=== PATIENT | male | born 1940 | race African-American/Black ===

== ENCOUNTER 2019-11-15 19:52 | Inpatient (IN) | payer OTHER ==
[2019-11-15] MEDS ORDERED: Ondansetron PF 4 MG/2 ML Vial ONE (20:22)
[2019-11-15 21:06] LABS: ALT (SGPT) Less than 7 U/L (8-55); AST (SGOT) 17 U/L (5-34); Albumin 4.4 g/dL (3.4-4.8); Alkaline Phosphatase 73 U/L (40-110); Anion Gap 20 mmol/L (10-20); BUN (Urea Nitrogen) 27 mg/dL (8.4-25.7); Bilirubin, Total 0.3 mg/dL (0.2-1.2); Calc. Creatinine Clearance 0 mL/min (70-130); Calcium 8.9 mg/dL (7.8-10.44); Carbon Dioxide 20 mmol/L (23-31); Chloride 108 mmol/L (98-107); Estimated GFR-MDRD 29; Globulin 4.3 g/dL (2.4-3.5); Glucose 100 mg/dL (83-110); Potassium 4.6 mmol/L (3.5-5.1); Protein, Total 8.7 g/dL (5.8-8.1); Sodium 143 mmol/L (136-145)
--- NOTE | 2019-11-15 21:40 | PDOC.HHP ---
Hospitalist HPI - History of Present Illness Nausea and vomiting History of Present Illness: PCP: [place] clinic The patient is a 79-year-old male with past medical history significant for myelofibrosis and BPH. He presented to the ER [facility] and [place] with progressive weakness over the last few days and vomiting since 4:00 this morning. The patient tried to eat several things different times over the course the day but has had vomiting secondary to this. The patient went to the [facility] this morning and had a low blood pressure, and because this was sent to the emergency department for evaluation. He does state he has a history of chronic UTIs and has been seen at [facility] for complicated UTIs in the past. Patient states he has been taking Pepto-Bismol for the nausea. He also reports constipation. The pain he states is in the suprapubic region. Patient also states that he has had an increase in the frequency of urinating. He denies any pain with urination and also denies any fevers, chest pain, upper abdominal pain, sick contacts. ED Course: In the [place] ER they completed blood work and a urinalysis. They also completed a chest x-ray and an EKG. They administered IV Zofran and IV Rocephin 1 g. In the [place] ER they completed additional lab work. They also administered 1 L of normal saline and another dose of IV Zofran. Hospitalist ROS - Review of Systems Constitutional: denies: fever, chills, sweats, weakness, malaise, other Eyes: denies: pain, vision change, conjunctivae inflammation, eyelid inflammation, redness, other ENT: denies: ear pain, ear discharge, nose pain, nose discharge, nose congestion , mouth pain, mouth swelling, throat pain, throat swelling, other Respiratory: denies: cough, dry, shortness of breath, hemoptysis, SOB with excertion, pleuritic pain, sputum, wheezing, other Cardiovascular: denies: chest pain, palpitations, orthopnea, paroxysmal noc. dyspnea, edema, light headedness, other Gastrointestinal: reports: nausea, vomiting, abdominal pain Genitourinary: reports: frequency Musculoskeletal: denies: neck pain, shoulder pain, arm pain, back pain, hand pain, leg pain, foot pain, other Skin: denies: rash, lesions, caroline, bruising, other Neurological: denies: weakness, numbness, incoordination, change in speech, confusion, seizures, other All other systems reviewed; all pertinent +/- noted in HPI/Subj - Medication Medications: No known drug allergies Current medications: Amlodipine 10 mg Atorvastatin 10 mg Camphor Carvedilol 12.5 mg twice a day Vitamin D3 2000 units Clopidogrel 75 mg Ferrous gluconate 324 mg Finasteride 5 mg Gabapentin 100 mg Lidocaine patch Melatonin 3 mg Myrbetriq 25 mg Tamsulosin 0.4 mg Hospitalist History - Past Medical History Source: patient Cardiac: reports: HTN, Hyperlipidemia Renal/: reports: Benign prostatic enlarg. Other Medical History: Myelofibrosis - Past Surgical History Other Surgical History: Bone marrow biopsy, surgeries to fix circulation and right leg - Family History Family History: reports: no pertinent history - Social History Smoking Status: Never smoker Alcohol: reports: None Drugs: reports: none - Exam General Appearance: NAD, awake alert General - other findings: VS: BP 115/88, P 85, respiratory 24, T 99.5, 98% room air Eye: PERRL, anicteric sclera ENT: normocephalic atraumatic, dry oral mucosa Neck: supple, no lymphadenopathy Heart: RRR, no murmur, no gallops, no rubs Respiratory: CTAB, no wheezes, no rales, no ronchi Gastrointestinal: normal bowel sounds, distended Extremities: 2+ LE edema Musculoskeletal: generalized weakness Psychiatric: oriented to person, oriented to place Hospitalist Results - Labs Result Diagrams: 11/15/19 20:43 Lab results: Sodium 143 mmol/L (136-145) 11/15/19 20:43 Potassium 4.6 mmol/L (3.5-5.1) 11/15/19 20:43 Chloride 108 mmol/L (98-107) H 11/15/19 20:43 Carbon Dioxide 20 mmol/L (23-31) L 11/15/19 20:43 BUN 27 mg/dL (8.4-25.7) H 11/15/19 20:43 Creatinine 2.57 mg/dL (0.7-1.3) H 11/15/19 20:43 Glucose 100 mg/dL (83-110) 11/15/19 20:43 Lactic Acid 1.6 mmol/L (0.5-2.2) 11/15/19 20:43 Calcium 8.9 mg/dL (7.8-10.44) 11/15/19 20:43 Total Bilirubin 0.3 mg/dL (0.2-1.2) 11/15/19 20:43 AST 17 U/L (5-34) 11/15/19 20:43 ALT Less than 7 U/L (8-55) L 11/15/19 20:43 Alkaline Phosphatase 73 U/L (40-110) 11/15/19 20:43 Troponin I 0.026 ng/mL (< 0.028) 11/15/19 20:43 Serum Total Protein 8.7 g/dL (5.8-8.1) H 11/15/19 20:43 Albumin 4.4 g/dL (3.4-4.8) 11/15/19 20:43 Laboratory Tests 11/15/19 11/15/19 16:30 16:40 WBC 11.7 H Hgb 8.8 L Hct 29.3 L Plt Count 148 Neutrophils % (Manual) 40 L Band Neuts % (Manual) 15 H Urine Color Yellow Urine Protein > or equal to 300 A Urine Ketones Trace A Urine Blood Trace A Ur Leukocyte Esterase Moderate H Urine RBC 11-20 A Urine WBC 21-50 A Ur Squamous Epith Cells 0-3 Urine Bacteria 4+ A - EKG Interpretation EKG: Sinus rhythm left ventricular hypertrophy - Radiology Interpretation Chest x-ray Status: report reviewed by me Additional Comment: Impression: No acute cardiopulmonary process Hospitalist H&P A/P - Problem (1) UTI (urinary tract infection) Status: Acute (2) Nausea & vomiting Code(s): R11.2 - NAUSEA WITH VOMITING, UNSPECIFIED Status: Acute (3) Uboyg-eh-atpvtea kidney injury Code(s): N17.9 - ACUTE KIDNEY FAILURE, UNSPECIFIED; N18.9 - CHRONIC KIDNEY DISEASE, UNSPECIFIED Status: Acute (4) HTN (hypertension) Code(s): I10 - ESSENTIAL (PRIMARY) HYPERTENSION Status: Chronic (5) Hyperlipidemia Code(s): E78.5 - HYPERLIPIDEMIA, UNSPECIFIED Status: Chronic (6) BPH (benign prostatic hyperplasia) Code(s): N40.0 - BENIGN PROSTATIC HYPERPLASIA WITHOUT LOWER URINRY TRACT SYMP Status: Chronic - Plan Plan: Urinary tract infection Continue IV antibiotics Urine sent for culture Continue to monitor lab levels in a.m. Nausea and vomiting Treat with as needed antiemetics Monitor lab levels in the morning for electrolyte disturbance Acute on chronic kidney injury Dehydrated secondary to vomiting Continue to control nausea and vomiting Monitor lab levels in a.m. Received fluids in the ER, will reassess in a.m. to see if patient needs more fluids after lab work Hypertension Restart home medications Hyperlipidemia Restart home medications Patient surrogate decision-maker is his nephew Bart Rubin Patient wishes to be a DNR Patient was discussed with Dr. Queen
[2019-11-15] MEDS ORDERED: Acetaminophen 500 MG TAB ONE (22:13)
[2019-11-16] MEDS ORDERED: Acetaminophen 325 MG TAB PO PRN (00:17)
[2019-11-16] MEDS ORDERED: cefTRIAXone\\ROCEPHIN 1 GM in Sodium Chloride 0.9% 100 ML IVPB SCH ×3 (00:30→17:00)
[2019-11-16 08:13] LABS: Band 29 % (5-11); Hemoglobin 8.6 g/dL (14.0-18.0); Lymphocytes 17 % (21-51); MDiff Complete? YES; Mean Corpuscular HGB CONC 31.4 g/dL (32.0-36.0); Mean Corpuscular Hemoglobin 28.4 pg (27.0-31.0); Mean Corpuscular Volume 90.4 fL (78.0-98.0); Mean Platelet Volume 10.3 fL (7.4-10.4); Metamyelocyte 3 % (0-0); Monocytes 2 % (0-10); Myelocyte 3 % (0-0); Neutrophil 45 % (42-75); Nucleated RBC 1 % (0); Platelet Count 135 thou/uL (130-400); Promyelocytes 1 % (0-0); RBC Distribution Width 20.1 % (11.5-14.5); Red Blood Cell (RBC) Count 3.04 mill/uL (4.70-6.10); White Blood Cell (WBC) Count 16.7 thou/uL (4.8-10.8)
[2019-11-16] MEDS: Ondansetron PF 4 MG/2 ML Vial IVP PRN ×2 (09:16→16:08)
[2019-11-16 14:20] LABS: SARS-CoV-2 MS2 Positive; SARS-CoV-2 N Gene Negative; SARS-CoV-2 S Gene Negative; SARS-CoV-2 by NAA Not Detected (NotDetected); SARS-CoV-2 orf1ab Negative
[2019-11-16 15:51] LABS: Anion Gap 17 mmol/L (10-20); BUN (Urea Nitrogen) 27 mg/dL (8.4-25.7); Calc. Creatinine Clearance 21 mL/min (70-130); Calcium 8.2 mg/dL (7.8-10.44); Carbon Dioxide 19 mmol/L (23-31); Chloride 112 mmol/L (98-107); Estimated GFR-MDRD 34; Glucose 111 mg/dL (83-110); Potassium 4.1 mmol/L (3.5-5.1); Sodium 144 mmol/L (136-145)
--- NOTE | 2019-11-16 20:10 | PDOC.HOSPP ---
- Subjective Encounter Date: 11/16/19 Encounter Time: 14:00 Subjective: The patient reports that he has been having recurrent nausea and vomiting. He vomits up clear liquid and doesn't understand why it doesn't stay down. Denies sensation of anything getting stuck in his throat. He denies abdominal pain or diarrhea He does not recall his last BM, states he is passing gas He has no history of diabetes - Objective Vital Signs & Weight: Vital Signs (12 hours) Temp Pulse Resp BP Pulse Ox 11/16/19 16:06 97.9 F 78 16 140/71 96 11/16/19 11:30 98.7 F 70 16 145/69 H 98 Weight Admit Weight 126 lb Weight 126 lb Result Diagrams: 11/16/19 06:14 11/16/19 15:27 Hospitalist ROS - Review of Systems Constitutional: denies: fever, chills - Medication Medications: Active Medications Generic Name Dose Route Start Last Admin Trade Name Freq PRN Reason Stop Dose Admin Ceftriaxone Sodium 1 gm/ 100 mls @ 200 mls/hr 11/16/19 17:00 11/16/19 16:08 Sodium Chloride IVPB 100 mls 1700 NADIRA Administration Ondansetron HCl 4 mg 11/16/19 00:17 11/16/19 16:08 Zofran IVP 4 mg Q6H PRN Administration Nausea/Vomiting - Exam General Appearance: NAD, awake alert Eye: PERRL, anicteric sclera ENT: normocephalic atraumatic, no oropharyngeal lesions Neck: no JVD Heart: RRR, no murmur, no gallops, no rubs Respiratory: CTAB, no wheezes, no rales, no ronchi Gastrointestinal: soft, normal bowel sounds Gastrointestinal - other findings: RLQ tenderness > LLQ tenderness. Extremities: no cyanosis, no clubbing, no edema Skin: normal turgor, no lesions, no rashes Neurological: cranial nerve grossly intact, normal sensation to touch, no focal deficits, no new deficit Hosp A/P - Plan This is an 79 year old male who presents with recurrent nausea and vomiting Nausea/vomiting - possibly from dehydration vs kidney failure vs GERD - start IV fluids for REGINA - check UA - trial of protonix to rule out GERD - continue zofran. Trial phenergan standing at low dose 12.5 and if no improvement try 25 mg dose - abdominal X ray has been ordered Regina - creatine has improved from 2.5 to 2.2 - will start IV fluids - check UA Leukocytosis - WBC increasing from 11 to 16. Blood cultures negative. Check UA - obtain chest X ray - abd X ray pending - no fevers, COVID swab negative
[2019-11-16] MEDS ORDERED: Promethazine HCl 25 MG/ML VIAL IM/IV PRN (20:11)
--- NOTE | 2019-11-16 20:23 | RAD ---
KUB: DATE: 11-16-2019 History: Recurrent vomiting FINDINGS: Supine imaging is provided, limiting assessment for free intraperitoneal air and small bowel obstruct ion. There is marked gaseous distention of the stomach and there are numerous gas filled dilated loop s of small bowel. Findings are suspicious for small bowel obstruction. IMPRESSION: Gaseous distention of the stomach and multiple loops of small bowel suspicious for small bowel obstru ction. POS: OFF
[2019-11-16] MEDS: Sodium Chloride 0.9% 1,000 ML IV SCH (20:51)
[2019-11-16] MEDS: Pantoprazole 40 MG VIAL IVP SCH (20:53)
[2019-11-16] MEDS: Promethazine HCl 12.5 MG in Sodium Chloride 0.9% 50 ML IVPB PRN (21:10)
--- NOTE | 2019-11-16 21:20 | RAD ---
FRONTAL RADIOGRAPH CHEST PORTABLE SEMI UPRIGHT: Date: 11-16-2019 Comparison: 11-15-2019 History: Leukocytosis FINDINGS: There is mild increased linear density in the left lung base along the course of the left hemidiaphra gm, new when compared to prior imaging. No pneumothorax. No lobar consolidation or alveolar edema. Th ere I elevation of bilateral humeral heads suggesting rotator cuff pathology. IMPRESSION: New mild increased linear density in the left base. This may signify infectious pneumonitis, aspirati on or volume loss. Follow up imaging advised. POS: OFF
[2019-11-16 21:37] LABS: Bacteria/HPF 4+ HPF (None Seen); Bilirubin Negative (Negative); Blood, Urine 1+ (Negative); Clarity Turbid (Clear); Glucose, Urine (Dipstick) Normal (Negative); Ketone, Urine Negative (Negative); Leukocyte 250 Leu/uL (Negative); Nitrite Negative (Negative); Protein, Urine (Dipstick) 300 mg/dL (Neg-Trace); Specific Gravity, Urine 1.019 (1.002-1.036); Squamous Epithelial 0-3 HPF (0-3); Urobilinogen Normal mg/dL (Less than 2); WBC/HPF Greater than 50 HPF (0-3); pH, Urine 5.5 (5.0-9.0)
[2019-11-16 21:46] LABS: Renal Epithelial None Seen HPF (None Seen); Transitional Epithelial 0-3 HPF (None Seen)
[2019-11-16 21:47] LABS: Urine Culture Reflex Yes Yes
[2019-11-17] MEDS: Sodium Chloride 0.9% 1,000 ML IV SCH ×4 (05:59→21:13)
[2019-11-17] MEDS: Promethazine HCl 12.5 MG in Sodium Chloride 0.9% 50 ML IVPB PRN ×2 (05:59→21:13)
[2019-11-17] MEDS: Pantoprazole 40 MG VIAL IVP SCH ×2 (09:17→21:13)
[2019-11-17 11:07] LABS: Anion Gap 16 mmol/L (10-20); BUN (Urea Nitrogen) 31 mg/dL (8.4-25.7); Calc. Creatinine Clearance 23 mL/min (70-130); Calcium 8.3 mg/dL (7.8-10.44); Carbon Dioxide 20 mmol/L (23-31); Chloride 110 mmol/L (98-107); Estimated GFR-MDRD 38; Glucose 103 mg/dL (83-110); Potassium 3.7 mmol/L (3.5-5.1); Sodium 142 mmol/L (136-145)
[2019-11-17 11:13] LABS: Anisocytosis SLIGHT = 6-15 cells (100X) (0-5/hpf); Band 22 % (5-11); Hemoglobin 8.8 g/dL (14.0-18.0); Lymphocytes 8 % (21-51); MDiff Complete? YES; Mean Corpuscular HGB CONC 32.1 g/dL (32.0-36.0); Mean Corpuscular Hemoglobin 28.7 pg (27.0-31.0); Mean Corpuscular Volume 89.6 fL (78.0-98.0); Mean Platelet Volume 10.1 fL (7.4-10.4); Metamyelocyte 5 % (0-0); Monocytes 9 % (0-10); Myelocyte 4 % (0-0); Neutrophil 52 % (42-75); Nucleated RBC 1 % (0); Platelet Count 136 thou/uL (130-400); Poikilocytosis SLIGHT = 6-15 cells (100X) (0-5/hpf); Polychromasia SLIGHT = 2-3 cells (100X) (0-2/hpf); RBC Distribution Width 19.6 % (11.5-14.5); Red Blood Cell (RBC) Count 3.05 mill/uL (4.70-6.10); Tear Drops SLIGHT = 2-5 cells (100X) (0-1/hpf); White Blood Cell (WBC) Count 17.5 thou/uL (4.8-10.8)
[2019-11-17] MEDS ORDERED: Bisacodyl 5 MG TAB PO PRN (11:34)
--- NOTE | 2019-11-17 11:37 | PDOC.HOSPP ---
- Subjective Encounter Date: 11/17/19 Encounter Time: 10:45 Subjective: Patient states that he still feels extremely nauseous. He did have some oatmeal this morning and ever since then he has felt like vomiting, but has not vomited. His last bowel movement was on . He has not passed any gas. He states his abdomen has been swollen since and feels like a "drum". He states he is urinating adequately and has only mild pain when he urinates Patient does have a reported history of myelofibrosis. Patient states that he had a bone marrow biopsy done in June with oncologist in [place] and was told that his iron levels were low and he needs to take iron supplements. He states he has been taking 500 mg of iron daily since then. He was not told that he had any precancerous pathology. - Objective Vital Signs & Weight: Vital Signs (12 hours) Temp Pulse Resp BP BP Pulse Ox 11/17/19 11:19 98.9 F 89 16 135/85 96 11/17/19 07:20 99.7 F H 89 16 132/74 97 11/17/19 04:00 98.2 F 93 18 127/70 98 Weight Admit Weight 126 lb Weight 126 lb I&O: 11/16/19 11/17/19 11/18/19 06:59 06:59 06:59 Intake Total 1580 Output Total 450 Balance 1130 Result Diagrams: 11/17/19 10:33 11/17/19 10:32 Hospitalist ROS - Review of Systems Constitutional: denies: fever, chills - Medication Medications: Active Medications Generic Name Dose Route Start Last Admin Trade Name Freq PRN Reason Stop Dose Admin Ceftriaxone Sodium 1 gm/ 100 mls @ 200 mls/hr 11/16/19 17:00 11/16/19 16:08 Sodium Chloride IVPB 100 mls 1700 NADIRA Administration Sodium Chloride 1,000 mls @ 100 mls/hr 11/16/19 20:15 11/17/19 05:59 Normal Saline 0.9% IV 1,000 mls .Q10H NADIRA Administration Promethazine HCl 12.5 mg/ 50.5 mls @ 202 mls/hr 11/16/19 20:11 11/17/19 05:59 Sodium Chloride IVPB 50.5 mls Q6H PRN Administration Nausea/Vomiting Ondansetron HCl 4 mg 11/16/19 00:17 11/16/19 16:08 Zofran IVP 4 mg Q6H PRN Administration Nausea/Vomiting Pantoprazole Sodium 40 mg 11/16/19 21:00 11/17/19 09:17 Protonix IVP 40 mg Q12HR NADIRA Administration - Exam General Appearance: NAD, awake alert Eye: PERRL, anicteric sclera ENT: normocephalic atraumatic, no oropharyngeal lesions Neck: no JVD Heart: RRR, no murmur, no gallops, no rubs Respiratory: CTAB, no wheezes, no rales, no ronchi Gastrointestinal - other findings: RUQ tenderness most pronounced. Abd mildly firm, distended, dec BS Extremities: no cyanosis, no clubbing, no edema Skin: normal turgor, no lesions, no rashes Hosp A/P - Plan This is an 79 year old male who presents with recurrent nausea and vomiting Small bowel obstruction - abdominal X ray yesterday shows small bowel obstruction. Repeat today - will consult general surgery - keep NPO for now - suppository prn UTI - started on IV ceftriaxone on admission. UA is positive, urine culture is pending - given increase in WBC, will switch to zosyn Regina - creatine has improved from 2.5 to 2.2 - continue IV fluids Leukocytosis - WBC increasing to 17. Chest Xray shows possible new infiltrate - switch IV ceftriaxone to zosyn. COVID negative
[2019-11-17] MEDS: Piperacillin/Tazobactam 3.375 GM in Sodium Chloride 0.9% 100 ML IVPB SCH ×2 (12:07→18:02)
--- NOTE | 2019-11-17 12:57 | CON ---
DATE OF CONSULTATION: 11/17/2019 CHIEF COMPLAINT: Abdominal distention, nausea and vomiting. HISTORY OF PRESENT ILLNESS: This is an 79-year-old male with a history of myelodysplastic syndrome who presents with a history of abdominal distention. He was admitted with not feeling well and UTI. Abdominal distention has worsened over the last few days. He has nausea today. He has vomited. He states that his abdomen feels full and this is associated with pain. Of note, the patient had previous laparotomy, multiple abdominal procedures for vascular disease, which all started with an iatrogenic injury during a cardiac cath. He denies known history of small bowel resection, small bowel obstruction requiring operation. PAST MEDICAL HISTORY: Includes BPH, myelofibrosis, hypertension, hyperlipidemia. SURGICAL HISTORY: Multiple vascular surgeries, a bone marrow biopsy. MEDICINES AT HOME: 1. Amlodipine. 2. Statin. 3. . 4. Carvedilol. 5. Vitamin. 6. Plavix. 7. Finasteride. 8. Gabapentin. 9. Lidocaine patch. 10. Melatonin. 11. Myrbetriq. 12. Flomax. ALLERGIES: NO KNOWN DRUG ALLERGIES. SOCIAL HISTORY: No smoking. No alcohol. No other drugs. REVIEW OF SYSTEMS: Ten-system review of systems is otherwise negative unless described above. PHYSICAL EXAMINATION: VITAL SIGNS: Blood pressure 135/85, pulse 89, respirations 12. He is afebrile. HEENT: Sclerae anicteric. Oropharynx clear. NECK: Without adenopathy. CHEST: Clear. HEART: Regular rate. ABDOMEN: Soft, very distended, diffuse mildly tender without guarding or rebound. There is no bowel sounds. Midline incision well healed without evidence of hernia. LABORATORY DATA: White blood cell count is 17, hemoglobin is 8.8. He has 22 bands. Sodium 142, potassium 3.7, creatinine 2.06. COVID negative. Urine, greater than 50 WBCs, leukocyte positive, 4+ bacteria. Plain film yesterday was read as small bowel obstruction, although there is air in the colon which makes that unlikely. ASSESSMENT: Urinary tract infection, admitted with abdominal distention. This likely represents ileus. It could also represent small bowel obstruction. Place NG tube to low intermittent wall suction. If not improved tomorrow, I will get CT scan of the abdomen. Job ID: [id number]
--- NOTE | 2019-11-17 15:36 | RAD ---
ABDOMEN ONE VIEW: History: Small bowel obstruction follow up. Comparison: 11-16-2019 FINDINGS: NG tube has been placed. There are persistently abnormally dilated loops of small bowel in the abdome n showing very little change from prior study. IMPRESSION: Persistent abnormally dilated small bowel loops that certainly could represent a significant grade sm all bowel obstruction. POS: OFF
[2019-11-18] MEDS: Piperacillin/Tazobactam 3.375 GM in Sodium Chloride 0.9% 100 ML IVPB SCH ×4 (00:51→18:42)
[2019-11-18 06:18] LABS: Anion Gap 19 mmol/L (10-20); BUN (Urea Nitrogen) 36 mg/dL (8.4-25.7); Calc. Creatinine Clearance 24 mL/min (70-130); Calcium 8.3 mg/dL (7.8-10.44); Carbon Dioxide 18 mmol/L (23-31); Chloride 113 mmol/L (98-107); Estimated GFR-MDRD 40; Glucose 96 mg/dL (83-110); Potassium 3.7 mmol/L (3.5-5.1); Sodium 146 mmol/L (136-145)
[2019-11-18 06:31] LABS: Hemoglobin 8.5 g/dL (14.0-18.0); Mean Corpuscular Hemoglobin 27.6 pg (27.0-31.0); Mean Corpuscular Volume 89.1 fL (78.0-98.0); Mean Platelet Volume 10.6 fL (7.4-10.4); Platelet Count 136 thou/uL (130-400); RBC Distribution Width 19.5 % (11.5-14.5); White Blood Cell (WBC) Count 17.7 thou/uL (4.8-10.8)
[2019-11-18 06:53] LABS: Band 13 % (5-11); Eosinophils 1 % (0-10); Lymphocytes 11 % (21-51); MDiff Complete? YES; Monocytes 18 % (0-10); Neutrophil 57 % (42-75); Nucleated RBC 2 % (0)
[2019-11-18] MEDS: Pantoprazole 40 MG VIAL IVP SCH ×2 (08:21→20:21)
[2019-11-18] MEDS: Ondansetron ODT 4 MG TAB PO PRN (08:56)
--- NOTE | 2019-11-18 09:57 | CT ---
CT Abdomen Pelvis WO Con History: Small bowel obstruction versus ileus Comparison: None. Findings: Patchy opacities both lung bases. No basilar pneumothorax. No pericardial effusion. Enteric tube tip within the gastric body. Incomplete evaluation of avascular catheter along the right hemithorax and hemiabdomen with a gap jus t above the right iliac wing approximately 5 cm suggesting fracture vascular catheter. Biiliac graft is incompletely evaluated without intravenous contrast. Market small bowel dilatation to the level of the right upper quadrant of the abdomen. In the left lo wer quadrant small bowel loops are as high density layering material suggesting hemorrhage. Small volume free fluid in the pelvis. Mild free fluid within the mesenteric leaves. Markedly dilatat ion of the second third portion duodenum. Mildly prominent retroperitoneal periaortic lymph nodes. Degenerative sclerosis and bridging anterior osteophytes of the lumbar spine. Bone island of the righ t ilium. Impression: 1. High-grade small bowel obstruction to the distal ileum with transition point within the right uppe r quadrant of the abdomen. 2. Right renal atrophy with compensatory enlargement of the left kidney. No evidence for obstruction. 3. Hemorrhage within the left lower quadrant dilated small bowel as well as mesenteric fluid and smal l bore. Fluid in the pelvis. Surgical consultation advised. 4. Moderate bilateral retroperitoneal periaortic adenopathy as well as mild splenomegaly. Nonemergent workup for lymphoproliferative disorder recommended. 5. Bibasilar pneumonia.
--- NOTE | 2019-11-18 11:43 | PRG ---
DATE OF SERVICE: 11/18/2019 SUBJECTIVE: Mr. Schmitt feels better with the NG tube placement. CT scan this morning reveals likely small bowel obstruction. OBJECTIVE: VITAL SIGNS: His pulse is 101, respirations 18, blood pressure 146/72, and he is afebrile. NG tube output is 1030 so far. ABDOMEN: Softer, mildly diffusely tender without guarding or rebound. No obvious hernias. LABORATORY DATA: White blood cell count is 17, hemoglobin 8.5. Sodium 146, potassium 3.7, creatinine is 1.98. DIAGNOSTIC DATA: CT scan shows high-grade small bowel obstruction. ASSESSMENT: 1. Small bowel obstruction. 2. Urinary tract infection. PLAN: Continue NG to low intermittent wall suction for now. If not improved tomorrow, Gastrografin small bowel follow-through. We will continue to follow with you. Job ID: [id number]
[2019-11-18] MEDS: Sodium Chloride 0.9% 1,000 ML IV SCH (11:53)
--- NOTE | 2019-11-18 16:50 | PDOC.HOSPP ---
- Subjective Encounter Date: 11/18/19 Encounter Time: 08:00 Subjective: The patient is doing a little better. Significant output was noted from his NG tube. THe patient states his stomach is not as distended, and is more like a biscuit today rather than a drum. He is passing a lot of gas. He is requesting otf-elodia and states that it helped his bowels move a lot - Objective Vital Signs & Weight: Vital Signs (12 hours) Temp Pulse Resp BP BP Pulse Ox 11/18/19 16:05 97.8 F 101 H 16 159/75 H 96 11/18/19 11:37 99.5 F 97 16 160/73 H 96 11/18/19 07:32 98.1 F 101 H 18 146/72 H 95 Weight Admit Weight 126 lb Weight 126 lb I&O: 11/17/19 11/18/19 11/19/19 06:59 06:59 06:59 Intake Total 1580 2587 Output Total 450 1955 Balance 1130 632 Result Diagrams: 11/18/19 05:34 11/18/19 05:34 Hospitalist ROS - Review of Systems Constitutional: denies: fever, chills - Medication Medications: Active Medications Generic Name Dose Route Start Last Admin Trade Name Freq PRN Reason Stop Dose Admin Bisacodyl 5 mg 11/17/19 11:34 11/17/19 12:09 Dulcolax PO 5 mg DAILYPRN PRN Administration Constipation Sodium Chloride 1,000 mls @ 100 mls/hr 11/16/19 20:15 11/18/19 11:53 Normal Saline 0.9% IV 1,000 mls .Q10H NADIRA Administration Promethazine HCl 12.5 mg/ 50.5 mls @ 202 mls/hr 11/16/19 20:11 11/17/19 21:13 Sodium Chloride IVPB 50.5 mls Q6H PRN Administration Nausea/Vomiting Piperacillin Sod/Tazobactam 100 mls @ 200 mls/hr 11/17/19 12:00 11/18/19 11: 52 Sod 3.375 gm/ Sodium Chloride IVPB 100 mls Q6HR NADIRA Administration Ondansetron HCl 4 mg 11/16/19 00:17 11/18/19 08:56 Zofran Odt PO 4 mg Q6H PRN Administration Nausea/Vomiting Ondansetron HCl 4 mg 11/16/19 00:17 11/16/19 16:08 Zofran IVP 4 mg Q6H PRN Administration Nausea/Vomiting Pantoprazole Sodium 40 mg 11/16/19 21:00 11/18/19 08:21 Protonix IVP 40 mg Q12HR NADIRA Administration - Exam General Appearance: NAD, awake alert Eye: PERRL, anicteric sclera ENT: normocephalic atraumatic, no oropharyngeal lesions ENT - other findings: NG tube with significant bilious output Neck: no JVD Heart: RRR, no murmur, no gallops, no rubs Respiratory: CTAB, no wheezes, no rales, no ronchi Gastrointestinal: soft Gastrointestinal - other findings: improvement in distension, softer, mild tenderness. Dec bowel sounds Extremities: no edema Hosp A/P - Plan CT abdomen: high grade SBO to distal ileum This is an 79 year old male who presents with recurrent nausea and vomiting Small bowel obstruction - CT abdomen showed high grade SBO to distal ileum. NG tube in place, continue suction. Will advance to clears for now - if no improvement, consider SBFT for tomorrow per surgery UTI - started on IV ceftriaxone on admission. UA is positive, urine culture showing alpha hemolytic strep, sensitivities pending - continue IV zosyn Regina - creatine has improved to 1.98 - continue IV fluids Leukocytosis - WBC increasing to 17.7, likely reactive. Continue IV zosyn pending sensitivities. Chest Xray shows possible new infiltrate - . COVID negative - continue to monitor
[2019-11-19] MEDS: Piperacillin/Tazobactam 3.375 GM in Sodium Chloride 0.9% 100 ML IVPB SCH ×4 (00:16→17:35)
[2019-11-19] MEDS: Sodium Chloride 0.9% 1,000 ML IV SCH ×2 (00:18→02:11)
[2019-11-19 05:41] LABS: Hemoglobin 8.4 g/dL (14.0-18.0); Mean Corpuscular HGB CONC 30.4 g/dL (32.0-36.0); Mean Corpuscular Hemoglobin 28.1 pg (27.0-31.0); Mean Corpuscular Volume 92.4 fL (78.0-98.0); Mean Platelet Volume 10.8 fL (7.4-10.4); Platelet Count 128 thou/uL (130-400); RBC Distribution Width 19.7 % (11.5-14.5); Red Blood Cell (RBC) Count 2.98 mill/uL (4.70-6.10); White Blood Cell (WBC) Count 16.1 thou/uL (4.8-10.8)
[2019-11-19] MEDS: Ondansetron ODT 4 MG TAB PO PRN (06:48)
[2019-11-19 06:49] LABS: Anion Gap 18 mmol/L (10-20); BUN (Urea Nitrogen) 35 mg/dL (8.4-25.7); Calc. Creatinine Clearance 23 mL/min (70-130); Calcium 8.1 mg/dL (7.8-10.44); Carbon Dioxide 16 mmol/L (23-31); Chloride 116 mmol/L (98-107); Estimated GFR-MDRD 37; Glucose 86 mg/dL (83-110); Potassium 3.5 mmol/L (3.5-5.1); Sodium 146 mmol/L (136-145)
--- NOTE | 2019-11-19 07:14 | PDOC.GSPN ---
Surgery Progress Note: Subj - Subjective Patient reports: feels better, positive flatus, nausea, vomiting Narrative: Mr. Schmitt says he is feeling better today. However, he has still been vomiting frequently even after placement of the NG tube. He reports no abdominal pain, only a sensation of bloating on the R side of his abdomen. NG tube producing significant output. He is still passing gas but has not had a BM since . He states that his urine output is dark yellow. Surgery Progress Note: Obj - Vital signs Vital signs: Vital Signs - Most Recent Temp Pulse Resp BP Pulse Ox 98.0 F 108 H 18 153/76 H 93 L 11/18/19 19:55 11/18/19 19:55 11/18/19 19:55 11/18/19 19:55 11/18/19 19:55 - Physical Exam General: no distress Cardiovascular: regular rate and rhythm, no murmur Respiratory: clear to auscultation, normal expansion, normal respiratory effort Abdomen: decreased bowel sounds, distended, tender (tender to mild palpation in RLQ and deep palpation in LUQ/LLQ) Surgery Progress Note: Results - Labs Result Diagrams: 11/19/19 05:08 11/19/19 05:08 Lab results: Laboratory Results - last 24 hr 11/19/19 11/19/19 05:08 05:08 WBC 16.1 H RBC 2.98 L Hgb 8.4 L Hct 27.5 L MCV 92.4 MCH 28.1 MCHC 30.4 L RDW 19.7 H Plt Count 128 L MPV 10.8 H Sodium 146 H Potassium 3.5 Chloride 116 H Carbon Dioxide 16 L Anion Gap 18 BUN 35 H Creatinine 2.08 H Estimated GFR (MDRD) 37 Glucose 86 Calcium 8.1 Surgery Progress Note: A/P - Plan Plan: Stop clear liquid diet immediately. Small bowel follow-through with gastrograffin recommended. NG tube in place, continue to suction.
[2019-11-19] MEDS: Pantoprazole 40 MG VIAL IVP SCH ×2 (08:01→20:30)
--- NOTE | 2019-11-19 12:30 | PRG ---
DATE OF SERVICE: 11/19/2019 SUBJECTIVE: Mr. Schmitt is not complaining of any pain today. He did vomit around his NG tube earlier. Today, as I walked in the room, he had a clear liquid tray on the table in front of him. OBJECTIVE: VITAL SIGNS: He is afebrile and his vital signs are stable. NG output overnight was a 1000. Urine output is adequate. ABDOMEN: His abdomen is soft, but it is persistently distended. It is softer than it was yesterday. He has occasional bowel sounds. He has minimal right-sided abdominal pain without guarding or rebound. LABORATORY DATA: His white blood cell count is 16, hemoglobin 8.4. Sodium is 146. Creatinine is 2.08. ASSESSMENT: Likely partial high-grade small-bowel obstruction. He is drinking way too much. PLAN: Strict n.p.o. We will allow small-bowel follow-through tomorrow if not markedly improved; specifically if not to drink any more otf elodia apparently. Job ID: [id number]
--- NOTE | 2019-11-19 13:28 | RAD ---
XR Abdomen 1 View/KUB History: Small bowel obstruction follow-up Comparison: Radiograph 2 days prior Findings: Enteric tube tip at the gastric antrum. There continue to be dilated loops of bowel in the abdomen. Left basilar opacity. Impression: Continued bowel obstruction. No interval reduction in small bowel size.
--- NOTE | 2019-11-19 18:22 | PDOC.HOSPP ---
- Subjective Encounter Date: 11/19/19 Encounter Time: 16:00 Subjective: The patient was reported to have vomit around his NG tube this morning. His diet was switched back to NPO. Patient reported some nausea. He denies abdominal pain. He has not had a bowel movement yet. He denies passing gas - Objective Vital Signs & Weight: Vital Signs (12 hours) Temp Pulse Resp BP Pulse Ox 11/19/19 07:47 97.9 F 97 18 162/82 H 94 L Weight Admit Weight 126 lb Weight 126 lb I&O: 11/18/19 11/19/19 11/20/19 06:59 06:59 06:59 Intake Total 2587 2450 Output Total 1955 1950 Balance 632 500 Result Diagrams: 11/19/19 05:08 11/19/19 05:08 Hospitalist ROS - Review of Systems Constitutional: denies: fever, chills - Medication Medications: Active Medications Generic Name Dose Route Start Last Admin Trade Name Freq PRN Reason Stop Dose Admin Bisacodyl 5 mg 11/17/19 11:34 11/17/19 12:09 Dulcolax PO 5 mg DAILYPRN PRN Administration Constipation Promethazine HCl 12.5 mg/ 50.5 mls @ 202 mls/hr 11/16/19 20:11 11/17/19 21:13 Sodium Chloride IVPB 50.5 mls Q6H PRN Administration Nausea/Vomiting Piperacillin Sod/Tazobactam 100 mls @ 200 mls/hr 11/17/19 12:00 11/19/19 17: 35 Sod 3.375 gm/ Sodium Chloride IVPB 100 mls Q6HR NADIRA Administration Ondansetron HCl 4 mg 11/16/19 00:17 11/19/19 06:48 Zofran Odt PO 4 mg Q6H PRN Administration Nausea/Vomiting Ondansetron HCl 4 mg 11/16/19 00:17 11/16/19 16:08 Zofran IVP 4 mg Q6H PRN Administration Nausea/Vomiting Pantoprazole Sodium 40 mg 11/16/19 21:00 11/19/19 08:01 Protonix IVP 40 mg Q12HR NADIRA Administration - Exam General Appearance: NAD, awake alert Eye: PERRL, anicteric sclera ENT: normocephalic atraumatic, no oropharyngeal lesions ENT - other findings: NG tube with yellow output Neck: no JVD Heart: RRR, no murmur, no gallops, no rubs Respiratory: CTAB, no wheezes, no rales, no ronchi Gastrointestinal: soft Gastrointestinal - other findings: mildly distended and tender to palpation Extremities: no cyanosis, no clubbing, no edema Skin: normal turgor, no lesions, no rashes Neurological: cranial nerve grossly intact, normal sensation to touch, no weakness, no new deficit Musculoskeletal: normal tone, normal strength, no muscle wasting Psychiatric: normal affect, normal behavior, A&O x 3, oriented to person Hosp A/P - Plan CT abdomen: high grade SBO to distal ileum This is an 79 year old male who presents with recurrent nausea and vomiting #Small bowel obstruction #Leukocytosis - CT abdomen showed high grade SBO to distal ileum. NG tube in place, continue suction. Patient was placed back to NPO. Consideration of small bowel follow through if no significant improvement tomorrow - WBC is improving, likely was reactive from SBO UTI - started on IV ceftriaxone on admission. urine culture growing contaminant - will discontinue antibiotics Regina - creatine around 2.08. Will resume IV fluids with D5W Hypernatremia/Hyperchloremia - was on normal saline, will switch to D5W Hypertension - BP in the 160's, will continue to monitor for now
[2019-11-19] MEDS: Dextrose 5% in Water 1,000 ML IV SCH (19:05)
[2019-11-20 05:57] LABS: Hemoglobin 8.3 g/dL (14.0-18.0); Mean Corpuscular HGB CONC 29.7 g/dL (32.0-36.0); Mean Corpuscular Hemoglobin 28.6 pg (27.0-31.0); Mean Corpuscular Volume 96.2 fL (78.0-98.0); Mean Platelet Volume 10.6 fL (7.4-10.4); Platelet Count 124 thou/uL (130-400); RBC Distribution Width 19.6 % (11.5-14.5); White Blood Cell (WBC) Count 13.3 thou/uL (4.8-10.8)
[2019-11-20 06:10] LABS: ALT (SGPT) Less than 7 U/L (8-55); AST (SGOT) 12 U/L (5-34); Alkaline Phosphatase 48 U/L (40-110); Anion Gap 16 mmol/L (10-20); BUN (Urea Nitrogen) 34 mg/dL (8.4-25.7); Bilirubin, Total 0.4 mg/dL (0.2-1.2); Calc. Creatinine Clearance 24 mL/min (70-130); Calcium 7.8 mg/dL (7.8-10.44); Carbon Dioxide 15 mmol/L (23-31); Chloride 118 mmol/L (98-107); Estimated GFR-MDRD 41; Globulin 3.6 g/dL (2.4-3.5); Glucose 117 mg/dL (83-110); Protein, Total 6.6 g/dL (5.8-8.1); Sodium 146 mmol/L (136-145)
[2019-11-20] MEDS: Dextrose 5% in Water 1,000 ML IV SCH ×2 (07:56→20:40)
[2019-11-20] MEDS: Pantoprazole 40 MG VIAL IVP SCH ×2 (07:58→20:40)
[2019-11-20] MEDS ORDERED: Potassium Chloride 40 MEQ in Sodium Chloride 0.9% 250 ML 250 ML IVPB SCH (08:30)
[2019-11-20] MEDS: Ondansetron PF 4 MG/2 ML Vial IVP PRN (09:07)
--- NOTE | 2019-11-20 10:47 | PQF ---
CLINICAL DOCUMENTATION CLARIFICATION FORM: Dear Dr. MILAN BAUMANN Date: 11-20-19 Please exercise your independent, professional judgment in responding to the clarification form. Clinical indicators are provided on the bottom of this form for your review. Please check appropriate box(es): [ ] Protein Calorie Malnutrition: [ ] Mild [ ] Moderate [ X ] Severe [ ] Other Malnutrition (please specify) __ [ ] Other diagnosis [ ] Unable to determine In addition, please specify: Present on Admission (POA): [ X ] Yes [ ] No [ ] Unable to determine For continuity of documentation, please document condition throughout progress notes and discharge summary. Thank You. To be completed by CDI/Coding staff for physician review: CLINICAL INDICATORS - SIGNS / SYMPTOMS / LABS / RESULTS AND LOCATION IN MR: DIRECTOR PRODUCT SAFETY CONSULT 11-16-19: MST score: 2 (1 for 2-13# wt loss, 1 for eating poorly because of a decreased appetite); The patient reports food getting "caught" and "won't go down" as his primary complaint. He has some vomiting and reports constipation with last BM 2 days ago. States he was eating fairly well prior to this however does endorse 10-20# wt loss since June 18. He has multiple areas of severe fat and muscle wasting. DIRECTOR PRODUCT SAFETY CONSULT 11-16-19: severe fat wasting to triceps, orbital region and buccal fat pads and severe muscle wasting observed to temples and clavicles, suggestive of severe malnutrition in the context of acute on chronic illness RISK FACTORS / RESULTS AND LOCATION IN MR: DIRECTOR PRODUCT SAFETY CONSULT 11-16-19: MST score: 2 (1 for 2-13# wt loss, 1 for eating poorly because of a decreased appetite); The patient reports food getting "caught" and "won't go down" as his primary complaint. He has some vomiting and reports constipation with last BM 2 days ago. States he was eating fairly well prior to this however does endorse 10-20# wt loss since June 18. TREATMENT / RESULTS AND LOCATION IN MR: 1) Recommend MARINE PROPULSION TECHNICIAN eval due to patient report of dysphagia. 2) If MARINE PROPULSION TECHNICIAN determines patient is safe for PO intake, continue current Regular base diet. Monitor renal function. 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 3) If patient is safe for PO intake, provide Ensure Enlive TID. 4) Provide anti-emetic and bowel regimen PRN. Moderate Malnutrition (in acute illness) Energy Intake: <75% of estimated energy requirement for > 7 days Weight Loss: 1-2%/1 week; 5%/ 1 month; 7.5%/3 months Other: mild body fat loss; mild muscle mass loss; mild fluid accumulation; Severe Malnutrition (in acute illness) Energy Intake: = 50% of estimated energy requirement for = 5 days Weight Loss: >2%/1 week; >5%/1 month; >7.5%/3 months Other: moderate body fat loss; moderate muscle mass loss; moderate- severe fluid accumulation; measurably reduced process controller strength Moderate Malnutrition (in chronic illness) Energy Intake: <75% of estimated energy requirement for =1 month Weight Loss: 5%/1 month; 7.5%/3 months; 10%/6 months; 20%/1 year Other: mild body fat loss; mild muscle mass loss; mild fluid accumulation Severe Malnutrition (in chronic illness) Energy Intake: =75% of estimated energy requirement for =1 month Weight Loss: >5%/1 month; >7.5%/3 months; >10%/6 months; >20%/1 year Other: severe body fat loss; severe muscle mass loss; severe fluid accumulation; measurably reduced process controller strength CDS Signature: Mayela Alas Phone #: [phone] Date: This is a permanent part of the Medical Record [facility]
--- NOTE | 2019-11-20 11:14 | PQF ---
CLINICAL DOCUMENTATION CLARIFICATION FORM: Dear Dr. MILAN BAUMANN Date / Time: 11-20-19 Please exercise your independent, professional judgment in responding to the clarification form. Clinical indicators are provided on the bottom of this form for your review. Please check appropriate box(es): [ ] Sepsis [ ] Severe sepsis with associated acute organ dysfunction: [ ] Acute Kidney injury w/o ATN [ ] Additional/Other: please specify: [ ] Localized infection without sepsis [ X ] SIRS due to non-infectious process (please specify etiology) SBO_ [ ] with organ dysfunction [ ] without organ dysfunction [ ] Other diagnosis [ ] Unable to determine In addition, please specify: Present on Admission (POA): [ ] Yes [ ] No [ ] Unable to determine For continuity of documentation, please document condition throughout progress notes and discharge summary. Thank You. To be completed by CDI/Coding staff for physician review: CLINICAL INDICATORS - SIGNS / SYMPTOMS / LABS / RESULTS AND LOCATION IN MR: H&P 11-15-19: ACUTE UTI, NAUSEA, VOMITING, ACUTE ON CHRONIC KIDNEY INJURY, HTN ER T 103.1, RR 24 WBC 11-16-19: 16.7, 11-17-19: 17.5, 11-18-19: 17.7 BANDS 11-16-19: 29%, 11-17-19: 22%: RISK FACTORS / RESULTS AND LOCATION IN MR: H&P 11-15-19: ACUTE UTI, NAUSEA, VOMITING, ACUTE ON CHRONIC KIDNEY INJURY, HTN TREATMENTS / RESULTS AND LOCATION IN MR: ER NOTES: NS IVF MAR: 11-17-19: ZOSYN IV CDS Signature: Mayela Alas Phone #: [phone] Date: This is a permanent part of the Medical Record [facility]
--- NOTE | 2019-11-20 14:22 | PDOC.HOSPP ---
- Subjective Encounter Date: 11/20/19 Encounter Time: 12:00 Subjective: The patient had small bowel follow through today. He denies abdominal pain, nausea or vomiting He has passed gas. He has not had BM yet - Objective Vital Signs & Weight: Vital Signs (12 hours) Temp Pulse Resp BP BP Pulse Ox 11/20/19 08:00 97.9 F 71 16 147/76 H 98 11/20/19 07:23 97.9 F 71 16 147/76 H 98 11/20/19 04:35 97.9 F 88 17 156/67 H 98 Weight Admit Weight 126 lb Weight 126 lb I&O: 11/19/19 11/20/19 11/21/19 06:59 06:59 06:59 Intake Total 2450 900 Output Total 1950 1100 Balance 500 -200 Result Diagrams: 11/20/19 05:42 11/20/19 05:42 Hospitalist ROS - Review of Systems Constitutional: denies: fever, chills - Medication Medications: Active Medications Generic Name Dose Route Start Last Admin Trade Name Freq PRN Reason Stop Dose Admin Bisacodyl 5 mg 11/17/19 11:34 11/17/19 12:09 Dulcolax PO 5 mg DAILYPRN PRN Administration Constipation Promethazine HCl 12.5 mg/ 50.5 mls @ 202 mls/hr 11/16/19 20:11 11/17/19 21:13 Sodium Chloride IVPB 50.5 mls Q6H PRN Administration Nausea/Vomiting Dextrose/Water 1,000 mls @ 75 mls/hr 11/19/19 18:30 11/20/19 07:56 D5w IV 1,000 mls .[id number] NADIRA Administration Ondansetron HCl 4 mg 11/16/19 00:17 11/19/19 06:48 Zofran Odt PO 4 mg Q6H PRN Administration Nausea/Vomiting Ondansetron HCl 4 mg 11/16/19 00:17 11/20/19 09:07 Zofran IVP 4 mg Q6H PRN Administration Nausea/Vomiting Pantoprazole Sodium 40 mg 11/16/19 21:00 11/20/19 07:58 Protonix IVP 40 mg Q12HR NADIRA Administration - Exam General Appearance: NAD, awake alert Eye: PERRL, anicteric sclera ENT: normocephalic atraumatic, no oropharyngeal lesions ENT - other findings: NG tube in place with yellow output, not hooked up to suction Neck: no JVD Heart: RRR, no murmur, no gallops, no rubs Respiratory: CTAB, no wheezes, no rales, no ronchi Gastrointestinal: soft, diminished bowl sounds Gastrointestinal - other findings: not significantly distended Extremities: no cyanosis, no clubbing, no edema Skin: normal turgor, no lesions, no rashes Neurological: cranial nerve grossly intact, normal sensation to touch, no focal deficits, no new deficit Musculoskeletal: normal tone, normal strength, no muscle wasting Hosp A/P - Plan CT abdomen: high grade SBO to distal ileum This is an 79 year old male who presents with recurrent nausea and vomiting #Small bowel obstruction #Leukocytosis - CT abdomen showed high grade SBO to distal ileum. NG tube in place, continue suction. Patient was placed back to NPO. Small bowel follow through done today and is pending - WBC down to 13.1 Hypokalemia- likely poor po intake - potassium 3.0, will replace Hypernatremia - sodium still 146. On D5W, will increase to 100 ml/hour UTI - started on IV ceftriaxone on admission. urine culture growing contaminant -zosyn disocontinued Regina - creatine stable will increase rate of IV fluids Hypertension - controlled - BP in the 140s
--- NOTE | 2019-11-20 16:18 | RAD ---
General: Nuclear medicine Gastrografin small bowel HISTORY: Small bowel obstruction COMPARISON: Single view abdomen radiograph 2019 FINDINGS: Initial agricultural equipment mechanic radiograph demonstrates a markedly distended stomach and markedly central mul tiple loops of small bowel. Suture chain in the epigastric region noted. Nasogastric tube terminates in stomach. Scattered fecal material and air in a decompressed colon. Patient was administered Gastrografin. The. 2 and 4 hour images, there is Gastrografin in some dilate d loops of proximal and mid small bowel. There is persistent contrast in the stomach. On the 6 hour image, there is no significant passage of contrast. There are still residual contrast in multiple dis tended small bowel loops as well as contrast in the stomach. IMPRESSION: High-grade small bowel obstruction. Findings conveyed to Dr. Cabrera 11/20/2019 at 4:17 PM code CR Transcribed Date/Time: 11/20/2019 4:20 PM
--- NOTE | 2019-11-20 18:43 | PRG ---
DATE OF SERVICE: 11/20/2019 SUBJECTIVE: Mr. Schmitt had small-bowel follow-through today, which again shows likely high-grade small bowel obstruction. He denies pain. He states that his bloating is a little bit better. OBJECTIVE: VITAL SIGNS: His pulse is 71, his respirations are 16, and blood pressure is 147/76. ABDOMEN: Gastric drainage today has been significant, especially with a small bowel follow-through. No bowel movements. His abdomen is distended with no bowel sounds. LABORATORY DATA: White blood cell count today is 13, hemoglobin 8.3. Sodium 146, potassium 3.0, and creatinine 1.93. Small-bowel follow-through as above. ASSESSMENT: High-grade small-bowel obstruction. PLAN: Ex lap lysis of adhesions tomorrow. Risks, benefits, and alternatives discussed. He gives consent. We will do this tomorrow. Job ID: [id number]
[2019-11-21] MEDS: Dextrose 5% in Water 1,000 ML IV SCH ×4 (01:28→23:33)
--- NOTE | 2019-11-21 03:24 | PDOC.EVN ---
Event Note - Event Note Event Note: called by RN patient is tachycardic and at some point had a drop in his oxygen sat, on exam he does appear tachypneic although he denies sob. CXR might be showing increased vascular congestion. labs were drawn and still pending for ddimer, bnp, bmp, and cbc A/P: in view of the above he is not a ready for a procedure, will elay that to day team will stop fluids and give lasix for now awaiting lab results. addendum 6:50 am spoke with surgery and gave update will hold off on Heparin for now will start Zosyn for possible aspiration pneumonia and Urosepsis will start IVF code status to be full code as per patient's wishes
[2019-11-21] MEDS ORDERED: Furosemide 40 MG/4 ML VIAL SLOW IVP SCH (03:30)
[2019-11-21 03:47] LABS: Anion Gap 18 mmol/L (10-20); BUN (Urea Nitrogen) 40 mg/dL (8.4-25.7); Calc. Creatinine Clearance 17 mL/min (70-130); Calcium 8.6 mg/dL (7.8-10.44); Carbon Dioxide 17 mmol/L (23-31); Chloride 116 mmol/L (98-107); Estimated GFR-MDRD 27; Glucose 110 mg/dL (83-110); Potassium 3.1 mmol/L (3.5-5.1); Sodium 148 mmol/L (136-145)
[2019-11-21 04:31] LABS: Band 14 % (5-11); Hemoglobin 10.1 g/dL (14.0-18.0); Lymphocytes 10 % (21-51); MDiff Complete? YES; Mean Corpuscular HGB CONC 32.7 g/dL (32.0-36.0); Mean Corpuscular Hemoglobin 29.1 pg (27.0-31.0); Mean Corpuscular Volume 89.2 fL (78.0-98.0); Mean Platelet Volume 10.4 fL (7.4-10.4); Monocytes 19 % (0-10); Myelocyte 1 % (0-0); Neutrophil 56 % (42-75); Nucleated RBC 1 % (0); Platelet Count 183 thou/uL (130-400); RBC Distribution Width 19.3 % (11.5-14.5); Red Blood Cell (RBC) Count 3.46 mill/uL (4.70-6.10); Tear Drops SLIGHT = 2-5 cells (100X) (0-1/hpf)
[2019-11-21 05:28] LABS: Lactic Acid 1.1 mmol/L (0.5-2.2)
[2019-11-21 05:30] LABS: Actual Bicarbonate (HCO3a) 18.3 mEq/L (22-28); Base Excess (BEa) -5.6 mEq/L (-2.0 to +3.0); CO2 Tension 30.3 mmHg (35.0-45.0); Calcium, Ionized (arterial) 1.12 mmol/L (1.12-1.30); Carboxyhemoglobin (COHb) 0.2 gm% (0.0-3.0); Hemoglobin (Hb) 10.5 g/dL (14.0-18.0)
[2019-11-21 05:35] LABS: O2 Tension (PaO2), arterial 42.1 mmHg (> 60.0)
[2019-11-21 05:36] LABS: Puncture Site RBR
[2019-11-21 05:37] LABS: ALV-art Gradient 69.755 (0-20)
[2019-11-21] MEDS ORDERED: Sodium Chloride 0.9% 1,000 ML IV SCH (06:15)
[2019-11-21] MEDS ORDERED: Sodium Chloride 0.9% 500 ML IV SCH (06:30)
--- NOTE | 2019-11-21 07:16 | PDOC.GSPN ---
Surgery Progress Note: Subj - Subjective Patient reports: positive flatus, nausea, no bowel movement, vomiting Narrative: Mr. Schmitt was moved to CCU yesterday due to tachycardia and drop in O2 sat. Potential causes include PE and aspiration pneumonia. His small bowel follow yesterday showed likely high grade small bowel obstruction, so ex lap is planned for today. He has been passing gas. He reports nausea and says he last vomited at 4 am today. He states that he is not in any pain, only reporting mild bloating which is improved from yesterday. Denies chest pain, shortness of breath, abdominal pain, recent bowel movement. Surgery Progress Note: Obj - Vital signs Vital signs: Vital Signs - Most Recent Temp Pulse Resp BP Pulse Ox 97.9 F 127 H 18 119/75 100 11/21/19 05:10 11/21/19 05:10 11/21/19 05:10 11/21/19 05:10 11/21/19 05:15 - Physical Exam General: no distress Cardiovascular: regular rate and rhythm (tachycardic) Respiratory: clear to auscultation, normal expansion, normal respiratory effort Abdomen: soft, decreased bowel sounds (bowel sounds decreased from yesterday), tender Surgery Progress Note: Results - Labs Result Diagrams: 11/21/19 03:06 11/21/19 03:06 Lab results: Laboratory Results - last 24 hr 11/21/19 11/21/19 11/21/19 03:06 03:06 03:06 WBC 18.0 H RBC 3.46 L Hgb 10.1 L Hct 30.8 L MCV 89.2 MCH 29.1 MCHC 32.7 RDW 19.3 H Plt Count 183 MPV 10.4 Neutrophils % (Manual) 56 Band Neuts % (Manual) 14 H Lymphocytes % (Manual) 10 L Monocytes % (Manual) 19 H Myelocytes % 1 H Nucleated RBCs # (Man) 1 H Tear Drop Cells SLIGHT = 2-5 cells D-Dimer Greater than 20.00 H Specimen Type Puncture Site Bicarbonate Actual ABG pH ABG pCO2 ABG pO2 ABG O2 Sat (Measured) ABG O2 Content ABG Base Excess ABG Hematocrit ABG Hemoglobin ABG Oxyhemoglobin ABG Carboxyhemoglobin ABG Methemoglobin ABG Deoxyhemoglobin Ravi Test A-a O2 Gradient Ionized Calcium Inspired O2 Sodium 148 H Potassium 3.1 L Chloride 116 H Carbon Dioxide 17 L Anion Gap 18 BUN 40 H Creatinine 2.73 H Estimated GFR (MDRD) 27 Glucose 110 Lactic Acid Calcium 8.6 B-Natriuretic Peptide 11/21/19 11/21/19 11/21/19 03:06 04:58 05:15 WBC RBC Hgb Hct MCV MCH MCHC RDW Plt Count MPV Neutrophils % (Manual) Band Neuts % (Manual) Lymphocytes % (Manual) Monocytes % (Manual) Myelocytes % Nucleated RBCs # (Man) Tear Drop Cells D-Dimer Specimen Type art Puncture Site RBR Bicarbonate Actual 18.3 L ABG pH 7.40 ABG pCO2 30.3 L ABG pO2 42.1 L* ABG O2 Sat (Measured) 72.7 L* ABG O2 Content 10.7 L ABG Base Excess -5.6 L ABG Hematocrit 31.0 L ABG Hemoglobin 10.5 L ABG Oxyhemoglobin 72.3 L ABG Carboxyhemoglobin 0.2 ABG Methemoglobin 0.30 ABG Deoxyhemoglobin 27.2 H Ravi Test Not Reportable A-a O2 Gradient 69.755 H Ionized Calcium 1.12 Inspired O2 21 Sodium 147 Potassium 3.30 L Chloride 115 H Carbon Dioxide Anion Gap BUN Creatinine Estimated GFR (MDRD) Glucose Lactic Acid 1.1 Calcium B-Natriuretic Peptide 194.3 H Surgery Progress Note: A/P - Plan Plan: Plan to go ahead with today's ex lap surgery due to small bowel obstruction and possible bowel ischemia. Zosyn for possible aspiration pneumonia.
--- NOTE | 2019-11-21 07:57 | RAD ---
EXAM: Single view of the chest HISTORY: Tachycardia COMPARISON: 11/16/2019 FINDINGS: Single view of the chest shows a normal sized cardiomediastinal silhouette. Opacity in the left lung base may represent atelectasis or an infiltrate. An NG tube is seen with its tip in the distal esophagus. No acute osseous abnormality. IMPRESSION: 1. Left basilar atelectasis versus infiltrate 2. NG tube in the distal esophagus needs to be completely advanced into the stomach.
--- NOTE | 2019-11-21 09:19 | PRG ---
DATE OF SERVICE: 11/21/2019 SUBJECTIVE: Mr. Schmitt had likely aspiration yesterday. Repeat scan show bilobar pneumonia. He has been more tachycardic and his sats have been low, but he is really not tachypneic anymore. He is comfortable. He is in no respiratory distress. His abdomen is nontender, but still very distended. He still has high NG tube output. Repeat CAT scan showed again likely high-grade small bowel obstruction. ASSESSMENT: High-grade small bowel obstruction, not improved after several days of attempted nonoperative management. PLAN: Exploratory laparotomy later today. He understands he may need to be ventilated postop. Job ID: [id number]
--- NOTE | 2019-11-21 09:19 | CT ---
PRELIMINARY REPORT/[facility]/EMERGENCY AFTER HOURS PROCEDURE: Receipt of this report by the clinical staff was confirmed with Coy Silverio MD by João Rm on Nov 21, 2019 06:10:00 CDT. Addendum electronically signed by João Rm on November 21, 2019 6:10:10 AM CDT EXAM: CT Chest Without Intravenous Contrast. CT Abdomen and Pelvis Without Intravenous Contrast CLINICAL HISTORY: Pt c/o of shortness of breath, difusse abdominal pain, nausea/vomiting. Abdominal distention *No IV contrast due to low GFR TECHNIQUE: Axial computed tomography images of the chest, abdomen and pelvis without intravenous contrast. CONTRAST: Without COMPARISON: Abdominal/pelvic CT from November 18, 2019. FINDINGS: CHEST: LUNGS: Groundglass, reticulonodular opacities, and trace consolidation within the lower lobes bilaterally, w ith less prominent groundglass opacities within the right upper lobe and right middle lobe. PLEURAL SPACES: No pleural effusion. No pneumothorax. HEART AND MEDIASTINUM: No cardiomegaly. No significant pericardial effusion. LYMPH NODES: Scattered mediastinal adenopathy, with index lower paratracheal lymph node measuring approximately 8 mm in short axis diameter, seen on image 27 of series 2. Mediastinal ian calcifications. ABDOMEN AND PELVIS: LIVER: Unremarkable. No focal lesions. GALLBLADDER AND BILE DUCTS: The gallbladder is decompressed and not well evaluated. The common bile duct is not well visualized. PANCREAS: Unremarkable. SPLEEN: Unremarkable. ADRENAL GLANDS: Thickening of the bilateral adrenal glands. KIDNEYS, URETERS, AND BLADDER: Right renal atrophy.. No hydronephrosis or nephrolithiasis. No ureteral or bladder calculi. Wall thi ckening of the urinary bladder, nonspecific but may be related to slight underdistention or cystitis. STOMACH AND BOWEL: Enteric tube in place with tip just distal to the GE junction within the stomach. Significant dilata tion of multiple loops of small bowel throughout the abdomen, measuring up to 5.1 cm in diameter, wit h transition point within the right lower quadrant, seen on images 87-91 of series 2 and images 49-52 of series 601, in the region of proximal postsurgical change involving the right iliac vasculature. No CT evidence of colitis or acute diverticulitis. PERITONEUM: Small volume fluid, more prominent within the pelvis. No free air. Scattered inflammatory fat strand ing throughout the abdomen and pelvis. LYMPH NODES: Significant periaortic lymphadenopathy, with index node measuring a proximally 1.4 cm in short axis d iameter, seen on image 78 of series 2. REPRODUCTIVE: Unremarkable as visualized. VASCULATURE: No aortic aneurysm. Vascular graft traverses the superficial soft tissues of the lateral right thora x abdomen, and anterior right thigh, incompletely evaluated due to the lack of intravenous contrast m aterial. Right iliac vascular graft within the pelvis, incompletely evaluated due to the lack of int ravenous contrast material. BONES AND SOFT TISSUES: No acute osseous abnormality. Degenerative changes of the spine. Post surgical changes within the r ight inguinal region. IMPRESSION: 1. High-grade small bowel obstruction. Transition point within the right lower quadrant near the pro ximal aspect of vascular postsurgical changes. Small volume fluid within the abdomen and pelvis, more prominent within the pelvis. Recommend General Surgery consult. 2. Multilobar pneumonia. Intermediate for code pneumonia. 3. Mediastinal and abdominal retroperitoneal/ periaortic lymphadenopathy. Consider neoplastic proce ss. 4. Wall thickening of the urinary bladder, nonspecific but may be related to slight underdistention or cystitis. ELECTRONICALLY SIGNED BY: Aime Mariee MD Nov 21, 2019 6:06:23 AM CDT This report is intended for review by the ordering physician only, in accordance of law. If you recei ve this report in error, please call [facility] at [phone]. FINAL REPORT CHEST AND ABDOMEN AND PELVIS CT SCAN WITHOUT IV CONTRAST EMERGENCY AFTER HOURS EXAM [id number] HOURS 11/21/2019 FINDINGS/IMPRESSION: Again noted are changes of a high grade small bowel obstruction with minimal free fluid. Some scatter ed retroperitoneal and periaortic adenopathy, stable. Borderline thickened wall gallbladder. Possible small amount of pericardial fluid. Patchy ground-glass opacity changes throughout both lungs, a find ing that can be seen with associated COVID pneumonia. Small chronic kidney with dilated collecting sy stem and hydronephrosis with secondary compensatory hypertrophy of the left kidney. Somewhat disconti nuous appearing right lateral chest and abdominal wall vascular graft. This report is in agreement with preliminary report by [facility]. POS: OFF
[2019-11-21] MEDS: Pantoprazole 40 MG VIAL IVP SCH ×2 (09:41→21:04)
[2019-11-21] MEDS ORDERED: Rocuronium Bromide 10 MG/ML (10ML VIAL) ONE (10:11)
[2019-11-21] MEDS ORDERED: Calcium Chloride 1 GM/10 ML Abboject SYRINGE ONE (10:11)
[2019-11-21] MEDS ORDERED: PHENYLEPHRINE-NS 100 MCG/ML 10 ML SYRINGE ONE (10:11)
[2019-11-21] MEDS ORDERED: Fentanyl 250 MCG/5 ML VIAL ONE (12:39)
[2019-11-21] MEDS ORDERED: Phenylephrine 10 MG/ML VIAL ONE (12:48)
[2019-11-21] MEDS ORDERED: Sodium Chloride 0.9% 30 ML ONE (13:24)
[2019-11-21] MEDS ORDERED: Lidocaine 1% w/Epinephrine 1:100K 20 ML VIAL ONE (13:32)
[2019-11-21] MEDS ORDERED: Albumin 5% 500 ML ONE (13:38)
[2019-11-21] MEDS ORDERED: Nitroglycerin 2% Ointment 1 INCH/1 GM Packet ONE (14:24)
[2019-11-21] MEDS ORDERED: Sodium Bicarbonate 2.5 MEQ/5 ML VIAL ONE (14:43)
[2019-11-21] MEDS ORDERED: Sodium Bicarb 50 MEQ/50 ML VIAL ONE (14:44)
[2019-11-21] MEDS ORDERED: Propofol 1,000 MG/100 ML VIAL IV ONE (15:23)
--- NOTE | 2019-11-21 15:30 | RAD ---
Exam: Chest one view HISTORY:Tachycardia. Status post intubation and gastric catheter placement. Comparison: 11/21/2019, 11/16/2019 FINDINGS: Cardiac silhouette: Normal Aorta: Unremarkable Pulmonary vessels: Normal Costophrenic angles: Clear Lines and tubes: Endotracheal tube at the level of the clavicles. Nasogastric tube extends beyond the diaphragm. Distal tip is not seen. Left-sided subclavian vascular catheter terminates in the expected region of the superior vena cava. LUNGS: Bibasilar atelectasis or scar. Pneumothorax: None Osseous abnormalities: None IMPRESSION: 1. Lines and tubes as above.
[2019-11-21] MEDS ORDERED: Lorazepam 2 MG/ML VIAL SLOW IVP PRN (15:33)
[2019-11-21] MEDS ORDERED: Propofol BOLUS 1,000 MG/100 ML VIAL IV PRN (15:33)
[2019-11-21] MEDS ORDERED: Fentanyl BOLUS 250 ML IVPB PRN (15:33)
[2019-11-21] MEDS ORDERED: DISCONTINUE PREVIOUS NARCOTIC PAIN MEDICATIONS AND BENZODIAZEPINES FS SCH (15:33)
[2019-11-21] MEDS ORDERED: Propofol 1,000 MG/100 ML VIAL IV PRN (15:33)
[2019-11-21] MEDS ORDERED: Morphine 2 MG/ML VIAL SLOW IVP PRN (15:33)
[2019-11-21 15:49] LABS: CO2 Tension 34.1 mmHg (35.0-45.0); Calcium, Ionized (arterial) 1.17 mmol/L (1.12-1.30); Carboxyhemoglobin (COHb) 0.6 gm% (0.0-3.0); Hemoglobin (Hb) 7.4 g/dL (14.0-18.0); O2 Tension (PaO2), arterial 100.6 mmHg (> 60.0); Potassium - ABG Lab 3.01 mmol/L (3.70-5.30); pH, Arterial 7.34 (7.35-7.45)
[2019-11-21 15:50] LABS: Puncture Site ALINE
[2019-11-21 15:51] LABS: ALV-art Gradient 70.675 (0-20)
[2019-11-21] MEDS: fentaNYL Citrate/PF 2,000 MCG in Sodium Chloride 0.9% 60 ML IV SCH (15:57)
--- NOTE | 2019-11-21 16:02 | PDOC.HOSPP ---
- Subjective Encounter Date: 11/21/19 Encounter Time: 10:30 Subjective: Overnight, the patient desaturated on room air. He also appeared tachypneic. Given IV Lasix overnight for possible pulmonary edema however later it was thought that he might have aspirated and he was started on IV Zosyn when his white count went up. Patient was afebrile. Patient denies significant abdominal pain. Has not vomited. He states that he is ready to get this problem over with - Objective Vital Signs & Weight: Vital Signs (12 hours) Temp Pulse Resp BP BP Pulse Ox 11/21/19 15:30 98 104/60 11/21/19 08:00 100 11/21/19 07:14 97.8 F 11/21/19 05:15 100 11/21/19 05:10 97.9 F 127 H 18 119/75 93 L 11/21/19 04:00 96 Weight Admit Weight 126 lb Weight 126 lb Most Recent Monitor Data Heart Rate from ECG 120 NIBP 127/76 NIBP BP-Mean 93 Respiration from ECG 30 SpO2 99 I&O: 11/20/19 11/21/19 11/22/19 06:59 06:59 06:59 Intake Total 900 Output Total 1100 Balance -200 Result Diagrams: 11/21/19 03:06 11/21/19 03:06 Additional Labs: Accuchecks 11/21/19 14:33 POC Glucose 107 Hospitalist ROS - Review of Systems Constitutional: denies: fever, chills - Medication Medications: Active Medications Generic Name Dose Route Start Last Admin Trade Name Freq PRN Reason Stop Dose Admin Bisacodyl 5 mg 11/17/19 11:34 11/17/19 12:09 Dulcolax PO 5 mg DAILYPRN PRN Administration Constipation Promethazine HCl 12.5 mg/ 50.5 mls @ 202 mls/hr 11/16/19 20:11 11/17/19 21:13 Sodium Chloride IVPB 50.5 mls Q6H PRN Administration Nausea/Vomiting Dextrose/Water 1,000 mls @ 125 mls/hr 11/21/19 08:15 11/21/19 09:41 D5w IV 1,000 mls .Q8H NADIRA Administration Fentanyl Citrate 2,000 mcg/ 100 mls @ 0 mls/hr 11/21/19 15:33 11/21/19 15:57 Sodium Chloride IV 12/21/19 15:33 100 mls INF NADIRA Administration Protocol Per Protocol Ondansetron HCl 4 mg 11/16/19 00:17 11/19/19 06:48 Zofran Odt PO 4 mg Q6H PRN Administration Nausea/Vomiting Ondansetron HCl 4 mg 11/16/19 00:17 11/20/19 09:07 Zofran IVP 4 mg Q6H PRN Administration Nausea/Vomiting Pantoprazole Sodium 40 mg 11/16/19 21:00 11/21/19 09:41 Protonix IVP 40 mg Q12HR NADIRA Administration - Exam General Appearance: NAD, awake alert Eye: PERRL, anicteric sclera ENT - other findings: NG tube in place Neck: no JVD Heart: RRR, no murmur, no gallops, no rubs Respiratory: CTAB, no wheezes, no rales, no ronchi Gastrointestinal - other findings: soft, no significant tenderness Extremities: no edema Skin: normal turgor, no lesions, no rashes Hosp A/P - Plan CT abdomen: high grade SBO to distal ileum CT abdomen 11/20: High-grade small bowel obstruction. Small fluid within the abdomen and pelvis more prominent within the pelvis. Multilobar pneumonia. Mediastinal and abdominal retroperitoneal/periaortic lymphadenopathy. Wall thickening of the urinary bladder possibly related to underdistention or cystitis This is an 79 year old male who presents with recurrent nausea and vomiting #Small bowel obstruction - CT abdomen repeated today persistent high grade SBO to distal ileum. Small bowel follow through 11/19 showed the same. He has had the NG tube for a few days with no significant improvement. The patient will be taken to the OR today for exploratory laparotomy. I discussed this with his sister who is planning to come visit him after surgery Acute hypoxic respiratory failure secondary to possible aspiration pneumonia -Patient desaturated overnight. CT scan of the chest showed bilateral pneumonia. She has been restarted on IV Zosyn. Leukocytosis - secondary to pneumonia vs intra-abdominal infection - continue zosyn for aspiration pneumonia and empirically for possible intra- abd infection - Urine culture was negative for UTI but will repeat UA Hypokalemia- likely poor po intake - potassium 3.3, replaced, will recheck Hypernatremia - sodium increased to 148 after he was given lasix. Will switch back to D5W since he has hyperchloremia as well and NS will probably worsen this. Repeat BMP in the afternoon UTI - started on IV ceftriaxone on admission. urine culture growing contaminant, so zosyn was discontinued Regina - creatininine worsened to 2.73, likely from lasix. Check UA Hypertension - controlled - BP in the 140s
[2019-11-21] MEDS ORDERED: Dextrose 50% Abboject 50 ML SYRINGE SLOW IVP PRN (16:18)
[2019-11-21] MEDS ORDERED: Dextrose 5% in Water 1,000 ML IV PRN (16:18)
[2019-11-21] MEDS ORDERED: hydrALAZINE 20 MG/ML VIAL SLOW IVP PRN (16:18)
[2019-11-21] MEDS: Piperacillin/Tazobactam 2.25 GM in Sodium Chloride 0.9% 100 ML IVPB SCH ×3 (16:59→23:00)
--- NOTE | 2019-11-21 20:03 | OP ---
DATE OF PROCEDURE: 11/21/2019 PREOPERATIVE DIAGNOSIS: Small bowel obstruction, high-grade. POSTOPERATIVE DIAGNOSIS: Small bowel obstruction, high-grade. PROCEDURES PERFORMED: 1. Exploratory laparotomy and lysis of adhesion. 2. Central line placement, left subclavian. ANESTHESIA: General. ESTIMATED BLOOD LOSS: Minimal. COMPLICATIONS: None. SPECIMEN: None. FINDINGS: There was one adhesion causing complete twist of the small intestine in the mid jejunum. DESCRIPTION OF PROCEDURE: The patient was taken to the operating room and laid on the supine on the operating room table. He had no IV access. Multiple attempts at placement of peripheral IVs were unsuccessful. The right and then left IJ approaches were attempted with ultrasound guidance and were unsuccessful. The patient had no vein seen in the groins on ultrasound secondary to previous ax-bifem and fem-fem bypasses. Left subclavian triple-lumen catheter was placed in the usual fashion. Using Seldinger approach, the wire was passed without tension. A small ashley was made at the wire entrance site. The wire was used as a guide to dilate the subclavian vein. The triple-lumen catheter was threaded to 16 cm, sewn to the chest using close silk and connector. Sterile technique had been used. Next, the abdomen was prepped and draped in a sterile fashion. A midline incision was made, and the abdomen was entered. There were no significant adhesions in the abdomen. In the mid jejunum, there was a complete twist of the small intestine to a posterior interloop adhesion. This was cut and taken down. This allowed the small intestine to unravel and was not obstructed anymore. Small bowel contents were milked back proximally into the stomach. NG tube was placed into better position in the stomach. There was no other pathology in the entire examined abdomen. Midline fascia was closed using #1 PDS from the top and the bottom, and tied in the middle. Subcutaneous tissues were irrigated. The skin was closed using a running 4-0 Monocryl and Dermabond. The patient was sent to Recovery in stable condition. The patient was en route to the ICU. He will be left intubated in stable condition. All instrument counts, needle counts, and lap counts were correct. Job ID: [id number]
[2019-11-21] MEDS ORDERED: Enoxaparin Sodium 30 MG/0.3 ML SYRINGE SC SCH (21:00)
--- NOTE | 2019-11-21 22:54 | CON ---
DATE OF CONSULTATION: 11/21/2019 HISTORY OF PRESENT ILLNESS: Mr. Schmitt is an unfortunate gentleman who developed a bowel obstruction and went for laparotomy today. Apparently, he is extremely difficult to IV access. He has had multiple vascular procedures in the past as well as abdominal surgery in the past. I was consulted postoperatively to help with management with his mechanical ventilation. PAST MEDICAL HISTORY: Remarkable for: 1. Myelofibrosis. 2. BPH. 3. Hypertension. 4. Lipid disorder. 5. History of multiple abdominal procedures for vascular disease, apparently, which started with an iatrogenic injury during a heart catheterization I believe in [place]. 6. History of bone marrow biopsy. SOCIAL HISTORY: Nonsmoker and nondrinker. ALLERGIES: HE HAS NO DRUG ALLERGIES. MEDICATIONS: Reviewed. REVIEW OF SYSTEMS: Not obtainable. PHYSICAL EXAMINATION: GENERAL: He is mechanically ventilated. He has NG tube in place. He has no tracheal tube in place. VITAL SIGNS: Heart rate is in the 80s, blood pressure is 117/69, respiratory rate is in the teens. NECK: Remarkable for puncture wounds from attempts at central line placement. Apparently, multiple physicians had difficulty getting a line in him, but finally a left subclavian vein line was obtained. All this was done apparently, per my discussion with Dr. Cabrera, with ultrasound guidance with limited visibility of venous structures that could be accessed. LUNGS: Remarkable for coarse equal breath sounds. HEART: Regular rhythm. ABDOMEN: Soft and slightly distended without guarding, but he is still somnolent from surgery. EXTREMITIES: Without clubbing, cyanosis, or edema. NEUROLOGIC: Nonfocal grossly preop from what I can tell reviewing the notes. LABORATORY DATA: White count is 18.0, hemoglobin 10.1, platelets 183. Electrolytes: Sodium 140, potassium 3.1, chloride 116, bicarb 17, BUN 40, creatinine 2.73. Creatinine was 2.57 on admission. Microbiology: He has had no growth on blood cultures from the 14th and no growth on urine culture from the th. IMPRESSION: Bowel obstruction, now status post laparotomy. I would not recommend weaning tonight. I would recommend a chest x-ray in the morning. I will be happy to follow with the other physicians caring for him. CRITICAL CARE TIME: 30 minutes. Job ID: [id number] [facility]
[2019-11-22 03:39] LABS: Band 26 % (5-11); Hemoglobin 6.1 g/dL (14.0-18.0); Lymphocytes 5 % (21-51); MDiff Complete? YES; Mean Corpuscular HGB CONC 31.8 g/dL (32.0-36.0); Mean Corpuscular Hemoglobin 28.9 pg (27.0-31.0); Mean Corpuscular Volume 90.7 fL (78.0-98.0); Mean Platelet Volume 10.1 fL (7.4-10.4); Metamyelocyte 1 % (0-0); Monocytes 16 % (0-10); Neutrophil 52 % (42-75); Platelet Count 142 thou/uL (130-400); Platelet Morphology Comment Appears Adequate; RBC Distribution Width 19.4 % (11.5-14.5); Red Blood Cell (RBC) Count 2.12 mill/uL (4.70-6.10); White Blood Cell (WBC) Count 12.3 thou/uL (4.8-10.8)
[2019-11-22 03:48] LABS: ALT (SGPT) Less than 7 U/L (8-55); AST (SGOT) 10 U/L (5-34); Alkaline Phosphatase 43 U/L (40-110); Anion Gap 16 mmol/L (10-20); BUN (Urea Nitrogen) 49 mg/dL (8.4-25.7); Bilirubin, Total 1.4 mg/dL (0.2-1.2); Calc. Creatinine Clearance 11 mL/min (70-130); Calcium 7.8 mg/dL (7.8-10.44); Carbon Dioxide 19 mmol/L (23-31); Chloride 110 mmol/L (98-107); Estimated GFR-MDRD 17; Globulin 2.8 g/dL (2.4-3.5); Glucose 140 mg/dL (83-110); Potassium 3.4 mmol/L (3.5-5.1); Protein, Total 5.8 g/dL (5.8-8.1); Sodium 142 mmol/L (136-145)
[2019-11-22] MEDS: Piperacillin/Tazobactam 2.25 GM in Sodium Chloride 0.9% 100 ML IVPB SCH ×4 (05:17→23:20)
[2019-11-22] MEDS ORDERED: Norepinephrine 8 MG/0.9% NS 250 ML IVPB PRN (05:42)
[2019-11-22] MEDS ORDERED: Sodium Chloride 0.9% 1,000 ML IV SCH ×2 (05:45→06:45)
--- NOTE | 2019-11-22 07:10 | PDOC.GSPN ---
Surgery Progress Note: Subj - Subjective Narrative: Minimal urine overnight. Blood pressure low this am. Started levophed. Hgb down overnight Surgery Progress Note: Obj - Vital signs Vital signs: Vital Signs - Most Recent Temp Pulse Resp BP Pulse Ox 97.8 F 102 H 18 141/41 H 100 11/21/19 20:00 11/22/19 02:48 11/22/19 05:59 11/21/19 22:07 11/21/19 20:00 - Physical Exam General: no distress Respiratory: coarse breath sounds Abdomen: soft, distended Wound: healing well Surgery Progress Note: Results - Labs Result Diagrams: 11/22/19 03:00 11/22/19 03:00 Lab results: Laboratory Results - last 24 hr 11/22/19 11/22/19 11/22/19 03:00 03:00 06:05 WBC 12.3 H RBC 2.12 L Hgb 6.1 L Hct 19.2 L MCV 90.7 MCH 28.9 MCHC 31.8 L RDW 19.4 H Plt Count 142 MPV 10.1 Neutrophils % (Manual) 52 Band Neuts % (Manual) 26 H Lymphocytes % (Manual) 5 L Monocytes % (Manual) 16 H Metamyelocytes % (Man) 1 H Plt Morphology Comment Appears Adequate Sodium 142 Potassium 3.4 L Chloride 110 H Carbon Dioxide 19 L Anion Gap 16 BUN 49 H Creatinine 4.18 H Estimated GFR (MDRD) 17 Glucose 140 H Calcium 7.8 Total Bilirubin 1.4 H AST 10 ALT Less than 7 L Alkaline Phosphatase 43 Serum Total Protein 5.8 Albumin 3.0 L Globulin 2.8 Albumin/Globulin Ratio 1.1 L Blood Type Antibody Screen NEGATIVE Crossmatch See Detail 11/22/19 06:20 WBC RBC Hgb Hct MCV MCH MCHC RDW Plt Count MPV Neutrophils % (Manual) Band Neuts % (Manual) Lymphocytes % (Manual) Monocytes % (Manual) Metamyelocytes % (Man) Plt Morphology Comment Sodium Potassium Chloride Carbon Dioxide Anion Gap BUN Creatinine Estimated GFR (MDRD) Glucose Calcium Total Bilirubin AST ALT Alkaline Phosphatase Serum Total Protein Albumin Globulin Albumin/Globulin Ratio Blood Type B POSITIVE Antibody Screen Crossmatch Surgery Progress Note: A/P - Problem (1) Small bowel obstruction Current Visit: Yes Code(s): K56.609 - UNSP INTESTNL OBST, UNSP TO PARTIAL VERSUS COMPLETE OBST Status: Acute - Plan Plan: POD 1 ex lap, lysis of single adhesion -ATN- probably need to consult [place] -Hgb down overnight. Will trasfuse 2 units, I don't think he's bleeding -Hopefully wean levophed after blood
[2019-11-22 07:24] LABS: Actual Bicarbonate (HCO3a) 16.6 mEq/L (22-28); Base Excess (BEa) -9.5 mEq/L (-2.0 to +3.0); CO2 Tension 37.4 mmHg (35.0-45.0); Calcium, Ionized (arterial) 0.98 mmol/L (1.12-1.30); Carboxyhemoglobin (COHb) 0.1 gm% (0.0-3.0); Hemoglobin (Hb) 6.4 g/dL (14.0-18.0); O2 Tension (PaO2), arterial 87.1 mmHg (> 60.0); Potassium - ABG Lab 3.19 mmol/L (3.70-5.30); pH, Arterial 7.27 (7.35-7.45)
[2019-11-22 07:25] LABS: Puncture Site ALINE
--- NOTE | 2019-11-22 07:38 | PRG ---
DATE OF SERVICE: 11/22/2019 SUBJECTIVE: David Tavera's blood pressure has dropped into the high 80s, low 90s. He has had one fluid bolus tonight of a liter. I have ordered another one this morning. His hemoglobin also dropped to 6 g, so 2 units are being cross-matched. OBJECTIVE: VITAL SIGNS: Currently, his blood pressure is 100/49, heart rate is in the 90s, and respiratory rate is in the teens. LUNGS: Clear. HEART: Regular rhythm. ABDOMEN: Soft and slightly distended. EXTREMITIES: Without edema. LABORATORY DATA: Chest x-ray done this morning, reviewed by me, shows mild increase in interstitial markings. Compared to yesterday's film, there may be more interstitial markings. Sodium 142, potassium 3.4, chloride 110, bicarb 19, BUN 49, and creatinine 4.18. Creatinine was 2.73 yesterday. Intake and output, positive 2912. Urine output not recorded hourly. He has only 5 mL urine output overnight with 50 mL gastric drainage. IMPRESSION: 1. Status post laparotomy for a small-bowel obstruction with lysis of adhesions. 2. Acute renal failure. 3. Blood loss anemia to be transfused. 4. Mild pulmonary edema. I do not feel extubation is abernathy at this time. We will continue full supportive care. He will likely need Nephrology input and a dialysis catheter. I would not anticipate recovery of his renal function quickly given his history of vascular issues. Critical care time 30 min. Job ID: [id number] MTDD
--- NOTE | 2019-11-22 07:57 | RAD ---
XR Chest 1 View Portable History: Ventilated patient Comparison: Radiograph prior day Findings: Large left and small right layering pleural effusion. The left subclavian central venous ca theter tip projects over the mid SVC. The endotracheal tube tip sits at the level of clavicles. Enteric tube tip sits at the gastric body. Mild pulmonary venous congestion Impression: Mild pulmonary venous congestion otherwise similar examination of the chest.
[2019-11-22] MEDS: Dextrose 5% in Water 1,000 ML IV SCH (08:19)
[2019-11-22] MEDS ORDERED: Potassium Chloride 20 MEQ TAB PO SCH (08:45)
[2019-11-22] MEDS: Dextrose 5 %-0.45 % NaCl 1,000 ML IV SCH (09:32)
[2019-11-22] MEDS: Famotidine/PF 20 mg/2ml Vial SLOW IVP SCH (09:32)
[2019-11-22] MEDS ORDERED: Albumin 25% 25 GM/100 ML BOT IVPB ONE (10:00)
--- NOTE | 2019-11-22 10:31 | CON ---
DATE OF CONSULTATION: HISTORY OF PRESENT ILLNESS: Mr. Schmitt is an 79-year-old black male with known history of BPH and myelofibrosis and was initially admitted for an abdominal pain with nausea and vomiting. He was initially found to have a small-bowel obstruction, which was high-grade. Due to the unimproved abdominal intestinal obstruction, he underwent exploratory laparotomy with lysis of adhesions. On the CAT scan, it also showed as right atrophic kidney and the left kidney is enlarged as a compensatory response. No evidence of obstruction. We are now being consulted for his progressive azotemia. REVIEW OF SYSTEMS: Not obtainable since the patient is intubated on ventilator support. MEDICATIONS: The patient is on: 1. D5 half-normal saline at 50 mL/hour. 2. Hydralazine 10 mg IV q.4 p.r.n. 3. Ativan 2 mg IV q.1 p.r.n. 4. Currently on Levophed drip. 5. Zosyn 2.25 g IV q.6. 6. Status post K-Dur. 7. Propofol drip. 8. Status post albumin infusion. PAST MEDICAL HISTORY: 1. Chronic renal failure-finding of right renal atrophy. 2. History of myelofibrosis. 3. History of BPH, status post UTI. 4. History of peripheral vascular disease, hypertension, history of neuropathy, hyperlipidemia. PAST SURGICAL HISTORY: Recently status post exploratory laparotomy with lysis of adhesions, bone marrow biopsy, status post right leg bypass. FAMILY HISTORY: No family history of ESRD. ALLERGIES: NONE. TRAUMA: None. IMMUNIZATION: Unknown. HOSPITALIZATIONS: Please see past medical history. SOCIAL HISTORY: The patient is a , follows up with the [facility]. Currently, not a smoker. No alcohol. No IV drug abuse. PHYSICAL EXAMINATION: VITAL SIGNS: Blood pressure 116/55, heart rate 93, and respiratory rate is 12. GENERAL: The patient is arousable, intubated on ventilator support. SKIN: Decreased turgor. HEENT: The patient has pale conjunctivae. Anicteric sclerae. NECK: No neck mass. No carotid bruits. No JVD. CHEST: No deformities. LUNGS: Decreased breath sounds. HEART: Normal sinus rhythm. No murmur. No gallops. No rubs. ABDOMEN: Globular, soft, and nontender. No masses. Positive for midline surgical scar. EXTREMITIES: No edema. No deformities. NEUROLOGIC: The patient is sedated, but arousable. LABORATORY DATA: Laboratories of November 22, 2019; white count 12.3, hemoglobin 6.1. Sodium 142, potassium 3.4, chloride 110, carbon dioxide 19, BUN 49, creatinine 4.18, GFR of 17 mL/minute, glucose 140, calcium 7.8. AST 10, ALT less than 7, albumin is 3. Further review of his serum creatinine shows the following: November 21, 2019, creatinine 2.73; November 19 of 1.93; November 18 of 2.08; November 15, 2019, creatinine 2.66; June 26, 2019, creatinine 2.31. CT scan of the abdomen, right kidney atrophic, left kidney enlarged, but no obstruction or masses. Urinalysis of November 16, 2019; protein is 300, finding of granular casts-0 to 3. ASSESSMENT AND PLAN: 1. Acute kidney injury on top of his chronic renal failure-with the hemodynamic instability and recent surgery, still consider the possibility of a superimposed prerenal azotemia. Currently optimizing hemodynamics. We will start adding albumin 25 g IV q.6 for a total of 4 doses. Please note that chest x-ray done on November 22, 2019, showed mild pulmonary congestion. 2. The other possibility of the acute kidney injury is that he may have a superimposed acute tubular necrosis. For this reason, we will be reviewing a urine sediment with this patient. For the moment, agree with current management. There is no indication for any emergent hemodialysis with this patient. Thank you for the consult. We will continue to follow. Job ID: [id number]
[2019-11-22] MEDS: Albumin 25% 25 GM/100 ML BOT IVPB SCH ×3 (10:35→23:00)
[2019-11-22 12:20] VITALS: BMI 18.8
[2019-11-22 13:11] LABS: Bilirubin Small (Negative); Blood, Urine Small (Negative); Glucose, Urine (Dipstick) Negative (Negative); Ketone, Urine Negative (Negative); Leukocyte Small (Negative); Nitrite Negative (Negative); Protein, Urine (Dipstick) 100 mg/dL (Neg-Trace); Specific Gravity, Urine 1.025 (1.005-1.030); Urobilinogen 0.2 mg/dL (Less than 2)
[2019-11-22 13:14] LABS: Clarity Turbid (Clear)
[2019-11-22 13:18] LABS: Bacteria/HPF 1+ HPF (None Seen); Renal Epithelial 0-3 HPF (None Seen); Squamous Epithelial 0-3 HPF (0-3)
--- NOTE | 2019-11-22 13:54 | PDOC.HOSPP ---
- Subjective Encounter Date: 11/22/19 Encounter Time: 13:00 Subjective: The patient was intubated after surgery and is still intubated currently. Has a lot of abdominal pain from his surgery . His urine output has been low, only 25 over the past four hours. LEvofed has been weaned down to 5/hour per nursing staff Patient is awake and following commands - Objective Vital Signs & Weight: Vital Signs (12 hours) Temp Pulse Resp BP Pulse Ox 11/22/19 13:05 99.5 F 100 11/22/19 10:37 99.1 F 100 11/22/19 10:25 87 109/72 11/22/19 10:23 98.9 F 100 11/22/19 10:03 99.3 F 14 100 11/22/19 09:00 98.9 F 11/22/19 08:15 99.1 F 100 11/22/19 07:01 93 116/55 L 11/22/19 05:59 18 11/22/19 04:00 12 11/22/19 02:48 102 H 11/22/19 02:00 12 Weight Admit Weight 126 lb Weight 124 lb 1.924 oz Most Recent Monitor Data Heart Rate from ECG 90 NIBP 125/69 NIBP BP-Mean 87 Respiration from ECG 16 SpO2 100 I&O: 11/21/19 11/22/19 11/23/19 06:59 06:59 06:59 Intake Total 2912.3 2375 Output Total 55 63 Balance 2857.3 2312 Result Diagrams: 11/22/19 03:00 11/22/19 03:00 Additional Labs: Accuchecks 11/21/19 14:33 POC Glucose 107 Hospitalist ROS - Review of Systems Constitutional: denies: fever, chills - Medication Medications: Active Medications Generic Name Dose Route Start Last Admin Trade Name Freq PRN Reason Stop Dose Admin Albumin Human 25 gm 11/22/19 10:00 11/22/19 10:35 Albumin 25% IVPB 11/23/19 04:01 25 gm 0400,1000,1600,2200 NADIRA Administration Bisacodyl 5 mg 11/17/19 11:34 11/17/19 12:09 Dulcolax PO 5 mg DAILYPRN PRN Administration Constipation Famotidine 20 mg 11/22/19 09:00 11/22/19 09:32 Pepcid SLOW IVP 20 mg DAILY NADIRA Administration Promethazine HCl 12.5 mg/ 50.5 mls @ 202 mls/hr 11/16/19 20:11 11/17/19 21:13 Sodium Chloride IVPB 50.5 mls Q6H PRN Administration Nausea/Vomiting Piperacillin Sod/Tazobactam 100 mls @ 200 mls/hr 11/21/19 12:00 11/22/19 12: 24 Sod 2.25 gm/ Sodium Chloride IVPB 100 mls Q6HR NADIRA Administration Fentanyl Citrate 2,000 mcg/ 100 mls @ 0 mls/hr 11/21/19 15:33 11/21/19 15:57 Sodium Chloride IV 12/21/19 15:33 100 mls INF NADIRA Administration Protocol Per Protocol Dextrose/Sodium Chloride 1,000 mls @ 50 mls/hr 11/22/19 08:45 11/22/19 09:32 D5 1/2 Ns IV 1,000 mls .Q20H NADIRA Administration Morphine Sulfate 2 mg 11/21/19 15:33 11/21/19 22:59 Morphine SLOW IVP 12/21/19 15:33 2 mg Q1H PRN Administration Breakthrough Pain/Agitation Ondansetron HCl 4 mg 11/16/19 00:17 11/19/19 06:48 Zofran Odt PO 4 mg Q6H PRN Administration Nausea/Vomiting Ondansetron HCl 4 mg 11/16/19 00:17 11/20/19 09:07 Zofran IVP 4 mg Q6H PRN Administration Nausea/Vomiting - Exam General - other findings: intubated Eye: PERRL, anicteric sclera ENT: normocephalic atraumatic, no oropharyngeal lesions Neck: no JVD Heart: RRR, no murmur, no gallops, no rubs Respiratory: CTAB, no wheezes, no rales, no ronchi Gastrointestinal: soft Gastrointestinal - other findings: very tender to palpation. Palpable grafts in abdomen . Cifuentes in place Extremities: no cyanosis, no clubbing, no edema Skin: normal turgor, no lesions, no rashes Neurological: cranial nerve grossly intact, normal sensation to touch, no new deficit Musculoskeletal: normal tone, normal strength, no muscle wasting Psychiatric: normal affect, normal behavior, A&O x 3, oriented to person Hosp A/P - Plan CT abdomen: high grade SBO to distal ileum CT abdomen 11/20: High-grade small bowel obstruction. Small fluid within the abdomen and pelvis more prominent within the pelvis. Multilobar pneumonia. Mediastinal and abdominal retroperitoneal/periaortic lymphadenopathy. Wall thickening of the urinary bladder possibly related to underdistention or cystitis This is an 79 year old male who presents with recurrent nausea and vomiting #Small bowel obstruction s/p exploratory laparotomy and lysis of adhesion POD1 - patient is s/p exlap and lysis of adhesions POD 1. He is still intubated - he initially had NG tube but serial scans showed persistent SBO - management per surgery #DIEUDONNE possibly secondary to ATN - creatinine has worsened to 4.18. Nephrology has been consulted, patient has been started on albumin - fluids switched back to D5 1/2 NS to provide more volume Acute hypoxic respiratory failure secondary to possible aspiration pneumonia -Patient desaturated 11/20. CT scan of the chest showed bilateral pneumonia. Continue Iv zosyn . He is currently intubated, pending pulmonary recs regarding extubation Leukocytosis - secondary to pneumonia vs intra-abdominal infection -downtrending to 12. Continue zosyn for aspiration pneumonia and empirically for possible intra-abd infection - Urine culture was negative for UTI. Repeat UA shows turbid urine, urine culture is pending Hypokalemia- likely poor po intake - potassium 3.4, replaced Hypernatremia -resolved UTI - started on IV ceftriaxone on admission. urine culture growing contaminant, so zosyn was discontinued Hypertension - controlled - BP in the 140s
--- NOTE | 2019-11-22 16:39 | EKG ---
Test Reason : TACHY Blood Pressure : / mmHG Vent. Rate : 130 BPM Atrial Rate : 130 BPM P-R Int : 122 ms QRS Dur : 086 ms QT Int : 310 ms P-R-T Axes : 048 047 217 degrees QTc Int : 456 ms Sinus tachycardia Left ventricular hypertrophy with repolarization abnormality Abnormal ECG Confirmed by DR. Benjamin LEE ([id number]) on 11/22/2019 4:39:25 PM Referred By: RICHARD Confirmed By:DR. Benjamin LEE
--- NOTE | 2019-11-22 16:41 | EKG ---
Test Reason : Blood Pressure : / mmHG Vent. Rate : 114 BPM Atrial Rate : 114 BPM P-R Int : 114 ms QRS Dur : 090 ms QT Int : 338 ms P-R-T Axes : 058 063 234 degrees QTc Int : 465 ms Sinus tachycardia with Premature supraventricular complexes Left ventricular hypertrophy with repolarization abnormality Abnormal ECG When compared with ECG of 21-NOV-2019 00:49, (Unconfirmed) Premature supraventricular complexes are now Present Confirmed by DR. Benjamin LEE ([id number]) on 11/22/2019 4:41:01 PM Referred By: [facility] Confirmed By:DR. Benjamin LEE
[2019-11-22] MEDS ORDERED: Potassium Chloride 20 MEQ in Premix Bag 1 BAG IVPB SCH (18:30)
[2019-11-22 22:49] LABS: Hemoglobin 8.9 g/dL (14.0-18.0); Mean Corpuscular HGB CONC 33.1 g/dL (32.0-36.0); Mean Corpuscular Hemoglobin 30.2 pg (27.0-31.0); Mean Corpuscular Volume 91.4 fL (78.0-98.0); Mean Platelet Volume 9.9 fL (7.4-10.4); Platelet Count 114 thou/uL (130-400); Red Blood Cell (RBC) Count 2.94 mill/uL (4.70-6.10); White Blood Cell (WBC) Count 13.8 thou/uL (4.8-10.8)
[2019-11-23] MEDS: Albumin 25% 25 GM/100 ML BOT IVPB SCH (03:30)
[2019-11-23] MEDS: Dextrose 5 %-0.45 % NaCl 1,000 ML IV SCH (03:30)
[2019-11-23 04:18] LABS: Band 11 % (5-11); Hemoglobin 8.9 g/dL (14.0-18.0); Hypochromia SLIGHT = 6-15 cells (100X) (0-5/hpf); Lymphocytes 11 % (21-51); MDiff Complete? YES; Mean Corpuscular HGB CONC 32.5 g/dL (32.0-36.0); Mean Corpuscular Hemoglobin 29.7 pg (27.0-31.0); Mean Corpuscular Volume 91.4 fL (78.0-98.0); Mean Platelet Volume 10.3 fL (7.4-10.4); Metamyelocyte 2 % (0-0); Monocytes 21 % (0-10); Neutrophil 55 % (42-75); Nucleated RBC 2 % (0); Platelet Count 124 thou/uL (130-400); Platelet Morphology Comment Appears Adequate; RBC Distribution Width 17.4 % (11.5-14.5); Red Blood Cell (RBC) Count 2.98 mill/uL (4.70-6.10); White Blood Cell (WBC) Count 13.5 thou/uL (4.8-10.8)
[2019-11-23 04:27] LABS: Anion Gap 17 mmol/L (10-20); BUN (Urea Nitrogen) 50 mg/dL (8.4-25.7); Calc. Creatinine Clearance 10 mL/min (70-130); Calcium 7.2 mg/dL (7.8-10.44); Carbon Dioxide 16 mmol/L (23-31); Chloride 110 mmol/L (98-107); Estimated GFR-MDRD 15; Glucose 100 mg/dL (83-110); Potassium 3.7 mmol/L (3.5-5.1); Sodium 139 mmol/L (136-145)
[2019-11-23] MEDS: Piperacillin/Tazobactam 2.25 GM in Sodium Chloride 0.9% 100 ML IVPB SCH ×4 (05:01→23:09)
--- NOTE | 2019-11-23 07:44 | RAD ---
CHEST 1 VIEW: INDICATION: History of intubation. COMPARISON: Prior exam dated 11/22/2019. FINDINGS: ET tube and gastric catheter are unchanged. Left-sided central venous catheter is similar-appearing. Airspace opacity in the left perihilar region has increased in prominence. Right infrahilar opacit y persists. Pulmonary vascular congestion is slightly worse. There are enlarging small bilateral pl eural effusions. IMPRESSION: Worsening congestive heart failure. POS: BH
[2019-11-23 07:51] LABS: Base Excess (BEa) -15.1 mEq/L (-2.0 to +3.0); CO2 Tension 32.4 mmHg (35.0-45.0); Carboxyhemoglobin (COHb) 0.4 gm% (0.0-3.0); Hemoglobin (Hb) 9.3 g/dL (14.0-18.0); O2 Tension (PaO2), arterial 87.3 mmHg (> 60.0); Potassium - ABG Lab 3.97 mmol/L (3.70-5.30)
[2019-11-23 07:56] LABS: Puncture Site ALINE; pH, Arterial 7.19 (7.35-7.45)
--- NOTE | 2019-11-23 08:45 | PRG ---
DATE OF SERVICE: 11/23/2019 35 minutes critical care time. SUBJECTIVE: The patient remains intubated on mechanical ventilation, but no acute changes overnight. OBJECTIVE: VITAL SIGNS: His temperature is 99.8 with a T-max of 100.3, pulse 96, blood pressure 122/32, O2 saturations 100%. He is currently on a Levophed drip at 2 mcg/minute. His 24-hour intake has been 4364, output 407. He has had increasing urine output overnight. NEUROLOGICAL: He will wake up and follow commands. HEENT: Unremarkable. NECK: No adenopathy or JVD. LUNGS: Good air movement without wheezing. CARDIOVASCULAR: S1, S2. Slightly tachycardic. ABDOMEN: Midline surgical scar appears to be healing well. Abdomen is somewhat distended with hypoactive bowel sounds. EXTREMITIES: No clubbing, cyanosis, or edema. LABORATORY DATA: Sodium 139, potassium 3.7, chloride 110, CO2 of 16, BUN 50, creatinine 4.6, and glucose 100. White blood cell count 13.5, hematocrit 27.2, and platelet count 124. ABG; pH of 7.19, pCO2 of 32, pO2 of 87, and that is on SIMV rate of 8, tidal volume of 430, FiO2 30%, PEEP 5, pressure support 10. His chest x-ray shows fairly clear lung zimmerman except for maybe some slight blunting in the left costophrenic angle. ET tube is in good position. He has a central line from the left subclavian which terminates in the superior vena cava. ASSESSMENT: 1. Acute respiratory failure, requiring mechanical ventilation. 2. Status post laparotomy for small bowel obstruction with adhesiolysis. 3. Acute renal failure. 4. Severe metabolic acidosis with lack of respiratory compensation. PLAN: 1. Due to his pH issues, I would not push the issue of extubation this time. I have increased his minute volume on mechanical ventilation to help compensate for this. Additionally, I will change his IV fluids, adding some bicarbonate. 2. Continue antibiotics. Job ID: [id number]
[2019-11-23] MEDS: Sodium Bicarbonate 140 MEQ in Dextrose 5% in Water 1,000 ML IV SCH ×2 (08:55→22:40)
[2019-11-23] MEDS: Famotidine/PF 20 mg/2ml Vial SLOW IVP SCH (09:49)
--- NOTE | 2019-11-23 11:41 | PRG ---
DATE OF SERVICE: 11/23/2019 SUBJECTIVE: Mr. Schmitt is an 79-year-old black male seen by the Renal Service for his acute kidney injury on top of his chronic renal failure. He has a worsening renal dysfunction. He remains currently oliguric. Increased volume was given the last 24 hours with no improvement of the renal function. In addition, urine output has dropped. I got urine sediment. He has a specific gravity of 1.025, suggesting he might be having decreased renal perfusion. However, his clinical response is more suggestive of a possibility of an acute tubular necrosis. Due to the chest x-ray showing volume overload, we will start him on Lasix 40 mg IV q.12 h. Should the renal function further worsen, we may need to initiate dialysis with this patient. In addition, Pulmonology has started him on isotonic bicarbonate due to the worsening metabolic acidosis. OBJECTIVE: VITAL SIGNS: Blood pressure is 123/61, heart rate 87. GENERAL: The patient is arousable. He is intubated on ventilator support. SKIN: Adequate turgor. HEENT: He has pinkish conjunctivae. Anicteric sclerae. NECK: No neck mass. No carotid bruits. No JVD. CHEST: No deformities. LUNGS: Decreased breath sounds. HEART: Normal sinus rhythm. No murmurs, gallops, or rubs. ABDOMEN: Globular, soft, nontender. No masses. EXTREMITIES: Trace edema. No deformities. MEDICATIONS: Of November 23, 2019, were reviewed. LABORATORY DATA: November 23, 2019, white count 13.5, hemoglobin 8.9, sodium 139, potassium 3.7, chloride 110, carbon dioxide 16, BUN 50, creatinine 4.6, glucose 100, and calcium 7.2. Chest x-ray of November 23, 2019, showed CHF. Laboratories of November 23, 2019 - reviewed. ASSESSMENT AND PLAN: 1. Acute kidney injury - consider the possibility either of a superimposed acute tubular necrosis versus severe prerenal azotemia. He may have a decreased ejection fraction. We will review if a cardiac echo has been done with this patient. Due to the decreased urine output and pulmonary congestion, we will start Lasix 40 mg IV q.12 h. We will time dialysis with this patient. He still has an adequate GFR. Should the congestive heart failure further worsen and metabolic acidosis remain unimproved, consider initiating hemodialysis with this patient. 2. Anemia, much improved after blood transfusion. 3. Status post exploratory laparotomy. Continue supportive care. Surgery is following. 4. Recheck CBC and basic met in a.m. Job ID: [id number]
[2019-11-23] MEDS: fentaNYL Citrate/PF 2,000 MCG in Sodium Chloride 0.9% 60 ML IV SCH (11:54)
[2019-11-23] MEDS: Furosemide 40 MG/4 ML VIAL SLOW IVP SCH (14:53)
--- NOTE | 2019-11-23 15:49 | PDOC.HOSPP ---
- Subjective Encounter Date: 11/23/19 non-verbal (Intubated) - Objective Vital Signs & Weight: Vital Signs (12 hours) Temp Pulse Resp BP Pulse Ox 11/23/19 14:03 87 101/74 11/23/19 14:00 16 11/23/19 12:00 16 11/23/19 10:22 87 123/61 11/23/19 10:00 16 11/23/19 08:00 12 100 11/23/19 07:23 95 108/58 L 11/23/19 07:00 100.2 F H 11/23/19 06:00 13 11/23/19 04:00 12 Weight Admit Weight 126 lb Weight 123 lb 14.397 oz Most Recent Monitor Data Heart Rate from ECG 83 NIBP 123/60 NIBP BP-Mean 81 Respiration from ECG 16 SpO2 100 I&O: 11/22/19 11/23/19 11/24/19 06:59 06:59 06:59 Intake Total 2912.3 4364.3 297 Output Total 55 407 197 Balance 2857.3 3957.3 100 Result Diagrams: 11/23/19 03:05 11/23/19 03:05 Additional Labs: Accuchecks 11/21/19 16:34 POC Glucose 105 Hospitalist ROS - Medication Medications: Active Medications Generic Name Dose Route Start Last Admin Trade Name Freq PRN Reason Stop Dose Admin Bisacodyl 5 mg 11/17/19 11:34 11/17/19 12:09 Dulcolax PO 5 mg DAILYPRN PRN Administration Constipation Famotidine 20 mg 11/22/19 09:00 11/23/19 09:49 Pepcid SLOW IVP 20 mg DAILY NADIRA Administration Furosemide 40 mg 11/23/19 14:00 11/23/19 14:53 Lasix SLOW IVP 40 mg 0600,1400 NADIRA Administration Promethazine HCl 12.5 mg/ 50.5 mls @ 202 mls/hr 11/16/19 20:11 11/17/19 21:13 Sodium Chloride IVPB 50.5 mls Q6H PRN Administration Nausea/Vomiting Piperacillin Sod/Tazobactam 100 mls @ 200 mls/hr 11/21/19 12:00 11/23/19 11: 52 Sod 2.25 gm/ Sodium Chloride IVPB 100 mls Q6HR NADIRA Administration Fentanyl Citrate 2,000 mcg/ 100 mls @ 0 mls/hr 11/21/19 15:33 11/23/19 11:54 Sodium Chloride IV 12/21/19 15:33 100 mls INF NADIRA Administration Protocol Per Protocol Sodium Bicarbonate 140 meq/ 1,140 mls @ 75 mls/hr 11/23/19 08:15 11/23/19 08: 55 Dextrose/Water IV 1,140 mls .[id number] NADIRA Administration Morphine Sulfate 2 mg 11/21/19 15:33 11/21/19 22:59 Morphine SLOW IVP 12/21/19 15:33 2 mg Q1H PRN Administration Breakthrough Pain/Agitation Ondansetron HCl 4 mg 11/16/19 00:17 11/19/19 06:48 Zofran Odt PO 4 mg Q6H PRN Administration Nausea/Vomiting Ondansetron HCl 4 mg 11/16/19 00:17 11/20/19 09:07 Zofran IVP 4 mg Q6H PRN Administration Nausea/Vomiting - Exam ENT: normocephalic atraumatic Neck: supple, no JVD Heart: RRR Respiratory: normal chest expansion, no tachypnea Extremities: no cyanosis Hosp A/P - Plan This is an 79 year old male who presents with recurrent nausea and vomiting 11/21: #Small bowel obstruction s/p exploratory laparotomy and lysis of adhesion POD1 - patient is s/p exlap and lysis of adhesions POD 1. He is still intubated - he initially had NG tube but serial scans showed persistent SBO - management per surgery #DIEUDONNE possibly secondary to ATN - creatinine has worsened to 4.18. Nephrology has been consulted, patient has been started on albumin - fluids switched back to D5 1/2 NS to provide more volume Acute hypoxic respiratory failure secondary to possible aspiration pneumonia -Patient desaturated 11/20. CT scan of the chest showed bilateral pneumonia. Continue Iv zosyn . He is currently intubated, pending pulmonary recs regarding extubation Leukocytosis - secondary to pneumonia vs intra-abdominal infection -downtrending to 12. Continue zosyn for aspiration pneumonia and empirically for possible intra-abd infection - Urine culture was negative for UTI. Repeat UA shows turbid urine, urine culture is pending Hypokalemia- likely poor po intake - potassium 3.4, replaced Hypernatremia -resolved UTI - started on IV ceftriaxone on admission. urine culture growing contaminant, so zosyn was discontinued Hypertension - controlled - BP in the 140s 11/22: Patient remains intubated. Continue vent management per pulmonology. NG tube with dark greenish output. No bowel movements or passage of gas yet. Continue IV hydration. Levophed has been weaned off to 2 mcg/min. Diuretics per nephrology.
--- NOTE | 2019-11-23 20:26 | PRG ---
DATE OF SERVICE: 11/23/2019 SUBJECTIVE: David Schmitt is doing well today, still on the ventilator. He is in ICU. He is sedated. LABORATORY DATA: White count 13, hemoglobin 8.9. Basic metabolic profile; BUN 50, creatinine 4.6, and sodium 139. OBJECTIVE: LUNGS: Clear to auscultation. CARDIAC: Regular rate and rhythm. No murmur or gallop. ABDOMEN: Soft. He is followed by Dr. Mackay. ASSESSMENT AND PLAN: Status post laparotomy adhesiolysis. Continue respiratory failure. Await GI function. Acute renal failure per Dr. Mackay. Job ID: [id number]
[2019-11-24 05:16] LABS: Anion Gap 18 mmol/L (10-20); BUN (Urea Nitrogen) 53 mg/dL (8.4-25.7); Calc. Creatinine Clearance 9 mL/min (70-130); Calcium 6.8 mg/dL (7.8-10.44); Carbon Dioxide 16 mmol/L (23-31); Chloride 107 mmol/L (98-107); Estimated GFR-MDRD 13; Glucose 105 mg/dL (83-110); Potassium 3.4 mmol/L (3.5-5.1); Sodium 138 mmol/L (136-145)
[2019-11-24 05:17] LABS: Band 8 % (5-11); Lymphocytes 7 % (21-51); MDiff Complete? YES; Mean Corpuscular HGB CONC 32.9 g/dL (32.0-36.0); Mean Corpuscular Hemoglobin 29.3 pg (27.0-31.0); Mean Corpuscular Volume 89.1 fL (78.0-98.0); Mean Platelet Volume 10.3 fL (7.4-10.4); Monocytes 21 % (0-10); Myelocyte 1 % (0-0); Neutrophil 63 % (42-75); Platelet Count 123 thou/uL (130-400); RBC Distribution Width 17.1 % (11.5-14.5); Red Blood Cell (RBC) Count 2.71 mill/uL (4.70-6.10); Tear Drops SLIGHT = 2-5 cells (100X) (0-1/hpf); White Blood Cell (WBC) Count 12.8 thou/uL (4.8-10.8)
[2019-11-24] MEDS: Piperacillin/Tazobactam 2.25 GM in Sodium Chloride 0.9% 100 ML IVPB SCH ×3 (05:42→17:45)
[2019-11-24] MEDS: Furosemide 40 MG/4 ML VIAL SLOW IVP SCH ×2 (05:42→13:32)
--- NOTE | 2019-11-24 06:27 | RAD ---
CHEST ONE VIEW: INDICATIONS: Intubation. COMPARISON: Prior exam dated 11/23/2019. IMPRESSION: There is worsening air space disease involving both lung bases, some of which may be related to depth of inspiration and bibasilar atelectasis. Worsening pneumonia is not excluded. Cardiomegaly and pulm onary vascular congestion persist. Endotracheal tube, gastric catheter and left subclavian central ve nous catheter are unchanged. No pneumothorax is evident. POS: BH
[2019-11-24] MEDS: fentaNYL Citrate/PF 2,000 MCG in Sodium Chloride 0.9% 60 ML IV SCH ×2 (07:06→22:09)
[2019-11-24] MEDS: Famotidine/PF 20 mg/2ml Vial SLOW IVP SCH (08:24)
[2019-11-24 08:29] LABS: Base Excess (BEa) -7.5 mEq/L (-2.0 to +3.0); CO2 Tension 30.7 mmHg (35.0-45.0); Carboxyhemoglobin (COHb) 0.3 gm% (0.0-3.0); Hemoglobin (Hb) 9.1 g/dL (14.0-18.0); O2 Tension (PaO2), arterial 80.5 mmHg (> 60.0); Potassium - ABG Lab 3.32 mmol/L (3.70-5.30); pH, Arterial 7.36 (7.35-7.45)
[2019-11-24 08:38] LABS: Puncture Site RRA
[2019-11-24 08:39] LABS: ALV-art Gradient 95.025 (0-20)
--- NOTE | 2019-11-24 10:59 | PRG ---
DATE OF SERVICE: 11/24/2019 SUBJECTIVE: The patient is awake, alert, follows commands. PHYSICAL EXAMINATION: VITAL SIGNS: Temperature is 98.6, T-max 100.6, pulse 83, blood pressure 134/65, O2 saturation 100%. HEENT: Unremarkable. NECK: No JVD. CHEST: Clear. CARDIAC: S1 and S2, regular. ABDOMEN: Soft. Midline surgical scar is healing well. EXTREMITIES: No edema. LABORATORY DATA: PH 7.36, pCO2 of 30, PO2 of 80, on SIMV rate 16, tidal volume 430, PEEP 5, pressure support 10, and FiO2 of 30%. White blood cell count 12.8, hematocrit 24.2, and platelet count 123. BUN 53, creatinine 5.3, sodium 138, potassium 3.4, CO2 of 16. ASSESSMENT: 1. Acute respiratory failure, requiring mechanical ventilation. X-ray is still showing a significant amount of pulmonary edema, and he remains with a profound metabolic acidosis. 2. Acute renal failure. 3. Status post adhesiolysis. PLAN: We will turn down his respiratory rate, but I think he needs improvement in his acid-base status before proceeding with extubation. Continue antibiotics. Dialysis expected soon. Job ID: [id number]
--- NOTE | 2019-11-24 12:37 | PRG ---
DATE OF SERVICE: 11/24/2019 SUBJECTIVE: Mr. Schmitt is on the ventilator. OBJECTIVE: VITAL SIGNS: Blood pressure 132/60, respiratory rate 17. He opens eyes to voice and responds to stimulation. Urine output is poor, 177 mL over the past 24 hours. LUNGS: Clear to auscultation. CARDIAC: Regular rate and rhythm without murmur or gallop. ABDOMEN: Soft. Gastric drainage 300 mL over 24 hours. Surgical wound looks good. LABORATORY DATA: White count 12, hemoglobin 8. Sodium 138, potassium 3.4, BUN and creatinine are 53 and 5.29, GFR 13. ASSESSMENT AND PLAN: 1. Oliguric, acute renal failure. We will place hemodialysis catheter per Dr. Mackay's request today. 2. Ileus. Continue NG tube. Await GI function. 3. Respiratory failure. 4. Status post laparotomy, bowel obstruction. 5. Severe peripheral arterial disease with ax-fem and fem-fem bypass. Job ID: [id number]
--- NOTE | 2019-11-24 13:07 | PDOC.HOSPP ---
- Subjective Encounter Date: 11/24/19 non-verbal (On the vent) - Objective Vital Signs & Weight: Vital Signs (12 hours) Temp Pulse Resp BP Pulse Ox 11/24/19 12:00 98.9 F 11/24/19 11:13 17 11/24/19 10:45 82 125/65 11/24/19 10:00 98.6 F 16 11/24/19 08:00 100.0 F H 16 100 11/24/19 07:31 81 134/64 11/24/19 06:00 16 11/24/19 04:00 99.4 F 16 11/24/19 02:31 75 108/60 11/24/19 02:00 16 Weight Admit Weight 126 lb Weight 123 lb 14.397 oz Most Recent Monitor Data Heart Rate from ECG 83 NIBP 96/51 NIBP BP-Mean 66 Respiration from ECG 14 SpO2 100 I&O: 11/23/19 11/24/19 11/25/19 06:59 06:59 06:59 Intake Total 4364.3 2574.0 Output Total 407 477 140 Balance 3957.3 2097.0 -140 Result Diagrams: 11/24/19 04:31 11/24/19 04:31 Hospitalist ROS - Medication Medications: Active Medications Generic Name Dose Route Start Last Admin Trade Name Freq PRN Reason Stop Dose Admin Bisacodyl 5 mg 11/17/19 11:34 11/17/19 12:09 Dulcolax PO 5 mg DAILYPRN PRN Administration Constipation Famotidine 20 mg 11/22/19 09:00 11/24/19 08:24 Pepcid SLOW IVP 20 mg DAILY NADIRA Administration Furosemide 40 mg 11/23/19 14:00 11/24/19 05:42 Lasix SLOW IVP 40 mg 0600,1400 NADIRA Administration Promethazine HCl 12.5 mg/ 50.5 mls @ 202 mls/hr 11/16/19 20:11 11/17/19 21:13 Sodium Chloride IVPB 50.5 mls Q6H PRN Administration Nausea/Vomiting Piperacillin Sod/Tazobactam 100 mls @ 200 mls/hr 11/21/19 12:00 11/24/19 11: 33 Sod 2.25 gm/ Sodium Chloride IVPB 100 mls Q6HR NADIRA Administration Fentanyl Citrate 2,000 mcg/ 100 mls @ 0 mls/hr 11/21/19 15:33 11/24/19 07:06 Sodium Chloride IV 12/21/19 15:33 100 mls INF NADIRA Administration Protocol Per Protocol Sodium Bicarbonate 140 meq/ 1,140 mls @ 75 mls/hr 11/23/19 08:15 11/23/19 22: 40 Dextrose/Water IV 1,140 mls .[id number] NADIRA Administration Morphine Sulfate 2 mg 11/21/19 15:33 11/21/19 22:59 Morphine SLOW IVP 12/21/19 15:33 2 mg Q1H PRN Administration Breakthrough Pain/Agitation Ondansetron HCl 4 mg 11/16/19 00:17 11/19/19 06:48 Zofran Odt PO 4 mg Q6H PRN Administration Nausea/Vomiting Ondansetron HCl 4 mg 11/16/19 00:17 11/20/19 09:07 Zofran IVP 4 mg Q6H PRN Administration Nausea/Vomiting - Exam ENT: normocephalic atraumatic Neck: supple Heart: RRR Respiratory: normal chest expansion, no tachypnea, rhonchi Gastrointestinal: soft Extremities: no cyanosis, no clubbing Hosp A/P - Plan This is an 79 year old male who presents with recurrent nausea and vomiting 11/21: #Small bowel obstruction s/p exploratory laparotomy and lysis of adhesion POD1 - patient is s/p exlap and lysis of adhesions POD 1. He is still intubated - he initially had NG tube but serial scans showed persistent SBO - management per surgery #DIEUDONNE possibly secondary to ATN - creatinine has worsened to 4.18. Nephrology has been consulted, patient has been started on albumin - fluids switched back to D5 1/2 NS to provide more volume Acute hypoxic respiratory failure secondary to possible aspiration pneumonia -Patient desaturated 11/20. CT scan of the chest showed bilateral pneumonia. Continue Iv zosyn . He is currently intubated, pending pulmonary recs regarding extubation Leukocytosis - secondary to pneumonia vs intra-abdominal infection -downtrending to 12. Continue zosyn for aspiration pneumonia and empirically for possible intra-abd infection - Urine culture was negative for UTI. Repeat UA shows turbid urine, urine culture is pending Hypokalemia- likely poor po intake - potassium 3.4, replaced Hypernatremia -resolved UTI - started on IV ceftriaxone on admission. urine culture growing contaminant, so zosyn was discontinued Hypertension - controlled - BP in the 140s 11/22: Patient remains intubated. Continue vent management per pulmonology. NG tube with dark greenish output. No bowel movements or passage of gas yet. Continue IV hydration. Levophed has been weaned off to 2 mcg/min. Diuretics per nephrology. 11/23: Continue vent management per pulmonology. The patient was weaned off vasopressors. His urine output has been poor and chest x-ray showing persistent pulmonary edema. Volume removal via dialysis will likely be necessary. Surgery consulted for dialysis catheter placement.
--- NOTE | 2019-11-24 14:15 | PRG ---
DATE OF SERVICE: 11/24/2019 SUBJECTIVE: Mr. Schmitt is an 79-year-old black male seen by the Renal Service for his acute kidney injury. Initially he felt that he may simply have a hemodynamically-mediated renal dysfunction, but has remained unimproved in spite of hydration. The possibility of acute tubular necrosis remains with this patient. His renal function continues to worsen and he has a decreased urine output. For this reason, we will be initiating hemodialysis. We have consulted Dr. Ribeiro for placement of a dialysis catheter. The patient is also being treated for pneumonia and currently he is intubated on ventilator support. OBJECTIVE: VITAL SIGNS: Blood pressure is 96/51, ranging to as high as 118/70, heart rate 83, respiratory rate 14, and O2 saturation 100%. GENERAL: The patient is awake, intubated on ventilator support. SKIN: Adequate turgor. HEENT: He has slightly pale conjunctivae. Anicteric sclerae. NECK: No neck mass. No carotid bruits. No JVD. CHEST: No deformities. LUNGS: Decreased breath sounds. HEART: Normal sinus rhythm. No murmur. No gallops. No rubs. ABDOMEN: Globular, soft, nontender. No masses. EXTREMITIES: No edema. No deformities. MEDICATIONS: Medications of November 24, 2019 were reviewed. LABORATORY DATA: Laboratories of November 24, 2019; white count 12.8, hemoglobin 8. Sodium 138, potassium 3.4, chloride 107, carbon dioxide 16, BUN 53, creatinine 5.29, GFR 13 mL/minute, calcium 6.8. ASSESSMENT AND PLAN: Acute kidney injury, most likely now superimposed acute tubular necrosis. Unimproved in spite of volume repletion. He has received diuretics to increase urine output. In addition, he significantly is having metabolic acidosis. The plan is to initiate hemodialysis in a.m. once we have the dialysis catheter placed by Dr. Ribeiro. Overall, prognosis remains guarded. Job ID: [id number]
[2019-11-24] MEDS: Sodium Bicarbonate 140 MEQ in Dextrose 5% in Water 1,000 ML IV SCH (15:14)
--- NOTE | 2019-11-24 16:56 | ULT ---
VEIN MAPPING OF UPPER EXTREMITIES FOR DIALYSIS ACCESS: History: End-stage disease. RIGHT UPPER EXTREMITY: The cephalic vein in the proximal arm and distal forearm are not seen because of a very small size. T he right cephalic vein measures 0.7 mm in the mid-arm, 0.8 mm in the distal arm and 0.7 mm in antecub ital fossa and 0.8 mm in the proximal and mid forearm. The right basilar vein measures 1.5 mm in the proximal, mid, distal and antecubital fossa, 1 mm in th e proximal forearm and 0.8 mm in the midforearm. It is to small to be seen in the distal forearm. BRACHIAL ARTERY: 3.0 mm RADIAL ARTERY: 1.3 mm ULNAR ARTERY: 1.2 mm LEFT UPPER EXTREMITY: The left cephalic vein is too small to be visualized in the proximal and midarm, and distal forearm. It measures 0.7 mm in the distal arm, 1.1 mm in antecubital fossa, 1.8 mm in the proximal forearm, an d 0.6 mm in the mid forearm. The left basilar vein measures 1.7 mm in the proximal arm, 1.9 mm in the midarm, 1.6 mm in the distal arm, 1.4 mm in the antecubital fossa, 0.7 mm in the proximal forearm, 1 mm in the midforearm and 0.8 mm in the distal forearm. BRACHIAL ARTERY: 3.7 mm RADIAL ARTERY: 1.1 mm ULNAR ARTERY: 1.2 mm POS: OFF
--- NOTE | 2019-11-24 17:53 | OP ---
DATE OF PROCEDURE: 11/24/2019 PREOPERATIVE DIAGNOSES: Chronic kidney disease, acute renal failure after laparotomy for bowel obstruction, severe peripheral arterial disease with ax-fem and fem-fem bypass. PROCEDURE PERFORMED: Left femoral vein Trialysis catheter. ANESTHESIA: 1% Xylocaine. DESCRIPTION OF PROCEDURE: With the patient at bedside, left groin was clipped of hair, prepared with ChloraPrep and draped in routine fashion. Local anesthetic was infiltrated in the skin and subcutaneous tissue. Seldinger technique used to place a Trialysis catheter, securing it with 3-0 nylon, removing the J-wire, aspirating each port of blood and flushing each port with heparinized saline solution. The patient tolerated the procedure well. Job ID: [id number]
[2019-11-24 18:16] LABS: Hep B Surf Ag Non-Reactive S/CO (NonReactive)
[2019-11-24 19:55] LABS: HBSAg Index 0.12 S/CO (0-0.99)
[2019-11-25] MEDS: Piperacillin/Tazobactam 2.25 GM in Sodium Chloride 0.9% 100 ML IVPB SCH ×5 (00:12→21:54)
[2019-11-25 05:29] LABS: Band 6 % (5-11); Hemoglobin 7.9 g/dL (14.0-18.0); Hypochromia SLIGHT = 6-15 cells (100X) (0-5/hpf); Lymphocytes 7 % (21-51); MDiff Complete? YES; Mean Corpuscular HGB CONC 32.3 g/dL (32.0-36.0); Mean Corpuscular Hemoglobin 29.3 pg (27.0-31.0); Mean Corpuscular Volume 90.8 fL (78.0-98.0); Mean Platelet Volume 9.9 fL (7.4-10.4); Monocytes 28 % (0-10); Neutrophil 59 % (42-75); Platelet Count 103 thou/uL (130-400); Platelet Morphology Comment Appears Adequate; RBC Distribution Width 17.1 % (11.5-14.5); White Blood Cell (WBC) Count 12.1 thou/uL (4.8-10.8)
[2019-11-25] MEDS: Furosemide 40 MG/4 ML VIAL SLOW IVP SCH ×2 (05:29→15:19)
[2019-11-25 05:37] LABS: Anion Gap 18 mmol/L (10-20); BUN (Urea Nitrogen) 56 mg/dL (8.4-25.7); Calc. Creatinine Clearance 8 mL/min (70-130); Calcium 6.6 mg/dL (7.8-10.44); Carbon Dioxide 23 mmol/L (23-31); Chloride 103 mmol/L (98-107); Estimated GFR-MDRD 12; Glucose 107 mg/dL (83-110); Potassium 3.1 mmol/L (3.5-5.1); Sodium 141 mmol/L (136-145)
[2019-11-25] MEDS: Sodium Bicarbonate 140 MEQ in Dextrose 5% in Water 1,000 ML IV SCH ×2 (06:30→21:54)
[2019-11-25 07:38] LABS: CO2 Tension 43.4 mmHg (35.0-45.0); Carboxyhemoglobin (COHb) 0.3 gm% (0.0-3.0); Hemoglobin (Hb) 8.4 g/dL (14.0-18.0); O2 Tension (PaO2), arterial 82.2 mmHg (> 60.0); Potassium - ABG Lab 3.12 mmol/L (3.70-5.30)
[2019-11-25 07:42] LABS: Puncture Site RRA
--- NOTE | 2019-11-25 08:01 | RAD ---
Chest AP view INDICATION: Intubation COMPARISON: November 24, 2019 FINDINGS: Lungs: Bibasilar pleural-parenchymal opacities persist Cardiac silhouette: Cardiomegaly is stable. Left subclavian central venous catheter is stable. Pulmonary vasculature: Pulmonary vascular congestion persists Pleural spaces: Small layering pleural effusions bilaterally are stable. No pneumothorax is demonstr ated. Upper abdomen: Gastric catheter is unchanged. Osseous structures: No acute osseous abnormality. Additional findings: ET tube tip is unchanged. IMPRESSION: Stable findings of volume overload or CHF. Hazy bibasilar opacities related to either atelectasis or pneumonia are stable. No pneumothorax. Stable tubes and lines.
--- NOTE | 2019-11-25 08:49 | PDOC.GSPN ---
Surgery Progress Note: Subj - Subjective Narrative: Mr. Schmitt is an 79 year old man on post op day 4 from repair of small bowel obstruction. He is currently receiving dialysis for acute on chronic renal failure. The patient is intubated but is awake, alert and responds to commands. He denies any pain. Nurse reports no bowel movements and the patient states that he has not passed gas. His hemoglobin is down after receiving two transfusions three days ago. 625 ml of greenish-brown output from NG tube. 200 ml foamy, red fluid from ET tube suctioning. Nurse reports that pulmonology hopes to extubate later today following dialysis. Surgery Progress Note: Obj - Vital signs Vital signs: Vital Signs - Most Recent Temp Pulse Resp BP Pulse Ox 98.1 F 77 14 108/54 L 100 11/25/19 04:00 11/25/19 07:44 11/25/19 06:00 11/25/19 02:29 11/24/19 08:00 - Physical Exam General: no distress, no pain, chronically ill Cardiovascular: regular rate and rhythm, other (holosystolic murmur) Respiratory: coarse breath sounds (diffusely, worse in lower lung zimmerman) Abdomen: decreased bowel sounds, distended Hernia: none Genitourinary (Male): normal penis with no external lesions Wound: healing well (No drainage or erythema) Surgery Progress Note: Results - Labs Result Diagrams: 11/25/19 05:08 11/25/19 05:08 Lab results: Laboratory Results - last 24 hr 11/25/19 11/25/19 11/25/19 05:08 05:08 07:30 WBC 12.1 H RBC 2.70 L Hgb 7.9 L Hct 24.5 L MCV 90.8 MCH 29.3 MCHC 32.3 RDW 17.1 H Plt Count 103 L MPV 9.9 Neutrophils % (Manual) 59 Band Neuts % (Manual) 6 Lymphocytes % (Manual) 7 L Monocytes % (Manual) 28 H Hypochromia SLIGHT = 6-15 cells Plt Morphology Comment Appears Adequate Specimen Type ARTERIAL Puncture Site RRA Bicarbonate Actual 21.0 L ABG pH 7.30 L ABG pCO2 43.4 ABG pO2 82.2 H ABG O2 Sat (Measured) 94.2 ABG O2 Content 11.2 L ABG Base Excess -5.0 L ABG Hematocrit 25.0 L ABG Hemoglobin 8.4 L ABG Oxyhemoglobin 93.9 L ABG Carboxyhemoglobin 0.3 ABG Methemoglobin 0.00 L ABG Deoxyhemoglobin 5.8 H Ravi Test Not Reportable A-a O2 Gradient 77.450 H Ionized Calcium 0.90 L Mode of Support SIMV % Minute Volume 4.0 Mechanical Rate 10 Inspired O2 30 Tidal Volume 430 Peak Inspir Pressure 24 Pressure Support 10 PEEP or CPAP 5.0 Sodium 141 138 Potassium 3.1 L 3.12 L Chloride 103 103 Carbon Dioxide 23 Anion Gap 18 BUN 56 H Creatinine 5.57 H Estimated GFR (MDRD) 12 Glucose 107 Calcium 6.6 L Surgery Progress Note: A/P - Plan Plan: s/p SBO- Monitor for bowel movement to rule out continued small bowel obstruction. Recommend abdominal series Anemia- Hg down to 6.9. No active bleeding suspected at this time. Recommend transfusion 1-2 units at this time. Hypokalemia- Replace with IV KCl Metabolic acidosis- Continue Bicarb administration. Continue dialysis to resolve acid/base disturbance. Fluid overload- Continue dialysis. Respiratory failure- recommend extubation following dialysis Addendum - Physician - Physician Attestation Date/Time: 11/25/19 1021 I personally performed or re-performed the physical examination and medical decision making. I have verified all student documentation or findings, including history, physical exam and/or medical decision making. Still on vent although wakes up and nods to questions Dialysis starting Abd soft, decreased bowel sounds. After extubation may try clears tomorrow
--- NOTE | 2019-11-25 09:40 | PRG ---
DATE OF SERVICE: 11/25/2019 SUBJECTIVE: This morning, he is on 150 of fentanyl, intubated on the vent. He is responsive. OBJECTIVE: VITAL SIGNS: Pulse 77, saturations are 98%, blood pressure 107/53. CHEST: Decreased breath sounds. No wheezing. CARDIAC: Normal S1 and S2. No gallops. ABDOMEN: No masses. LABORATORY DATA: White count 12,000, hemoglobin and hematocrit are 7 and 24, and platelet count 103. PO2 is 82, pCO2 is 43, pH 7.70, rate of 8, 30%. BUN and creatinine are 56 and 5.5. ASSESSMENT AND PLAN: Respiratory failure, renal failure, status post exploratory laparotomy with lysis of adhesions. Continue PT, supportive care, nutrition. Decrease sedation. Consider weaning and extubation in the next 24 hours. All his cultures are negative. We will follow. One-half hour of critical care time. Job ID: [id number]
--- NOTE | 2019-11-25 09:42 | PRG ---
DATE OF SERVICE: 11/25/2019 SUBJECTIVE: Mr. Schmitt is an 79-year-old black male, followed up by the Renal Service for his acute kidney injury. Initially, we felt that this was a hemodynamically-mediated dysfunction. However, chest x-ray showed volume overload and he had a progressive azotemia. For that reason, we have initiated dialysis. He underwent a 1-hour dialysis today with 1 L fluid removal. He will continue to receive daily dialysis for fluid removal. No acute events noted. OBJECTIVE: VITAL SIGNS: Blood pressure 107/53, heart rate 81, respiratory rate 20, O2 saturation 100%. GENERAL: He is awake, intubated on ventilator support. SKIN: Adequate turgor. HEENT: He has a slightly pale conjunctivae. Anicteric sclerae. NECK: No neck mass. No carotid bruits. No JVD. CHEST: No deformities. LUNGS: Decreased breath sounds. HEART: Normal sinus rhythm. No murmurs, gallops, or rubs. ABDOMEN: Globular, soft, nontender. No masses. EXTREMITIES: No edema. No deformities. MEDICATIONS: Medications of November 25, 2019, was reviewed. LABORATORY DATA: Laboratories of November 25, 2019; white count 12.1, hemoglobin 7.9. Sodium 141, potassium 3.1, chloride 103, carbon dioxide 23, BUN 56, creatinine 5.57, glucose 107 and calcium 6.6. ASSESSMENT AND PLAN: Acute kidney injury/chronic renal failure, worsening renal dysfunction. Because of volume overload and progressive azotemia, we have initiated dialysis. We removed 1 L of fluid today. The plan is for him to undergo another dialysis session. We will attempt between 2 and 3 L fluid removal in tomorrow's dialysis session. Overall, prognosis remains guarded with this patient. Job ID: [id number]
[2019-11-25] MEDS: Famotidine/PF 20 mg/2ml Vial SLOW IVP SCH (09:59)
[2019-11-25] MEDS ORDERED: Heparin 10,000 UNITS/ 10 ML VIAL ONE (10:51)
[2019-11-25 11:08] LABS: HBSAB Concentration Less than 8.00 mIU/mL; Hep B Core Total Ab Non-Reactive (NonReactive); Hep B Core Total Index 0.06 S/CO (0-0.79); Hep B Surf AB Non-Reactive (NonReactive); Hep C IgG Ab Non-Reactive (NonReactive); Hep C Index 0.12 S/CO (0-0.79)
[2019-11-25] MEDS: fentaNYL Citrate/PF 2,000 MCG in Sodium Chloride 0.9% 60 ML IV SCH (11:21)
--- NOTE | 2019-11-25 13:34 | PDOC.HOSPP ---
- Subjective Encounter Date: 11/25/19 non-verbal (On the vent. Follows commands.) - Objective Vital Signs & Weight: Vital Signs (12 hours) Temp Pulse Resp BP 11/25/19 13:08 84 11/25/19 11:00 80 11/25/19 10:00 8 L 11/25/19 08:00 10 L 11/25/19 07:44 77 11/25/19 07:00 98.3 F 11/25/19 06:00 14 11/25/19 04:00 98.1 F 12 11/25/19 02:29 80 108/54 L 11/25/19 02:00 14 Weight Admit Weight 126 lb Weight 123 lb 14.397 oz Most Recent Monitor Data Heart Rate from ECG 80 NIBP 79/57 NIBP BP-Mean 64 Respiration from ECG 10 SpO2 99 I&O: 11/24/19 11/25/19 11/26/19 06:59 06:59 06:59 Intake Total 2574.0 2563 Output Total 477 1330 75 Balance 2097.0 1233 -75 Result Diagrams: 11/25/19 05:08 11/25/19 05:08 Hospitalist ROS - Medication Medications: Active Medications Generic Name Dose Route Start Last Admin Trade Name Freq PRN Reason Stop Dose Admin Bisacodyl 5 mg 11/17/19 11:34 11/17/19 12:09 Dulcolax PO 5 mg DAILYPRN PRN Administration Constipation Famotidine 20 mg 11/22/19 09:00 11/25/19 09:59 Pepcid SLOW IVP 20 mg DAILY NADIRA Administration Furosemide 40 mg 11/23/19 14:00 11/25/19 05:29 Lasix SLOW IVP Not Given 0600,1400 NADIRA Promethazine HCl 12.5 mg/ 50.5 mls @ 202 mls/hr 11/16/19 20:11 11/17/19 21:13 Sodium Chloride IVPB 50.5 mls Q6H PRN Administration Nausea/Vomiting Fentanyl Citrate 2,000 mcg/ 100 mls @ 0 mls/hr 11/21/19 15:33 11/25/19 11:21 Sodium Chloride IV 12/21/19 15:33 100 mls INF NADIRA Administration Protocol Per Protocol Sodium Bicarbonate 140 meq/ 1,140 mls @ 75 mls/hr 11/23/19 08:15 11/25/19 06: 30 Dextrose/Water IV 1,140 mls .[id number] NADIRA Administration Morphine Sulfate 2 mg 11/21/19 15:33 11/21/19 22:59 Morphine SLOW IVP 12/21/19 15:33 2 mg Q1H PRN Administration Breakthrough Pain/Agitation Ondansetron HCl 4 mg 11/16/19 00:17 11/19/19 06:48 Zofran Odt PO 4 mg Q6H PRN Administration Nausea/Vomiting Ondansetron HCl 4 mg 11/16/19 00:17 11/20/19 09:07 Zofran IVP 4 mg Q6H PRN Administration Nausea/Vomiting - Exam General Appearance: awake alert ENT: normocephalic atraumatic Neck: supple Respiratory: normal chest expansion, no tachypnea, rhonchi Extremities: no cyanosis, no clubbing Hosp A/P - Plan This is an 79 year old male who presents with recurrent nausea and vomiting 11/21: #Small bowel obstruction s/p exploratory laparotomy and lysis of adhesion POD1 - patient is s/p exlap and lysis of adhesions POD 1. He is still intubated - he initially had NG tube but serial scans showed persistent SBO - management per surgery #DIEUDONNE possibly secondary to ATN - creatinine has worsened to 4.18. Nephrology has been consulted, patient has been started on albumin - fluids switched back to D5 1/2 NS to provide more volume Acute hypoxic respiratory failure secondary to possible aspiration pneumonia -Patient desaturated 11/20. CT scan of the chest showed bilateral pneumonia. Continue Iv zosyn . He is currently intubated, pending pulmonary recs regarding extubation Leukocytosis - secondary to pneumonia vs intra-abdominal infection -downtrending to 12. Continue zosyn for aspiration pneumonia and empirically for possible intra-abd infection - Urine culture was negative for UTI. Repeat UA shows turbid urine, urine culture is pending Hypokalemia- likely poor po intake - potassium 3.4, replaced Hypernatremia -resolved UTI - started on IV ceftriaxone on admission. urine culture growing contaminant, so zosyn was discontinued Hypertension - controlled - BP in the 140s 11/22: Patient remains intubated. Continue vent management per pulmonology. NG tube with dark greenish output. No bowel movements or passage of gas yet. Continue IV hydration. Levophed has been weaned off to 2 mcg/min. Diuretics per nephrology. 11/23: Continue vent management per pulmonology. The patient was weaned off vasopressors. His urine output has been poor and chest x-ray showing persistent pulmonary edema. Volume removal via dialysis will likely be necessary. Surgery consulted for dialysis catheter placement. 11/24: Hemodialysis has been initiated today due to worsening volume overload. No bowel movements yet. Otherwise, vital signs are stable. Continue vent management per critical care. H&H stable.
[2019-11-26] MEDS: Furosemide 40 MG/4 ML VIAL SLOW IVP SCH (04:45)
[2019-11-26] MEDS: Piperacillin/Tazobactam 2.25 GM in Sodium Chloride 0.9% 100 ML IVPB SCH ×3 (04:46→21:11)
[2019-11-26 05:41] LABS: Band 17 % (5-11); Hemoglobin 7.6 g/dL (14.0-18.0); Lymphocytes 9 % (21-51); MDiff Complete? YES; Mean Corpuscular HGB CONC 31.4 g/dL (32.0-36.0); Mean Corpuscular Hemoglobin 28.4 pg (27.0-31.0); Mean Corpuscular Volume 90.5 fL (78.0-98.0); Mean Platelet Volume 10.6 fL (7.4-10.4); Metamyelocyte 2 % (0-0); Monocytes 31 % (0-10); Neutrophil 41 % (42-75); Platelet Count 118 thou/uL (130-400); Platelet Morphology Comment Appears Decreased; RBC Distribution Width 16.9 % (11.5-14.5); Red Blood Cell (RBC) Count 2.67 mill/uL (4.70-6.10); White Blood Cell (WBC) Count 12.2 thou/uL (4.8-10.8)
[2019-11-26 05:43] LABS: Anion Gap 18 mmol/L (10-20); BUN (Urea Nitrogen) 50 mg/dL (8.4-25.7); Calc. Creatinine Clearance 9 mL/min (70-130); Calcium 6.7 mg/dL (7.8-10.44); Carbon Dioxide 26 mmol/L (23-31); Chloride 99 mmol/L (98-107); Estimated GFR-MDRD 13; Glucose 106 mg/dL (83-110); Sodium 140 mmol/L (136-145)
--- NOTE | 2019-11-26 07:04 | RAD ---
CHEST 1 VIEW: Date: 11/26/2019 INDICATION: History of intubation. COMPARISON: Prior exam dated 11/25/2019. IMPRESSION: Bilateral air space disease, ET tube, gastric catheter, and left subclavian central venous catheter i s stable appearing. Mild cardiomegaly is similar appearing. Bilateral pleural effusions are unchanged . No pneumothorax is evident. POS: BH
[2019-11-26] MEDS: fentaNYL Citrate/PF 2,000 MCG in Sodium Chloride 0.9% 60 ML IV SCH (07:09)
[2019-11-26 07:43] LABS: Actual Bicarbonate (HCO3a) 25.8 mEq/L (22-28); Base Excess (BEa) 1.2 mEq/L (-2.0 to +3.0); CO2 Tension 41.1 mmHg (35.0-45.0); Calcium, Ionized (arterial) 0.85 mmol/L (1.12-1.30); Carboxyhemoglobin (COHb) 0.5 gm% (0.0-3.0); Hemoglobin (Hb) 7.9 g/dL (14.0-18.0); O2 Tension (PaO2), arterial 98.6 mmHg (> 60.0); Potassium - ABG Lab 2.89 mmol/L (3.70-5.30); pH, Arterial 7.42 (7.35-7.45)
[2019-11-26 07:46] LABS: Puncture Site RRA
[2019-11-26 07:47] LABS: ALV-art Gradient 63.925 (0-20)
--- NOTE | 2019-11-26 08:34 | PDOC.GSPN ---
Surgery Progress Note: Subj - Subjective Narrative: Patient s/p ex lap for lysis of adhesions leading to small bowel obstruction. History was hard to obtain due to patient being intubated. He was alert and would follow commands, but was unable to speak. Surgery Progress Note: Obj - Vital signs Vital signs: Vital Signs - Most Recent Temp Pulse Resp BP Pulse Ox 97.8 F 64 14 130/77 97 11/26/19 04:00 11/26/19 07:25 11/26/19 06:00 11/26/19 02:38 11/25/19 08:00 - Physical Exam General: moderate pain (on palpation of the abdomen) Cardiovascular: regular rate and rhythm Respiratory: clear to auscultation Abdomen: nondistended, positive bowel sounds, appropriately tender Additional exam: Patient's NG tube produced 650mL of fluid (nonbilious) Surgery Progress Note: Results - Labs Result Diagrams: 11/26/19 05:07 11/26/19 05:07 Lab results: Laboratory Results - last 24 hr 11/26/19 11/26/19 11/26/19 05:07 05:07 07:30 WBC 12.2 H RBC 2.67 L Hgb 7.6 L Hct 24.2 L MCV 90.5 MCH 28.4 MCHC 31.4 L RDW 16.9 H Plt Count 118 L MPV 10.6 H Neutrophils % (Manual) 41 L Band Neuts % (Manual) 17 H Lymphocytes % (Manual) 9 L Monocytes % (Manual) 31 H Metamyelocytes % (Man) 2 H Plt Morphology Comment Appears Decreased L Specimen Type ARTERIAL Puncture Site RRA Bicarbonate Actual 25.8 ABG pH 7.42 ABG pCO2 41.1 ABG pO2 98.6 H ABG O2 Sat (Measured) 97.6 ABG O2 Content 10.9 L ABG Base Excess 1.2 ABG Hematocrit 23.0 L ABG Hemoglobin 7.9 L ABG Oxyhemoglobin 96.8 ABG Carboxyhemoglobin 0.5 ABG Methemoglobin 0.30 ABG Deoxyhemoglobin 2.4 Ravi Test Not Reportable A-a O2 Gradient 63.925 H Ionized Calcium 0.85 L Mode of Support SIMV % Minute Volume 4.1 Mechanical Rate 8 Spontaneous Rate 5 Inspired O2 30 Tidal Volume 430 Spontaneous Tidal Vol 303 Peak Inspir Pressure 19 Pressure Support 10 PEEP or CPAP 5.0 Sodium 140 133 L Potassium 3.0 L 2.89 L Chloride 99 99 Carbon Dioxide 26 Anion Gap 18 BUN 50 H Creatinine 5.17 H Estimated GFR (MDRD) 13 Glucose 106 Calcium 6.7 L - EKG Data Rate: normal Surgery Progress Note: A/P - Problem (1) Small bowel obstruction Current Visit: Yes Code(s): K56.609 - UNSP INTESTNL OBST, UNSP TO PARTIAL VERSUS COMPLETE OBST Status: Resolved (2) Sufuc-il-udvvdkb kidney injury Current Visit: Yes Code(s): N17.9 - ACUTE KIDNEY FAILURE, UNSPECIFIED; N18.9 - CHRONIC KIDNEY DISEASE, UNSPECIFIED Status: Acute - Plan Plan: Small bowel obstruction -Patient is s/p from lysis of adhesions causing the small bowel obstruction. Pain appears to be well controlled, but is hard to be certain since he cannot respond verbally. Continue to monitor patient for normal bowel function including flatus and BM. Continue NPO status Acute on chronic kidney injury -Patient is scheduled for dialysis today. If he tolerates it well then Pulmonology said he can be extubated. His creatinine is better today (5.17) than yesterday (5.57). Addendum - Physician - Physician Attestation Date/Time: 11/26/19 1059 I personally performed or re-performed the physical examination and medical decision making. I have verified all student documentation or findings, including history, physical exam and/or medical decision making. Extubated, confused Hopefully awake enough to start liquid diet tomorrow. Otherwise TF
[2019-11-26] MEDS ORDERED: Epoetin (ESRD) 20,000 UNITS/ML SC SCH (08:45)
[2019-11-26] MEDS ORDERED: DC Sedation Protocol FS ONE (08:50)
[2019-11-26] MEDS ORDERED: EPOETIN ALFA-EPBX (ESRD) 4,000 UNIT/ML VIAL SC SCH (09:00)
[2019-11-26] MEDS ORDERED: Heparin 10,000 UNITS/ 10 ML VIAL ONE (09:00)
[2019-11-26] MEDS ORDERED: Sodium Bicarbonate 140 MEQ in Dextrose 5% in Water 1,000 ML IV SCH (09:00)
--- NOTE | 2019-11-26 09:13 | PRG ---
DATE OF SERVICE: 11/26/2019 SUBJECTIVE: Mr. Schmitt is an 79-year-old black male seen for his acute kidney injury on top of his chronic renal failure. He had a progressive azotemia as well as volume overload, hence the initiation of hemodialysis. He did undergo 1 hour dialysis yesterday with about a liter of fluid removed. Our plan is to do a 2-hour hemodialysis with attempt to remove between 2 and 3 L of fluid. We do anticipate eventual extubation with fluid removal. No acute events noted last night. OBJECTIVE: VITAL SIGNS: Blood pressure is 120/58, heart rate is 64, respiratory rate 18, O2 saturation 100%. GENERAL: He is awake and follow commands, intubated, on ventilator support. SKIN: Adequate turgor. HEENT: He has slightly pale conjunctivae. Anicteric sclerae. No neck mass. No carotid bruits. No JVD. CHEST: No deformities. LUNGS: Decreased breath sounds. HEART: Normal sinus rhythm. No murmur. No gallops. No rubs. ABDOMEN: Globular, soft, nontender. No masses. EXTREMITIES: No edema. No deformities. MEDICATIONS: Medications of November 26, 2019, were reviewed. LABORATORY DATA: Laboratories of November 26, 2019; white count 12.2, hemoglobin 7.6. Sodium 140, potassium 3, chloride 99, carbon dioxide 26, BUN 50, creatinine 5.17, glucose 106, calcium 6.7. ASSESSMENT AND PLAN: 1. Acute kidney injury on top of his chronic renal failure, superimposed ATN with this patient. Renal function has worsened and is in volume overload. We will continue daily dialysis with this patient. Attempt between 2 and 3 L of fluid removal as tolerated by the patient. 2. Anemia. P.r.n. blood transfusion - initiate Epogen if this has not been done yet. 3. Acute respiratory failure, currently intubated. We are maxing out fluid removal with this patient. In addition, we will discontinue IV Lasix with this patient. Recheck CBC, basic metabolic in a.m. Job ID: [id number]
--- NOTE | 2019-11-26 09:24 | PRG ---
DATE OF SERVICE: 11/26/2019 SUBJECTIVE: This morning, he still remains encephalopathic, but no distress. OBJECTIVE: VITAL SIGNS: His temperature is 97, pulse 64, respirations 30, blood pressure 120/58. CHEST: Decreased breath sounds. No wheezing. CARDIAC: Normal S1, S2. No masses. LABORATORY DATA: White count 12,000, H and H 7 and 24, platelet count 118. The pO2 of 98, pCO2 of , rate of 8, 30% and PEEP of 5. BUN and creatinine 50 and 5.7. ASSESSMENT: Acute on chronic respiratory failure, acute on chronic renal failure, status post lap adhesions. X-ray still shows a large amount of pleural effusion though we are going to extubate him today. We hopefully continue aggressive dialysis. Supportive care. Nutrition as per General Surgery. We will follow in the ICU. One-half hour of critical time. Job ID: [id number]
[2019-11-26] MEDS: Famotidine/PF 20 mg/2ml Vial SLOW IVP SCH (09:50)
[2019-11-26] MEDS ORDERED: Fentanyl 100 MCG/2 ML VIAL SLOW IVP PRN (10:56)
[2019-11-26] MEDS: Fentanyl 100 MCG/2 ML VIAL SLOW IVP PRN ×3 (14:31→23:00)
--- NOTE | 2019-11-26 21:32 | PDOC.HOSPP ---
- Subjective Encounter Date: 11/26/19 Subjective: Extubated successful - Objective Vital Signs & Weight: Vital Signs (12 hours) Temp Pulse Ox 11/26/19 20:00 99 11/26/19 19:00 97.7 F 11/26/19 16:00 98.9 F 11/26/19 12:00 98.6 F 100 Weight Admit Weight 126 lb Weight 123 lb 14.397 oz Most Recent Monitor Data Heart Rate from ECG 70 NIBP 102/84 NIBP BP-Mean 90 Respiration from ECG 21 SpO2 96 I&O: 11/25/19 11/26/19 11/27/19 06:59 06:59 06:59 Intake Total 2563 1280 311.8 Output Total 1330 432 115 Balance 1233 848 196.8 Result Diagrams: 11/26/19 05:07 11/26/19 05:07 Hospitalist ROS - Medication Medications: Active Medications Generic Name Dose Route Start Last Admin Trade Name Freq PRN Reason Stop Dose Admin Bisacodyl 5 mg 11/17/19 11:34 11/17/19 12:09 Dulcolax PO 5 mg DAILYPRN PRN Administration Constipation Epoetin Blaine-epbx 7,500 unit 11/26/19 09:00 11/26/19 12:44 Retacrit SC 7,500 unit WILLCALL NADIRA Administration Famotidine 20 mg 11/22/19 09:00 11/26/19 09:50 Pepcid SLOW IVP 20 mg DAILY NADIRA Administration Fentanyl 50 mcg 11/26/19 10:56 11/26/19 21:11 Sublimaze SLOW IVP 50 mcg Q2H PRN Administration Moderate to Severe Pain (6-10) Promethazine HCl 12.5 mg/ 50.5 mls @ 202 mls/hr 11/16/19 20:11 11/17/19 21:13 Sodium Chloride IVPB 50.5 mls Q6H PRN Administration Nausea/Vomiting Piperacillin Sod/Tazobactam 100 mls @ 200 mls/hr 11/25/19 14:00 11/26/19 21: 11 Sod 2.25 gm/ Sodium Chloride IVPB 100 mls Q8HR NADIRA Administration Ondansetron HCl 4 mg 11/16/19 00:17 11/19/19 06:48 Zofran Odt PO 4 mg Q6H PRN Administration Nausea/Vomiting Ondansetron HCl 4 mg 11/16/19 00:17 11/20/19 09:07 Zofran IVP 4 mg Q6H PRN Administration Nausea/Vomiting Promethazine HCl 25 mg 11/16/19 20:11 11/26/19 21:13 Phenergan IM/IV 25 mg Q6H PRN Administration Nausea/Vomiting Sodium Chloride 10 ml 11/16/19 00:02 11/25/19 22:38 Flush - Normal Saline IVF 10 ml PRN PRN Administration Saline Flush - Exam ENT: normocephalic atraumatic Neck: supple, no JVD Heart: RRR Respiratory: normal chest expansion, no tachypnea Gastrointestinal: soft Neurological: no focal deficits Hosp A/P - Plan This is an 79 year old male who presents with recurrent nausea and vomiting 11/21: #Small bowel obstruction s/p exploratory laparotomy and lysis of adhesion POD1 - patient is s/p exlap and lysis of adhesions POD 1. He is still intubated - he initially had NG tube but serial scans showed persistent SBO - management per surgery #DIEUDONNE possibly secondary to ATN - creatinine has worsened to 4.18. Nephrology has been consulted, patient has been started on albumin - fluids switched back to D5 1/2 NS to provide more volume Acute hypoxic respiratory failure secondary to possible aspiration pneumonia -Patient desaturated 11/20. CT scan of the chest showed bilateral pneumonia. Continue Iv zosyn . He is currently intubated, pending pulmonary recs regarding extubation Leukocytosis - secondary to pneumonia vs intra-abdominal infection -downtrending to 12. Continue zosyn for aspiration pneumonia and empirically for possible intra-abd infection - Urine culture was negative for UTI. Repeat UA shows turbid urine, urine culture is pending Hypokalemia- likely poor po intake - potassium 3.4, replaced Hypernatremia -resolved UTI - started on IV ceftriaxone on admission. urine culture growing contaminant, so zosyn was discontinued Hypertension - controlled - BP in the 140s 11/22: Patient remains intubated. Continue vent management per pulmonology. NG tube with dark greenish output. No bowel movements or passage of gas yet. Continue IV hydration. Levophed has been weaned off to 2 mcg/min. Diuretics per nephrology. 11/23: Continue vent management per pulmonology. The patient was weaned off vasopressors. His urine output has been poor and chest x-ray showing persistent pulmonary edema. Volume removal via dialysis will likely be necessary. Surgery consulted for dialysis catheter placement. 11/24: Hemodialysis has been initiated today due to worsening volume overload. No bowel movements yet. Otherwise, vital signs are stable. Continue vent management per critical care. H&H stable. 11/25: Extubated. Confused. No BMs. Ongoing HD per nephrology. Diet to be initiated tomorrow.
[2019-11-27 05:18] LABS: Anion Gap 22 mmol/L (10-20); BUN (Urea Nitrogen) 39 mg/dL (8.4-25.7); Calc. Creatinine Clearance 11 mL/min (70-130); Calcium 6.8 mg/dL (7.8-10.44); Carbon Dioxide 20 mmol/L (23-31); Chloride 103 mmol/L (98-107); Estimated GFR-MDRD 17; Glucose 66 mg/dL (83-110); Sodium 142 mmol/L (136-145)
[2019-11-27 05:19] LABS: Band 8 % (5-11); Eosinophils 1 % (0-10); Hemoglobin 8.3 g/dL (14.0-18.0); Hypochromia SLIGHT = 6-15 cells (100X) (0-5/hpf); Lymphocytes 7 % (21-51); MDiff Complete? YES; Mean Corpuscular HGB CONC 31.9 g/dL (32.0-36.0); Mean Corpuscular Volume 90.8 fL (78.0-98.0); Metamyelocyte 7 % (0-0); Monocytes 21 % (0-10); Neutrophil 56 % (42-75); Platelet Count 121 thou/uL (130-400); Platelet Morphology Comment Appears Decreased; Red Blood Cell (RBC) Count 2.86 mill/uL (4.70-6.10); White Blood Cell (WBC) Count 15.4 thou/uL (4.8-10.8)
[2019-11-27 05:28] LABS: Potassium 2.6 mmol/L (3.5-5.1)
[2019-11-27] MEDS: Piperacillin/Tazobactam 2.25 GM in Sodium Chloride 0.9% 100 ML IVPB SCH ×3 (06:24→21:33)
--- NOTE | 2019-11-27 07:20 | PDOC.GSPN ---
Surgery Progress Note: Subj - Subjective Patient reports: had a bowel movement Narrative: Patient is s/p ex lap for lysis of adhesions leading to a small bowel obstruction. He is extubated, but still confused. He says that he is still in pain over his entire abdomen. Surgery Progress Note: Obj - Vital signs Vital signs: Vital Signs - Most Recent Temp Pulse Resp BP Pulse Ox 99.2 F 73 22 H 130/77 99 11/27/19 04:00 11/26/19 08:55 11/26/19 08:55 11/26/19 02:38 11/26/19 20:00 - Physical Exam General: moderate pain Cardiovascular: regular rate and rhythm Respiratory: clear to auscultation, breath sounds present Abdomen: soft, nondistended, positive bowel sounds, appropriately tender Psychiatric: negative: oriented to time, oriented to place Wound: healing well Surgery Progress Note: Results - Labs Result Diagrams: 11/27/19 04:17 11/27/19 04:17 Lab results: Laboratory Results - last 24 hr 11/27/19 11/27/19 04:17 04:17 WBC 15.4 H RBC 2.86 L Hgb 8.3 L Hct 25.9 L MCV 90.8 MCH 29.0 MCHC 31.9 L RDW 17.0 H Plt Count 121 L MPV 10.0 Neutrophils % (Manual) 56 Band Neuts % (Manual) 8 Lymphocytes % (Manual) 7 L Monocytes % (Manual) 21 H Eosinophils % (Manual) 1 Metamyelocytes % (Man) 7 H Hypochromia SLIGHT = 6-15 cells Plt Morphology Comment Appears Decreased L Sodium 142 Potassium 2.6 L* Chloride 103 Carbon Dioxide 20 L Anion Gap 22 H BUN 39 H Creatinine 4.10 H Estimated GFR (MDRD) 17 Glucose 66 L Calcium 6.8 L Surgery Progress Note: A/P - Problem (1) Small bowel obstruction Current Visit: Yes Code(s): K56.609 - UNSP INTESTNL OBST, UNSP TO PARTIAL VERSUS COMPLETE OBST Status: Resolved (2) Nkaga-rp-fjzuvfx kidney injury Current Visit: Yes Code(s): N17.9 - ACUTE KIDNEY FAILURE, UNSPECIFIED; N18.9 - CHRONIC KIDNEY DISEASE, UNSPECIFIED Status: Acute - Plan Plan: Small bowel obstruction - patient is still in pain from his ex lap for lysis of adhesions. - He is disoriented and confused, so the history was hard to obtain - He can begin liquids today - Consider transferring from CCU to surgery or IMCU. Acute on chronic kidney injury - Creatinine has improved to 4.1 - Potassium this morning was 2.6 - administer K+ electrolyte replacement and hold loop diuretics - his is anemic and currently receiving EPO UTI - Collect urine for UA and culture - his WBC continue to trend up and are 15.4 this morning - he is currently on zosyn
--- NOTE | 2019-11-27 07:50 | RAD ---
Portable frontal chest radiograph: 11/27/2019 COMPARISON: 11/26/2019 HISTORY: Ventilated patient FINDINGS: The endotracheal tube and nasogastric tube have been removed since the prior exam. Stable l eft-sided vascular catheter noted. There is dense opacity in both lung bases suggesting a combination of nonspecific airspace disease/co nsolidation and bilateral pleural effusions. IMPRESSION: Bibasilar pleural-parenchymal opacity as above.
[2019-11-27] MEDS: Famotidine/PF 20 mg/2ml Vial SLOW IVP SCH (08:53)
--- NOTE | 2019-11-27 09:27 | PRG ---
DATE OF SERVICE: 11/27/2019 SUBJECTIVE: This morning, he is awake, alert, responsive, being dialyzed. X-ray looks much better, but bilateral pleural effusions improved. OBJECTIVE: VITAL SIGNS: Sats 100%, blood pressure 157/50, pulse , and respiratory rate 18. CHEST: No wheezing. No crackles. CARDIAC: Normal S1 and S2. No gallops. ABDOMEN: No masses. LABORATORY DATA: White count 74442, 25, platelet count is 121. Creatinine is 4, BUN 39, potassium 2.6. ASSESSMENT: Status post lap for adhesions; chronic renal failure, on dialysis; respiratory failure; electrolyte imbalance, much improved. PLAN: Continue aggressive PT. Supportive care. Nutrition as per Surgery. He can probably be transferred out of the ICU up to primary care team. Pulmonary will follow while in the ICU. Job ID: [id number]
--- NOTE | 2019-11-27 09:44 | PRG ---
DATE OF SERVICE: 11/27/2019 SUBJECTIVE: Mr. Schmitt is an 79-year-old black male, who was seen by Renal Service for his acute kidney injury on top of his chronic renal failure. He was in volume overload and progressive azotemia. For that reason, he was initiated on dialysis. He is undergoing a 3-hour hemodialysis today. We are again maxing out fluid removal as tolerated by the patient. He was extubated yesterday. He voices no new complaints today. OBJECTIVE: VITAL SIGNS: Blood pressure 157/70, heart rate 54, respiratory rate 26, and O2 sat 100%. GENERAL: Awake, alert, comfortable, not in distress. SKIN: Adequate turgor. HEENT: He has slightly pale conjunctivae. Anicteric sclerae. NECK: No neck mass. No carotid bruits. No JVD. CHEST: No deformities. LUNGS: Clear breath sounds. HEART: Normal sinus rhythm. No murmur. No gallops. No rubs. ABDOMEN: Globular, soft, and nontender. No masses. EXTREMITIES: No edema. No deformities. MEDICATIONS: Medications of November 27, 2019, were reviewed. LABORATORY DATA: November 27, 2019; white count 15.4, hemoglobin 8.3, sodium 142, potassium 2.6, chloride 103, carbon dioxide 20, BUN 39, creatinine 4.1, and calcium 6.8. ASSESSMENT AND PLAN: 1. Acute kidney injury/chronic renal failure - currently on hemodialysis due to volume overload and progressive azotemia. Attempting to remove 3 L of fluid as tolerated by the patient. 2. Anemia. Continuing weekly Epogen with this patient - p.r.n. blood transfusion for hemoglobin less than 7. 3. Hypokalemia. We will try to address it with dialysis. We will use 4.0 potassium bath with hemodialysis. 4. Status post acute respiratory failure, much improved. The patient is extubated. Job ID: [id number]
--- NOTE | 2019-11-27 14:36 | PDOC.HOSPP ---
- Subjective Encounter Date: 11/27/19 Subjective: The patient is less confused today. Stated that he has been passing gas. - Objective Vital Signs & Weight: Vital Signs (12 hours) Temp Pulse Ox 11/27/19 12:00 98.5 F 11/27/19 08:00 100 11/27/19 07:00 97.5 F L 11/27/19 04:00 99.2 F Weight Admit Weight 126 lb Weight 123 lb 14.397 oz Most Recent Monitor Data Heart Rate from ECG 60 NIBP 126/53 NIBP BP-Mean 77 Respiration from ECG 18 SpO2 96 I&O: 11/26/19 11/27/19 11/28/19 06:59 06:59 06:59 Intake Total 1280 532.8 76.3 Output Total 432 145 190 Balance 848 387.8 -113.7 Result Diagrams: 11/27/19 04:17 11/27/19 04:17 Hospitalist ROS - Medication Medications: Active Medications Generic Name Dose Route Start Last Admin Trade Name Freq PRN Reason Stop Dose Admin Bisacodyl 5 mg 11/17/19 11:34 11/17/19 12:09 Dulcolax PO 5 mg DAILYPRN PRN Administration Constipation Epoetin Blaine-epbx 7,500 unit 11/26/19 09:00 11/26/19 12:44 Retacrit SC 7,500 unit WILLCALL NADIRA Administration Famotidine 20 mg 11/22/19 09:00 11/27/19 08:53 Pepcid SLOW IVP 20 mg DAILY NADIRA Administration Fentanyl 50 mcg 11/26/19 10:56 11/26/19 23:00 Sublimaze SLOW IVP 50 mcg Q2H PRN Administration Moderate to Severe Pain (6-10) Promethazine HCl 12.5 mg/ 50.5 mls @ 202 mls/hr 11/16/19 20:11 11/17/19 21:13 Sodium Chloride IVPB 50.5 mls Q6H PRN Administration Nausea/Vomiting Piperacillin Sod/Tazobactam 100 mls @ 200 mls/hr 11/25/19 14:00 11/27/19 06: 24 Sod 2.25 gm/ Sodium Chloride IVPB 100 mls Q8HR NADIRA Administration Ondansetron HCl 4 mg 11/16/19 00:17 11/19/19 06:48 Zofran Odt PO 4 mg Q6H PRN Administration Nausea/Vomiting Ondansetron HCl 4 mg 11/16/19 00:17 11/20/19 09:07 Zofran IVP 4 mg Q6H PRN Administration Nausea/Vomiting Promethazine HCl 25 mg 11/16/19 20:11 11/26/19 21:13 Phenergan IM/IV 25 mg Q6H PRN Administration Nausea/Vomiting Sodium Chloride 10 ml 11/16/19 00:02 11/25/19 22:38 Flush - Normal Saline IVF 10 ml PRN PRN Administration Saline Flush - Exam General Appearance: awake alert ENT: normocephalic atraumatic Neck: supple, no JVD Heart: RRR Respiratory: normal chest expansion, no tachypnea Gastrointestinal: soft, non-tender, non-distended, normal bowel sounds Hosp A/P - Plan This is an 79 year old male who presents with recurrent nausea and vomiting 11/21: #Small bowel obstruction s/p exploratory laparotomy and lysis of adhesion POD1 - patient is s/p exlap and lysis of adhesions POD 1. He is still intubated - he initially had NG tube but serial scans showed persistent SBO - management per surgery #DIEUDONNE possibly secondary to ATN - creatinine has worsened to 4.18. Nephrology has been consulted, patient has been started on albumin - fluids switched back to D5 1/2 NS to provide more volume Acute hypoxic respiratory failure secondary to possible aspiration pneumonia -Patient desaturated 11/20. CT scan of the chest showed bilateral pneumonia. Continue Iv zosyn . He is currently intubated, pending pulmonary recs regarding extubation Leukocytosis - secondary to pneumonia vs intra-abdominal infection -downtrending to 12. Continue zosyn for aspiration pneumonia and empirically for possible intra-abd infection - Urine culture was negative for UTI. Repeat UA shows turbid urine, urine culture is pending Hypokalemia- likely poor po intake - potassium 3.4, replaced Hypernatremia -resolved UTI - started on IV ceftriaxone on admission. urine culture growing contaminant, so zosyn was discontinued Hypertension - controlled - BP in the 140s 11/22: Patient remains intubated. Continue vent management per pulmonology. NG tube with dark greenish output. No bowel movements or passage of gas yet. Continue IV hydration. Levophed has been weaned off to 2 mcg/min. Diuretics per nephrology. 11/23: Continue vent management per pulmonology. The patient was weaned off vasopressors. His urine output has been poor and chest x-ray showing persistent pulmonary edema. Volume removal via dialysis will likely be necessary. Surgery consulted for dialysis catheter placement. 11/24: Hemodialysis has been initiated today due to worsening volume overload. No bowel movements yet. Otherwise, vital signs are stable. Continue vent management per critical care. H&H stable. 11/25: Extubated. Confused. No BMs. Ongoing HD per nephrology. Diet to be initiated tomorrow. 11/26: Confusion is improving. No bowel movements yet, however, he is passing gas. Advanced diet as tolerated. Hypokalemia is present, potassium has been replaced. Check BMP in the morning. Continue with dialysis per nephrology. DC IV antibiotics in 2 days.
[2019-11-27] MEDS ORDERED: Potassium Chloride 20 MEQ TAB PO SCH (14:45)
--- NOTE | 2019-11-27 15:08 | PRG ---
DATE OF SERVICE: 11/27/2019 SUBJECTIVE: Mr. Schmitt is more awake today, had been hemodynamically stable, and stable respiratory abernathy overnight. Still undergoing dialysis. PHYSICAL EXAMINATION: His abdomen is softer. He does have active bowel sounds. His wounds are healing well. ASSESSMENT: Postoperative, exploratory laparotomy for small-bowel obstruction. PLAN: It appears that his expected postop ileus is resolving. We will let him try clear liquids today. Job ID: [id number]
[2019-11-27] MEDS: Fentanyl 100 MCG/2 ML VIAL SLOW IVP PRN (21:28)
[2019-11-28] MEDS: Fentanyl 100 MCG/2 ML VIAL SLOW IVP PRN ×4 (00:13→20:44)
[2019-11-28] MEDS: Piperacillin/Tazobactam 2.25 GM in Sodium Chloride 0.9% 100 ML IVPB SCH ×3 (05:04→22:10)
[2019-11-28 06:35] LABS: Band 11 % (5-11); Hemoglobin 8.8 g/dL (14.0-18.0); Lymphocytes 10 % (21-51); MDiff Complete? YES; Mean Corpuscular HGB CONC 32.9 g/dL (32.0-36.0); Mean Corpuscular Hemoglobin 29.8 pg (27.0-31.0); Mean Corpuscular Volume 90.6 fL (78.0-98.0); Mean Platelet Volume 10.1 fL (7.4-10.4); Monocytes 28 % (0-10); Neutrophil 51 % (42-75); Nucleated RBC 1 % (0); Platelet Count 118 thou/uL (130-400); Platelet Morphology Comment Appears Decreased; RBC Distribution Width 16.9 % (11.5-14.5); Red Blood Cell (RBC) Count 2.96 mill/uL (4.70-6.10); White Blood Cell (WBC) Count 14.6 thou/uL (4.8-10.8)
[2019-11-28 06:43] LABS: Anion Gap 20 mmol/L (10-20); BUN (Urea Nitrogen) 30 mg/dL (8.4-25.7); Calc. Creatinine Clearance 13 mL/min (70-130); Calcium 7.1 mg/dL (7.8-10.44); Carbon Dioxide 22 mmol/L (23-31); Chloride 102 mmol/L (98-107); Estimated GFR-MDRD 20; Glucose 84 mg/dL (83-110); Sodium 141 mmol/L (136-145)
[2019-11-28 06:50] LABS: Potassium 2.8 mmol/L (3.5-5.1)
[2019-11-28] MEDS ORDERED: Potassium Chloride 40 MEQ in Sodium Chloride 0.9% 250 ML 250 ML IVPB SCH (07:30)
[2019-11-28] MEDS: Famotidine/PF 20 mg/2ml Vial SLOW IVP SCH (08:15)
[2019-11-28] MEDS ORDERED: Tuberculin PPD 0.1 ML VIAL I-DERMAL SCH (09:30)
--- NOTE | 2019-11-28 09:55 | PRG ---
DATE OF SERVICE: 11/28/2019 SUBJECTIVE: Mr. Schmitt is an 79-year-old black male, followed up for his acute kidney injury on top of his chronic renal failure. He was initially on dialysis due to volume overload and progressive azotemia. He was also initially admitted for small-bowel obstruction and had undergone exploratory laparotomy, doing well. Surgery is following. He was started on clear liquids. No new complaints today. He is currently undergoing hemodialysis. OBJECTIVE: VITAL SIGNS: Blood pressure is 175/72, heart rate 55, respiratory rate 17, temperature 98.1, and O2 saturation 97%. GENERAL: The patient is awake, alert, and comfortable, not in distress. SKIN: Adequate turgor. HEENT: Slightly pale conjunctivae. Anicteric sclerae. No neck mass. No carotid bruits. No JVD. CHEST: No deformities. LUNGS: Clear breath sounds. No wheezing. No crackles. HEART: Normal sinus rhythm. No murmur. No gallops. No rubs. ABDOMEN: Globular, soft, and nontender. No masses. Positive for surgical wound. EXTREMITIES: No edema. No deformities. MEDICATIONS: November 28, 2019, was reviewed. LABORATORY DATA: November 28, 2019; white count 14.6, hemoglobin 8.8, sodium 141, potassium 2.8, chloride 102, carbon dioxide 22, BUN 30, creatinine 3.55, and calcium 7.1. ASSESSMENT AND PLAN: 1. Chronic renal failure/end-stage renal disease-tolerating hemodialysis. We will now change his dialysis days to Monday, , and Monday with fluid removal only as tolerated using minimal heparin. 2. Hypokalemia, p.r.n. IV potassium replacement. In addition, we will adjust dialysis bath. 3. Status post small bowel obstruction/exploratory laparotomy, doing well. He will be started on clear liquids by his surgeon. 4. Hypertension. Continue current BP medications. 5. Recheck CBC and basic metabolic profile in a.m. Job ID: [id number]
--- NOTE | 2019-11-28 10:01 | PRG ---
DATE OF SERVICE: 11/28/2019 SUBJECTIVE: He is extubated, in no distress. OBJECTIVE: VITAL SIGNS: Temperature 98, pulse 55, respiratory rate 17, saturations are 97%, blood pressure 175/72. CHEST: No wheezing. No crackles. CARDIAC: Normal S1 and S2. No gallop. ABDOMEN: No masses. ASSESSMENT: Chronic renal failure, bilateral pleural effusion, encephalopathy, severe deconditioning. PLAN: Pulmonary abernathy, he is stable. We will follow at a distance. Please call if needed. Job ID: [id number]
--- NOTE | 2019-11-28 10:23 | PDOC.GSPN ---
Surgery Progress Note: Subj - Subjective Patient reports: no new complaints, had a bowel movement (2x), tolerating liquids well, pain is less Narrative: Patient is s/p ex lap for small bowel obstruction. Patient was extubated two days ago and is awake and alert at bedside in dialysis. He denies any abdominal pain and has been tolerating clear liquids well with no nausea or vomiting. he reports two bowel movements yesterday and today. Patient is hemodynamically stable with stable respiratory condition. Surgery Progress Note: Obj - Vital signs Vital signs: Vital Signs - Most Recent Temp Pulse Resp BP Pulse Ox 98.1 F 55 L 17 175/72 H 97 11/28/19 07:21 11/28/19 07:21 11/28/19 07:21 11/28/19 07:21 11/28/19 07:21 - Physical Exam General: no distress, no pain Cardiovascular: regular rate and rhythm Abdomen: soft, non tender, nondistended, positive bowel sounds, other (surgical wound healing well) Wound: healing well Surgery Progress Note: Results - Labs Result Diagrams: 11/28/19 06:10 11/28/19 03:30 Lab results: Laboratory Results - last 24 hr 11/28/19 11/28/19 03:30 06:10 WBC 14.6 H RBC 2.96 L Hgb 8.8 L Hct 26.8 L MCV 90.6 MCH 29.8 MCHC 32.9 RDW 16.9 H Plt Count 118 L MPV 10.1 Neutrophils % (Manual) 51 Band Neuts % (Manual) 11 Lymphocytes % (Manual) 10 L Monocytes % (Manual) 28 H Nucleated RBCs # (Man) 1 H Plt Morphology Comment Appears Decreased L Sodium 141 Potassium 2.8 L* Chloride 102 Carbon Dioxide 22 L Anion Gap 20 BUN 30 H Creatinine 3.55 H Estimated GFR (MDRD) 20 Glucose 84 Calcium 7.1 L Surgery Progress Note: A/P - Plan Plan: Ileus- resolving. Continue to progress diet as tolerated and plan for discharge. DIEUDONNE on CKD- patient receiving dialysis. Monitor electrolytes and replace K+ as needed.
[2019-11-28 10:37] LABS: Potassium 3.2 mmol/L (3.5-5.1)
[2019-11-28] MEDS ORDERED: Heparin 10,000 UNITS/ 10 ML VIAL ONE (10:48)
[2019-11-28] MEDS: Tuberculin PPD 0.1 ML VIAL I-DERMAL SCH (15:01)
--- NOTE | 2019-11-28 15:06 | PRG ---
DATE OF SERVICE: 11/28/2019 SUBJECTIVE: Mr. Schmitt has no complaints. He tolerated the liquid diet. He is having multiple bowel movements. OBJECTIVE: VITAL SIGNS: He is afebrile. Vital signs are stable. ABDOMEN: Soft, nondistended. His wounds are healing well. ASSESSMENT: Resolving expected postoperative ileus. PLAN: Advance diet as tolerated. Job ID: [id number]
--- NOTE | 2019-11-28 15:27 | PDOC.HOSPP ---
- Subjective Encounter Date: 11/28/19 Subjective: No BMs reported today - Objective Vital Signs & Weight: Vital Signs (12 hours) Temp Pulse Resp BP Pulse Ox 11/28/19 14:54 157/77 H 11/28/19 08:00 97 11/28/19 07:21 98.1 F 55 L 17 175/72 H 97 11/28/19 05:00 97.7 F 56 L 17 151/69 H 100 Weight Admit Weight 126 lb Weight 123 lb 14.397 oz Most Recent Monitor Data Heart Rate from ECG 60 NIBP 126/53 NIBP BP-Mean 77 Respiration from ECG 18 SpO2 96 I&O: 11/27/19 11/28/19 11/29/19 06:59 06:59 06:59 Intake Total 532.8 976.3 Output Total 145 1040 Balance 387.8 -63.7 Result Diagrams: 11/28/19 06:10 11/28/19 09:45 Hospitalist ROS - Medication Medications: Active Medications Generic Name Dose Route Start Last Admin Trade Name Freq PRN Reason Stop Dose Admin Bisacodyl 5 mg 11/17/19 11:34 11/17/19 12:09 Dulcolax PO 5 mg DAILYPRN PRN Administration Constipation Epoetin Blaine-epbx 7,500 unit 11/26/19 09:00 11/26/19 12:44 Retacrit SC 7,500 unit WILLCALL NADIRA Administration Famotidine 20 mg 11/22/19 09:00 11/28/19 08:15 Pepcid SLOW IVP 20 mg DAILY NADIRA Administration Fentanyl 50 mcg 11/26/19 10:56 11/28/19 14:36 Sublimaze SLOW IVP 50 mcg Q2H PRN Administration Moderate to Severe Pain (6-10) Promethazine HCl 12.5 mg/ 50.5 mls @ 202 mls/hr 11/16/19 20:11 11/17/19 21:13 Sodium Chloride IVPB 50.5 mls Q6H PRN Administration Nausea/Vomiting Piperacillin Sod/Tazobactam 100 mls @ 200 mls/hr 11/25/19 14:00 11/28/19 14: 36 Sod 2.25 gm/ Sodium Chloride IVPB 100 mls Q8HR NADIRA Administration Ondansetron HCl 4 mg 11/16/19 00:17 11/19/19 06:48 Zofran Odt PO 4 mg Q6H PRN Administration Nausea/Vomiting Ondansetron HCl 4 mg 11/16/19 00:17 11/20/19 09:07 Zofran IVP 4 mg Q6H PRN Administration Nausea/Vomiting Promethazine HCl 25 mg 11/16/19 20:11 11/26/19 21:13 Phenergan IM/IV 25 mg Q6H PRN Administration Nausea/Vomiting Sodium Chloride 10 ml 11/16/19 00:02 11/25/19 22:38 Flush - Normal Saline IVF 10 ml PRN PRN Administration Saline Flush Tuberculin PPD 0.1 ml 11/28/19 09:30 11/28/19 15:01 Tuberculin Ppd I-DERMAL 12/01/19 11:00 0.1 ml 0930 NADIRA Administration - Exam ENT: normocephalic atraumatic Neck: supple, no JVD Respiratory: normal chest expansion, no tachypnea Gastrointestinal: soft Neurological: cranial nerve grossly intact, no focal deficits Hosp A/P - Plan This is an 79 year old male who presents with recurrent nausea and vomiting 11/21: #Small bowel obstruction s/p exploratory laparotomy and lysis of adhesion POD1 - patient is s/p exlap and lysis of adhesions POD 1. He is still intubated - he initially had NG tube but serial scans showed persistent SBO - management per surgery #DIEUDONNE possibly secondary to ATN - creatinine has worsened to 4.18. Nephrology has been consulted, patient has been started on albumin - fluids switched back to D5 1/2 NS to provide more volume Acute hypoxic respiratory failure secondary to possible aspiration pneumonia -Patient desaturated 11/20. CT scan of the chest showed bilateral pneumonia. Continue Iv zosyn . He is currently intubated, pending pulmonary recs regarding extubation Leukocytosis - secondary to pneumonia vs intra-abdominal infection -downtrending to 12. Continue zosyn for aspiration pneumonia and empirically for possible intra-abd infection - Urine culture was negative for UTI. Repeat UA shows turbid urine, urine culture is pending Hypokalemia- likely poor po intake - potassium 3.4, replaced Hypernatremia -resolved UTI - started on IV ceftriaxone on admission. urine culture growing contaminant, so zosyn was discontinued Hypertension - controlled - BP in the 140s 11/22: Patient remains intubated. Continue vent management per pulmonology. NG tube with dark greenish output. No bowel movements or passage of gas yet. Continue IV hydration. Levophed has been weaned off to 2 mcg/min. Diuretics per nephrology. 11/23: Continue vent management per pulmonology. The patient was weaned off vasopressors. His urine output has been poor and chest x-ray showing persistent pulmonary edema. Volume removal via dialysis will likely be necessary. Surgery consulted for dialysis catheter placement. 11/24: Hemodialysis has been initiated today due to worsening volume overload. No bowel movements yet. Otherwise, vital signs are stable. Continue vent management per critical care. H&H stable. 11/25: Extubated. Confused. No BMs. Ongoing HD per nephrology. Diet to be initiated tomorrow. 11/26: Confusion is improving. No bowel movements yet, however, he is passing gas. Advanced diet as tolerated. Hypokalemia is present, potassium has been replaced. Check BMP in the morning. Continue with dialysis per nephrology. DC IV antibiotics in 2 days. 11/27: The patient is tolerating hemodialysis. He is passing gas. Surgery plan to advance his diet to liquid today. Hypokalemia was corrected. Check BMP in the morning. Antibiotics will be discontinued tomorrow.
[2019-11-29] MEDS: Piperacillin/Tazobactam 2.25 GM in Sodium Chloride 0.9% 100 ML IVPB SCH (05:30)
[2019-11-29 06:14] LABS: Anion Gap 15 mmol/L (10-20); BUN (Urea Nitrogen) 18 mg/dL (8.4-25.7); Calc. Creatinine Clearance 18 mL/min (70-130); Calcium 7.3 mg/dL (7.8-10.44); Carbon Dioxide 27 mmol/L (23-31); Chloride 102 mmol/L (98-107); Estimated GFR-MDRD 29; Glucose 88 mg/dL (83-110); Potassium 3.2 mmol/L (3.5-5.1); Sodium 141 mmol/L (136-145)
[2019-11-29 06:38] LABS: Anisocytosis SLIGHT = 6-15 cells (100X) (0-5/hpf); Band 9 % (5-11); Hemoglobin 8.5 g/dL (14.0-18.0); Lymphocytes 11 % (21-51); MDiff Complete? YES; Mean Corpuscular HGB CONC 32.9 g/dL (32.0-36.0); Mean Corpuscular Hemoglobin 29.3 pg (27.0-31.0); Mean Corpuscular Volume 89.3 fL (78.0-98.0); Mean Platelet Volume 10.5 fL (7.4-10.4); Monocytes 27 % (0-10); Neutrophil 51 % (42-75); Platelet Count 115 thou/uL (130-400); RBC Distribution Width 16.8 % (11.5-14.5); Reactive Lymphocytes 2 % (0-10); White Blood Cell (WBC) Count 14.2 thou/uL (4.8-10.8)
[2019-11-29] MEDS: Famotidine/PF 20 mg/2ml Vial SLOW IVP SCH (08:08)
--- NOTE | 2019-11-29 08:49 | PRG ---
DATE OF SERVICE: 11/29/2019 SUBJECTIVE: Mr. Schmitt is doing better. He is tolerating more regular type foods. OBJECTIVE: VITAL SIGNS: He is afebrile. Vital signs are stable. ABDOMEN: Soft. His wounds are healing well. ASSESSMENT: Small bowel obstruction status post lysis of adhesion. PLAN: Advance diet as tolerated. Dr. Mckeon covering for me this weekend. Job ID: [id number]
[2019-11-29] MEDS: Tuberculin PPD 0.1 ML VIAL I-DERMAL SCH (09:13)
[2019-11-29] MEDS ORDERED: Potassium Chloride 20 MEQ TAB PO SCH (10:00)
--- NOTE | 2019-11-29 10:15 | PDOC.HOSPP ---
- Subjective Encounter Date: 11/29/19 Subjective: The patient is alert and oriented. He reported a bowel movement earlier today. - Objective Vital Signs & Weight: Vital Signs (12 hours) Temp Pulse Resp BP BP Pulse Ox 11/29/19 07:17 98.3 F 55 L 18 163/68 H 100 11/29/19 05:09 97.6 F 67 18 176/57 H 97 Weight Admit Weight 126 lb Weight 123 lb 14.397 oz Most Recent Monitor Data Heart Rate from ECG 60 NIBP 126/53 NIBP BP-Mean 77 Respiration from ECG 18 SpO2 96 I&O: 11/28/19 11/29/19 11/30/19 06:59 06:59 06:59 Intake Total 976.3 300 Output Total 1040 200 Balance -63.7 100 Result Diagrams: 11/29/19 05:22 11/29/19 05:22 Hospitalist ROS - Medication Medications: Active Medications Generic Name Dose Route Start Last Admin Trade Name Freq PRN Reason Stop Dose Admin Bisacodyl 5 mg 11/17/19 11:34 11/17/19 12:09 Dulcolax PO 5 mg DAILYPRN PRN Administration Constipation Epoetin Blaine-epbx 7,500 unit 11/26/19 09:00 11/26/19 12:44 Retacrit SC 7,500 unit WILLCALL NADIRA Administration Famotidine 20 mg 11/22/19 09:00 11/29/19 08:08 Pepcid SLOW IVP 20 mg DAILY NADIRA Administration Fentanyl 50 mcg 11/26/19 10:56 11/28/19 20:44 Sublimaze SLOW IVP 50 mcg Q2H PRN Administration Moderate to Severe Pain (6-10) Promethazine HCl 12.5 mg/ 50.5 mls @ 202 mls/hr 11/16/19 20:11 11/17/19 21:13 Sodium Chloride IVPB 50.5 mls Q6H PRN Administration Nausea/Vomiting Piperacillin Sod/Tazobactam 100 mls @ 200 mls/hr 11/25/19 14:00 11/29/19 05: 30 Sod 2.25 gm/ Sodium Chloride IVPB 100 mls Q8HR NADIRA Administration Ondansetron HCl 4 mg 11/16/19 00:17 11/19/19 06:48 Zofran Odt PO 4 mg Q6H PRN Administration Nausea/Vomiting Ondansetron HCl 4 mg 11/16/19 00:17 11/20/19 09:07 Zofran IVP 4 mg Q6H PRN Administration Nausea/Vomiting Promethazine HCl 25 mg 11/16/19 20:11 11/26/19 21:13 Phenergan IM/IV 25 mg Q6H PRN Administration Nausea/Vomiting Sodium Chloride 10 ml 11/16/19 00:02 11/25/19 22:38 Flush - Normal Saline IVF 10 ml PRN PRN Administration Saline Flush Tuberculin PPD 0.1 ml 11/28/19 09:30 11/29/19 09:13 Tuberculin Ppd I-DERMAL 12/01/19 11:00 Not Given 0930 NADIRA - Exam General Appearance: awake alert ENT: normocephalic atraumatic Neck: supple Respiratory: normal chest expansion, no tachypnea Gastrointestinal: soft Extremities: no cyanosis, no clubbing, no edema Neurological: cranial nerve grossly intact, no focal deficits Hosp A/P - Plan This is an 79 year old male who presents with recurrent nausea and vomiting 11/21: #Small bowel obstruction s/p exploratory laparotomy and lysis of adhesion POD1 - patient is s/p exlap and lysis of adhesions POD 1. He is still intubated - he initially had NG tube but serial scans showed persistent SBO - management per surgery #DIEUDONNE possibly secondary to ATN - creatinine has worsened to 4.18. Nephrology has been consulted, patient has been started on albumin - fluids switched back to D5 1/2 NS to provide more volume Acute hypoxic respiratory failure secondary to possible aspiration pneumonia -Patient desaturated 11/20. CT scan of the chest showed bilateral pneumonia. Continue Iv zosyn . He is currently intubated, pending pulmonary recs regarding extubation Leukocytosis - secondary to pneumonia vs intra-abdominal infection -downtrending to 12. Continue zosyn for aspiration pneumonia and empirically for possible intra-abd infection - Urine culture was negative for UTI. Repeat UA shows turbid urine, urine culture is pending Hypokalemia- likely poor po intake - potassium 3.4, replaced Hypernatremia -resolved UTI - started on IV ceftriaxone on admission. urine culture growing contaminant, so zosyn was discontinued Hypertension - controlled - BP in the 140s 11/22: Patient remains intubated. Continue vent management per pulmonology. NG tube with dark greenish output. No bowel movements or passage of gas yet. Continue IV hydration. Levophed has been weaned off to 2 mcg/min. Diuretics per nephrology. 11/23: Continue vent management per pulmonology. The patient was weaned off vasopressors. His urine output has been poor and chest x-ray showing persistent pulmonary edema. Volume removal via dialysis will likely be necessary. Surgery consulted for dialysis catheter placement. 11/24: Hemodialysis has been initiated today due to worsening volume overload. No bowel movements yet. Otherwise, vital signs are stable. Continue vent management per critical care. H&H stable. 11/25: Extubated. Confused. No BMs. Ongoing HD per nephrology. Diet to be initiated tomorrow. 11/26: Confusion is improving. No bowel movements yet, however, he is passing gas. Advanced diet as tolerated. Hypokalemia is present, potassium has been replaced. Check BMP in the morning. Continue with dialysis per nephrology. DC IV antibiotics in 2 days. 11/27: The patient is tolerating hemodialysis. He is passing gas. Surgery plan to advance his diet to liquid today. Hypokalemia was corrected. Check BMP in the morning. Antibiotics will be discontinued tomorrow. 11/28: The patient had a bowel movement today. His SBO has resolved. He is tolerating advancement of diet. Continue hemodialysis per nephrology. The patient will need a dialysis access prior to discharge. He still generally weak and malnourished. PT recommended rehab placement. However, the patient is not open to the idea at this time. Replace potassium. DC antibiotics.
--- NOTE | 2019-11-29 10:15 | PRG ---
DATE OF SERVICE: 11/29/2019 SERVICE: Renal Medicine. SUBJECTIVE: Mr. Schmitt is an 79-year-old black male with chronic renal failure/ESRD and has been initiated on dialysis due to his volume overload and progressive azotemia. He has been tolerating the dialysis. He has also undergone exploratory laparotomy for his small-bowel obstruction-procedure of lysis of adhesions. He is tolerating p.o. The patient voices no other complaints. OBJECTIVE: VITAL SIGNS: Blood pressure is 163/68, heart rate 55, respiratory rate 18, temperature 98.3, O2 saturation 100%. GENERAL: Awake, alert, comfortable, not in distress. SKIN: Adequate turgor. HEENT: Slightly pale conjunctivae. Anicteric sclerae. NECK: No neck mass. No carotid bruits. No JVD. CHEST: No deformities. LUNGS: Clear breath sounds. HEART: Normal sinus rhythm. No murmur. No gallops. No rubs. ABDOMEN: Globular, soft, nontender. No masses. EXTREMITIES: No edema. MEDICATIONS: On November 29, 2019, were reviewed. LABORATORY DATA: On November 29, 2019; white count 14.2, hemoglobin 8.5. Sodium 141, potassium 3.2, chloride 102, carbon dioxide 27, BUN 18, creatinine 2.59, calcium 7.3. ASSESSMENT AND PLAN: 1. Chronic renal failure/end-stage renal disease. Continue supportive dialysis. Continue 3 times a week hemodialysis. We will be arranging outpatient dialysis placement with this patient since I feel he has end-stage renal disease. 2. Status post bowel obstruction-status post exploratory laparotomy with lysis of lesions, doing well, tolerating current p.o. Surgery is following. 3. Anemia. Continuing weekly Epogen with this patient. We will be rechecking a basic metabolic profile and CBC in a.m. Job ID: [id number]
[2019-11-29] MEDS: Fentanyl 100 MCG/2 ML VIAL SLOW IVP PRN (22:47)
[2019-11-30 06:10] LABS: Anion Gap 16 mmol/L (10-20); BUN (Urea Nitrogen) 23 mg/dL (8.4-25.7); Calc. Creatinine Clearance 15 mL/min (70-130); Calcium 7.1 mg/dL (7.8-10.44); Carbon Dioxide 24 mmol/L (23-31); Chloride 105 mmol/L (98-107); Estimated GFR-MDRD 23; Glucose 104 mg/dL (83-110); Potassium 3.3 mmol/L (3.5-5.1); Sodium 142 mmol/L (136-145)
[2019-11-30 06:14] LABS: Band 8 % (5-11); Hemoglobin 8.7 g/dL (14.0-18.0); Lymphocytes 10 % (21-51); MDiff Complete? YES; Mean Corpuscular HGB CONC 32.7 g/dL (32.0-36.0); Mean Corpuscular Hemoglobin 29.5 pg (27.0-31.0); Mean Corpuscular Volume 90.3 fL (78.0-98.0); Mean Platelet Volume 10.2 fL (7.4-10.4); Metamyelocyte 3 % (0-0); Monocytes 22 % (0-10); Myelocyte 4 % (0-0); Neutrophil 52 % (42-75); Platelet Count 119 thou/uL (130-400); Platelet Morphology Comment Appears Decreased; RBC Distribution Width 16.9 % (11.5-14.5); Reactive Lymphocytes 1 % (0-10); Red Blood Cell (RBC) Count 2.95 mill/uL (4.70-6.10); Tear Drops SLIGHT = 2-5 cells (100X) (0-1/hpf); White Blood Cell (WBC) Count 15.6 thou/uL (4.8-10.8)
[2019-11-30 06:22] LABS: Phosphorus 2.1 mg/dL (2.3-4.7)
[2019-11-30] MEDS: Famotidine/PF 20 mg/2ml Vial SLOW IVP SCH (07:45)
[2019-11-30] MEDS: Tuberculin PPD 0.1 ML VIAL I-DERMAL SCH (07:46)
[2019-11-30] MEDS ORDERED: READ PPD TEST SITE PO SCH (09:00)
[2019-11-30] MEDS ORDERED: Heparin 10,000 UNITS/ 10 ML VIAL ONE (10:13)
--- NOTE | 2019-11-30 10:49 | PRG ---
DATE OF SERVICE: 11/30/2019 SUBJECTIVE: Mr. Schmitt is an 79-year-old black male with known history of chronic renal failure, who was initiated on dialysis due to progressive azotemia as well as volume overload. Please note, he also had a small bowel obstruction and underwent exploratory laparotomy with lysis of adhesions. He is currently undergoing hemodialysis. He is also tolerating said p.o. No complaints of chest pain or shortness of breath. OBJECTIVE: VITAL SIGNS: Blood pressure is 147/68, heart rate 67, respiratory rate 18, temperature 98.1, and O2 saturation 100%. GENERAL: Awake, alert, comfortable, not in distress. SKIN: Adequate turgor. HEENT: Pinkish conjunctivae. Anicteric sclerae. NECK: No neck mass. No carotid bruits. No JVD. CHEST: No deformities. LUNGS: Clear breath sounds. HEART: Normal sinus rhythm. No murmurs. No gallops. No rubs. ABDOMEN: Globular, soft, and nontender. No masses. EXTREMITIES: No edema. MEDICATIONS: Of November 30, 2019, reviewed. LABORATORY DATA: Laboratories of November 30, 2019; white count 15.6, hemoglobin 8.7. Sodium 142, potassium 3.3, chloride 105, carbon dioxide 24, BUN 23, creatinine 3.14, calcium 7.1, and phosphorus 2.1. PTH is 372. ASSESSMENT AND PLAN: 1. Elevated PTH - calcitriol 0.25 mcg tablet daily. 2. End-stage renal disease/chronic renal failure, continuing 3 times a week hemodialysis. Arrangements being made for outpatient hemodialysis with this patient. 3. Anemia, continuing weekly Epogen. Job ID: [id number] MTDD
[2019-11-30] MEDS: Fentanyl 100 MCG/2 ML VIAL SLOW IVP PRN ×2 (11:53→19:55)
[2019-11-30] MEDS ORDERED: Magnesium Oxide 400 MG TAB PO SCH (13:00)
[2019-11-30] MEDS ORDERED: Potassium Chloride 20 MEQ TAB PO SCH (13:00)
--- NOTE | 2019-11-30 13:22 | PDOC.GSPN ---
Surgery Progress Note: Subj - Subjective Narrative: Patient is feeling fine. He is undergoing dialysis using his femoral catheter and tolerating that well. He states that he has been eating normally and having normal bowel movements. He denies any abdominal pain or nausea. His incision is healing well and looks good. He is not having any shortness of breath. Assessment/plan: Small bowel obstruction doing well. No symptoms of obstruction following lysis of adhesions. He had aspiration pneumonia but has recovered from this and is breathing well off the ventilator. Dr. Mackay has requested placement of a permanent dialysis catheter and I have scheduled this for tomorrow. He has very limited, small veins in both arms and will eventually likely require placement of a graft for dialysis access, but I would prefer not to do this right now given his recent UTI and pneumonia. I have talked to the patient about placing a tunneled dialysis catheter and a central line tomorrow and he is wanting to proceed. I explained the risks which include but are not limited to bleeding, infection, risks of anesthesia, hemothorax, pneumothorax, and need for other procedures. He understands and accepts these risks and wishes to proceed. I will make him n.p.o. after midnight and order antibiotics on-call to the operating room. Surgery Progress Note: Obj - Vital signs Vital signs: Vital Signs - Most Recent Temp Pulse Resp BP Pulse Ox 98.1 F 67 18 147/68 H 100 11/29/19 20:00 11/29/19 20:00 11/29/19 20:00 11/29/19 20:00 11/29/19 20:00 Surgery Progress Note: Results - Labs Result Diagrams: 11/30/19 05:20 11/30/19 05:20 Lab results: Laboratory Results - last 24 hr 11/30/19 11/30/19 11/30/19 05:20 05:20 05:20 WBC 15.6 H RBC 2.95 L Hgb 8.7 L Hct 26.6 L MCV 90.3 MCH 29.5 MCHC 32.7 RDW 16.9 H Plt Count 119 L MPV 10.2 Neutrophils % (Manual) 52 Band Neuts % (Manual) 8 Lymphocytes % (Manual) 10 L Reactive Lymphs % 1 Monocytes % (Manual) 22 H Metamyelocytes % (Man) 3 H Myelocytes % 4 H Plt Morphology Comment Appears Decreased L Tear Drop Cells SLIGHT = 2-5 cells Sodium 142 Potassium 3.3 L Chloride 105 Carbon Dioxide 24 Anion Gap 16 BUN 23 Creatinine 3.14 H Estimated GFR (MDRD) 23 Glucose 104 Calcium 7.1 L Phosphorus 2.1 L PTH Intact 11/30/19 05:20 WBC RBC Hgb Hct MCV MCH MCHC RDW Plt Count MPV Neutrophils % (Manual) Band Neuts % (Manual) Lymphocytes % (Manual) Reactive Lymphs % Monocytes % (Manual) Metamyelocytes % (Man) Myelocytes % Plt Morphology Comment Tear Drop Cells Sodium Potassium Chloride Carbon Dioxide Anion Gap BUN Creatinine Estimated GFR (MDRD) Glucose Calcium Phosphorus PTH Intact 372.2 H
--- NOTE | 2019-11-30 17:21 | PDOC.HOSPP ---
- Subjective Subjective: s/p dialysis today, c/o muscle spasm. no acute event overnight. - Objective Vital Signs & Weight: Weight Admit Weight 126 lb Weight 123 lb 14.397 oz Most Recent Monitor Data Heart Rate from ECG 60 NIBP 126/53 NIBP BP-Mean 77 Respiration from ECG 18 SpO2 96 I&O: 11/29/19 11/30/19 12/01/19 06:59 06:59 06:59 Intake Total 300 480 Output Total 200 150 Balance 100 330 Result Diagrams: 11/30/19 05:20 11/30/19 05:20 Hospitalist ROS - Medication Medications: Active Medications Generic Name Dose Route Start Last Admin Trade Name Freq PRN Reason Stop Dose Admin Bisacodyl 5 mg 11/17/19 11:34 11/17/19 12:09 Dulcolax PO 5 mg DAILYPRN PRN Administration Constipation Epoetin Blaine-epbx 7,500 unit 11/26/19 09:00 11/26/19 12:44 Retacrit SC 7,500 unit WILLCALL NADIRA Administration Famotidine 20 mg 11/22/19 09:00 11/30/19 07:45 Pepcid SLOW IVP Not Given DAILY NADIRA Fentanyl 50 mcg 11/26/19 10:56 11/30/19 11:53 Sublimaze SLOW IVP 50 mcg Q2H PRN Administration Moderate to Severe Pain (6-10) Promethazine HCl 12.5 mg/ 50.5 mls @ 202 mls/hr 11/16/19 20:11 11/17/19 21:13 Sodium Chloride IVPB 50.5 mls Q6H PRN Administration Nausea/Vomiting Ondansetron HCl 4 mg 11/16/19 00:17 11/19/19 06:48 Zofran Odt PO 4 mg Q6H PRN Administration Nausea/Vomiting Ondansetron HCl 4 mg 11/16/19 00:17 11/20/19 09:07 Zofran IVP 4 mg Q6H PRN Administration Nausea/Vomiting Promethazine HCl 25 mg 11/16/19 20:11 11/26/19 21:13 Phenergan IM/IV 25 mg Q6H PRN Administration Nausea/Vomiting Sodium Chloride 10 ml 11/16/19 00:02 11/25/19 22:38 Flush - Normal Saline IVF 10 ml PRN PRN Administration Saline Flush Tuberculin PPD 0.1 ml 11/28/19 09:30 11/30/19 07:46 Tuberculin Ppd I-DERMAL 12/01/19 11:00 Not Given 929 [facility] Hosp A/P - Plan - Exam General Appearance: awake alert ENT: normocephalic atraumatic Neck: supple Respiratory: normal chest expansion, no tachypnea Cardiovascular: RRR, S1S2 noted Gastrointestinal: soft Extremities: no cyanosis, no clubbing, no edema Neurological: cranial nerve grossly intact, no focal deficits Hosp A/P This is an 79 year old male who presents with recurrent nausea and vomiting #DIEUDONNE possibly secondary to ATN with underlying CKD --No evidence of recovery, now required HD - T//Sat --Plan for permacath placement tomorrow. CM consult for outpatient HD --Further mgt as per Dr. Mackay #Small bowel obstruction s/p exploratory laparotomy and lysis of adhesion POD1 --patient is s/p exlap and lysis of adhesions, s/p extubation --Recovered well. now tolerating regular diet --cont routine post-op cares as per surgery #Acute hypoxic respiratory failure secondary to possible aspiration pneumonia --Patient desaturated 11/20. CT scan of the chest showed bilateral pneumonia. Pt completed the course of IV abx. Pt sat well on RA. --encourage incr activity, IS #Hypokalemia- likely poor po intake - potassium 3.4, replaced #Hypernatremia -resolved #UTI - resolved, completed course of IV abx #Hypertension - controlled --Cont current regimen #Leukocytosis - secondary to pneumonia vs intra-abdominal infection --downtrending to 12. Continue zosyn for aspiration pneumonia and empirically for possible intra-abd infection --Urine culture was negative for UTI. Repeat UA shows turbid urine, urine culture no growth --May be due reactive process. Afebrile. Monitor
[2019-12-01] MEDS: Fentanyl 100 MCG/2 ML VIAL SLOW IVP PRN ×2 (01:15→17:56)
[2019-12-01] MEDS ORDERED: CEFAZOLIN 2 GM in Premix Bag 1 BAG IVPB SCH (06:00)
[2019-12-01 06:29] LABS: Anion Gap 15 mmol/L (10-20); BUN (Urea Nitrogen) 16 mg/dL (8.4-25.7); Calc. Creatinine Clearance 19 mL/min (70-130); Calcium 6.9 mg/dL (7.8-10.44); Carbon Dioxide 23 mmol/L (23-31); Chloride 103 mmol/L (98-107); Estimated GFR-MDRD 32; Glucose 83 mg/dL (83-110); Potassium 3.4 mmol/L (3.5-5.1); Sodium 138 mmol/L (136-145)
[2019-12-01 07:22] LABS: Band 13 % (5-11); Hemoglobin 8.7 g/dL (14.0-18.0); Lymphocytes 15 % (21-51); MDiff Complete? YES; Mean Corpuscular Hemoglobin 30.4 pg (27.0-31.0); Mean Corpuscular Volume 89.2 fL (78.0-98.0); Mean Platelet Volume 11.6 fL (7.4-10.4); Monocytes 18 % (0-10); Neutrophil 54 % (42-75); Nucleated RBC 2 % (0); Platelet Count 92 thou/uL (130-400); Platelet Morphology Comment Appears Decreased; RBC Distribution Width 17.1 % (11.5-14.5); Red Blood Cell (RBC) Count 2.85 mill/uL (4.70-6.10); White Blood Cell (WBC) Count 16.6 thou/uL (4.8-10.8)
[2019-12-01] MEDS ORDERED: Propofol 500 MG/50 ML VIAL ONE (07:25)
[2019-12-01] MEDS ORDERED: Fentanyl 100 MCG/2 ML VIAL ONE (07:25)
[2019-12-01] MEDS ORDERED: Midazolam HCl 2 mg/2 ml Vial ONE (07:25)
[2019-12-01] MEDS ORDERED: Ketamine 50 MG/ML (10ML VIAL) ONE (07:25)
[2019-12-01] MEDS ORDERED: Heparin 10,000 UNITS/ 10 ML VIAL ONE (07:32)
[2019-12-01] MEDS ORDERED: Sodium Chloride 0.9% 30 ML ONE (07:32)
[2019-12-01] MEDS ORDERED: Lidocaine 1% w/Epinephrine 1:100K 20 ML VIAL ONE (07:32)
[2019-12-01] MEDS ORDERED: Bupivacaine 0.25% HCL 30 ML VIAL ONE (07:32)
[2019-12-01] MEDS: Tuberculin PPD 0.1 ML VIAL I-DERMAL SCH (08:06)
[2019-12-01] MEDS: Calcitriol 0.25 MCG CAP PO SCH (08:06)
[2019-12-01] MEDS: Famotidine/PF 20 mg/2ml Vial SLOW IVP SCH (08:06)
--- NOTE | 2019-12-01 12:13 | PRG ---
DATE OF SERVICE: 12/01/2019 SERVICE: Renal Medicine. SUBJECTIVE: Mr. Schmitt is an 79-year-old black male, followed up by the Renal Service for his chronic renal failure/ESRD. He was in volume overload and had progressive azotemia, and for that reason, he was initiated on dialysis. He has an atrophic kidney with other kidney being slightly nonfunctional. He also underwent an exploratory laparotomy for small bowel obstruction secondary to lysis. He is tolerating p.o. Early this morning, a cuffed dialysis catheter was placed by Dr. Mckeon. No complaints of chest pain or shortness of breath. OBJECTIVE: VITAL SIGNS: Blood pressure is 132/67, heart rate 77, respiratory rate 18, temperature 98.8, O2 saturation 97%. GENERAL: The patient is awake, alert, comfortable, not in distress. SKIN: Adequate turgor. HEENT: Slightly pale conjunctivae. Anicteric sclerae. NECK: No neck mass. No carotid bruits. No JVD. CHEST: No deformities. LUNGS: Clear breath sounds. HEART: Normal sinus rhythm. No murmur. No gallops. No rubs. ABDOMEN: Globular, soft, nontender. EXTREMITIES: No edema. MEDICATIONS: Medications of December 01, 2019, reviewed. LABORATORY DATA: Laboratories of December 01, 2019; white count 16.6, hemoglobin 8.7. Sodium 138, potassium 3.4, chloride 103, carbon dioxide 23, BUN 16, creatinine 2.38, calcium 6.9. PTH is 372. ASSESSMENT AND PLAN: 1. Hypocalcemia - the patient has been started on calcitriol. In addition, we could consider adding calcium carbonate with the patient. 2. Anemia, on weekly Epogen. 3. End-stage renal disease/chronic renal failure, continuing 3 times a week hemodialysis regimen - Monday, , and Monday. Doing well overall. A cuffed hemodialysis catheter has been placed. Job ID: [id number] MTDD
[2019-12-01] MEDS: Calcium Carbonate 500 MG ChewTAB PO SCH ×2 (12:40→17:55)
[2019-12-01] MEDS ORDERED: EPHEDRINE 25 MG/5 ML SYRINGE ONE (13:22)
--- NOTE | 2019-12-01 15:03 | PDOC.HOSPP ---
- Subjective Subjective: s/p permacath placement today. no acute event overnight. d/w nephrology. still complaint of nerve pain on LE - Objective Vital Signs & Weight: Vital Signs (12 hours) Pulse Ox 12/01/19 08:00 97 Weight Admit Weight 126 lb Weight 123 lb 14.397 oz Most Recent Monitor Data Heart Rate from ECG 60 NIBP 126/53 NIBP BP-Mean 77 Respiration from ECG 18 SpO2 96 I&O: 11/30/19 12/01/19 12/02/19 06:59 06:59 06:59 Intake Total 480 Output Total 150 Balance 330 Result Diagrams: 12/01/19 06:03 12/01/19 06:03 Hospitalist ROS - Medication Medications: Active Medications Generic Name Dose Route Start Last Admin Trade Name Freq PRN Reason Stop Dose Admin Bisacodyl 5 mg 11/17/19 11:34 11/17/19 12:09 Dulcolax PO 5 mg DAILYPRN PRN Administration Constipation Calcitriol 0.25 mcg 12/01/19 09:00 12/01/19 08:06 Rocaltrol PO Not Given DAILY [facility] Calcium Carbonate 500 mg 12/01/19 12:00 12/01/19 12:40 Tums PO 500 mg TID-WM NADIRA Administration Epoetin Blaine-epbx 7,500 unit 11/26/19 09:00 11/26/19 12:44 Retacrit SC 7,500 unit WILLCALL NADIRA Administration Famotidine 20 mg 11/22/19 09:00 12/01/19 08:06 Pepcid SLOW IVP Not Given DAILY [facility] Fentanyl 50 mcg 11/26/19 10:56 12/01/19 01:15 Sublimaze SLOW IVP 50 mcg Q2H PRN Administration Moderate to Severe Pain (6-10) Promethazine HCl 12.5 mg/ 50.5 mls @ 202 mls/hr 11/16/19 20:11 11/17/19 21:13 Sodium Chloride IVPB 50.5 mls Q6H PRN Administration Nausea/Vomiting Ondansetron HCl 4 mg 11/16/19 00:17 11/19/19 06:48 Zofran Odt PO 4 mg Q6H PRN Administration Nausea/Vomiting Ondansetron HCl 4 mg 11/16/19 00:17 11/20/19 09:07 Zofran IVP 4 mg Q6H PRN Administration Nausea/Vomiting Promethazine HCl 25 mg 11/16/19 20:11 11/26/19 21:13 Phenergan IM/IV 25 mg Q6H PRN Administration Nausea/Vomiting Sodium Chloride 10 ml 11/16/19 00:02 11/25/19 22:38 Flush - Normal Saline IVF 10 ml PRN PRN Administration Saline Flush Hosp A/P - Plan - Exam General Appearance: awake alert ENT: normocephalic atraumatic Neck: supple Respiratory: normal chest expansion, no tachypnea Cardiovascular: RRR, S1S2 noted Gastrointestinal: soft Extremities: no cyanosis, no clubbing, no edema Neurological: cranial nerve grossly intact, no focal deficits Hosp A/P This is an 79 year old male who presents with recurrent nausea and vomiting #DIEUDONNE possibly secondary to ATN with underlying CKD --No evidence of recovery, now required HD - T/Th/Sat --s/p Permacath placement on 11/30. CM consulted for outpatient HD --Further mgt as per Dr. Mackay #Small bowel obstruction s/p exploratory laparotomy and lysis of adhesion --patient s/p ex-lap with RANGEL, s/p extubation --Recovered well. now tolerating regular diet --cont routine post-op cares as per surgery #Acute hypoxic respiratory failure secondary to possible aspiration pneumonia --Patient desaturated 11/20. CT scan of the chest showed bilateral pneumonia. Pt completed the course of IV abx. Pt sat well on RA. --encourage incr activity, IS #Hypokalemia- likely poor po intake - potassium 3.4, replaced #Hypernatremia -resolved #UTI - resolved, completed course of IV abx #Hypertension - controlled --Cont current regimen #Leukocytosis - secondary to pneumonia vs intra-abdominal infection --downtrending to 12. Continue zosyn for aspiration pneumonia and empirically for possible intra-abd infection --Urine culture was negative for UTI. Repeat UA shows turbid urine, urine culture no growth --May be due reactive process. Afebrile. Monitor CBC #Peripheral Neuropathy --add Neurotin
--- NOTE | 2019-12-01 15:06 | RAD ---
Exam: Chest one view HISTORY:WESLEY catheter placement. Comparison: 11/27/2019 FINDINGS: Cardiac silhouette:Cardiomegaly. Aorta: Elongation. Pulmonary vessels: Normal Costophrenic angles: No significant pleural fluid Vascular catheter: Stable left-sided subclavian vascular catheter. Interval placement of a left-sided HemoSplit dialysis catheter. LUNGS: No masses or consolidation. Pneumothorax: None Osseous abnormalities: None IMPRESSION: 1. Stable left-sided subclavian vascular catheter. Interval placement of a left-sided HemoSplit dialy sis catheter. 2. No pneumothorax.
--- NOTE | 2019-12-01 21:01 | PDOC.OP ---
Operative Note - Operative Note Operative Note: DATE OF PROCEDURE: 12/01/2019 PROCEDURE: Placement of left internal jugular tunneled hemodialysis catheter with ultrasound and fluoroscopic guidance. SURGEON: Rivas Mckeon M.D. PREOPERATIVE DIAGNOSIS: Acute/Chronic renal failure. POSTOPERATIVE DIAGNOSIS: Acute/Chronic renal failure, sclerosis of right internal jugular vein. HISTORY: Patient with renal failure. A tunneled hemodialysis catheter for ongoing dialysis has been requested by the patients deicer finisher. PROCEDURE: After informed consent was obtained and appropriate preoperative antibiotics were administered, the patient was taken to the Operating Room, placed in the supine position and monitored anesthesia care was administered. The neck and chest were prepped and draped in a standard sterile fashion and the patient placed in Trendelenburg position. A sterile ultrasound probe was used to identify the patent compressible right IJ vein but as this was followed down toward the clavicle by ultrasound it became narrower and then appeared to be occluded at the level of the clavicle. Attention was turned to the left internal jugular vein which was patent down to the level of the clavicle. This was accessed under direct ultrasound guidance. A wire was threaded through the needle and confirmed by ultrasound to be within the patent compressible vessel with the tip in the vena cava by fluoroscopy. Local anesthesia was infused to the skin and subcutaneous tissues of the left neck and chest. An infraclavicular incision was made and a catheter tunneled from the infraclavicular to the left IJ access site. The left IJ was sequentially dilated over the wire following which a dilator and sheath were placed over the wire and the dilator and wire removed leaving the sheath in place. The catheter was tunneled through the sheath which was then split and removed leaving the catheter in place. This was confirmed by fluoroscopy to be in good position in the superior vena cava with no kinking of the course of the catheter. Both ports easily aspirated dark venous nonpulsatile blood and easily flushed without resistance. Heparin was instilled to the quantity specified on the hub , and the hub was secured to the skin with 3-0 nylon sutures. The skin incision at the neck was closed in two layers with 4-0 Monocryl suture and Dermabond dressings were placed. The skin at the exit site was snugged up around the catheter with 4-0 Monocryl suture and Dermabond was placed there as well. Once the Dermabond was dry, a Biopatch and Tegaderm dressing was placed at the exit site. Initially the plan was to remove the left subclavian central venous catheter in place in the internal jugular position but since the right internal jugular vein was sclerotic the decision was made to leave the subclavian catheter in place since the patient has extremely poor peripheral access. The patient was taken to Recovery in good condition. Estimated blood loss was minimal. There were no complications. There were no specimens.
[2019-12-01] MEDS: Zinc Oxide 20% Oint 30 GM TUBE TOP SCH (21:10)
[2019-12-02] MEDS: Fentanyl 100 MCG/2 ML VIAL SLOW IVP PRN (00:09)
[2019-12-02 06:09] LABS: Band 9 % (5-11); Differential Comment Plasma-cytoid Cells; Eosinophils 1 % (0-10); Hemoglobin 7.7 g/dL (14.0-18.0); Lymphocytes 8 % (21-51); MDiff Complete? YES; Mean Corpuscular HGB CONC 32.4 g/dL (32.0-36.0); Mean Corpuscular Hemoglobin 28.8 pg (27.0-31.0); Mean Corpuscular Volume 88.8 fL (78.0-98.0); Metamyelocyte 2 % (0-0); Monocytes 24 % (0-10); Myelocyte 2 % (0-0); Neutrophil 53 % (42-75); Platelet Count 86 thou/uL (130-400); Platelet Morphology Comment Appears Decreased; Red Blood Cell (RBC) Count 2.69 mill/uL (4.70-6.10); White Blood Cell (WBC) Count 15.9 thou/uL (4.8-10.8)
[2019-12-02 06:17] LABS: Anion Gap 16 mmol/L (10-20); BUN (Urea Nitrogen) 22 mg/dL (8.4-25.7); Calc. Creatinine Clearance 18 mL/min (70-130); Calcium 6.7 mg/dL (7.8-10.44); Carbon Dioxide 23 mmol/L (23-31); Chloride 101 mmol/L (98-107); Estimated GFR-MDRD 29; Glucose 92 mg/dL (83-110); Potassium 3.4 mmol/L (3.5-5.1); Sodium 137 mmol/L (136-145)
--- NOTE | 2019-12-02 08:30 | PDOC.GSPN ---
Surgery Progress Note: Subj - Subjective Patient reports: had a bowel movement, feels better, pain well controlled ( patient reports not abdominal pain due to his surgery but does report lower extremity nerve pain) Narrative: Pt. is s/p exploratory laparotomy with lysis of adhesions. He has renal failure for which he received a tunneled IJ catheter yesterday by Dr. Mckeon. He has had multiple bowel movements and tolerates a full diet. He reports that he is feeling better overall. Surgery Progress Note: Obj - Vital signs Vital signs: Vital Signs - Most Recent Temp Pulse Resp BP Pulse Ox 98.8 F 77 18 132/67 97 11/30/19 20:00 11/30/19 20:00 11/30/19 20:00 11/30/19 20:00 12/01/19 20:00 - Physical Exam General: no distress, well developed, well nourished Cardiovascular: regular rate and rhythm Respiratory: clear to auscultation, normal expansion, normal respiratory effort , breath sounds present Abdomen: soft, non tender, nondistended, positive bowel sounds Wound: dressing clean,dry,intact, healing well Surgery Progress Note: Results - Labs Result Diagrams: 12/02/19 05:30 12/02/19 05:30 Lab results: Laboratory Results - last 24 hr 12/02/19 12/02/19 05:30 05:30 WBC 15.9 H RBC 2.69 L Hgb 7.7 L Hct 23.8 L MCV 88.8 MCH 28.8 MCHC 32.4 RDW 17.0 H Plt Count 86 L MPV 11.0 H Neutrophils % (Manual) 53 Band Neuts % (Manual) 9 Lymphocytes % (Manual) 8 L Monocytes % (Manual) 24 H Eosinophils % (Manual) 1 Metamyelocytes % (Man) 2 H Myelocytes % 2 H Differential Comment Plasma-cytoid Cells Other Cell Type 1 Plt Morphology Comment Appears Decreased L Sodium 137 Potassium 3.4 L Chloride 101 Carbon Dioxide 23 Anion Gap 16 BUN 22 Creatinine 2.59 H Estimated GFR (MDRD) 29 Glucose 92 Calcium 6.7 L Hgb down from 8.7 yesterday Surgery Progress Note: A/P - Plan Plan: s/p lysis of adhesions - is recovering well. Continue full diet as tolerated. Wounds are healing well. s/p left IJ tunneled catheter - wounds are healing well. post-operative anemia - continue to trend Hgb. Addendum - Physician - Physician Attestation Date/Time: 12/02/19 [id number] I personally performed or re-performed the physical examination and medical decision making. I have verified all student documentation or findings, including history, physical exam and/or medical decision making. Doing well from a surgical standpoint. Would be ready for DC from surgical standpoint. He is hesitant to go to SNU but I'm unsure of how well he is doing with PT.
[2019-12-02] MEDS: Calcitriol 0.25 MCG CAP PO SCH (09:14)
[2019-12-02] MEDS: Calcium Carbonate 500 MG ChewTAB PO SCH ×3 (09:14→16:52)
[2019-12-02] MEDS: Gabapentin 300 MG CAP PO SCH (09:15)
[2019-12-02] MEDS: Famotidine/PF 20 mg/2ml Vial SLOW IVP SCH (09:15)
[2019-12-02] MEDS: Zinc Oxide 20% Oint 30 GM TUBE TOP SCH ×2 (09:20→21:13)
--- NOTE | 2019-12-02 09:51 | PRG ---
DATE OF SERVICE: 12/02/2019 SUBJECTIVE: Mr. Schmitt is an 79-year-old black male, followed up by the Renal Service for his chronic renal failure/ESRD. He has been initiated dialysis due to volume overload and progressive azotemia. He also was admitted for small bowel obstruction secondary to lysis. He underwent exploratory laparotomy. He is tolerating p.o. He voices no new complaints today. OBJECTIVE: VITAL SIGNS: Blood pressure is noted at 132/67, heart rate 77, respiratory rate 18, temperature 98.8, and O2 saturation 97%. GENERAL: Awake, alert, comfortable, not in distress. SKIN: Adequate turgor. HEENT: He has slightly pale conjunctivae. Anicteric sclerae. No neck mass. No carotid bruits. No JVD. CHEST: No deformities. LUNGS: Clear breath sounds. HEART: Normal sinus rhythm. No murmur. No gallops. No rubs. ABDOMEN: Globular, soft, and nontender. EXTREMITIES: No edema. MEDICATIONS: Medications of December 02, 2019, were reviewed. LABORATORY DATA: December 02, 2019; white count 15.9, hemoglobin 7.7, sodium 137, potassium 3.4, chloride 101, carbon dioxide 23, BUN 22, creatinine 2.59, glucose 92, calcium 6.7, and PTH is 372. ASSESSMENT AND PLAN: 1. Hypocalcemia, currently on calcium carbonate and calcitriol. 2. Secondary hyperparathyroidism - continue calcitriol dosing. 3. Chronic renal failure/end-stage renal disease, stable. We will continue 3 times a week hemodialysis regimen with this patient. Fluid removal as tolerated by the patient. 4. Anemia, continuing weekly Epogen. 5. Recheck CBC and base met in a.m. Job ID: [id number]
--- NOTE | 2019-12-02 17:26 | PDOC.HOSPP ---
- Subjective Subjective: no new event overnight. d/w CM with regarding dc planning. sign out d/w with Dr. Coats at [facility] - Objective Vital Signs & Weight: Vital Signs (12 hours) Pulse Ox 12/02/19 08:00 97 Weight Admit Weight 126 lb Weight 123 lb 14.397 oz Most Recent Monitor Data Heart Rate from ECG 60 NIBP 126/53 NIBP BP-Mean 77 Respiration from ECG 18 SpO2 96 I&O: 12/01/19 12/02/19 12/03/19 06:59 06:59 06:59 Intake Total 720 Output Total 300 Balance 420 Result Diagrams: 12/02/19 05:30 12/02/19 05:30 Hospitalist ROS - Medication Medications: Active Medications Generic Name Dose Route Start Last Admin Trade Name Freq PRN Reason Stop Dose Admin Bisacodyl 5 mg 11/17/19 11:34 11/17/19 12:09 Dulcolax PO 5 mg DAILYPRN PRN Administration Constipation Calcitriol 0.25 mcg 12/01/19 09:00 12/02/19 09:14 Rocaltrol PO 0.25 mcg DAILY NADIRA Administration Calcium Carbonate 500 mg 12/01/19 12:00 12/02/19 16:52 Tums PO 500 mg TID-WM NADIRA Administration Epoetin Blaine-epbx 7,500 unit 11/26/19 09:00 11/26/19 12:44 Retacrit SC 7,500 unit WILLCALL NADIRA Administration Famotidine 20 mg 11/22/19 09:00 12/02/19 09:15 Pepcid SLOW IVP 20 mg DAILY NADIRA Administration Fentanyl 50 mcg 11/26/19 10:56 12/02/19 00:09 Sublimaze SLOW IVP 50 mcg Q2H PRN Administration Moderate to Severe Pain (6-10) Gabapentin 300 mg 12/02/19 09:00 12/02/19 09:15 Neurontin PO 300 mg DAILY NADIRA Administration Promethazine HCl 12.5 mg/ 50.5 mls @ 202 mls/hr 11/16/19 20:11 11/17/19 21:13 Sodium Chloride IVPB 50.5 mls Q6H PRN Administration Nausea/Vomiting Ondansetron HCl 4 mg 11/16/19 00:17 11/19/19 06:48 Zofran Odt PO 4 mg Q6H PRN Administration Nausea/Vomiting Ondansetron HCl 4 mg 11/16/19 00:17 11/20/19 09:07 Zofran IVP 4 mg Q6H PRN Administration Nausea/Vomiting Promethazine HCl 25 mg 11/16/19 20:11 11/26/19 21:13 Phenergan IM/IV 25 mg Q6H PRN Administration Nausea/Vomiting Sodium Chloride 10 ml 11/16/19 00:02 11/25/19 22:38 Flush - Normal Saline IVF 10 ml PRN PRN Administration Saline Flush Zinc Oxide 0 gm 12/01/19 21:00 12/02/19 09:20 Zinc Oxide 20% Ointment TOP 2 applic BID NADIRA Administration Hosp A/P - Plan - Exam General Appearance: awake alert ENT: normocephalic atraumatic Neck: supple Respiratory: normal chest expansion, no tachypnea Cardiovascular: RRR, S1S2 noted Gastrointestinal: soft Extremities: no cyanosis, no clubbing, no edema Neurological: cranial nerve grossly intact, no focal deficits Hosp A/P This is an 79 year old male who presents with recurrent nausea and vomiting #DIEUDONNE possibly secondary to ATN with underlying CKD --No evidence of recovery, now required HD - T//Sat --s/p Permacath placement on 11/30. CM consulted for outpatient HD. Moises CM --Further mgt as per Dr. Mackay #Small bowel obstruction s/p exploratory laparotomy and lysis of adhesion --patient s/p ex-lap with RANGEL, s/p extubation --Recovered well. now tolerating regular diet --cont routine post-op cares as per surgery #Acute hypoxic respiratory failure secondary to possible aspiration pneumonia --Patient desaturated 11/20. CT scan of the chest showed bilateral pneumonia. Pt completed the course of IV abx. Pt sat well on RA. --encourage incr activity, IS #Hypokalemia- likely poor po intake - potassium 3.4, replaced #Hypernatremia -resolved #UTI - resolved, completed course of IV abx #Hypertension - controlled --Cont current regimen #Leukocytosis - secondary to pneumonia vs intra-abdominal infection --downtrending to 12. Continue zosyn for aspiration pneumonia and empirically for possible intra-abd infection --Urine culture was negative for UTI. Repeat UA shows turbid urine, urine culture no growth --May be due reactive process. Afebrile. Monitor CBC #Peripheral Neuropathy --add Neurotin, improved
[2019-12-03 06:25] LABS: Anion Gap 15 mmol/L (10-20); BUN (Urea Nitrogen) 25 mg/dL (8.4-25.7); Calc. Creatinine Clearance 18 mL/min (70-130); Carbon Dioxide 24 mmol/L (23-31); Chloride 104 mmol/L (98-107); Estimated GFR-MDRD 30; Glucose 96 mg/dL (83-110); Potassium 3.7 mmol/L (3.5-5.1); Sodium 139 mmol/L (136-145)
[2019-12-03 06:28] LABS: Hemoglobin 7.5 g/dL (14.0-18.0); Mean Corpuscular HGB CONC 32.4 g/dL (32.0-36.0); Mean Corpuscular Hemoglobin 28.6 pg (27.0-31.0); Mean Corpuscular Volume 88.3 fL (78.0-98.0); Mean Platelet Volume 11.4 fL (7.4-10.4); Platelet Count 87 thou/uL (130-400); RBC Distribution Width 17.1 % (11.5-14.5); White Blood Cell (WBC) Count 14.3 thou/uL (4.8-10.8)
[2019-12-03 06:37] LABS: Band 8 % (5-11); Basophilic Stippling SLIGHT = 1-2 cells (100X) (None Seen); Lymphocytes 17 % (21-51); MDiff Complete? YES; Monocytes 16 % (0-10); Neutrophil 59 % (42-75); Platelet Morphology Comment Appears Decreased; Polychromasia SLIGHT = 2-3 cells (100X) (0-2/hpf)
--- NOTE | 2019-12-03 09:16 | PRG ---
DATE OF SERVICE: SUBJECTIVE: Mr. Schmitt is an 79-year-old black male with chronic renal failure and has been initiated on hemodialysis due to progressive azotemia and volume overload. He has been doing well since he has been placed on dialysis. He was initially admitted for a bowel obstruction and has undergone exploratory laparotomy with lysis of adhesions. No other complaints today. He is tolerating p.o. No chest pain or shortness of breath. However, the patient feels tired due to the relatively low hemoglobin, we will transfuse 1 unit of packed RBC with dialysis. OBJECTIVE: VITAL SIGNS: Blood pressure 155/77, heart rate 97, respiratory rate 20, temperature 98.1, O2 saturation 98% on room air. GENERAL: The patient is awake, alert, comfortable, not in distress. SKIN: Adequate turgor. HEENT: Pale conjunctivae. Anicteric sclerae. NECK: No neck mass. No carotid bruits. No JVD. CHEST: No deformities. LUNGS: Clear breath sounds. HEART: Normal sinus rhythm. No murmur, no gallops, no rubs. ABDOMEN: Globular, soft, nontender. No masses. EXTREMITIES: No edema. No deformities. MEDICATIONS: Of December 03, 2019, was reviewed. LABORATORY DATA: On December 03, 2019, white count 14.3, hemoglobin 7.5. Sodium 139, potassium 3.7, chloride 104, carbon dioxide 24, BUN 25, creatinine 2.5, glucose 96, calcium 7. ASSESSMENT AND PLAN: 1. Chronic renal failure/end-stage renal disease, continuing 3 times a week hemodialysis regimen. Fluid removal only as tolerated. 2. Anemia, currently on weekly Epogen. We will be transfusing 1 unit of packed RBC since the patient has symptomatic anemia. 3. Mild hypocalcemia, currently on Tums and calcitriol. 4. Secondary hyperparathyroidism. The patient initiated on calcitriol. Job ID: [id number]
[2019-12-03] MEDS ORDERED: Sterile Water 10 ML VIAL IVP SCH (09:30)
[2019-12-03] MEDS ORDERED: Activase 2 MG VIAL CATH SCH (09:30)
[2019-12-03] MEDS: Calcium Carbonate 500 MG ChewTAB PO SCH ×3 (09:30→17:14)
[2019-12-03] MEDS: Calcitriol 0.25 MCG CAP PO SCH (09:30)
[2019-12-03] MEDS: Famotidine/PF 20 mg/2ml Vial SLOW IVP SCH (09:31)
[2019-12-03] MEDS: Gabapentin 300 MG CAP PO SCH (09:31)
[2019-12-03] MEDS ORDERED: traMADol HCl 50 MG TAB PO PRN (11:07)
[2019-12-03] MEDS ORDERED: traMADol HCl 50 MG TAB PO SCH (11:15)
[2019-12-03] MEDS ORDERED: Heparin 10,000 UNITS/ 10 ML VIAL ONE (11:29)
[2019-12-03] MEDS ORDERED: Gabapentin 300 MG CAP PO SCH (15:00)
[2019-12-03] MEDS: Zinc Oxide 20% Oint 30 GM TUBE TOP SCH (15:45)
--- NOTE | 2019-12-03 16:06 | PDOC.HOSPP ---
- Subjective Subjective: Pt was seen and examined. c/o LE spasm d/w CM. - Objective Vital Signs & Weight: Vital Signs (12 hours) Temp Pulse Resp BP Pulse Ox 12/03/19 12:02 98.0 F 98 20 145/50 H 99 12/03/19 09:00 98.4 F 95 18 141/66 H 98 Weight Admit Weight 126 lb Weight 123 lb 14.397 oz Most Recent Monitor Data Heart Rate from ECG 60 NIBP 126/53 NIBP BP-Mean 77 Respiration from ECG 18 SpO2 96 I&O: 12/02/19 12/03/19 12/04/19 06:59 06:59 06:59 Intake Total 720 720 Output Total 300 700 Balance 420 20 Result Diagrams: 12/03/19 05:30 12/03/19 05:30 Hospitalist ROS - Medication Medications: Active Medications Generic Name Dose Route Start Last Admin Trade Name Freq PRN Reason Stop Dose Admin Bisacodyl 5 mg 11/17/19 11:34 11/17/19 12:09 Dulcolax PO 5 mg DAILYPRN PRN Administration Constipation Calcitriol 0.25 mcg 12/01/19 09:00 12/03/19 09:30 Rocaltrol PO Not Given DAILY [facility] Calcium Carbonate 500 mg 12/01/19 12:00 12/03/19 12:01 Tums PO Not Given [facility] Epoetin Blaine-epbx 7,500 unit 11/26/19 09:00 11/26/19 12:44 Retacrit SC 7,500 unit WILLCALL NADIRA Administration Famotidine 20 mg 11/22/19 09:00 12/03/19 09:31 Pepcid SLOW IVP Not Given DAILY [facility] Fentanyl 50 mcg 11/26/19 10:56 12/02/19 00:09 Sublimaze SLOW IVP 50 mcg Q2H PRN Administration Moderate to Severe Pain (6-10) Gabapentin 300 mg 12/03/19 15:00 12/03/19 12:52 Neurontin PO Not Given TID [facility] Promethazine HCl 12.5 mg/ 50.5 mls @ 202 mls/hr 11/16/19 20:11 11/17/19 21:13 Sodium Chloride IVPB 50.5 mls Q6H PRN Administration Nausea/Vomiting Ondansetron HCl 4 mg 11/16/19 00:17 11/19/19 06:48 Zofran Odt PO 4 mg Q6H PRN Administration Nausea/Vomiting Ondansetron HCl 4 mg 11/16/19 00:17 11/20/19 09:07 Zofran IVP 4 mg Q6H PRN Administration Nausea/Vomiting Promethazine HCl 25 mg 11/16/19 20:11 11/26/19 21:13 Phenergan IM/IV 25 mg Q6H PRN Administration Nausea/Vomiting Zinc Oxide 0 gm 12/01/19 21:00 12/02/19 21:13 Zinc Oxide 20% Ointment TOP 1 applic BID NADIRA Administration Hosp A/P - Plan - Exam General Appearance: awake alert ENT: normocephalic atraumatic Neck: supple Respiratory: normal chest expansion, no tachypnea Cardiovascular: RRR, S1S2 noted Gastrointestinal: soft Extremities: no cyanosis, no clubbing, no edema Neurological: cranial nerve grossly intact, no focal deficits Hosp A/P This is an 79 year old male who presents with recurrent nausea and vomiting #DIEUDONNE possibly secondary to ATN with underlying CKD --No evidence of recovery, now required HD - T//Sat --s/p Permacath placement on 11/30. CM consulted for outpatient HD. Dw CM --Further mgt as per Dr. Mackay --D/w CM - pending authorization #Small bowel obstruction s/p exploratory laparotomy and lysis of adhesion --patient s/p ex-lap with RANGEL, s/p extubation --Recovered well. now tolerating regular diet --cont routine post-op cares as per surgery #Acute hypoxic respiratory failure secondary to possible aspiration pneumonia --Patient desaturated 11/20. CT scan of the chest showed bilateral pneumonia. Pt completed the course of IV abx. Pt sat well on RA. --encourage incr activity, IS #Hypokalemia- likely poor po intake - potassium 3.4, replaced #Hypernatremia -resolved #UTI - resolved, completed course of IV abx #Hypertension - controlled --Cont current regimen #Leukocytosis - secondary to pneumonia vs intra-abdominal infection --downtrending to 12. Continue zosyn for aspiration pneumonia and empirically for possible intra-abd infection --Urine culture was negative for UTI. Repeat UA shows turbid urine, urine culture no growth --May be due reactive process. Afebrile. Monitor CBC #Peripheral Neuropathy --Incr Neurontin and add Tramadol prn
[2019-12-03 17:24] VITALS: TEMP 98.1
[2019-12-03 20:20] VITALS: BP 109/59
--- NOTE | 2019-12-04 14:40 | DIS ---
DATE OF ADMISSION: 11/15/2019 DATE OF DISCHARGE: 12/03/2019 DISCHARGE DIAGNOSES: 1. Small bowel obstruction with status post exploratory laparotomy and lysis of adhesion. 2. Acute kidney injury secondary to ATN with underlying chronic kidney disease. No evidence of renal recovery. The patient requires hemodialysis. 3. Acute hypoxic respiratory failure secondary to possible aspiration pneumonia. 4. Hypokalemia, resolved. 5. Hypernatremia, resolved. 6. Urinary tract infection. The patient was treated, completed course of IV antibiotics. 7. Hypertension. Blood pressure is controlled. 8. Leukocytosis. CONSULTATIONS: 1. Nephrology, Dr. Calvin Irene. 2. Pulmonology, Dr. Scottie Garcia. 3. Surgery, Dr. Jose Cabrera. PROCEDURES: 1. Exploratory laparotomy performed by Dr. Cabrera on 11/21/2019 secondary to small-bowel obstruction, high grade. 2. Central line placement on 11/21/2019. 3. PermCath placement performed by Dr. Mckeon on 12/01/2019 for dialysis. HISTORY OF PRESENT ILLNESS AND BRIEF HOSPITAL COURSE: The patient is a pleasant 79-year-old gentleman, who has significant past medical history of BPH, myelofibrosis, hypertension, dyslipidemia, peripheral neuropathy, CKD, who presented to the ED from the outside facilities with complaint of progressive generalized weakness for the past few days and developing nausea and vomiting. The patient was found to have urinary tract infection. He was subsequently admitted for DIEUDONNE secondary to nausea, vomiting, and UTI. Further workup including CT abdomen and pelvic, which found to have a high-grade small bowel obstruction to the distal ileum with transition point within the right upper quadrant of the abdomen. For that reason, Surgery was consulted. The patient was seen by Dr. Cabrera, subsequently recommended exploratory laparotomy as the patient failed to improve with conservative management. The patient required to stay in the ICU for a few days , as he developed postop acute hypoxic respiratory failure, and possible aspiration pneumonia. He is on broad-spectrum IV antibiotics. Pulmonology was also consulted to assist with ventilator management. His renal function has worsened. Nephrology was consulted despite aggressive medical management. His renal function failed to recover. He was subsequently initiated on dialysis, he tolerated well. He has been followed by Dr. Mackay, and getting dialysis Monday, , and Monday. He was subsequently transferred out of ICU to medical floor. His diet was gradually advanced. He is tolerating regular diet and getting his dialysis as well as physical therapy. Surgery has signed off as patient recovered well. marketing effectiveness manager was consulted with regard to discharge planning. At this time, he has been accepted to [facility] for further physical therapy and rehab. I have discussed the hand off with Dr. Coats and accepted the patient for further rehab. At this time , the patient is cleared to discharge from specialists. DISPOSITION: The patient is stable to discharge to swing bed at [facility]. ACTIVITY: As tolerated. DIET: Renal diet. FOLLOWUP CARE: The patient to follow up with Surgery as outpatient for postop followup, and follow with Dr. Mackay for ongoing dialysis care. PHYSICAL EXAMINATION: VITAL SIGNS: Temperature is 98.1, pulse 99, respiratory rate 18, O2 saturation 98% on room air, blood pressure is 145/50. GENERAL APPEARANCE: The patient is frail. He is not in acute distress. He is alert and oriented x3. HEENT: Normocephalic and atraumatic. Mucous membranes moist. Poor dentition. NECK: Supple. No lymphadenopathy. No JVD. CARDIOVASCULAR: Regular rate and rhythm. S1 and S2 noted. No murmur. PULMONOLOGY: Clear to auscultation bilaterally. EXTREMITIES: No edema. NEUROLOGY: Cranial nerves 2 through 12 grossly intact. No focal weakness. PSYCHIATRIC: The patient is alert and oriented x3 with normal affect. DISCHARGE MEDICATIONS: 1. Tylenol 650 mg q.4 p.r.n. for pain. 2. Gabapentin 300 mg t.i.d. 3. Calcitriol 0.25 mcg p.o. daily. 4. Calcium carbonate 500 mg t.i.d. 5. Melatonin 3 mg at bedtime as needed for sleep. 6. Lidocaine patch one patch daily. 7. Dulcolax 10 mg suppository p.r.n. for constipation. 8. Tramadol 50 mg p.o. q.6 p.r.n. for pain. Thank you for allowing us to participate in this patient's care. Discharge time spent: 37 min Job ID: [id number] MTDD
== END 2019-12-03 20:38 | disposition swing bed (61) | DRG 335 ==
LOC: ERS 19:52 → T4-A 23:06 → OBSVTOIN 23:49 → INTOOBSV 23:49 → T4-A 23:49 → IMCU/EMU 11-21 05:20 → CCU 11-21 15:07 → T4-A 11-27 15:10
PROVIDERS: ADMIT Internal Medicine; ATTEND Internal Medicine
PROC: 0D9670Z Drainage of Stomach with Drainage Device, Via Natural or Artificial Opening (ICD-10-PCS; 2019-11-17)
PROC: 0DNU0ZZ Release Omentum, Open Approach (ICD-10-PCS; principal; 2019-11-21)
PROC: 02HV33Z Insertion of Infusion Device into Superior Vena Cava, Percutaneous Approach (ICD-10-PCS; 2019-11-21)
PROC: 0BH17EZ Insertion of Endotracheal Airway into Trachea, Via Natural or Artificial Opening (ICD-10-PCS; 2019-11-21)
PROC: 5A1955Z Respiratory Ventilation, Greater than 96 Consecutive Hours (ICD-10-PCS; 2019-11-21)
PROC: 30233N1 Transfusion of Nonautologous Red Blood Cells into Peripheral Vein, Percutaneous Approach (ICD-10-PCS; 2019-11-22)
PROC: 3E033XZ Introduction of Vasopressor into Peripheral Vein, Percutaneous Approach (ICD-10-PCS; 2019-11-24)
PROC: 5A1D70Z Performance of Urinary Filtration, Intermittent, Less than 6 Hours Per Day (ICD-10-PCS; 2019-11-27)
PROC: 5A1D70Z Performance of Urinary Filtration, Intermittent, Less than 6 Hours Per Day (ICD-10-PCS; 2019-11-28)
PROC: 5A1D70Z Performance of Urinary Filtration, Intermittent, Less than 6 Hours Per Day (ICD-10-PCS; 2019-11-30)
PROC: 0JH63XZ Insertion of Tunneled Vascular Access Device into Chest Subcutaneous Tissue and Fascia, Percutaneous Approach (ICD-10-PCS; 2019-12-01)
PROC: 02HV33Z Insertion of Infusion Device into Superior Vena Cava, Percutaneous Approach (ICD-10-PCS; 2019-12-01)
PROC: B548ZZA Ultrasonography of Superior Vena Cava, Guidance (ICD-10-PCS; 2019-12-01)
PROC: 5A1D70Z Performance of Urinary Filtration, Intermittent, Less than 6 Hours Per Day (ICD-10-PCS; 2019-12-03)
DX: K56.609 Unspecified intestinal obstruction, unspecified as to partial versus complete obstruction (principal); J69.0 Pneumonitis due to inhalation of food and vomit; N17.0 Acute kidney failure with tubular necrosis; E43 Unspecified severe protein-calorie malnutrition; J95.821 Acute postprocedural respiratory failure; E87.0 Hyperosmolality and hypernatremia; E87.2 Acidosis; G93.40 Encephalopathy, unspecified; J90 Pleural effusion, not elsewhere classified; D62 Acute posthemorrhagic anemia; Z68.1 Body mass index [BMI] 19.9 or less, adult; R65.10 Systemic inflammatory response syndrome (SIRS) of non-infectious origin without acute organ dysfunction; I13.0 Hypertensive heart and chronic kidney disease with heart failure and stage 1 through stage 4 chronic kidney disease, or unspecified chronic kidney disease; N39.0 Urinary tract infection, site not specified; D75.81 Myelofibrosis; N25.81 Secondary hyperparathyroidism of renal origin; E87.8 Other disorders of electrolyte and fluid balance, not elsewhere classified; K56.7 Ileus, unspecified; R53.81 Other malaise; E83.51 Hypocalcemia; E11.42 Type 2 diabetes mellitus with diabetic polyneuropathy; E87.6 Hypokalemia; Z20.828 Contact with and (suspected) exposure to other viral communicable diseases; N40.0 Benign prostatic hyperplasia without lower urinary tract symptoms; E86.0 Dehydration; N18.9 Chronic kidney disease, unspecified; I50.9 Heart failure, unspecified; I73.9 Peripheral vascular disease, unspecified; Z79.899 Other long term (current) drug therapy; Z79.01 Long term (current) use of anticoagulants
CPT/HCPCS: 36415; 36416; 36430; 71045; 71250; 74018; 74176; 74177; 74250; 80048; 80053; 81001; 82607; 82746; 82805; 83605; 83880; 83970; 84100; 85007; 85025; 85027; 85379; 86580; 86704; 86706; 86803; 86850; 86900; 86901; 87040; 87077; 87086; 87340; 87635; 90935; 93005; 93010; 93970; 94002; 94003; 96361; 96374; C1752; C9113; G0257; G0365; J0690; J0696; J1642; J1644; J1650; J1940; J2250; J2270; J2370; J2405; J2543; J2550; J2704; J3010; J3480; J3490; J7050; J7070; P9016; P9045; P9047; Q0162; Q5105; S0020; S0028; U0003

== ENCOUNTER 2019-12-13 17:20 | Inpatient (IN) | payer OTHER ==
[~2019-12-13 17:20] MED LIST: Iopamidol-370 76% 500 ML 1 ML ONE
[2019-12-13 18:15] LABS: Hemoglobin 8.6 g/dL (14.0-18.0); Mean Corpuscular HGB CONC 34.5 g/dL (32.0-36.0); Mean Corpuscular Hemoglobin 30.8 pg (27.0-31.0); Mean Corpuscular Volume 89.2 fL (78.0-98.0); Platelet Count 125 thou/uL (130-400); RBC Distribution Width 15.9 % (11.5-14.5)
[2019-12-13 18:19] LABS: INR-International Normal Ratio 1.1; Prothrombin Time 14.5 sec (12.0-14.7)
[2019-12-13 18:20] LABS: PTT 39.7 sec (22.9-36.1)
[2019-12-13 18:34] LABS: ALT (SGPT) 14 U/L (8-55); AST (SGOT) 26 U/L (5-34); Albumin 3.6 g/dL (3.4-4.8); Alkaline Phosphatase 87 U/L (40-110); Anion Gap 16 mmol/L (10-20); BUN (Urea Nitrogen) 44 mg/dL (8.4-25.7); Bilirubin, Total 0.5 mg/dL (0.2-1.2); Calc. Creatinine Clearance 0 mL/min (70-130); Calcium 8.8 mg/dL (7.8-10.44); Carbon Dioxide 21 mmol/L (23-31); Chloride 107 mmol/L (98-107); Estimated GFR-MDRD 47; Globulin 3.9 g/dL (2.4-3.5); Glucose 129 mg/dL (83-110); Potassium 4.3 mmol/L (3.5-5.1); Protein, Total 7.5 g/dL (5.8-8.1); Sodium 140 mmol/L (136-145)
[2019-12-13 18:41] LABS: Anisocytosis SLIGHT = 6-15 cells (100X) (0-5/hpf); Band 25 % (5-11); Eosinophils 1 % (0-10); Lymphocytes 5 % (21-51); MDiff Complete? YES; Metamyelocyte 1 % (0-0); Monocytes 18 % (0-10); Myelocyte 1 % (0-0); Nucleated RBC 2 % (0); Platelet Morphology Comment Appears Adequate; Polychromasia MODERATE = 3-4 cells (100X) (0-2/hpf); Reactive Lymphocytes 2 % (0-10); White Blood Cell (WBC) Count 10.7 thou/uL (4.8-10.8)
[2019-12-13] MEDS ORDERED: Morphine 2 MG/ML SYRINGE ONE (18:43)
[2019-12-13 18:54] LABS: CKMB 2.8 ng/mL (0-6.6)
--- NOTE | 2019-12-13 19:14 | CT ---
HISTORY: Peripheral vascular disease COMPARISON: Chest, abdomen and pelvic CT 11/21/2019 TECHNIQUE: Multiple contiguous axial images were obtained a CTA of the abdomen, pelvis, and bilateral lower extremities with contrast. Sagittal and coronal 3-D MIP reformats were performed. FINDINGS: LUNGS: There appears to be debris in the right lower lobe bronchus. There is postobstructive atelecta sis in the right lower lobe. Minimal scarring atelectasis in the left lower lobe. HEART: Enlarged heart. No significant pericardial fluid Liver: Unremarkable. Gallbladder: Unremarkable. Kidneys: Atrophic right kidney. Prominent right extrarenal pelvis. There is asymmetric prominence of the right intrarenal collecting and extrarenal collecting system, likely due to long-standing process given the overall atrophy of the right kidney. Findings are unchanged from previous CT. Adrenal glands: Unremarkable. Spleen: Unremarkable. Pancreas: Unremarkable. Bowel: Limited evaluation by the lack of oral contrast. Multiple slightly prominent small bowel loops are identified. An obstructive process cannot be entirely excluded. Limited evaluation of the ileocecal junction. Limited evaluation of the appendix. No obvious inflammation at the cecal apex. Th ere is scattered fecal material throughout the colon. Occasional diverticulum. No diverticulitis.. Reproductive organs :Unremarkable. Retroperitoneum: No lymphadenopathy Bones: Degenerative changes in the spine. Urinary bladder: Decompressed due to Cifuentes catheterization. There is circumferential bladder mucosal thickening.. Abdominal aorta. Normal caliber without evidence of dissection or aneurysmal dilatation. Celiac trunk: Patent SMA: Patent ZANDER: Patent Renal arteries: Bilateral single renal arteries without significant atherosclerotic disease Bilateral common iliac arteries: Patent left common iliac artery. Occluded right common iliac artery. Internal iliac arteries: Occluded right internal iliac artery. Patent left internal iliac artery.. External iliac arteries: Occluded right external iliac artery. Patent left external iliac artery.. Common femoral arteries: Occluded right. Patent left.. Profunda femoral arteries: Occluded right. Patent left.. Superficial femoral arteries: Occluded right. Patent left.. Popliteal arteries: Occluded right. Patent left.. Right lower extremity: There is recanalization of the proximal anterior tibial, posterior tibial and peroneal arteries likely due to collateral flow from smaller perforating arteries. There is solitary vessel flow posterior tibial artery down to level of the ankle. There is asymmetric edema in volving the right gastrocnemius and soleus muscles. No obvious intramuscular abscess. Left lower extremity: 3 vessel runoff without significant disease Bypass: There appears to be a bypass graft running along the right chest wall which appears to be com pletely occluded. The graft appears to been fragmented in the level of the right iliac crest. Graft continues down the right lower extremity and is entirely occluded.. There is a second bypass wh ich is a bifemoral bypass which also appears to be completely occluded.. IMPRESSION: 1. 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 Comp lete occlusion of the bifem bypass. 2. Reconstitution of the right lower extremity arterial system likely via arterial collaterals. Singl e vessel supply down to level of the right foot. 3. Edematous change involving the right gastrocnemius and soleus muscle which may represent muscular ischemia. Intramuscular abscess is not appreciated. Transcribed Date/Time: 12/13/2019 7:27 PM
[2019-12-13 19:34] LABS: Bacteria/HPF None Seen HPF (None Seen); Bilirubin Negative (Negative); Blood, Urine 1+ (Negative); Clarity Clear (Clear); Glucose, Urine (Dipstick) Normal (Negative); Ketone, Urine Negative (Negative); Leukocyte 250 Leu/uL (Negative); Nitrite Negative (Negative); Protein, Urine (Dipstick) 100 mg/dL (Neg-Trace); RBC/HPF 0-3 HPF (0-3); Specific Gravity, Urine 1.029 (1.002-1.036); Squamous Epithelial None Seen HPF (0-3); Urobilinogen Normal mg/dL (Less than 2); WBC/HPF 21-50 HPF (0-3)
[2019-12-13] MEDS ORDERED: Morphine 2 MG/ML VIAL SLOW IVP PRN (23:51)
[2019-12-13] MEDS ORDERED: HYDROcodone/Acetaminophen 5/325 mg Tablet PO PRN ×2 (23:52)
[2019-12-13] MEDS ORDERED: Acetaminophen 325 MG TAB PO PRN (23:52)
[2019-12-13] MEDS ORDERED: Ondansetron PF 4 MG/2 ML Vial IVP PRN (23:52)
[2019-12-13] MEDS ORDERED: Ondansetron ODT 4 MG TAB SL PRN (23:52)
[2019-12-14] MEDS: cefTRIAXone\\ROCEPHIN 1 GM in Sodium Chloride 0.9% 100 ML IVPB SCH (01:53)
[2019-12-14] MEDS: Sodium Chloride 0.9% 1,000 ML IV SCH ×2 (01:53→15:58)
--- NOTE | 2019-12-14 02:13 | HP ---
REASON FOR ADMISSION: Right leg pain. HISTORY OF PRESENT ILLNESS: This is an 79-year-old male patient, who was at [facility], receiving rehabilitation and he was noted to have right leg pain. There was a concern that he has arterial occlusion and for that reason, he was sent to us. The patient is a poor historian. He is not able to give me any details about his hospitalization, but I did review his records and it seems that the patient was in [facility] recently and was discharged on 12/03/2019 after approximately two weeks of hospitalization during which he was initially admitted with urinary tract infection and subsequent finding of high-grade small bowel obstruction requiring exploratory laparotomy and lysis of adhesion. Postoperatively, he developed hypoxic respiratory failure requiring extended ventilator management. Also developed acute kidney injury with progressive worsening of renal function with failure to recover, subsequently initiated on dialysis. He got stronger, but still required extensive physical therapy and for that reason, transferred to [place]. During his stay, he complained of right leg pain and it was suspected that he has worsening of his vascular disease. He was subsequently sent to us. In the emergency room, he did undergo a CTA with runoff that showed severe peripheral vascular disease and possible muscle ischemia. ER physician did confer with Vascular Surgery. They will see him in a.m. The patient is currently on Med Surg and appears to have no complaints. PAST MEDICAL HISTORY: 1. Chronic kidney disease stage 3, was receiving hemodialysis while he was in our hospital. 2. High cholesterol. 3. BPH. 4. Peripheral vascular disease. 5. Myelofibrosis. PAST SURGICAL HISTORY: Positive for right femoral arterial bypass. FAMILY HISTORY: Reviewed and found to be noncontributory. SOCIAL HISTORY: He does not smoke. Does not drink alcohol. REVIEW OF SYSTEMS: Unable to fully obtain. He is a very poor historian. PHYSICAL EXAMINATION: GENERAL: Awake, alert, oriented, does not appear in distress. VITAL SIGNS: His blood pressure is 140/73, temperature is 100.3 at [place], but last one here was 99.9. HEENT: Head is nontraumatic, normocephalic. Pupils equal, reactive. Extraocular movements are intact. Nonicteric sclerae. Well injected conjunctivae. Oral mucosa normal. Nasal mucosa normal. NECK: Supple. No adenopathy. No murmur. Thyroid is not palpable. Trachea is midline. No supraclavicular lymphadenopathy. HEART: S1 and S2. Regular. No murmur. No gallops. No friction rubs. No displacement of PMI. LUNGS: Clear to auscultation bilaterally. No wheezes, rhonchi, no crackles. Bowel sounds are positive. Nontender abdomen. No hepatosplenomegaly. EXTREMITIES: No lower extremity edema. He does have a superficial ulceration around the henderson area of the right lower extremity. Both extremities feels warm. As per nursing, pulse was detected in the right lower extremity. NEURO: He is moving all his upper extremities, but he is unable to lift his bilateral lower extremities. Only, he can lift his knees against resistance. He can wiggle his feet. This weakness is symmetrical. He does not have any sensory weakness. Cranial nerves appeared to be intact. LABORATORY DATA: Blood work shows WBC of 10.7, hemoglobin of 8.6, previous hemoglobin 7.5, platelets of 125, previous platelets 113. PTT 39.7, INR 1.1. Sodium 140, potassium 4.3, bicarb 21, BUN 44, creatinine 1.7. Troponin 0.029. BNP 385.9. Urinalysis shows leukocyte esterase and WBCs. runoff shows complete occlusion of the right chest wall bypass, likely originating from the brachial artery. Complete occlusion of the bifemoral bypass. Reconstitution of the right lower extremity arterial system likely via arterial collaterals. Single vessel supplied down to level to the right foot. Edematous change the gastrocnemius and these soleus muscle, which may represent muscular ischemia. Intramuscular abscess is not appreciated. ASSESSMENT AND PLAN: This is an 79-year-old male patient, who was recently here for bowel obstruction postoperatively, required ventilatory support. During his stay, developed worsening of his renal function, required hemodialysis and since he was so deconditioned, he was sent to [place] to come back with suspected severe peripheral vascular disease of his right lower extremity which is demonstrated by the CTA. Renal system, electrolytes: The patient did receive IV contrast in view of his chronic kidney disease. We will consult Nephrology. He might need to be dialyzed. He will until then be on gentle hydration and we will recheck his electrolytes in the morning. In regard of his arterial occlusion, vascular, we will see him in the morning. The ER physician did contact them and advised no anticoagulation for now. I will resume his Plavix. I am awaiting for his med rec to be done, so I could reconcile his medication. We will ask Physical Therapy to see him. For deep venous thrombosis prophylaxis, he will be on heparin subcutaneously. For his urinary tract infection, we will start him on IV antibiotics. For his high blood pressure, we will resume his antihypertensive agents. He will be full code. Job ID: [id number]
[2019-12-14 06:04] LABS: Anion Gap 16 mmol/L (10-20); BUN (Urea Nitrogen) 42 mg/dL (8.4-25.7); Calc. Creatinine Clearance 29 mL/min (70-130); Calcium 8.7 mg/dL (7.8-10.44); Carbon Dioxide 23 mmol/L (23-31); Chloride 106 mmol/L (98-107); Estimated GFR-MDRD 51; Glucose 84 mg/dL (83-110); Potassium 4.4 mmol/L (3.5-5.1); Sodium 141 mmol/L (136-145)
[2019-12-14 06:30] LABS: Anisocytosis SLIGHT = 6-15 cells (100X) (0-5/hpf); Band 18 % (5-11); Eosinophils 1 % (0-10); Lymphocytes 14 % (21-51); MDiff Complete? YES; Mean Corpuscular HGB CONC 32.5 g/dL (32.0-36.0); Mean Corpuscular Hemoglobin 29.4 pg (27.0-31.0); Mean Corpuscular Volume 90.5 fL (78.0-98.0); Mean Platelet Volume 9.8 fL (7.4-10.4); Metamyelocyte 1 % (0-0); Monocytes 11 % (0-10); Platelet Count 119 thou/uL (130-400); Platelet Morphology Comment Appears Adequate; Red Blood Cell (RBC) Count 2.73 mill/uL (4.70-6.10)
--- NOTE | 2019-12-14 07:30 | PRG ---
DATE OF SERVICE: 12/14/2019 SUBJECTIVE: Mr. Schmitt is an 79-year-old black male with known history of chronic renal failure. He was admitted for right leg pain. He underwent a CTA with runoff, showed severe peripheral vascular disease. The Vascular Surgery has been consulted. We are following up this patient for his chronic renal failure. Please note, he was initiated on hemodialysis with this last hospitalization. We did observe with a creatinine slightly improving. For that reason, we are placing the dialysis on hold for the moment. We are currently being consulted for further management of his chronic renal failure. REVIEW OF SYSTEMS: Positive for right leg pain. No nausea. No vomiting. No chest pain or shortness of breath. No fever or chills. No productive cough. PHYSICAL EXAMINATION: VITAL SIGNS: Blood pressure is 131/69, heart rate 96, respiratory rate 18, temperature 98.8, O2 saturation 96%. GENERAL: The patient is awake, alert, comfortable, not in distress. SKIN: Adequate turgor. HEENT: Pinkish conjunctivae. Anicteric sclerae. NECK: No neck mass. No carotid bruits. No JVD. CHEST: No deformities. LUNGS: Clear breath sounds. HEART: Normal sinus rhythm. No murmur. No gallops. No rubs. ABDOMEN: Globular. Soft. Nontender. No masses. EXTREMITIES: No edema. No deformities. MEDICATIONS: Medications of December 14, 2019, were reviewed. LABORATORY DATA: On December 14, 2019, white count 11, hemoglobin 8. Sodium 141, potassium 4.4, chloride 106, carbon dioxide 23, BUN 42, creatinine 1.58, calcium 8.7. On December 13, 2019, BNP 385.9. IMAGING DATA: On December 13, 2019, CT angio/aorta with bilateral runoff showed peripheral vascular disease and showed recurrence, is usually on the right lower extremity arterial system - finding also of a complete occlusion of the bifem bypass. ASSESSMENT AND PLAN: 1. Chronic renal failure - holding off hemodialysis. He may have some partial recovery with his renal function. I would continue current gentle maintenance IV hydration. Creatinine noted at 1.5. The patient is noted also to be diuresing. Potassium is within normal. We will recheck another basic metabolic. 2. Peripheral vascular disease. Vascular Surgery has been consulted. Job ID: [id number]
[2019-12-14] MEDS: Ferrous Sulfate 325 MG TAB PO SCH ×2 (08:22→17:10)
[2019-12-14] MEDS: Clopidogrel Bisulfate 75 MG TAB PO SCH (08:22)
[2019-12-14] MEDS: EPOETIN ALFA-EPBX (ESRD) 4,000 UNIT/ML VIAL SC SCH (09:05)
[2019-12-14] MEDS: Heparin 5,000 UNITS/ML VIAL SC SCH ×3 (09:09→21:31)
[2019-12-14] MEDS ORDERED: HYDROcodone/Acetaminophen 5/325 mg Tablet PO PRN ×2 (09:33→09:36)
[2019-12-14] MEDS: HYDROcodone/Acetaminophen 5/325 mg Tablet PO PRN ×4 (09:43→22:01)
--- NOTE | 2019-12-14 11:33 | PDOC.HOSPP ---
- Subjective Encounter Date: 12/14/19 Encounter Time: 11:31 Subjective: Mr. Schmitt was seen today in follow-up of severe peripheral vascular disease in the right lower extremity. He notes rest pain in that leg. He rates it about a 7/10. - Objective Vital Signs & Weight: Vital Signs (12 hours) Temp Pulse Resp BP Pulse Ox 12/14/19 07:22 98.5 F 99 18 137/69 97 12/14/19 06:16 98.8 F 96 18 131/69 96 Weight Weight 124 lb I&O: 12/13/19 12/14/19 12/15/19 06:59 06:59 06:59 Intake Total 375 Output Total 850 Balance -475 Result Diagrams: 12/14/19 05:19 12/14/19 05:19 Hospitalist ROS - Medication Medications: Active Medications Generic Name Dose Route Start Last Admin Trade Name Freq PRN Reason Stop Dose Admin Hydrocodone Bitart/Acetaminophen 2 tab 12/14/19 09:42 12/14/19 09:43 [place] 5/325 PO 2 tab Q4H PRN Administration Severe Pain (7-10) Clopidogrel Bisulfate 75 mg 12/14/19 09:00 12/14/19 08:22 Plavix PO 75 mg DAILY NADIRA Administration Epoetin Blaine-epbx 7,500 unit 12/14/19 09:00 12/14/19 09:05 Retacrit SC 7,500 unit Q7DAYS NADIRA Administration Ferrous Sulfate 325 mg 12/14/19 08:00 12/14/19 08:22 Feosol PO 325 mg BID-WM NADIRA Administration Heparin Sodium (Porcine) 5,000 units 12/14/19 09:00 12/14/19 09:09 Heparin SC Not Given TID NADIRA Ceftriaxone Sodium 1 gm/ 100 mls @ 200 mls/hr 12/14/19 02:00 12/14/19 01:53 Sodium Chloride IVPB 100 mls 0200 NADIRA Administration Sodium Chloride 1,000 mls @ 75 mls/hr 12/14/19 01:45 12/14/19 01:53 Normal Saline 0.9% IV 1,000 mls .[id number] NADIRA Administration - Exam Eye: PERRL, anicteric sclera Heart: RRR, no murmur, no gallops, no rubs, normal peripheral pulses Respiratory: CTAB, no wheezes, no rales, no ronchi, normal chest expansion Gastrointestinal: soft, non-tender, non-distended, normal bowel sounds, no palpable masses Extremities: no cyanosis, no clubbing, no edema (+ dark eschar on the medail aspect of the leg) Hosp A/P (1) Peripheral vascular disease Code(s): I73.9 - PERIPHERAL VASCULAR DISEASE, UNSPECIFIED Status: Acute (2) Nausea & vomiting Code(s): R11.2 - NAUSEA WITH VOMITING, UNSPECIFIED Status: Acute (3) UTI (urinary tract infection) Status: Acute (4) BPH (benign prostatic hyperplasia) Code(s): N40.0 - BENIGN PROSTATIC HYPERPLASIA WITHOUT LOWER URINRY TRACT SYMP Status: Chronic (5) HTN (hypertension) Code(s): I10 - ESSENTIAL (PRIMARY) HYPERTENSION Status: Chronic (6) CKD (chronic kidney disease) stage 3, GFR 30-59 ml/min Code(s): N18.3 - CHRONIC KIDNEY DISEASE, STAGE 3 (MODERATE) Status: Acute - Plan * Severe Peripheral Vascular disease with rest pain- CTA results noted. Await CV surgery evaluation * Symptom management * HTN- blood pressure is controlled * CKD-3- stable *
[2019-12-14 14:21] LABS: SARS-CoV-2 MS2 Positive; SARS-CoV-2 N Gene Negative; SARS-CoV-2 S Gene Negative; SARS-CoV-2 by NAA Not Detected (NotDetected); SARS-CoV-2 orf1ab Negative
--- NOTE | 2019-12-14 17:30 | CON ---
DATE OF CONSULTATION: 12/14/2019 REQUESTING PROVIDER: Karen Christianson, nurse practitioner. CHIEF COMPLAINT: Right leg pain. HISTORY OF PRESENT ILLNESS: The patient is an 79-year-old black man, who is quite debilitated. He was just discharged on the 2nd of this month after nearly 3-week long hospitalization for small-bowel obstruction with an initial presenting constellation of signs and symptoms suggestive of recurrence of a chronic problem with urinary tract infections, associated with an ileus, but ultimately requiring an abdominal exploration with lysis of adhesions. That hospitalization was complicated by deterioration of his renal function, requiring dialysis and placement of tunneled left internal jugular catheter for dialysis. He has a known extensive history of peripheral vascular disease, and in his words, he has had operation after operation after operation and what appears to represent fairly heroic attempts at salvage of his right lower extremity. These procedures have been done in the [place] [facility]. The records are currently unavailable to me and the patient is not able to provide very precise details. The patient had increasing pain over the last few days in his lower right leg and he was transferred from a rehab facility in [facility] back to [facility] in [place]. PAST MEDICAL HISTORY: Also significant for myelofibrosis and benign prostatic hypertrophy. MEDICATIONS: His most recent list of medicines includes Neurontin, Pepcid, erythropoietin, although it is [place] hospitalization. His home medications were listed as; 1. Norvasc 10 mg a day. 2. Lipitor 10 mg a day. 3. Coreg 12.5 mg twice a day. 4. Plavix 75 mg a day. 5. Finasteride 5 mg a day. 6. Flomax 1 a day. 7. Myrbetriq 25 mg a day. 8. Neurontin 100 mg a day. 9. Ferrous gluconate 324 mg a day. SOCIAL HISTORY: The patient denies a history of smoking. REVIEW OF SYSTEMS: The patient reports leg pain. He denies any shortness of breath or chest pain. PHYSICAL EXAMINATION: GENERAL: He is a chronically ill man, who has difficulty talking clearly, has a tunneled left IJ in place. He has fairly dramatic temporal wasting. VITAL SIGNS: Height is 5 feet and 8 inches, weighs 124 pounds, temperature 98.9, heart rate 97, blood pressure 127/76, and room air O2 saturations are 98%. LUNGS: He has clear breath sounds. HEART: Regular rate and rhythm. ABDOMEN: He has soft, scaphoid abdomen. MUSCULOSKELETAL: He has a palpable right axillofemoral graft, but I am not able to palpate it in continuity at about the level of the iliac crest, coincident with a relatively long transverse scar in the right lower quadrant. There is a segment that I am not able to palpate. There is a palpable graft going from one groin to the other, consistent with an axillobifemoral graft. There is not a pulse palpable in it. He has no palpable right femoral pulse. No palpable pulses in the right foot. He has extensive scarring on the right groin and medial aspect of the right leg. There is a continuous scar from groin to mid to distal calf. There are what appear to be skin harvest sites on the right thigh and a skin graft over an old wound medially. A little bit distal to that is a shallow ulcerated wound in the leg. He is missing his 5th toe on the right foot. His distal right to mid right calf is tender to palpation, although soft. LABORATORY DATA: His white count is 11.0, hemoglobin 8.0, hematocrit 24.7, platelet count 119,000, MCV is 90.5. His PTT was 39.7, INR 1.1. His electrolytes were normal. Glucose is 129, BUN 44, creatinine 1.71, and estimated GFR 47 yesterday evening. This morning, BUN is 42, creatinine 1.58, with an estimated GFR of 51. His albumin is 3.6. BNP was 385.9. He does not have a chest x-ray this admission, but after his IJ catheter placement, his lung zimmerman were fairly clear, his heart was somewhat enlarged, and his aorta appeared ectatic. His CTA shows what appears to actually represent a right axillo-superficial femoral or even popliteal graft, but I am not able to follow it in continuity, losing it at about the level of the iliac crest. He has a femoral-femoral graft that appears to be a separate graft and these grafts are thrombosed. He has gradual narrowing of his distal left SFA and popliteal with small but intact tibial vasculature. On the right side, I am not able to see common or superficial femoral arteries. His distal infrageniculate or perhaps even tibial, popliteal, or even tibioperoneal trunk reconstituted. They are rather small. He does appear to have intact tibial vasculature. His profunda appears to be small caliber. There are metallic densities in the groin, consistent with hemoclips, but there are also some metallic densities scattered medially and more superficially, suggestive of clips along the course of a vein harvest. IMPRESSION AND RECOMMENDATIONS: It would seem that this unfortunate gentleman with severe right-sided peripheral vascular disease that includes occlusion of his iliac system and extends throughout his right thigh. He has had multiple heroic efforts at limb salvage and is probably exhausted his revascularization options. He would need some sort of redo inflow procedure and then outflow would have to be down to the tibial vasculature in all likelihood and this would almost surely be futile. Additionally, it is apt to be a bloody morbid operation in a patient who is chronically ill and would tolerate such attempts poorly. I think that he would be better served with an amputation that I think is inevitable in anyway. Most likely, this is going to require [id number] amputation because of problematic vascularity of the posterior compartment musculature that would need to cover the tibial stump of the below-knee amputation. I will check on him again tomorrow after he has had a chance to contemplate his limited options. Job ID: [id number]
[2019-12-15] MEDS: cefTRIAXone\\ROCEPHIN 1 GM in Sodium Chloride 0.9% 100 ML IVPB SCH (01:59)
[2019-12-15] MEDS: HYDROcodone/Acetaminophen 5/325 mg Tablet PO PRN ×3 (02:02→20:30)
[2019-12-15 05:41] LABS: #Basophils 0.1 thou/uL (0.0-0.2); #Eosinphils 0.1 thou/uL (0.0-0.7); #Lymphocytes 1.6 thou/uL (1.20-3.40); #Monocytes 1.1 thou/uL (0.11-0.59); %Basophils 1.2 % (0.0-1.0); %Eosinophils 1.8 % (0.0-10.0); %Lymphocytes 20.1 % (21.0-51.0); %Monocytes 14.3 % (0.0-10.0); %Neutrophils 62.7 % (42.0-75.0); Hemoglobin 7.4 g/dL (14.0-18.0); Mean Corpuscular HGB CONC 32.5 g/dL (32.0-36.0); Mean Corpuscular Hemoglobin 29.3 pg (27.0-31.0); Mean Corpuscular Volume 90.2 fL (78.0-98.0); Mean Platelet Volume 9.9 fL (7.4-10.4); Platelet Count 117 thou/uL (130-400); Red Blood Cell (RBC) Count 2.52 mill/uL (4.70-6.10)
[2019-12-15] MEDS: Sodium Chloride 0.9% 1,000 ML IV SCH ×2 (05:45→20:33)
[2019-12-15 05:56] LABS: Anion Gap 13 mmol/L (10-20); BUN (Urea Nitrogen) 34 mg/dL (8.4-25.7); Calc. Creatinine Clearance 31 mL/min (70-130); Calcium 7.7 mg/dL (7.8-10.44); Carbon Dioxide 22 mmol/L (23-31); Chloride 107 mmol/L (98-107); Estimated GFR-MDRD 56; Glucose 77 mg/dL (83-110); Potassium 4.3 mmol/L (3.5-5.1); Sodium 138 mmol/L (136-145)
[2019-12-15] MEDS: Ferrous Sulfate 325 MG TAB PO SCH ×2 (08:35→17:25)
[2019-12-15] MEDS: Heparin 5,000 UNITS/ML VIAL SC SCH ×3 (09:59→20:30)
[2019-12-15] MEDS: Clopidogrel Bisulfate 75 MG TAB PO SCH (09:59)
--- NOTE | 2019-12-15 10:38 | PDOC.HOSPP ---
- Subjective Encounter Date: 12/15/19 Encounter Time: 10:37 Subjective: Mr. Schmitt was seen today in follow-up of ere PVD of the right lower extremity. He notes an irritation numbness in the right lower extremity. He says [place] seems to make it worse. - Objective Vital Signs & Weight: Vital Signs (12 hours) Temp Pulse Resp BP Pulse Ox 12/15/19 04:40 98.2 F 99 20 134/70 98 Weight Admit Weight 124 lb Weight 124 lb I&O: 12/14/19 12/15/19 12/16/19 06:59 06:59 06:59 Intake Total 375 3385 Output Total 850 1575 Balance -475 1810 Result Diagrams: 12/15/19 05:20 12/15/19 05:20 Hospitalist ROS - Medication Medications: Active Medications Generic Name Dose Route Start Last Admin Trade Name Freq PRN Reason Stop Dose Admin Hydrocodone Bitart/Acetaminophen 2 tab 12/14/19 09:42 12/15/19 02:02 [place] 5/325 PO 2 tab Q4H PRN Administration Severe Pain (7-10) Clopidogrel Bisulfate 75 mg 12/14/19 09:00 12/15/19 09:59 Plavix PO Not Given DAILY NADIRA Epoetin Blaine-epbx 7,500 unit 12/14/19 09:00 12/14/19 09:05 Retacrit SC 7,500 unit Q7DAYS NADIRA Administration Ferrous Sulfate 325 mg 12/14/19 08:00 12/15/19 08:35 Feosol PO 325 mg BID-WM NADIRA Administration Heparin Sodium (Porcine) 5,000 units 12/14/19 09:00 12/15/19 09:59 Heparin SC Not Given TID NADIRA Ceftriaxone Sodium 1 gm/ 100 mls @ 200 mls/hr 12/14/19 02:00 12/15/19 01:59 Sodium Chloride IVPB 100 mls 0200 NADIRA Administration Sodium Chloride 1,000 mls @ 75 mls/hr 12/14/19 01:45 12/15/19 05:45 Normal Saline 0.9% IV 1,000 mls .[id number] NADIRA Administration Sodium Chloride 10 ml 12/14/19 21:00 12/14/19 21:32 Flush - Normal Saline IVF 10 ml Q12HR NADIRA Administration - Exam Eye: PERRL, anicteric sclera Heart: RRR, no murmur, no gallops, no rubs, normal peripheral pulses Respiratory: CTAB, no wheezes, no rales, no ronchi, normal chest expansion, no tachypnea Gastrointestinal: soft, non-tender, non-distended, normal bowel sounds, no palpable masses Extremities: no cyanosis, no edema (+ dark discoloration of the right lower extremity) Hosp A/P (1) Peripheral vascular disease Code(s): I73.9 - PERIPHERAL VASCULAR DISEASE, UNSPECIFIED Status: Acute (2) Normochromic anemia Code(s): D64.9 - ANEMIA, UNSPECIFIED Status: Acute (3) Nausea & vomiting Code(s): R11.2 - NAUSEA WITH VOMITING, UNSPECIFIED Status: Acute (4) UTI (urinary tract infection) Status: Acute (5) BPH (benign prostatic hyperplasia) Code(s): N40.0 - BENIGN PROSTATIC HYPERPLASIA WITHOUT LOWER URINRY TRACT SYMP Status: Chronic (6) HTN (hypertension) Code(s): I10 - ESSENTIAL (PRIMARY) HYPERTENSION Status: Chronic (7) CKD (chronic kidney disease) stage 3, GFR 30-59 ml/min Code(s): N18.3 - CHRONIC KIDNEY DISEASE, STAGE 3 (MODERATE) Status: Acute - Plan * Severe Peripheral Vascular disease with rest pain- Discussed with Dr. Delgado. Plan is for amputation tomorrow * Severe Normochronic anemia- will transfuse a unit. he had iron studies in June of this year- consistent with anemia of chronic disease * Symptom management - will add Gabapentin to his regimen * HTN- blood pressure is controlled * CKD-3- stable
[2019-12-15] MEDS: Gabapentin 100 MG CAP PO SCH ×2 (10:50→20:30)
[2019-12-15] MEDS: Morphine 2 MG/ML VIAL SLOW IVP PRN (20:38)
--- NOTE | 2019-12-15 22:24 | RAD ---
Exam: Chest one view HISTORY:Shortness of breath Comparison: 12/01/2019 FINDINGS: Cardiac silhouette:Stable cardiac silhouette Lines and tubes: Stable left-sided central venous catheter and HemoSplit dialysis catheter Aorta: Unremarkable Pulmonary vessels: Normal Costophrenic angles: Minor fissure thickening due to fluid LUNGS: Patchy interstitial and alveolar opacities suggesting edema. Pneumothorax: None Osseous abnormalities: None IMPRESSION: Interstitial and alveolar edema.
[2019-12-15] MEDS ORDERED: Furosemide 40 MG/4 ML VIAL SLOW IVP SCH (23:30)
[2019-12-16] MEDS: HYDROcodone/Acetaminophen 5/325 mg Tablet PO PRN ×3 (00:23→20:06)
[2019-12-16] MEDS: Morphine 2 MG/ML VIAL SLOW IVP PRN ×3 (00:24→17:39)
--- NOTE | 2019-12-16 00:42 | PDOC.EVN ---
Event Note - Event Note Event Note: Was called by nursing that patient had elevated heart rate and stated he was having difficulty breathing. Chest x-ray and EKG ordered. One-time dose of Lasix ordered after chest x-ray resulted and order to stop IV fluids. Discussed patient with Dr. Silverio.
[2019-12-16] MEDS: cefTRIAXone\\ROCEPHIN 1 GM in Sodium Chloride 0.9% 100 ML IVPB SCH (02:43)
[2019-12-16 06:26] LABS: Hemoglobin 9.1 g/dL (14.0-18.0); Mean Corpuscular Hemoglobin 28.6 pg (27.0-31.0); Mean Corpuscular Volume 89.3 fL (78.0-98.0); Mean Platelet Volume 9.3 fL (7.4-10.4); Platelet Count 150 thou/uL (130-400); RBC Distribution Width 15.6 % (11.5-14.5); Red Blood Cell (RBC) Count 3.19 mill/uL (4.70-6.10); White Blood Cell (WBC) Count 14.9 thou/uL (4.8-10.8)
[2019-12-16 06:46] LABS: Anion Gap 16 mmol/L (10-20); BUN (Urea Nitrogen) 29 mg/dL (8.4-25.7); Calc. Creatinine Clearance 29 mL/min (70-130); Carbon Dioxide 20 mmol/L (23-31); Chloride 107 mmol/L (98-107); Estimated GFR-MDRD 51; Glucose 89 mg/dL (83-110); Potassium 4.2 mmol/L (3.5-5.1); Sodium 139 mmol/L (136-145)
[2019-12-16 06:56] LABS: Band 6 % (5-11); Eosinophils 1 % (0-10); Lymphocytes 12 % (21-51); MDiff Complete? YES; Monocytes 18 % (0-10); Nucleated RBC 1 % (0); Ovalocytes SLIGHT = 2-5 cells (100X) (0-1/hpf); Polychromasia SLIGHT = 2-3 cells (100X) (0-2/hpf); Reactive Lymphocytes 3 % (0-10)
[2019-12-16] MEDS ORDERED: Fentanyl 250 MCG/5 ML VIAL ONE (07:29)
[2019-12-16] MEDS: Ferrous Sulfate 325 MG TAB PO SCH ×2 (07:58→16:27)
[2019-12-16] MEDS: Heparin 5,000 UNITS/ML VIAL SC SCH ×3 (07:58→20:07)
[2019-12-16] MEDS: Clopidogrel Bisulfate 75 MG TAB PO SCH (07:58)
[2019-12-16] MEDS: Gabapentin 100 MG CAP PO SCH ×2 (07:58→20:06)
[2019-12-16] MEDS ORDERED: PHENYLEPHRINE-NS 100 MCG/ML 10 ML SYRINGE ONE ×3 (08:33→09:26)
[2019-12-16] MEDS ORDERED: EPHEDRINE 25 MG/5 ML SYRINGE ONE (09:26)
[2019-12-16] MEDS ORDERED: Rocuronium Bromide 10 MG/ML (10ML VIAL) ONE (09:26)
[2019-12-16] MEDS ORDERED: PROPOFOL 200 MG/20 ML VIAL ONE (09:26)
--- NOTE | 2019-12-16 11:31 | PDOC.HOSPP ---
- Subjective Encounter Date: 12/16/19 Encounter Time: 11:29 Subjective: Mr. Schmitt was seen today in follow-up of PVD of the right lower extremity. He is s/p amputation. He is a bit confused, and is saying he is in pain. - Objective Vital Signs & Weight: Vital Signs (12 hours) Temp Pulse Resp BP Pulse Ox 12/16/19 06:36 109 H 94 L 12/16/19 03:30 99.9 F H 119 H 20 135/76 97 Weight Admit Weight 124 lb Weight 124 lb I&O: 12/15/19 12/16/19 12/17/19 06:59 06:59 06:59 Intake Total 3385 2300 565 Output Total 1961 701 1302 Balance 1810 1400 -1285 Result Diagrams: 12/16/19 06:15 12/16/19 06:15 Hospitalist ROS - Medication Medications: Active Medications Generic Name Dose Route Start Last Admin Trade Name Freq PRN Reason Stop Dose Admin Hydrocodone Bitart/Acetaminophen 2 tab 12/14/19 09:42 12/16/19 00:23 [place] 5/325 PO 2 tab Q4H PRN Administration Severe Pain (7-10) Clopidogrel Bisulfate 75 mg 12/14/19 09:00 12/16/19 07:58 Plavix PO Not Given DAILY [facility] Epoetin Blaine-epbx 7,500 unit 12/14/19 09:00 12/14/19 09:05 Retacrit SC 7,500 unit Q7DAYS NADIRA Administration Ferrous Sulfate 325 mg 12/14/19 08:00 12/16/19 07:58 Feosol PO Not Given BID-[facility] Gabapentin 100 mg 12/15/19 09:00 12/16/19 07:58 Neurontin PO Not Given BID [facility] Heparin Sodium (Porcine) 5,000 units 12/14/19 09:00 12/16/19 07:58 Heparin SC Not Given TID [facility] Ceftriaxone Sodium 1 gm/ 100 mls @ 200 mls/hr 12/14/19 02:00 12/16/19 02:43 Sodium Chloride IVPB 100 mls 0200 NADIRA Administration Morphine Sulfate 2 mg 12/15/19 09:42 12/16/19 00:24 Morphine SLOW IVP 2 mg Q4H PRN Administration Moderate to Severe Pain (6-10) Sodium Chloride 10 ml 12/14/19 21:00 12/16/19 07:59 Flush - Normal Saline IVF Not Given Q12HR NADIRA Sodium Chloride 10 ml 12/14/19 09:42 12/15/19 10:50 Flush - Normal Saline IVF 10 ml PRN PRN Administration Saline Flush - Exam Eye: PERRL, anicteric sclera Heart: RRR, no murmur, no gallops, no rubs, normal peripheral pulses Respiratory: CTAB, no wheezes, no rales, no ronchi, normal chest expansion Gastrointestinal: soft, non-tender, non-distended, normal bowel sounds, no palpable masses Extremities: no cyanosis Hosp A/P (1) Peripheral vascular disease Code(s): I73.9 - PERIPHERAL VASCULAR DISEASE, UNSPECIFIED Status: Acute (2) Normochromic anemia Code(s): D64.9 - ANEMIA, UNSPECIFIED Status: Acute (3) Nausea & vomiting Code(s): R11.2 - NAUSEA WITH VOMITING, UNSPECIFIED Status: Acute (4) UTI (urinary tract infection) Status: Acute (5) BPH (benign prostatic hyperplasia) Code(s): N40.0 - BENIGN PROSTATIC HYPERPLASIA WITHOUT LOWER URINRY TRACT SYMP Status: Chronic (6) HTN (hypertension) Code(s): I10 - ESSENTIAL (PRIMARY) HYPERTENSION Status: Chronic (7) CKD (chronic kidney disease) stage 3, GFR 30-59 ml/min Code(s): N18.3 - CHRONIC KIDNEY DISEASE, STAGE 3 (MODERATE) Status: Acute (8) Dementia Code(s): F03.90 - UNSPECIFIED DEMENTIA WITHOUT BEHAVIORAL DISTURBANCE Status: Chronic - Plan * Severe Peripheral Vascular disease with rest pain- Patient is s/p amputation of the right lower extremity * Severe Normochronic anemia- anemia- improved * Symptom management -will defer to anesthesia and CV surgery at this point ( immediate post -op) * HTN- blood pressure is stable * CKD-3- stable * Due to underlying dementia, and advanced age he is at risk for delirium
--- NOTE | 2019-12-16 13:36 | EKG ---
Test Reason : STAT Blood Pressure : / mmHG Vent. Rate : 122 BPM Atrial Rate : 122 BPM P-R Int : 130 ms QRS Dur : 086 ms QT Int : 318 ms P-R-T Axes : 058 030 211 degrees QTc Int : 453 ms Sinus tachycardia Possible Left atrial enlargement Left ventricular hypertrophy with repolarization abnormality Abnormal ECG Confirmed by BOBBY NAGY M.D. ([id number]) on 12/16/2019 1:36:33 PM Referred By: HEATHER Confirmed By:BOBBY NAGY M.D.
--- NOTE | 2019-12-16 15:12 | PQF ---
CLINICAL DOCUMENTATION CLARIFICATION FORM: Dear DR. Boom SELLERS MD Date: 12/17/2019 3803 Please exercise your independent, professional judgment in responding to the clarification form. Clinical indicators are provided on the bottom of this form for your review. Please check appropriate box(es): [ ] Protein Calorie Malnutrition: [ ] Mild [ X ] Moderate [ ] Severe [ ] Other Malnutrition (please specify) [ ] Underweight without malnutrition [ ] Cachexia [ ] Other diagnosis [ ] Unable to determine In addition, please specify: Present on Admission (POA): [ X ] Yes [ ] No [ ] Unable to determine For continuity of documentation, please document condition throughout progress notes and discharge summary. Thank You. To be completed by CDI/Coding staff for physician review: CLINICAL INDICATORS - SIGNS / SYMPTOMS / LABS / RESULTS AND LOCATION IN 12/13 RD ASSESSMENT : -BMI 18.9; NUTRITION DIAGNOSIS MALNUTRITION RELATED TO CKD, ONCOLOGY EVIDENCED BY SEVERE TEMPORALIS MUSCLE AND SEVERE BUCCAL FAT PAD WASTING SUGGESTIVE OF SEVERE MALNUTRITION IN THE CONTEXT OF CHRONIC ILLNESS. 12/13, 12/15 PN (CHIKI) A/P: NAUSEA AND VOMITING RISK FACTORS / RESULTS AND LOCATION IN MR ADVANCED AGE (79), RECENT SURGERY OF AMPUTATION, DEMENTIA, HX OF CKD (PN / [place]) 12/15 TREATMENT / RESULTS AND LOCATION IN DIETARY CONSULT (12/13) RECOMMEND NEPRO BID Moderate Malnutrition (in acute illness) Energy Intake: <75% of estimated energy requirement for > 7 days Weight Loss: 1-2%/1 week; 5%/ 1 month; 7.5%/3 months Other: mild body fat loss; mild muscle mass loss; mild fluid accumulation; Severe Malnutrition (in acute illness) Energy Intake: = 50% of estimated energy requirement for = 5 days Weight Loss: >2%/1 week; >5%/1 month; >7.5%/3 months Other: moderate body fat loss; moderate muscle mass loss; moderate- severe fluid accumulation; measurably reduced neurology specialist strength Moderate Malnutrition (in chronic illness) Energy Intake: <75% of estimated energy requirement for =1 month Weight Loss: 5%/1 month; 7.5%/3 months; 10%/6 months; 20%/1 year Other: mild body fat loss; mild muscle mass loss; mild fluid accumulation Severe Malnutrition (in chronic illness) Energy Intake: =75% of estimated energy requirement for =1 month Weight Loss: >5%/1 month; >7.5%/3 months; >10%/6 months; >20%/1 year Other: severe body fat loss; severe muscle mass loss; severe fluid accumulation; measurably reduced neurology specialist strength Thank you! CDS Signature: Nora Wooten RN Phone #: [phone] Date: 12/17/2019 This is a permanent part of the Medical Record [facility]
[2019-12-17] MEDS: Morphine 2 MG/ML VIAL SLOW IVP PRN ×2 (00:15→20:56)
[2019-12-17] MEDS: HYDROcodone/Acetaminophen 5/325 mg Tablet PO PRN ×3 (00:15→20:52)
[2019-12-17] MEDS: cefTRIAXone\\ROCEPHIN 1 GM in Sodium Chloride 0.9% 100 ML IVPB SCH (01:13)
[2019-12-17] MEDS: Clopidogrel Bisulfate 75 MG TAB PO SCH (08:26)
[2019-12-17] MEDS: Ferrous Sulfate 325 MG TAB PO SCH ×2 (08:26→17:08)
[2019-12-17] MEDS: Gabapentin 100 MG CAP PO SCH ×2 (08:26→20:58)
[2019-12-17] MEDS: Heparin 5,000 UNITS/ML VIAL SC SCH ×3 (08:26→20:58)
[2019-12-17 08:57] LABS: Hemoglobin 7.3 g/dL (14.0-18.0); Mean Corpuscular HGB CONC 31.2 g/dL (32.0-36.0); Mean Corpuscular Hemoglobin 28.3 pg (27.0-31.0); Mean Corpuscular Volume 90.5 fL (78.0-98.0); Mean Platelet Volume 9.1 fL (7.4-10.4); Platelet Count 162 thou/uL (130-400); RBC Distribution Width 15.8 % (11.5-14.5); White Blood Cell (WBC) Count 14.1 thou/uL (4.8-10.8)
[2019-12-17 09:17] LABS: Anion Gap 16 mmol/L (10-20); BUN (Urea Nitrogen) 28 mg/dL (8.4-25.7); Calc. Creatinine Clearance 30 mL/min (70-130); Calcium 7.4 mg/dL (7.8-10.44); Carbon Dioxide 20 mmol/L (23-31); Chloride 106 mmol/L (98-107); Estimated GFR-MDRD 54; Glucose 118 mg/dL (83-110); Potassium 4.3 mmol/L (3.5-5.1); Sodium 138 mmol/L (136-145)
[2019-12-17 09:53] LABS: Band 12 % (5-11); Eosinophils 3 % (0-10); Hypochromia SLIGHT = 6-15 cells (100X) (0-5/hpf); Lymphocytes 13 % (21-51); MDiff Complete? YES; Monocytes 18 % (0-10); Neutrophil 53 % (42-75); Nucleated RBC 5 % (0); Platelet Morphology Comment Appears Adequate; Polychromasia SLIGHT = 2-3 cells (100X) (0-2/hpf)
--- NOTE | 2019-12-17 10:42 | OP ---
DATE OF PROCEDURE: 12/16/2019 PROCEDURE PERFORMED: Right above-knee amputation. PREOPERATIVE DIAGNOSIS: Peripheral vascular disease with ischemic rest pain, right lower extremity. POSTOPERATIVE DIAGNOSIS: Peripheral vascular disease with ischemic rest pain, right lower extremity. ANESTHESIA: General endotracheal anesthesia. INDICATIONS: The patient is an 79-year-old black man, who has undergone multiple attempts at right lower extremity revascularization for salvage at another institution. He presented from a fdc unit, where he was convalescing after a difficult hospitalization recently with 2 days of increasing pain in his right lower leg. He had no femoral pulse on that side. Tender musculature distally in the leg and on review of his history, physical exam, and CT angiogram appeared to have exhausted revascularization options. Above-knee amputation had been recommended. After extensive discussion, agreed to attempt below-knee amputation, although I anticipated that it would be quite problematic and even if ultimately successful would be fraught with local wound problems, but I counseled the patient that if it were clearly futile to attempt a below-knee amputation, I would proceed with above-knee amputation. FINDINGS: Much of the posterior compartment musculature was . The skin above the knee was rather thin and fragile, but otherwise the tissues were of good quality and bled and twitched well. DESCRIPTION OF PROCEDURE: After informed consent was obtained, the patient was taken to the operating room and placed in the supine position on the operating table. After the induction of general anesthesia, the patient's right lower extremity was prepped and draped in sterile fashion. After confirming that the right lower extremity was indeed the one to undergo amputation, a below-knee amputation incision set was marked out. A scalpel was used to sharply incise the skin transversely on the anterior aspect of the lower leg about a handbreadth below the knee and then medially and laterally that incision was extended along the long axis of the leg. The electrocautery was used to achieve hemostasis and to continue the incisions through the fascial level. Upon that initial exposure, the anterolateral musculature and the medial head of the gastrocnemius that could be visualized appeared to be reasonably healthy. They were pink, bled well and twitched appropriately when stimulated with the electrocautery. The electrocautery was used to carry the incision through the anterolateral musculature and tibial vasculature thus exposed was ligated and divided. The tibia was stripped with a periosteal elevator as was the fibula. Gigli saw was used to initiate the transection of the tibia, but as it was approaching the completion of the anterior angling of the tibial cut, the saw bound up in the incision and an oscillating saw was used to complete the transection. The fibula was divided with bone lauren and then an amputation knife was used to extend the incision creating a posterior flap. When that had been done, thus exposing the deep and superficial posterior compartments, all of the deep compartment and almost all of the lateral aspect of the gastrocnemius was grayish bernabe and noncontractile. There was very little posterior compartment musculature, primarily the medial head of the gastrocnemius that had been visualized upon an initial incision was viable. It was clear that attempting a below-knee amputation was futile. Hemostasis was achieved grossly and attention turned to the thigh. A fish[place] incision was mapped out with the anterior and posterior apices just above the knee in the medial and lateral apices about one handbreadth above that. The skin bled well when incised. The incision was carried through the subcutaneous tissue with electrocautery. Anteriorly, the quadriceps tendon was divided with the electrocautery and then the musculature medially was divided, exposing the femoral vasculature. The femoral vessels were isolated, ligated, and divided. The femur was stripped with periosteal elevator and then divided relatively high in the wound. The posterior flap was completed with the amputation knife. The sciatic nerve was stripped, ligated proximally, divided and allowed to retract into the posterior musculature. The wound was inspected for hemostasis and the posterior flap was tailored. The stump of the bone was smoothed with a bone rasp and the wound irrigated. Interrupted heavy Vicryl sutures were used to align the wound as the fascial layers were tacked together. Subcutaneous tissue was then closed from either apex with running Vicryl. The skin was closed with interrupted nylon skin sutures. The wound was dressed, and the patient was awakened and taken to the recovery area in stable condition. Estimated blood loss during the procedure was 100 mL. Instrument, needle, and sponge counts were correct. Job ID: [id number]
[2019-12-17 12:38] LABS: Neutrophil 53 % (42-75)
[2019-12-17 13:17] LABS: Neutrophil 47 % (42-75)
[2019-12-17 14:29] VITALS: BMI 17.4
--- NOTE | 2019-12-17 16:25 | PDOC.HOSPP ---
- Subjective Encounter Date: 12/17/19 Encounter Time: 16:11 Subjective: Mr. Schmitt was seen today in follow-up of severe PVD and post right AKA. He is closer to his baseline mental status. He denies any pain in his leg, but notes pain in his "prostate". - Objective Vital Signs & Weight: Vital Signs (12 hours) Temp Pulse Resp BP Pulse Ox 12/17/19 12:45 97.9 F 111 H 16 130/78 93 L 12/17/19 07:48 98.2 F 125 H 16 131/88 93 L Weight Admit Weight 124 lb Weight 114 lb 11.2 oz I&O: 12/16/19 12/17/19 12/18/19 06:59 06:59 06:59 Intake Total 2300 2275 Output Total 900 3050 Balance 1400 -775 Result Diagrams: 12/17/19 08:43 12/17/19 08:43 Hospitalist ROS - Medication Medications: Active Medications Generic Name Dose Route Start Last Admin Trade Name Freq PRN Reason Stop Dose Admin Hydrocodone Bitart/Acetaminophen 2 tab 12/14/19 09:42 12/17/19 08:26 [place] 5/325 PO 2 tab Q4H PRN Administration Severe Pain (7-10) Clopidogrel Bisulfate 75 mg 12/14/19 09:00 12/17/19 08:26 Plavix PO 75 mg DAILY NADIRA Administration Epoetin Blaine-epbx 7,500 unit 12/14/19 09:00 12/14/19 09:05 Retacrit SC 7,500 unit Q7DAYS NADIRA Administration Ferrous Sulfate 325 mg 12/14/19 08:00 12/17/19 08:26 Feosol PO 325 mg BID-WM NADIRA Administration Gabapentin 100 mg 12/15/19 09:00 12/17/19 08:26 Neurontin PO 100 mg BID NADIRA Administration Heparin Sodium (Porcine) 5,000 units 12/14/19 09:00 12/17/19 15:13 Heparin SC 5,000 units TID NADIRA Administration Ceftriaxone Sodium 1 gm/ 100 mls @ 200 mls/hr 12/14/19 02:00 12/17/19 01:13 Sodium Chloride IVPB 100 mls 0200 NADIRA Administration Morphine Sulfate 2 mg 12/15/19 09:42 12/17/19 00:15 Morphine SLOW IVP 2 mg Q4H PRN Administration Moderate to Severe Pain (6-10) Pantoprazole Sodium 40 mg 12/17/19 14:45 12/17/19 15:13 Protonix PO 12/17/19 16:45 40 mg NOW NADIRA Administration Sodium Chloride 10 ml 12/14/19 21:00 12/17/19 08:27 Flush - Normal Saline IVF 10 ml Q12HR NADIRA Administration Sodium Chloride 10 ml 12/14/19 09:42 12/15/19 10:50 Flush - Normal Saline IVF 10 ml PRN PRN Administration Saline Flush - Exam Eye: PERRL, anicteric sclera Heart: RRR, no murmur, no gallops, no rubs, normal peripheral pulses Respiratory: CTAB, no wheezes, no rales, no ronchi, normal chest expansion Gastrointestinal: soft, non-tender, non-distended, normal bowel sounds, no palpable masses Extremities: no cyanosis Hosp A/P (1) Peripheral vascular disease Code(s): I73.9 - PERIPHERAL VASCULAR DISEASE, UNSPECIFIED Status: Acute (2) Normochromic anemia Code(s): D64.9 - ANEMIA, UNSPECIFIED Status: Acute (3) Nausea & vomiting Code(s): R11.2 - NAUSEA WITH VOMITING, UNSPECIFIED Status: Acute (4) UTI (urinary tract infection) Status: Acute (5) BPH (benign prostatic hyperplasia) Code(s): N40.0 - BENIGN PROSTATIC HYPERPLASIA WITHOUT LOWER URINRY TRACT SYMP Status: Chronic (6) HTN (hypertension) Code(s): I10 - ESSENTIAL (PRIMARY) HYPERTENSION Status: Chronic (7) CKD (chronic kidney disease) stage 3, GFR 30-59 ml/min Code(s): N18.3 - CHRONIC KIDNEY DISEASE, STAGE 3 (MODERATE) Status: Acute (8) Dementia Code(s): F03.90 - UNSPECIFIED DEMENTIA WITHOUT BEHAVIORAL DISTURBANCE Status: Chronic - Plan * Severe Peripheral Vascular disease with rest pain- Patient is s/p amputation of the right lower extremity * Severe Normochronic anemia- his H&H is again around 7. WIll monitor the trend , and check stool for occult blood. Will start Protonix * Symptom management - Gabapentin was added to his regimen * "Prostate pain"- possibly rectal pain- will add Anusol * HTN- blood pressure is stable * CKD-3- stable * PT/OT
[2019-12-18] MEDS: Morphine 2 MG/ML VIAL SLOW IVP PRN (01:32)
[2019-12-18] MEDS: cefTRIAXone\\ROCEPHIN 1 GM in Sodium Chloride 0.9% 100 ML IVPB SCH (01:33)
[2019-12-18 09:01] LABS: Anion Gap 16 mmol/L (10-20); BUN (Urea Nitrogen) 29 mg/dL (8.4-25.7); Calc. Creatinine Clearance 31 mL/min (70-130); Calcium 7.6 mg/dL (7.8-10.44); Carbon Dioxide 20 mmol/L (23-31); Chloride 106 mmol/L (98-107); Estimated GFR-MDRD 60; Glucose 96 mg/dL (83-110); Potassium 4.2 mmol/L (3.5-5.1); Sodium 138 mmol/L (136-145)
--- NOTE | 2019-12-18 09:20 | PDOC.HOSPP ---
- Subjective Encounter Date: 12/18/19 Encounter Time: 09:18 Subjective: Mr. Schmitt was seen today in follow-up of peripheral vascular disease s/p right AKA. He is much clearer mentally this morning. He denies leg pain. His appetite has improved. - Objective Vital Signs & Weight: Vital Signs (12 hours) Temp Pulse Resp BP Pulse Ox 12/18/19 00:02 100.5 F H 107 H 16 130/79 98 Weight Admit Weight 124 lb Weight 114 lb 11.2 oz I&O: 12/17/19 12/18/19 12/19/19 06:59 06:59 06:59 Intake Total 2275 1040 Output Total 3050 450 Balance -775 590 Result Diagrams: 12/17/19 08:43 12/18/19 03:30 Hospitalist ROS - Medication Medications: Active Medications Generic Name Dose Route Start Last Admin Trade Name Freq PRN Reason Stop Dose Admin Hydrocodone Bitart/Acetaminophen 2 tab 12/14/19 09:42 12/17/19 20:52 [place] 5/325 PO 2 tab Q4H PRN Administration Severe Pain (7-10) Clopidogrel Bisulfate 75 mg 12/14/19 09:00 12/17/19 08:26 Plavix PO 75 mg DAILY NADIRA Administration Epoetin Blaine-epbx 7,500 unit 12/14/19 09:00 12/14/19 09:05 Retacrit SC 7,500 unit Q7DAYS NADIRA Administration Ferrous Sulfate 325 mg 12/14/19 08:00 12/17/19 17:08 Feosol PO 325 mg BID-WM NADIRA Administration Gabapentin 100 mg 12/15/19 09:00 12/17/19 20:58 Neurontin PO 100 mg BID NADIRA Administration Heparin Sodium (Porcine) 5,000 units 12/14/19 09:00 12/17/19 20:58 Heparin SC 5,000 units TID NADIRA Administration Ceftriaxone Sodium 1 gm/ 100 mls @ 200 mls/hr 12/14/19 02:00 12/18/19 01:33 Sodium Chloride IVPB 100 mls 0200 NADIRA Administration Morphine Sulfate 2 mg 12/15/19 09:42 12/18/19 01:32 Morphine SLOW IVP 2 mg Q4H PRN Administration Moderate to Severe Pain (6-10) Sodium Chloride 10 ml 12/14/19 21:00 12/17/19 20:59 Flush - Normal Saline IVF 10 ml Q12HR NADIRA Administration Sodium Chloride 10 ml 12/14/19 09:42 12/15/19 10:50 Flush - Normal Saline IVF 10 ml PRN PRN Administration Saline Flush - Exam Eye: PERRL, anicteric sclera Heart: RRR, no murmur, no gallops, no rubs, normal peripheral pulses Respiratory: CTAB, no wheezes, no rales, no ronchi, normal chest expansion Gastrointestinal: soft, non-tender, non-distended, normal bowel sounds, no palpable masses Extremities: no cyanosis, no edema Hosp A/P (1) Peripheral vascular disease Code(s): I73.9 - PERIPHERAL VASCULAR DISEASE, UNSPECIFIED Status: Acute (2) Normochromic anemia Code(s): D64.9 - ANEMIA, UNSPECIFIED Status: Acute (3) Nausea & vomiting Code(s): R11.2 - NAUSEA WITH VOMITING, UNSPECIFIED Status: Acute (4) UTI (urinary tract infection) Status: Acute (5) BPH (benign prostatic hyperplasia) Code(s): N40.0 - BENIGN PROSTATIC HYPERPLASIA WITHOUT LOWER URINRY TRACT SYMP Status: Chronic (6) HTN (hypertension) Code(s): I10 - ESSENTIAL (PRIMARY) HYPERTENSION Status: Chronic (7) CKD (chronic kidney disease) stage 3, GFR 30-59 ml/min Code(s): N18.3 - CHRONIC KIDNEY DISEASE, STAGE 3 (MODERATE) Status: Acute (8) Dementia Code(s): F03.90 - UNSPECIFIED DEMENTIA WITHOUT BEHAVIORAL DISTURBANCE Status: Chronic - Plan * Severe Peripheral Vascular disease with rest pain- Patient is s/p amputation of the right lower extremity * Severe Normochronic anemia- his H&H is pending this morning- he may need transfusion * Symptom management -pain is better controlled * HTN- blood pressure is stable * CKD-3- stable * Encephalopathy- improved * PT/OT
[2019-12-18] MEDS: Heparin 5,000 UNITS/ML VIAL SC SCH ×3 (09:37→20:39)
[2019-12-18] MEDS: Clopidogrel Bisulfate 75 MG TAB PO SCH (09:37)
[2019-12-18] MEDS: Gabapentin 100 MG CAP PO SCH ×2 (09:37→20:39)
[2019-12-18] MEDS: Ferrous Sulfate 325 MG TAB PO SCH ×2 (09:37→17:20)
[2019-12-18 09:49] LABS: #Basophils 0.1 thou/uL (0.0-0.2); #Eosinphils 0.2 thou/uL (0.0-0.7); #Lymphocytes 1.9 thou/uL (1.20-3.40); #Monocytes 1.7 thou/uL (0.11-0.59); #Neutrophils 7.5 thou/uL (1.40-6.50); %Basophils 0.7 % (0.0-1.0); %Lymphocytes 16.9 % (21.0-51.0); %Monocytes 14.7 % (0.0-10.0); %Neutrophils 65.7 % (42.0-75.0); Hemoglobin 6.8 g/dL (14.0-18.0); Mean Corpuscular HGB CONC 31.6 g/dL (32.0-36.0); Mean Corpuscular Volume 91.7 fL (78.0-98.0); Mean Platelet Volume 9.1 fL (7.4-10.4); Platelet Count 169 thou/uL (130-400); RBC Distribution Width 15.8 % (11.5-14.5); Red Blood Cell (RBC) Count 2.36 mill/uL (4.70-6.10); White Blood Cell (WBC) Count 11.4 thou/uL (4.8-10.8)
[2019-12-18 09:50] LABS: Polychromasia SLIGHT = 2-3 cells (100X) (0-2/hpf)
--- NOTE | 2019-12-18 18:05 | PRG ---
DATE OF SERVICE: 12/18/2019 SUBJECTIVE: Mr. Schmitt is an 79-year-old black male with known history of chronic renal failure, who was admitted for right leg ischemia. He has undergone a right BKA. He was previously on dialysis, but I placed it on hold and I feel that he may have some renal recovery where he can be off dialysis. This morning, he was noted to be anemic and for that reason, we will transfuse 1 unit of packed RBC. Please note, he is on maintenance Epogen. He voices no new complaints. He denies any chest pain or shortness of breath. OBJECTIVE: VITAL SIGNS: Blood pressure 149/79, heart rate 113, respiratory rate 18, temperature 98.1, and O2 saturation 99%. GENERAL: The patient is awake, alert, comfortable, not in distress. HEENT: Pale conjunctivae. Anicteric sclerae. NECK: No neck mass. No carotid bruits. No JVD. CHEST: No deformities. LUNGS: Clear breath sounds. HEART: Normal sinus rhythm. No murmur. No gallops. No rubs. ABDOMEN: Globular, soft, and nontender. No masses. EXTREMITIES: Left leg, no edema. Right leg shows right AKA amputation. MEDICATIONS: Of December 18, 2019, was reviewed. LABORATORY DATA: Laboratories of December 18, 2019; white count 11.4, hemoglobin 6.8. Sodium 138, potassium 4.2, chloride 106, carbon dioxide 20, BUN 29, creatinine 1.38, calcium 7.6, glucose 96, GFR 16 mL/minute, ASSESSMENT AND PLAN: 1. Chronic renal failure, much improved renal function. He has been off dialysis for the last several days. Continue current management. There is no indication for any emergent hemodialysis with this patient. Can continue supportive care. 2. Anemia. We will transfuse 1 unit of packed RBC. In addition, we will maintain him on his weekly Epogen regimen. 3. Right leg ischemia - the patient is status post right AKA. Doing well. Surgery is following. Job ID: [id number]
[2019-12-18] MEDS: HYDROcodone/Acetaminophen 5/325 mg Tablet PO PRN (21:32)
[2019-12-19] MEDS: cefTRIAXone\\ROCEPHIN 1 GM in Sodium Chloride 0.9% 100 ML IVPB SCH (01:33)
[2019-12-19 07:06] LABS: Bacteria/HPF 2+ HPF (None Seen); Bilirubin Negative (Negative); Blood, Urine Trace (Negative); Clarity Clear (Clear); Glucose, Urine (Dipstick) Normal (Negative); Ketone, Urine Negative (Negative); Leukocyte 75 Leu/uL (Negative); Nitrite Negative (Negative); Protein, Urine (Dipstick) 200 mg/dL (Neg-Trace); RBC/HPF 0-3 HPF (0-3); Specific Gravity, Urine 1.012 (1.002-1.036); Squamous Epithelial None Seen HPF (0-3); Urobilinogen Normal mg/dL (Less than 2)
[2019-12-19 07:08] LABS: Urine Culture Reflex Yes Yes
--- NOTE | 2019-12-19 08:35 | RAD ---
EXAM: CHEST ONE VIEW HISTORY: Fever COMPARISON: 12/15/2019 FINDINGS: Left-sided central venous catheter as well as left-sided tunneled hemodialysis catheter remain in [place] ce. Cardiac silhouette is magnified by projection. Pulmonary vasculature is within normal limits. There is been resolution of the linear parenchymal density right lung base likely related to resoluti on of subsegmental atelectasis. Interstitial densities left lung base are also mildly improved although linear densities do persist left lung base which may represent residual atelectasis. No cons olidation or pleural fluid is identified. No other interval change. IMPRESSION: Improvement in linear and interstitial densities at each lung base and perihilar regions which may be related to improvement in interstitial edema and areas of volume loss.
[2019-12-19] MEDS: Gabapentin 100 MG CAP PO SCH ×2 (09:26→20:01)
[2019-12-19] MEDS: Ferrous Sulfate 325 MG TAB PO SCH ×2 (09:26→17:26)
[2019-12-19 10:10] LABS: #Basophils 0.1 thou/uL (0.0-0.2); #Eosinphils 0.3 thou/uL (0.0-0.7); #Lymphocytes 1.8 thou/uL (1.20-3.40); #Monocytes 1.2 thou/uL (0.11-0.59); #Neutrophils 7.2 thou/uL (1.40-6.50); %Basophils 0.9 % (0.0-1.0); %Eosinophils 2.7 % (0.0-10.0); %Monocytes 11.1 % (0.0-10.0); %Neutrophils 68.3 % (42.0-75.0); Mean Corpuscular Hemoglobin 30.1 pg (27.0-31.0); Mean Platelet Volume 8.9 fL (7.4-10.4); Platelet Count 175 thou/uL (130-400); Red Blood Cell (RBC) Count 2.98 mill/uL (4.70-6.10); White Blood Cell (WBC) Count 10.5 thou/uL (4.8-10.8)
[2019-12-19 10:30] LABS: Anion Gap 15 mmol/L (10-20); BUN (Urea Nitrogen) 24 mg/dL (8.4-25.7); Calc. Creatinine Clearance 33 mL/min (70-130); Calcium 7.6 mg/dL (7.8-10.44); Carbon Dioxide 20 mmol/L (23-31); Chloride 106 mmol/L (98-107); Estimated GFR-MDRD 65; Glucose 110 mg/dL (83-110); Potassium 4.1 mmol/L (3.5-5.1); Sodium 137 mmol/L (136-145)
--- NOTE | 2019-12-19 14:10 | PDOC.HOSPP ---
- Subjective Encounter Date: 12/19/19 Encounter Time: 10:00 Subjective: Pt seen for followup re: PVD. c/o RLE pain. - Objective Vital Signs & Weight: Vital Signs (12 hours) Temp Pulse Resp BP Pulse Ox 12/19/19 12:00 98.3 F 111 H 16 149/83 H 99 12/19/19 07:38 98.8 F 110 H 18 139/80 99 12/19/19 03:11 98.1 F 104 H 16 138/78 100 Weight Admit Weight 124 lb Weight 114 lb 11.2 oz I&O: 12/18/19 12/19/19 12/20/19 06:59 06:59 06:59 Intake Total 1040 2035 Output Total 450 1775 Balance 590 260 Result Diagrams: 12/19/19 09:58 12/19/19 09:58 Additional Labs: Labs and MARs reviewed by nv Hospitalist ROS - Review of Systems Gastrointestinal: denies: nausea, vomiting, abdominal pain, diarrhea, constipation, melena, hematochezia Genitourinary: denies: dysuria, frequency, incontinence, hematuria, retention Musculoskeletal: reports: leg pain - Medication Medications: Active Medications Generic Name Dose Route Start Last Admin Trade Name Freq PRN Reason Stop Dose Admin Hydrocodone Bitart/Acetaminophen 2 tab 12/14/19 09:42 12/18/19 21:32 [place] 5/325 PO 2 tab Q4H PRN Administration Severe Pain (7-10) Epoetin Blaine-epbx 7,500 unit 12/14/19 09:00 12/14/19 09:05 Retacrit [place] 7,500 unit Q7DAYS NADIRA Administration Ferrous Sulfate 325 mg 12/14/19 08:00 12/19/19 09:26 Feosol PO 325 mg BID-WM NADIRA Administration Gabapentin 100 mg 12/15/19 09:00 12/19/19 09:26 Neurontin PO 100 mg BID NADIRA Administration Ceftriaxone Sodium 1 gm/ 100 mls @ 200 mls/hr 12/14/19 02:00 12/19/19 01:33 Sodium Chloride IVPB 100 mls 0200 NADIRA Administration Morphine Sulfate 2 mg 12/15/19 09:42 12/18/19 01:32 Morphine SLOW IVP 2 mg Q4H PRN Administration Moderate to Severe Pain (6-10) Pantoprazole Sodium 40 mg 12/18/19 09:00 12/19/19 09:26 Protonix PO 40 mg DAILY NADIRA Administration Sodium Chloride 10 ml 12/14/19 21:00 12/19/19 09:26 Flush - Normal Saline IVF 10 ml Q12HR NADIRA Administration Sodium Chloride 10 ml 12/14/19 09:42 12/15/19 10:50 Flush - Normal Saline IVF 10 ml PRN PRN Administration Saline Flush - Exam General Appearance: awake alert Eye: anicteric sclera ENT: moist mucosa Neck: supple Heart: RRR Respiratory: CTAB Gastrointestinal: soft Extremities - other findings: s/p R BKA Skin: normal turgor Psychiatric: normal affect, normal behavior Hosp A/P - Plan (1) Peripheral vascular disease Code(s): I73.9 - PERIPHERAL VASCULAR DISEASE, UNSPECIFIED Status: Acute (2) UTI (urinary tract infection) Status: Acute (3) Normochromic anemia Code(s): D64.9 - ANEMIA, UNSPECIFIED Status: Acute (4) BPH (benign prostatic hyperplasia) Code(s): N40.0 - BENIGN PROSTATIC HYPERPLASIA WITHOUT LOWER URINRY TRACT SYMP Status: Chronic (5) HTN (hypertension) Code(s): I10 - ESSENTIAL (PRIMARY) HYPERTENSION Status: Chronic (6) CKD (chronic kidney disease) stage 3, GFR 30-59 ml/min Code(s): N18.3 - CHRONIC KIDNEY DISEASE, STAGE 3 (MODERATE) Status: Chronic (7) Dementia Code(s): F03.90 - UNSPECIFIED DEMENTIA WITHOUT BEHAVIORAL DISTURBANCE Status: Chronic (8) Nausea & vomiting Code(s): R11.2 - NAUSEA WITH VOMITING, UNSPECIFIED Status: Resolved - Plan * Patient is s/p amputation of the right lower extremity during this hospitalization. * Severe Normochronic anemia-H&H improved after packed RBC transfusion. Fecal occult blood test is positive, consult gastroenterology. * Symptom management -pain is better controlled * HTN- blood pressure is stable * CKD-3- stable. Acute on chronic renal failure has resolved. * Encephalopathy- improved * PT/OT, will likely need jail.
[2019-12-19] MEDS: Heparin 5,000 UNITS/ML VIAL SC SCH (15:00)
--- NOTE | 2019-12-19 18:16 | CON ---
DATE OF CONSULTATION: 12/19/2019 CHIEF COMPLAINT: Anemia. HISTORY OF PRESENT ILLNESS: Mr. Schmitt is an 79-year-old man, who was admitted on 12/13/2019 with right leg pain. He ultimately underwent [id number] amputation on 12/16/2019. He was in the hospital back in November and underwent exploratory laparotomy for adhesions by Dr. Cabrera for small-bowel obstruction. Currently, he reports no abdominal pain or nausea or vomiting. He has past one brown formed bowel movement last night and one small formed stool this morning, which was brown and nonbloody. He has had no abdominal pain or diarrhea or constipation. No history of blood in the stool. No heartburn, reflux, or trouble swallowing. He has a history of anemia and has been on epoetin due to chronic kidney disease. He reports that he did have a history of anemia within the last year, for which he underwent a colonoscopy in [place], but he does not know the results of that exam, but believes that nothing significant was identified. GI was consulted due to a relative drop in his hemoglobin today. PAST MEDICAL HISTORY: Peripheral vascular disease, chronic kidney disease, chronic anemia, BPH, history of myelofibrosis, hyperlipidemia. PAST SURGICAL HISTORY: Right femoral arterial bypass, recent exploratory laparotomy and this hospitalization, he has had [id number] amputation on the right. He reports colonoscopy was done within the last year in [place]. FAMILY HISTORY: Negative for GI malignancy. SOCIAL HISTORY: No alcohol or tobacco or drugs. ALLERGIES: NO KNOWN DRUG ALLERGIES. CURRENT MEDICATIONS: 1. Ceftriaxone. 2. Plavix. 3. Epoetin. 4. Ferrous sulfate. 5. Heparin subcu. 6. Pantoprazole. REVIEW OF SYSTEMS: Negative x10 systems reviewed except as stated in the history of present illness. PHYSICAL EXAMINATION: VITAL SIGNS: Temperature 98.3, pulse 111, blood pressure 149/83. GENERAL: He is in no acute distress. Alert and oriented. HEENT: His eyes have no scleral icterus. Oropharynx is clear without lesions. No cervical or supraclavicular lymphadenopathy. LUNGS: Clear to auscultation bilaterally. HEART: Tachycardic. S1 and S2 without murmur. ABDOMEN: Soft, nontender, and nondistended. Bowel sounds are present. EXTREMITIES: Left lower extremity has no lower extremity edema. RECTAL: Stool is brown formed stool. LABORATORY DATA: His baseline hemoglobin runs around 8. This morning, his hemoglobin was 6.8 and he was given a unit of blood and then his hemoglobin improved to 9.0. Creatinine 1.29. IMPRESSION: Chronic anemia. He reports that he underwent a colonoscopy for evaluation of the anemia in [place] within the last year. He has had no overt GI bleeding. He has formed brown stools. His hemoglobin is stable and runs around a baseline of 8; however, it appears that he had a diluted specimen this morning and his hemoglobin improved more than would be expected with a single unit transfusion. He has been on a proton pump inhibitor and peptic ulcer is not likely currently. There is no overt bleeding with normal formed brown stool. There is no need for immediate endoscopy at this point. RECOMMENDATIONS: 1. Obtain colonoscopy reports from [place]. 2. Consider checking iron studies and B12 and folic acid. 3. Replace iron if he is confirmed to have iron deficiency. 4. He is on epoetin and is being covered with pantoprazole. 5. He has multiple reasons for anemia including chronic renal insufficiency and a history of myelofibrosis. He just underwent amputation. If he shows signs of overt bleeding, then endoscopy can be considered. For now, it will unlikely add significantly to his treatment course. I will sign off for now. Please call if GI can be of assistance. Job ID: [id number]
[2019-12-19] MEDS: HYDROcodone/Acetaminophen 5/325 mg Tablet PO PRN (19:57)
[2019-12-20] MEDS: cefTRIAXone\\ROCEPHIN 1 GM in Sodium Chloride 0.9% 100 ML IVPB SCH (01:12)
[2019-12-20] MEDS: HYDROcodone/Acetaminophen 5/325 mg Tablet PO PRN ×2 (03:11→08:27)
[2019-12-20 05:58] LABS: Anion Gap 16 mmol/L (10-20); BUN (Urea Nitrogen) 21 mg/dL (8.4-25.7); Calc. Creatinine Clearance 33 mL/min (70-130); Calcium 7.5 mg/dL (7.8-10.44); Carbon Dioxide 18 mmol/L (23-31); Chloride 106 mmol/L (98-107); Estimated GFR-MDRD 65; Glucose 112 mg/dL (83-110); Sodium 136 mmol/L (136-145)
[2019-12-20 06:07] LABS: Band 12 % (5-11); Eosinophils 2 % (0-10); Hemoglobin 8.7 g/dL (14.0-18.0); Lymphocytes 16 % (21-51); MDiff Complete? YES; Mean Corpuscular HGB CONC 31.7 g/dL (32.0-36.0); Mean Corpuscular Hemoglobin 28.8 pg (27.0-31.0); Mean Corpuscular Volume 90.9 fL (78.0-98.0); Mean Platelet Volume 9.6 fL (7.4-10.4); Metamyelocyte 6 % (0-0); Monocytes 8 % (0-10); Neutrophil 56 % (42-75); Nucleated RBC 1 % (0); Platelet Count 178 thou/uL (130-400); Platelet Morphology Comment Appears Adequate; RBC Distribution Width 15.2 % (11.5-14.5); Red Blood Cell (RBC) Count 3.01 mill/uL (4.70-6.10); White Blood Cell (WBC) Count 9.9 thou/uL (4.8-10.8)
[2019-12-20] MEDS: Ferrous Sulfate 325 MG TAB PO SCH ×2 (08:27→17:24)
[2019-12-20] MEDS: Gabapentin 100 MG CAP PO SCH ×2 (08:27→20:33)
[2019-12-20] MEDS: Clopidogrel Bisulfate 75 MG TAB PO SCH (08:28)
[2019-12-20] MEDS: Heparin 5,000 UNITS/ML VIAL SC SCH ×2 (08:28→22:19)
[2019-12-20 09:54] LABS: Iron 37 ug/dL (65-175); Iron Binding Capacity, Total 199 mcg/dL (261-462)
[2019-12-20 10:12] LABS: Ferritin 602.97 ng/mL (22-322)
--- NOTE | 2019-12-20 12:09 | PDOC.HOSPP ---
- Subjective Encounter Date: 12/20/19 Encounter Time: 07:20 Subjective: Patient seen for follow-up for peripheral vascular disease. Denies chest pain, shortness of breath, fevers or chills. Denies nausea or vomiting. - Objective Vital Signs & Weight: Vital Signs (12 hours) Temp Pulse Resp BP Pulse Ox 12/20/19 11:52 97.6 F 104 H 18 114/77 100 12/20/19 08:18 97.5 F L 104 H 18 113/67 100 12/20/19 04:08 97.0 F L 105 H 18 129/75 100 12/20/19 03:15 97.9 F 101 H 20 131/62 99 Weight Admit Weight 124 lb Weight 114 lb 11.2 oz I&O: 12/19/19 12/20/19 12/21/19 06:59 06:59 06:59 Intake Total 2035 2880 Output Total 1775 1625 Balance 260 1255 Result Diagrams: 12/20/19 05:23 12/20/19 05:23 Additional Labs: I reviewed patient's labs and MAR Hospitalist ROS - Review of Systems Gastrointestinal: denies: nausea, vomiting, abdominal pain, diarrhea, constipation, melena, hematochezia Genitourinary: denies: dysuria, frequency, incontinence, hematuria, retention - Medication Medications: Active Medications Generic Name Dose Route Start Last Admin Trade Name Freq PRN Reason Stop Dose Admin Hydrocodone Bitart/Acetaminophen 1 tab 12/14/19 09:33 12/20/19 08:27 [place] 5/325 PO 1 tab Q4H PRN Administration Moderate to Severe Pain (6-10) Hydrocodone Bitart/Acetaminophen 2 tab 12/14/19 09:42 12/20/19 03:11 [place] 5/325 PO 2 tab Q4H PRN Administration Severe Pain (7-10) Clopidogrel Bisulfate 75 mg 12/20/19 09:00 12/20/19 08:28 Clopidogrel Bisulfate 75 Mg Tab PO Not Given DAILY NADIRA Epoetin Blaine-epbx 7,500 unit 12/14/19 09:00 12/14/19 09:05 Retacrit [place] 7,500 unit Q7DAYS NADIRA Administration Ferrous Sulfate 325 mg 12/14/19 08:00 12/20/19 08:27 Feosol PO 325 mg BID-WM NADIRA Administration Gabapentin 100 mg 12/15/19 09:00 12/20/19 08:27 Neurontin PO 100 mg BID NADIRA Administration Heparin Sodium (Porcine) 5,000 units 12/20/19 09:00 12/20/19 08:28 Heparin 5,000 Units/Ml Vial SC Not Given TID NADIRA Ceftriaxone Sodium 1 gm/ 100 mls @ 200 mls/hr 12/14/19 02:00 12/20/19 01:12 Sodium Chloride IVPB 100 mls 0200 NADIRA Administration Morphine Sulfate 2 mg 12/15/19 09:42 12/18/19 01:32 Morphine SLOW IVP 2 mg Q4H PRN Administration Moderate to Severe Pain (6-10) Pantoprazole Sodium 40 mg 12/18/19 09:00 12/20/19 08:27 Protonix PO 40 mg DAILY NADIRA Administration Sodium Chloride 10 ml 12/14/19 21:00 12/20/19 08:28 Flush - Normal Saline IVF 10 ml Q12HR NADIRA Administration Sodium Chloride 10 ml 12/14/19 09:42 12/15/19 10:50 Flush - Normal Saline IVF 10 ml PRN PRN Administration Saline Flush - Exam General Appearance: awake alert Eye: PERRL ENT: normocephalic atraumatic Neck: supple Heart: RRR Respiratory: CTAB Gastrointestinal: soft, non-tender Extremities: no cyanosis Psychiatric: normal affect, normal behavior Hosp A/P - Plan (1) Peripheral vascular disease Code(s): I73.9 - PERIPHERAL VASCULAR DISEASE, UNSPECIFIED Status: Acute (2) UTI (urinary tract infection) Status: Acute (3) Normochromic anemia Code(s): D64.9 - ANEMIA, UNSPECIFIED Status: Acute (4) BPH (benign prostatic hyperplasia) Code(s): N40.0 - BENIGN PROSTATIC HYPERPLASIA WITHOUT LOWER URINRY TRACT SYMP Status: Chronic (5) HTN (hypertension) Code(s): I10 - ESSENTIAL (PRIMARY) HYPERTENSION Status: Chronic (6) CKD (chronic kidney disease) stage 3, GFR 30-59 ml/min Code(s): N18.3 - CHRONIC KIDNEY DISEASE, STAGE 3 (MODERATE) Status: Chronic (7) Dementia Code(s): F03.90 - UNSPECIFIED DEMENTIA WITHOUT BEHAVIORAL DISTURBANCE Status: Chronic (8) Nausea & vomiting Code(s): R11.2 - NAUSEA WITH VOMITING, UNSPECIFIED Status: Resolved - Plan * Patient is s/p amputation of the right lower extremity * H&H is stable. Appreciate gastroenterology input. Patient is iron deficient, administer one-time dose of intravenous iron, continue ferrous sulfate 325 mg 2 times a day. Folic acid levels are also low, start oral supplement. * HTN-controlled and stable. * CKD-3- stable. * Encephalopathy- improved * Case management consulted for halfway facility.
[2019-12-20] MEDS ORDERED: Iron, Sodium Ferric Gluconate 250 MG in Sodium Chloride 0.9% 100 ML IVPB SCH (12:45)
[2019-12-20] MEDS: Calcium Carbonate 500 MG ChewTAB PO SCH (17:24)
[2019-12-20] MEDS ORDERED: Lidocaine 1% (PF) 30 ML VIAL ONE (19:27)
[2019-12-20] MEDS: Melatonin 3 MG TAB PO PRN (20:33)
[2019-12-20] MEDS: Morphine 2 MG/ML VIAL SLOW IVP PRN (20:33)
[2019-12-21] MEDS: Morphine 2 MG/ML VIAL SLOW IVP PRN ×2 (00:15→18:37)
[2019-12-21] MEDS: cefTRIAXone\\ROCEPHIN 1 GM in Sodium Chloride 0.9% 100 ML IVPB SCH (03:11)
[2019-12-21] MEDS: HYDROcodone/Acetaminophen 5/325 mg Tablet PO PRN ×2 (03:26→16:54)
[2019-12-21] MEDS ORDERED: Nitrofurantoin ORAL SUSP. 25 MG/5 ML UDCUP PO SCH (10:30)
[2019-12-21] MEDS: Ferrous Sulfate 325 MG TAB PO SCH ×2 (10:59→16:54)
[2019-12-21] MEDS: Gabapentin 100 MG CAP PO SCH ×2 (10:59→19:53)
[2019-12-21] MEDS: Folic Acid 1 MG TAB PO SCH (10:59)
[2019-12-21] MEDS: Calcium Carbonate 500 MG ChewTAB PO SCH ×3 (11:01→16:54)
--- NOTE | 2019-12-21 11:30 | PDOC.HOSPP ---
- Subjective Encounter Date: 12/21/19 Encounter Time: 07:00 Subjective: Follow-up visit for peripheral vascular disease. Patient reports he slept well. He has been working with therapy. - Objective Vital Signs & Weight: Vital Signs (12 hours) Temp Pulse Resp BP Pulse Ox 12/21/19 08:07 97.4 F L 113 H 18 136/69 95 12/20/19 23:33 97.4 F L 106 H 18 126/73 96 Weight Admit Weight 124 lb Weight 114 lb 11.2 oz I&O: 12/20/19 12/21/19 12/22/19 06:59 06:59 06:59 Intake Total 2880 711 Output Total 1625 650 750 Balance 1255 61 -750 Result Diagrams: 12/20/19 05:23 12/20/19 05:23 Additional Labs: I reviewed patient's labs and MAR Hospitalist ROS - Review of Systems Constitutional: denies: fever, chills, sweats, weakness, malaise Cardiovascular: denies: chest pain, palpitations, orthopnea, paroxysmal noc. dyspnea, edema - Medication Medications: Active Medications Generic Name Dose Route Start Last Admin Trade Name Freq PRN Reason Stop Dose Admin Hydrocodone Bitart/Acetaminophen 1 tab 12/14/19 09:33 12/21/19 03:26 [place] 5/325 PO 1 tab Q4H PRN Administration Moderate to Severe Pain (6-10) Hydrocodone Bitart/Acetaminophen 2 tab 12/14/19 09:42 12/20/19 03:11 [place] 5/325 PO 2 tab Q4H PRN Administration Severe Pain (7-10) Calcium Carbonate 500 mg 12/20/19 17:00 12/21/19 11:01 Calcium Carbonate 500 Mg Chewtab PO 500 mg TID-WM NADIRA Administration Epoetin Blaine-epbx 7,500 unit 12/14/19 09:00 12/14/19 09:05 Retacrit SC 7,500 unit Q7DAYS NADIRA Administration Ferrous Sulfate 325 mg 12/14/19 08:00 12/21/19 10:59 Feosol PO 325 mg BID-WM NADIRA Administration Folic Acid 1 mg 12/21/19 09:00 12/21/19 10:59 Folic Acid 1 Mg Tab PO 1 mg DAILY NADIRA Administration Gabapentin 100 mg 12/15/19 09:00 12/21/19 10:59 Neurontin PO 100 mg BID NADIRA Administration Melatonin 3 mg 12/20/19 12:05 12/20/19 20:33 Melatonin 3 Mg Tab PO 3 mg HSPRN PRN Administration Insomnia Morphine Sulfate 2 mg 12/15/19 09:42 12/21/19 00:15 Morphine SLOW IVP 2 mg Q4H PRN Administration Moderate to Severe Pain (6-10) Pantoprazole Sodium 40 mg 12/18/19 09:00 12/21/19 10:59 Protonix PO 40 mg DAILY NADIRA Administration Sodium Chloride 10 ml 12/14/19 21:00 12/21/19 11:01 Flush - Normal Saline IVF 10 ml Q12HR NADIRA Administration Sodium Chloride 10 ml 12/14/19 09:42 12/15/19 10:50 Flush - Normal Saline IVF 10 ml PRN PRN Administration Saline Flush - Exam General Appearance: awake alert Eye: anicteric sclera ENT: normocephalic atraumatic, moist mucosa Neck: supple Heart: RRR Respiratory: CTAB Gastrointestinal: soft, non-tender Extremities - other findings: Status post right above-knee amputation Skin: no rashes Psychiatric: normal affect, normal behavior Hosp A/P - Plan (1) Peripheral vascular disease Code(s): I73.9 - PERIPHERAL VASCULAR DISEASE, UNSPECIFIED Status: Acute (2) UTI (urinary tract infection) Status: Acute (3) Normochromic anemia Code(s): D64.9 - ANEMIA, UNSPECIFIED Status: Acute (4) BPH (benign prostatic hyperplasia) Code(s): N40.0 - BENIGN PROSTATIC HYPERPLASIA WITHOUT LOWER URINRY TRACT SYMP Status: Chronic (5) HTN (hypertension) Code(s): I10 - ESSENTIAL (PRIMARY) HYPERTENSION Status: Chronic (6) CKD (chronic kidney disease) stage 3, GFR 30-59 ml/min Code(s): N18.3 - CHRONIC KIDNEY DISEASE, STAGE 3 (MODERATE) Status: Chronic (7) Dementia Code(s): F03.90 - UNSPECIFIED DEMENTIA WITHOUT BEHAVIORAL DISTURBANCE Status: Chronic (8) Nausea & vomiting Code(s): R11.2 - NAUSEA WITH VOMITING, UNSPECIFIED Status: Resolved - Plan * Status post right above-knee amputation during this hospitalization. * Continue iron and folic acid. * E. coli UTI-resistant to ceftriaxone, antibiotic changed to nitrofurantoin. * HTN-controlled and stable. * CKD-3- stable. * Encephalopathy- improved * Disposition: To [facility] facility.
[2019-12-21] MEDS: Nitrofurantoin Macrocrystal 50 MG CAP PO SCH ×3 (12:39→23:39)
[2019-12-21] MEDS: EPOETIN ALFA-EPBX (ESRD) 4,000 UNIT/ML VIAL SC SCH (12:40)
[2019-12-21] MEDS: Clopidogrel Bisulfate 75 MG TAB PO SCH (14:09)
[2019-12-21] MEDS: Heparin 5,000 UNITS/ML VIAL SC SCH (14:10)
[2019-12-22] MEDS: Nitrofurantoin Macrocrystal 50 MG CAP PO SCH ×2 (05:33→12:36)
[2019-12-22 07:56] LABS: Anion Gap 17 mmol/L (10-20); BUN (Urea Nitrogen) 33 mg/dL (8.4-25.7); Calc. Creatinine Clearance 37 mL/min (70-130); Calcium 8.2 mg/dL (7.8-10.44); Carbon Dioxide 21 mmol/L (23-31); Chloride 104 mmol/L (98-107); Estimated GFR-MDRD 73; Glucose 92 mg/dL (83-110); Potassium 4.9 mmol/L (3.5-5.1); Sodium 137 mmol/L (136-145)
[2019-12-22 08:24] LABS: Mean Corpuscular Volume 91.7 fL (78.0-98.0)
[2019-12-22 08:30] LABS: Anisocytosis SLIGHT = 6-15 cells (100X) (0-5/hpf); Band 5 % (5-11); Eosinophils 1 % (0-10); Giant Platelets SLIGHT; Hemoglobin 8.9 g/dL (14.0-18.0); Large Platelets SLIGHT; Lymphocytes 9 % (21-51); MDiff Complete? YES; Mean Corpuscular HGB CONC 32.6 g/dL (32.0-36.0); Mean Corpuscular Hemoglobin 29.9 pg (27.0-31.0); Mean Platelet Volume 9.4 fL (7.4-10.4); Metamyelocyte 4 % (0-0); Monocytes 22 % (0-10); Myelocyte 1 % (0-0); Neutrophil 57 % (42-75); Nucleated RBC 3 % (0); Platelet Count 197 thou/uL (130-400); Platelet Morphology Comment Appears Adequate; Polychromasia SLIGHT = 2-3 cells (100X) (0-2/hpf); RBC Distribution Width 15.2 % (11.5-14.5); Reactive Lymphocytes 1 % (0-10); Red Blood Cell (RBC) Count 2.99 mill/uL (4.70-6.10); White Blood Cell (WBC) Count 12.9 thou/uL (4.8-10.8)
[2019-12-22] MEDS: Folic Acid 1 MG TAB PO SCH (08:30)
[2019-12-22] MEDS: Gabapentin 100 MG CAP PO SCH ×2 (08:30→20:09)
[2019-12-22] MEDS: Calcium Carbonate 500 MG ChewTAB PO SCH ×3 (08:30→18:11)
[2019-12-22] MEDS: Ferrous Sulfate 325 MG TAB PO SCH ×2 (08:30→18:12)
[2019-12-22] MEDS: HYDROcodone/Acetaminophen 5/325 mg Tablet PO PRN ×2 (12:36→19:03)
--- NOTE | 2019-12-22 16:19 | PDOC.HOSPP ---
- Subjective Encounter Date: 12/22/19 Encounter Time: 11:00 Subjective: Patient seen for follow-up regarding peripheral vascular disease. He denies any complaints today. - Objective Vital Signs & Weight: Vital Signs (12 hours) Temp Pulse Resp BP Pulse Ox 12/22/19 10:32 98.5 F 106 H 18 128/67 99 12/22/19 07:08 97.8 F 111 H 16 136/83 99 12/22/19 04:25 98.3 F 109 H 20 136/77 98 Weight Admit Weight 124 lb Weight 114 lb 11.2 oz I&O: 12/21/19 12/22/19 12/23/19 06:59 06:59 06:59 Intake Total 711 1250 Output Total 650 2700 Balance 61 -1450 Result Diagrams: 12/22/19 07:28 12/22/19 07:27 Additional Labs: I reviewed patient's labs and MAR Hospitalist ROS - Review of Systems Cardiovascular: denies: chest pain, palpitations, orthopnea, paroxysmal noc. dyspnea, edema, light headedness Gastrointestinal: denies: nausea, vomiting, abdominal pain, diarrhea, constipation, melena, hematochezia - Medication Medications: Active Medications Generic Name Dose Route Start Last Admin Trade Name Freq PRN Reason Stop Dose Admin Hydrocodone Bitart/Acetaminophen 1 tab 12/14/19 09:33 12/21/19 03:26 [place] 5/325 PO 1 tab Q4H PRN Administration Moderate to Severe Pain (6-10) Hydrocodone Bitart/Acetaminophen 2 tab 12/14/19 09:42 12/22/19 12:36 [place] 5/325 PO 2 tab Q4H PRN Administration Severe Pain (7-10) Calcium Carbonate 500 mg 12/20/19 17:00 12/22/19 12:36 Calcium Carbonate 500 Mg Chewtab PO 500 mg TID-WM NADIRA Administration Epoetin Blaine-epbx 7,500 unit 12/14/19 09:00 12/21/19 12:40 Retacrit [place] 7,500 unit Q7DAYS NADIRA Administration Ferrous Sulfate 325 mg 12/14/19 08:00 12/22/19 08:30 Feosol PO 325 mg BID-WM NADIRA Administration Folic Acid 1 mg 12/21/19 09:00 12/22/19 08:30 Folic Acid 1 Mg Tab PO 1 mg DAILY NADIRA Administration Gabapentin 100 mg 12/15/19 09:00 12/22/19 08:30 Neurontin PO 100 mg BID NADIRA Administration Melatonin 3 mg 12/20/19 12:05 12/20/19 20:33 Melatonin 3 Mg Tab PO 3 mg HSPRN PRN Administration Insomnia Morphine Sulfate 2 mg 12/15/19 09:42 12/21/19 18:37 Morphine SLOW IVP 2 mg Q4H PRN Administration Moderate to Severe Pain (6-10) Nitrofurantoin Macrocrystals 50 mg 12/21/19 12:00 12/22/19 12:36 Nitrofurantoin Macrocrystal 50 Mg Cap PO 50 mg Q6HR NADIRA Administration Pantoprazole Sodium 40 mg 12/18/19 09:00 12/22/19 08:30 Protonix PO 40 mg DAILY NADIRA Administration Sodium Chloride 10 ml 12/14/19 21:00 12/22/19 08:34 Flush - Normal Saline IVF 10 ml Q12HR NADIRA Administration Sodium Chloride 10 ml 12/14/19 09:42 12/15/19 10:50 Flush - Normal Saline IVF 10 ml PRN PRN Administration Saline Flush - Exam General Appearance: awake alert Eye: anicteric sclera ENT: moist mucosa Neck: supple Heart: RRR Respiratory: CTAB Gastrointestinal: soft, non-tender Extremities: no cyanosis Extremities - other findings: Status post right lower extremity amputation Skin: no rashes Neurological: no weakness Psychiatric: normal affect, normal behavior Hosp A/P - Plan -Assessment (1) Peripheral vascular disease Code(s): I73.9 - PERIPHERAL VASCULAR DISEASE, UNSPECIFIED Status: Acute (2) UTI (urinary tract infection) Status: Acute (3) Normochromic anemia Code(s): D64.9 - ANEMIA, UNSPECIFIED Status: Acute (4) CKD (chronic kidney disease) stage 3, GFR 30-59 ml/min Code(s): N18.3 - CHRONIC KIDNEY DISEASE, STAGE 3 (MODERATE) Status: Chronic (5) BPH (benign prostatic hyperplasia) Code(s): N40.0 - BENIGN PROSTATIC HYPERPLASIA WITHOUT LOWER URINRY TRACT SYMP Status: Chronic (6) HTN (hypertension) Code(s): I10 - ESSENTIAL (PRIMARY) HYPERTENSION Status: Chronic (7) Dementia Code(s): F03.90 - UNSPECIFIED DEMENTIA WITHOUT BEHAVIORAL DISTURBANCE Status: Chronic (8) Nausea & vomiting Code(s): R11.2 - NAUSEA WITH VOMITING, UNSPECIFIED Status: Resolved - Plan * Status post right above-knee amputation * Continue iron and folic acid. * E. coli and Morganella UTI-switch to meropenem for now, consult ID service. * HTN-controlled and stable. * CKD-3- stable. * Encephalopathy- improved * Disposition: To intermediate facility.
[2019-12-22] MEDS: MEROPENEM 1 GM/50 ML 1 GM in Premix Bag 1 BAG IVPB SCH (18:12)
[2019-12-23] MEDS: MEROPENEM 1 GM/50 ML 1 GM in Premix Bag 1 BAG IVPB SCH ×3 (00:20→17:58)
[2019-12-23 05:28] LABS: Anion Gap 16 mmol/L (10-20); BUN (Urea Nitrogen) 28 mg/dL (8.4-25.7); Calc. Creatinine Clearance 34 mL/min (70-130); Calcium 8.4 mg/dL (7.8-10.44); Carbon Dioxide 20 mmol/L (23-31); Chloride 105 mmol/L (98-107); Estimated GFR-MDRD 68; Glucose 96 mg/dL (83-110); Potassium 4.9 mmol/L (3.5-5.1); Sodium 136 mmol/L (136-145)
[2019-12-23 05:47] LABS: Anisocytosis SLIGHT = 6-15 cells (100X) (0-5/hpf); Band 13 % (5-11); Eosinophils 1 % (0-10); Lymphocytes 11 % (21-51); MDiff Complete? YES; Monocytes 15 % (0-10); Neutrophil 59 % (42-75); Nucleated RBC 5 % (0)
[2019-12-23 05:48] LABS: Hemoglobin 8.6 g/dL (14.0-18.0); Mean Corpuscular HGB CONC 33.2 g/dL (32.0-36.0); Mean Corpuscular Hemoglobin 29.9 pg (27.0-31.0); Mean Platelet Volume 9.2 fL (7.4-10.4); Platelet Count 205 thou/uL (130-400); RBC Distribution Width 15.2 % (11.5-14.5); Red Blood Cell (RBC) Count 2.88 mill/uL (4.70-6.10); White Blood Cell (WBC) Count 12.9 thou/uL (4.8-10.8)
[2019-12-23] MEDS: Ferrous Sulfate 325 MG TAB PO SCH ×2 (08:39→17:58)
[2019-12-23] MEDS: Folic Acid 1 MG TAB PO SCH (08:39)
[2019-12-23] MEDS: Calcium Carbonate 500 MG ChewTAB PO SCH ×3 (08:39→17:58)
[2019-12-23] MEDS: Gabapentin 100 MG CAP PO SCH ×2 (08:39→20:07)
[2019-12-23] MEDS: HYDROcodone/Acetaminophen 5/325 mg Tablet PO PRN (08:47)
--- NOTE | 2019-12-23 13:33 | PDOC.HOSPP ---
- Subjective Encounter Date: 12/23/19 Encounter Time: 09:30 Subjective: Patient seen for follow-up regarding urinary tract infection. He reports pain at surgical site. - Objective Vital Signs & Weight: Vital Signs (12 hours) Temp Pulse Resp BP Pulse Ox 12/23/19 07:40 98.1 F 107 H 18 137/78 99 12/23/19 03:45 98.6 F 103 H 16 112/67 98 Weight Admit Weight 124 lb Weight 114 lb 11.2 oz I&O: 12/22/19 12/23/19 12/24/19 06:59 06:59 06:59 Intake Total 1250 550 Output Total 2700 1650 Balance -1450 -1100 Result Diagrams: 12/23/19 04:46 12/23/19 04:46 Additional Labs: I reviewed patient's labs and MAR Hospitalist ROS - Review of Systems Cardiovascular: denies: chest pain, palpitations, orthopnea, paroxysmal noc. dyspnea, edema, light headedness Musculoskeletal: reports: leg pain Skin: denies: rash, lesions, caroline, bruising - Medication Medications: Active Medications Generic Name Dose Route Start Last Admin Trade Name Freq PRN Reason Stop Dose Admin Hydrocodone Bitart/Acetaminophen 1 tab 12/14/19 09:33 12/21/19 03:26 [place] 5/325 PO 1 tab Q4H PRN Administration Moderate to Severe Pain (6-10) Hydrocodone Bitart/Acetaminophen 2 tab 12/14/19 09:42 12/23/19 08:47 [place] 5/325 PO 2 tab Q4H PRN Administration Severe Pain (7-10) Calcium Carbonate 500 mg 12/20/19 17:00 12/23/19 08:39 Calcium Carbonate 500 Mg Chewtab PO 500 mg TID-WM NADIRA Administration Epoetin Blaine-epbx 7,500 unit 12/14/19 09:00 12/21/19 12:40 Retacrit [place] 7,500 unit Q7DAYS NADIRA Administration Ferrous Sulfate 325 mg 12/14/19 08:00 12/23/19 08:39 Feosol PO 325 mg BID-WM NADIRA Administration Folic Acid 1 mg 12/21/19 09:00 12/23/19 08:39 Folic Acid 1 Mg Tab PO 1 mg DAILY NADIRA Administration Gabapentin 100 mg 12/15/19 09:00 12/23/19 08:39 Neurontin PO 100 mg BID NADIRA Administration Meropenem 1 gm/ Device 50 mls @ 100 mls/hr 12/22/19 17:00 12/23/19 09:43 IVPB 50 mls 0100,0900,1700 NADIRA Administration Melatonin 3 mg 12/20/19 12:05 12/20/19 20:33 Melatonin 3 Mg Tab PO 3 mg HSPRN PRN Administration Insomnia Morphine Sulfate 2 mg 12/15/19 09:42 12/21/19 18:37 Morphine SLOW IVP 2 mg Q4H PRN Administration Moderate to Severe Pain (6-10) Pantoprazole Sodium 40 mg 12/18/19 09:00 12/23/19 08:39 Protonix PO 40 mg DAILY NADIRA Administration Sodium Chloride 10 ml 12/14/19 21:00 12/23/19 09:43 Flush - Normal Saline IVF 10 ml Q12HR NADIRA Administration Sodium Chloride 10 ml 12/14/19 09:42 12/15/19 10:50 Flush - Normal Saline IVF 10 ml PRN PRN Administration Saline Flush - Exam General Appearance: NAD Eye: anicteric sclera ENT: no oropharyngeal lesions Neck: supple Heart: RRR Respiratory: CTAB Gastrointestinal: soft, non-tender Extremities: no cyanosis Extremities - other findings: Status post right above-knee amputation Psychiatric: normal affect, normal behavior Hosp A/P - Plan -Assessment (1) UTI (urinary tract infection) Status: Acute (2) Peripheral vascular disease Code(s): I73.9 - PERIPHERAL VASCULAR DISEASE, UNSPECIFIED Status: Acute (3) Normochromic anemia Code(s): D64.9 - ANEMIA, UNSPECIFIED Status: Acute (4) CKD (chronic kidney disease) stage 3, GFR 30-59 ml/min Code(s): N18.3 - CHRONIC KIDNEY DISEASE, STAGE 3 (MODERATE) Status: Chronic (5) BPH (benign prostatic hyperplasia) Code(s): N40.0 - BENIGN PROSTATIC HYPERPLASIA WITHOUT LOWER URINRY TRACT SYMP Status: Chronic (6) HTN (hypertension) Code(s): I10 - ESSENTIAL (PRIMARY) HYPERTENSION Status: Chronic (7) Dementia Code(s): F03.90 - UNSPECIFIED DEMENTIA WITHOUT BEHAVIORAL DISTURBANCE Status: Chronic (8) Nausea & vomiting Code(s): R11.2 - NAUSEA WITH VOMITING, UNSPECIFIED Status: Resolved - Plan * Status post right above-knee amputation * Patient is on iron and folic acid. * E. coli and Morganella UTI-continue meropenem, await ID service input. * HTN-controlled and stable. * CKD-3- stable. * Encephalopathy- improved * Disposition: Patient reportedly does not want to go to senior living faci lity. Will look at discharge to home with home health at the time of discharge.
[2019-12-24] MEDS: MEROPENEM 1 GM/50 ML 1 GM in Premix Bag 1 BAG IVPB SCH ×2 (00:01→08:32)
[2019-12-24 07:42] LABS: Hemoglobin 8.8 g/dL (14.0-18.0); Mean Corpuscular HGB CONC 31.9 g/dL (32.0-36.0); Mean Corpuscular Volume 90.9 fL (78.0-98.0); Mean Platelet Volume 9.4 fL (7.4-10.4); Platelet Count 207 thou/uL (130-400); RBC Distribution Width 15.7 % (11.5-14.5); Red Blood Cell (RBC) Count 3.05 mill/uL (4.70-6.10)
[2019-12-24 08:06] LABS: Anion Gap 16 mmol/L (10-20); BUN (Urea Nitrogen) 24 mg/dL (8.4-25.7); Calc. Creatinine Clearance 35 mL/min (70-130); Calcium 8.5 mg/dL (7.8-10.44); Carbon Dioxide 20 mmol/L (23-31); Chloride 105 mmol/L (98-107); Estimated GFR-MDRD 68; Glucose 99 mg/dL (83-110); Sodium 136 mmol/L (136-145)
[2019-12-24 08:16] LABS: Band 5 % (5-11); Elliptocytes SLIGHT = 2-5 cells (100X) (0-1/hpf); Eosinophils 3 % (0-10); Lymphocytes 22 % (21-51); MDiff Complete? YES; Metamyelocyte 4 % (0-0); Monocytes 10 % (0-10); Myelocyte 2 % (0-0); Neutrophil 52 % (42-75); Nucleated RBC 5 % (0); Platelet Morphology Comment Appears Adequate; Polychromasia SLIGHT = 2-3 cells (100X) (0-2/hpf); Tear Drops SLIGHT = 2-5 cells (100X) (0-1/hpf); White Blood Cell (WBC) Count 13.9 thou/uL (4.8-10.8)
[2019-12-24] MEDS: Calcium Carbonate 500 MG ChewTAB PO SCH ×3 (08:30→16:17)
[2019-12-24] MEDS: Ferrous Sulfate 325 MG TAB PO SCH ×2 (08:30→16:17)
[2019-12-24] MEDS: HYDROcodone/Acetaminophen 5/325 mg Tablet PO PRN (08:30)
[2019-12-24] MEDS: Gabapentin 100 MG CAP PO SCH ×2 (08:32→19:59)
[2019-12-24] MEDS: Folic Acid 1 MG TAB PO SCH (08:32)
[2019-12-24] MEDS: Morphine 2 MG/ML VIAL SLOW IVP PRN (12:09)
--- NOTE | 2019-12-24 12:31 | PDOC.HOSPP ---
- Subjective Encounter Date: 12/24/19 Encounter Time: 07:30 Subjective: Patient seen in follow-up for urinary tract infection. He denies any chest pain or shortness of breath. - Objective Vital Signs & Weight: Vital Signs (12 hours) Temp Pulse Resp BP Pulse Ox 12/24/19 12:00 97.8 F 103 H 18 122/76 100 12/24/19 07:55 98 F 103 H 12 126/70 98 12/24/19 03:07 99.0 F 108 H 16 139/77 99 Weight Admit Weight 124 lb Weight 114 lb 11.2 oz I&O: 12/23/19 12/24/19 12/25/19 06:59 06:59 06:59 Intake Total 550 230 Output Total 1650 1600 Balance -1100 -1600 230 Result Diagrams: 12/24/19 07:22 12/24/19 07:22 Additional Labs: I reviewed patient's labs and MAR Hospitalist ROS - Review of Systems Gastrointestinal: denies: nausea, vomiting, abdominal pain, diarrhea, constipation, melena, hematochezia Genitourinary: denies: dysuria, frequency, incontinence, hematuria, retention - Medication Medications: Active Medications Generic Name Dose Route Start Last Admin Trade Name Freq PRN Reason Stop Dose Admin Calcium Carbonate 500 mg 12/20/19 17:00 12/24/19 12:08 Calcium Carbonate 500 Mg Chewtab PO 500 mg TID-WM NADIRA Administration Epoetin Blaine-epbx 7,500 unit 12/14/19 09:00 12/21/19 12:40 Retacrit [place] 7,500 unit Q7DAYS NADIRA Administration Ferrous Sulfate 325 mg 12/14/19 08:00 12/24/19 08:30 Feosol PO 325 mg BID-WM NADIRA Administration Folic Acid 1 mg 12/21/19 09:00 12/24/19 08:32 Folic Acid 1 Mg Tab PO 1 mg DAILY NADIRA Administration Gabapentin 100 mg 12/15/19 09:00 12/24/19 08:32 Neurontin PO 100 mg BID NADIRA Administration Meropenem 1 gm/ Device 50 mls @ 100 mls/hr 12/22/19 17:00 12/24/19 08:32 IVPB 50 mls 0100,0900,1700 NADIRA Administration Melatonin 3 mg 12/20/19 12:05 12/20/19 20:33 Melatonin 3 Mg Tab PO 3 mg HSPRN PRN Administration Insomnia Morphine Sulfate 2 mg 12/15/19 09:42 12/24/19 12:09 Morphine SLOW IVP 2 mg Q4H PRN Administration Moderate to Severe Pain (6-10) Pantoprazole Sodium 40 mg 12/18/19 09:00 12/24/19 08:32 Protonix PO 40 mg DAILY NADIRA Administration Sodium Chloride 10 ml 12/14/19 21:00 12/24/19 08:33 Flush - Normal Saline IVF 10 ml Q12HR NADIRA Administration Sodium Chloride 10 ml 12/14/19 09:42 12/15/19 10:50 Flush - Normal Saline IVF 10 ml PRN PRN Administration Saline Flush - Exam General Appearance: awake alert ENT: normocephalic atraumatic Neck: no lymphadenopathy Heart: RRR Respiratory: CTAB Gastrointestinal: non-tender, non-distended Extremities: no cyanosis Skin: no rashes Musculoskeletal - other findings: Status post right above-knee amputation Hosp A/P - Plan -Assessment (1) UTI (urinary tract infection) Status: Acute (2) Peripheral vascular disease Code(s): I73.9 - PERIPHERAL VASCULAR DISEASE, UNSPECIFIED Status: Acute (3) Normochromic anemia Code(s): D64.9 - ANEMIA, UNSPECIFIED Status: Acute (4) CKD (chronic kidney disease) stage 3, GFR 30-59 ml/min Code(s): N18.3 - CHRONIC KIDNEY DISEASE, STAGE 3 (MODERATE) Status: Chronic (5) BPH (benign prostatic hyperplasia) Code(s): N40.0 - BENIGN PROSTATIC HYPERPLASIA WITHOUT LOWER URINRY TRACT SYMP Status: Chronic (6) HTN (hypertension) Code(s): I10 - ESSENTIAL (PRIMARY) HYPERTENSION Status: Chronic (7) Dementia Code(s): F03.90 - UNSPECIFIED DEMENTIA WITHOUT BEHAVIORAL DISTURBANCE Status: Chronic (8) Nausea & vomiting Code(s): R11.2 - NAUSEA WITH VOMITING, UNSPECIFIED Status: Resolved - Plan * Continue meropenem for now for urinary tract infection secondary to E. coli and Morganella. ID service consult pending. * Status post right above-knee amputation * Continue iron and folic acid. * HTN-controlled and stable. * CKD-3- stable. * Encephalopathy- improved * Disposition: Home with home health when stable.
--- NOTE | 2019-12-24 16:03 | PQF ---
CLINICAL DOCUMENTATION CLARIFICATION FORM: Dear Dr. Liam BRYAN Date: 12/24/2019 3286 Please exercise your independent, professional judgment in responding to the clarification form. Clinical indicators are provided on the bottom of this form for your review. Please check appropriate box(es): Encephalopathy: Type: [ x ] Acute [ ] Subacute [ ] Chronic Etiology: [ ] Hypertensive [ x ] Metabolic [ ] Toxic [ ] Hepatic with Coma [ ] Hepatic w/o Coma [ ] Hypoxic [ ] Septic [ ] Wernickes [ ] Drug induced: [ ] In the setting of underlying dementia [ ] Unspecified [ ] Other (please specify) [ ] Other diagnosis [ ] Unable to determine In addition, please specify: Present on Admission (POA): [ ] Yes [ x ] No [ ] Unable to determine For continuity of documentation, please document condition throughout progress notes and discharge summary. Thank You. To be completed by CDI/Coding staff for physician review: CLINICAL INDICATORS - SIGNS / SYMPTOMS / LABS / RESULTS AND LOCATION IN EMR 12/15 PN (VERITO) HE IS A BIT CONFUSED 12/16 PN (VERITO) HE IS CLOSER TO HIS BASELINE MENTAL STATUS 12/17 PN (VERITO ) HE IS MUCH CLEARER MENTALLY THIS MORNING. ENCEPHALOPATHY IMPROVED 12/18-12/23 PN (IRVIN) ENCEPHALOPATHY IMPROVED RISK FACTORS / RESULTS AND LOCATION IN EMR DX UTI, HYPERTENSION, CKD, MALNUTRITION (PN/VERITO) 12/16 TREATMENTS / RESULTS AND LOCATION IN EMR MEROPENEM IV (12/21 PRESENT) THANK YOU! CDS Signature: MICHELLE WANG RN Phone #: [phone] Date/Time:12/24/2019 5723 This is a permanent part of the Medical Record [facility]
--- NOTE | 2019-12-24 18:48 | CON ---
DATE OF CONSULTATION: 12/24/2019 REASON FOR CONSULTATION: Possible UTI. HISTORY OF PRESENT ILLNESS: An 79-year-old, who has a history of CKD stage 3, peripheral vascular disease, myelofibrosis, and BPH. He was at [facility] and then developed worsening right leg pain. He was transferred over to this hospital and Dr. Leyva had to perform an AKA due to nonviability of the tissues below the knee level. This was carried out on December 15. Since then, the patient has remained with intermittent temperature elevation, it was 101 on December 15. Other than that, he has been starting to eat. He passed swallow eval with a little bit of penetration but no aspiration. He is currently without any shortness of breath or cough. No chest pain, and mild abdominal pain. He has a Cifuentes catheter in place. Denies any suprapubic pain. No back pain. MEDICAL HISTORY: Includes hyperlipidemia, hypertension, and peripheral vascular disease with extensive revascularization in the past. He also has myelofibrosis and BPH. He has had prior UTIs reportedly, ileus, has had lysis of adhesions, had previous dialysis which was temporary. All of his revascularization for lower extremities was carried out at the [facility]. MEDICATIONS: List of medications: 1. Myrbetriq. 2. Neurontin. 3. Finasteride. 4. Plavix. 5. Coreg. 6. Lipitor. 7. Norvasc. 8. Ferrous gluconate. SOCIAL HISTORY: He is a former smoker. Lives in [place]. PHYSICAL EXAMINATION: VITAL SIGNS: T-max 99, BP 120/76, pulse 102, respirations 18, and O2 saturation 100. SKIN: Shows the left subclavian triple-lumen catheter, and he has a Cifuentes catheter. The right AKA amputation site appears dry with still sutures in place. GENERAL: He is awake, oriented, follows commands. HEENT: Arcus senilis. Oral cavity with only one or two remaining teeth with marked decay. Oral mucosa normal. NECK: Supple. No jugular vein distention. LUNGS: Symmetric, clear breath sounds. HEART: S1 and S2 with a soft aortic murmur. Regular rate. ABDOMEN: Soft. Not distended. We can palpate the prosthetic vascular structures that have been used for [facility] right over the suprapubic area. Those are not tender. EXTREMITIES: Left lower extremity with diminished pulses in dorsalis pedis. The capillary refill is preserved. Still able to move that extremity. No joint inflammatory activity noted. NEUROLOGIC: He is oriented. He knows where he is and the date. LABORATORY DATA: White cell count 13.9, hemoglobin 8.8, platelets 207, 52% neutrophils, and 5% bands. Sodium 136, creatinine 1.23. Ferritin 602. Liver profile was normal. BNP was 385. Urinalysis with 21 to 50 wbc's on December 12, and on the , there were only 11 to 20 wbc's. COVID not detected. He had a creatinine 1.59. Urine culture with E coli and Morganella. E coli was 75,000 to 100,000 CFUs and Morganella 10 to 25 CFUs per mL. Blood cultures, no growth. IMAGING: Included a chest x-ray from December 18 with linear interstitial densities in lung base and perihilar regions, probably interstitial edema, and the aorta with runoff, CTA. ASSESSMENT: Extensive peripheral vascular disease with various revascular[facility] the [facility], mostly trying to salvage the right lower extremity, which now unfortunately was lost at the AKA level. The AKA amputation site appears well with no inflammatory changes or ischemic changes. The patient has a Cifuentes catheter for few days now and one would expect to have an abnormal urinalysis. He has mild neutrophil elevation, which is probably unrelated to the urinary tract findings, and I would consider discontinuing meropenem. I do not think he needs antimicrobial therapy for the right lower extremity either. Job ID: [id number]
[2019-12-24] MEDS ORDERED: Meropenem 1 GM in Sodium Chloride 0.9% 100 ML IVPB SCH (21:00)
[2019-12-25] MEDS: Melatonin 3 MG TAB PO PRN (00:17)
[2019-12-25] MEDS: Morphine 2 MG/ML VIAL SLOW IVP PRN ×2 (00:24→08:55)
[2019-12-25] MEDS: Folic Acid 1 MG TAB PO SCH (08:10)
[2019-12-25] MEDS: Ferrous Sulfate 325 MG TAB PO SCH ×2 (08:10→16:30)
[2019-12-25] MEDS: Gabapentin 100 MG CAP PO SCH ×2 (08:10→19:48)
[2019-12-25] MEDS: Calcium Carbonate 500 MG ChewTAB PO SCH ×3 (08:10→16:30)
[2019-12-25] MEDS ORDERED: HYDROcodone/Acetaminophen 5/325 mg Tablet PO PRN (13:26)
--- NOTE | 2019-12-25 17:51 | PDOC.HOSPP ---
- Subjective Encounter Date: 12/25/19 Encounter Time: 11:00 Subjective: For follow-up regarding peripheral vascular disease. Complains of pain in the right lower extremity. Denies fevers or chills. - Objective Vital Signs & Weight: Vital Signs (12 hours) Temp Pulse Pulse Resp BP BP Pulse Ox 12/25/19 15:50 98.2 F 88 14 119/73 99 12/25/19 11:37 97.6 F 100 18 123/77 99 12/25/19 10:33 98 128/71 12/25/19 08:10 100 12/25/19 07:20 98 F 98 16 128/71 100 Pulse Ox 12/25/19 15:50 12/25/19 11:37 12/25/19 10:33 100 12/25/19 08:10 12/25/19 07:20 Weight Admit Weight 124 lb Weight 114 lb 11.2 oz I&O: 12/24/19 12/25/19 12/26/19 06:59 06:59 06:59 Intake Total 930 Output Total 1600 1450 Balance -1600 -520 Result Diagrams: 12/24/19 07:22 12/24/19 07:22 Additional Labs: I reviewed patient's labs and MAR Hospitalist ROS - Review of Systems Cardiovascular: denies: chest pain, palpitations, orthopnea, paroxysmal noc. dyspnea, edema, light headedness Musculoskeletal: reports: leg pain Skin: denies: rash, lesions, caroline, bruising - Medication Medications: Active Medications Generic Name Dose Route Start Last Admin Trade Name Freq PRN Reason Stop Dose Admin Calcium Carbonate 500 mg 12/20/19 17:00 12/25/19 16:30 Calcium Carbonate 500 Mg Chewtab PO 500 mg TID-WM NADIRA Administration Epoetin Blaine-epbx 7,500 unit 12/14/19 09:00 12/21/19 12:40 Retacrit SC 7,500 unit Q7DAYS NADIRA Administration Ferrous Sulfate 325 mg 12/14/19 08:00 12/25/19 16:30 Feosol PO 325 mg BID-WM NADIRA Administration Folic Acid 1 mg 12/21/19 09:00 12/25/19 08:10 Folic Acid 1 Mg Tab PO 1 mg DAILY NADIRA Administration Gabapentin 100 mg 12/15/19 09:00 12/25/19 08:10 Neurontin PO 100 mg BID NADIRA Administration Melatonin 3 mg 12/20/19 12:05 12/25/19 00:17 Melatonin 3 Mg Tab PO 3 mg HSPRN PRN Administration Insomnia Pantoprazole Sodium 40 mg 12/18/19 09:00 12/25/19 08:10 Protonix PO 40 mg DAILY NADIRA Administration Sodium Chloride 10 ml 12/14/19 21:00 12/25/19 08:10 Flush - Normal Saline IVF 10 ml Q12HR NADIRA Administration Sodium Chloride 10 ml 12/14/19 09:42 12/15/19 10:50 Flush - Normal Saline IVF 10 ml PRN PRN Administration Saline Flush - Exam General Appearance: awake alert Eye: anicteric sclera ENT: normocephalic atraumatic Neck: supple Heart: RRR, no rubs Respiratory: CTAB Gastrointestinal: soft, non-tender Extremities: no edema Skin - other findings: Status post R AKA Psychiatric: normal affect Hosp A/P - Plan -Assessment (1) Peripheral vascular disease Code(s): I73.9 - PERIPHERAL VASCULAR DISEASE, UNSPECIFIED Status: Acute (2) UTI (urinary tract infection) Status: Acute (3) Normochromic anemia Code(s): D64.9 - ANEMIA, UNSPECIFIED Status: Acute (4) CKD (chronic kidney disease) stage 3, GFR 30-59 ml/min Code(s): N18.3 - CHRONIC KIDNEY DISEASE, STAGE 3 (MODERATE) Status: Chronic (5) BPH (benign prostatic hyperplasia) Code(s): N40.0 - BENIGN PROSTATIC HYPERPLASIA WITHOUT LOWER URINRY TRACT SYMP Status: Chronic (6) HTN (hypertension) Code(s): I10 - ESSENTIAL (PRIMARY) HYPERTENSION Status: Chronic (7) Dementia Code(s): F03.90 - UNSPECIFIED DEMENTIA WITHOUT BEHAVIORAL DISTURBANCE Status: Chronic - Plan * Antibiotics were discontinued yesterday. Patient continues to be stable. * Status post right above-knee amputation * Patient is on iron and folic acid. * HTN-controlled and stable. * CKD-3- stable. * Encephalopathy- improved * Disposition: Plan for swing bed.
[2019-12-25] MEDS: HYDROcodone/Acetaminophen 5/325 mg Tablet PO PRN (19:47)
[2019-12-26] MEDS: HYDROcodone/Acetaminophen 5/325 mg Tablet PO PRN ×3 (04:43→16:37)
[2019-12-26] MEDS: Calcium Carbonate 500 MG ChewTAB PO SCH ×3 (08:02→16:29)
[2019-12-26] MEDS: Gabapentin 100 MG CAP PO SCH (08:02)
[2019-12-26] MEDS: Folic Acid 1 MG TAB PO SCH (08:02)
[2019-12-26] MEDS: Ferrous Sulfate 325 MG TAB PO SCH ×2 (08:02→16:29)
[2019-12-26 14:57] VITALS: BP 117/74; TEMP 97.7
--- NOTE | 2019-12-27 06:37 | DIS ---
DATE OF ADMISSION: 12/13/2019 DATE OF DISCHARGE: 12/26/2019 PRIMARY CARE PROVIDER: Unknown. DISCHARGE DIAGNOSES: 1. Right limb ischemia. 2. Peripheral vascular disease. 3. Urinary tract infection. 4. Anemia. 5. Acute on chronic stage 3 renal failure. 6. COVID-19 test negative. CONDITION OF PATIENT ON THE DAY OF DISCHARGE: Stable. I assessed Mr. Schmitt on the day of discharge. He denies any chest pain or shortness of breath. Vital signs are stable. S1 and S2 are heard, regular. Lungs are clear to auscultation bilaterally. CONSULTATIONS DURING THIS HOSPITALIZATION: Cardiovascular Surgery, Dr. Leyva; Gastroenterology, Dr. Andrews; Infectious Diseases, Dr. Arechiga; and Nephrology, Dr. Mackay. HOSPITAL COURSE: Mr. Schmitt is a pleasant 79-year-old gentleman, who was admitted to [facility] on December 13, 2019, for right lower extremity pain. He had severe peripheral vascular disease of his right lower extremity, which was demonstrated on CT angiogram. He was seen by Cardiovascular surgeon. He was recommended right above-knee amputation. He underwent right above-knee amputation on December 16, 2019. He was also seen by Gastroenterology for anemia. He was found to be deficient in folic acid and iron. There was also a component of anemia of chronic kidney disease. He has been started on folate and iron. He was also found to have urinary tract infection with Escherichia coli and Morganella morganii. He was treated with intravenous antibiotics. Infectious Disease Service recommended discontinuing the antibiotics. He continued to do well after discontinuation of antibiotics. He has been accepted for a swing bed at [place]. He is being discharged there in a stable condition for further management. His creatinine normalized during this hospitalization. Many thanks for allowing me to participate in your patient's care. Please feel free to contact me with any questions or concerns. FOLLOWUP: Post acute care followup: With primary care provider in 1 week. DIET: Renal. ACTIVITY: As tolerated. TIME SPENT: Total amount of time spent coordinating this discharge: Thirty-one minutes. DISCHARGE MEDICATIONS: 1. Erythropoietin 7500 units every week. 2. Ferrous sulfate 325 mg 2 times a day. 3. Folic acid 1 mg daily. 4. Gabapentin 100 mg 2 times a day. 5. Protonix 40 mg daily. 6. Tylenol p.r.n. 7. Phenergan p.r.n. 8. Tramadol p.r.n. 9. Dulcolax p.r.n. 10. Melatonin p.r.n. 11. Zinc oxide ointment p.r.n. 12. Avenel p.r.n. Job ID: [id number]
== END 2019-12-26 18:06 | disposition critical access hospital (66) | DRG 239 ==
LOC: ERS 17:20 → SURG A 20:56
PROVIDERS: ADMIT Internal Medicine; ATTEND Internal Medicine
PROC: 30233N1 Transfusion of Nonautologous Red Blood Cells into Peripheral Vein, Percutaneous Approach (ICD-10-PCS; 2019-12-15)
PROC: 0Y6C0Z2 Detachment at Right Upper Leg, Mid, Open Approach (ICD-10-PCS; principal; 2019-12-16)
DX: I70.221 Atherosclerosis of native arteries of extremities with rest pain, right leg (principal); G93.41 Metabolic encephalopathy; E44.0 Moderate protein-calorie malnutrition; Z68.1 Body mass index [BMI] 19.9 or less, adult; D75.81 Myelofibrosis; Z20.828 Contact with and (suspected) exposure to other viral communicable diseases; N40.0 Benign prostatic hyperplasia without lower urinary tract symptoms; I12.9 Hypertensive chronic kidney disease with stage 1 through stage 4 chronic kidney disease, or unspecified chronic kidney disease; F03.90 Unspecified dementia, unspecified severity, without behavioral disturbance, psychotic disturbance, mood disturbance, and anxiety; N18.3 Chronic kidney disease, stage 3 (moderate); Z79.899 Other long term (current) drug therapy; Z79.01 Long term (current) use of anticoagulants; Z87.891 Personal history of nicotine dependence
CPT/HCPCS: 36415; 36430; 71045; 75635; 80048; 80053; 81001; 81003; 81015; 82274; 82553; 82607; 82728; 82746; 83540; 83550; 83605; 83880; 84484; 85025; 85060; 85610; 85730; 86850; 86900; 86901; 87040; 87070; 87077; 87086; 87186; 87205; 87635; 88307; 93005; 93010; 93923; 96374; J0696; J1644; J1940; J2001; J2185; J2270; J2704; J2916; J3010; J3490; P9016; Q5105; Q9967; U0003

== ENCOUNTER 2020-01-17 11:56 | Inpatient (IN) | payer OTHER ==
[2020-01-17] MEDS ORDERED: Vancomycin HCl 750 MG in Sodium Chloride 0.9% 250 ML 250 ML IVPB SCH (13:30)
[2020-01-17 13:47] LABS: Hemoglobin 7.7 g/dL (14.0-18.0); Mean Corpuscular HGB CONC 31.4 g/dL (32.0-36.0); Mean Corpuscular Hemoglobin 29.4 pg (27.0-31.0); Mean Corpuscular Volume 93.5 fL (78.0-98.0); Mean Platelet Volume 9.6 fL (7.4-10.4); Platelet Count 174 thou/uL (130-400); Red Blood Cell (RBC) Count 2.62 mill/uL (4.70-6.10); White Blood Cell (WBC) Count 43.3 thou/uL (4.8-10.8)
[2020-01-17 14:04] LABS: ALT (SGPT) 19 U/L (8-55); AST (SGOT) 32 U/L (5-34); Albumin 3.1 g/dL (3.4-4.8); Alkaline Phosphatase 92 U/L (40-110); Anion Gap 16 mmol/L (10-20); BUN (Urea Nitrogen) 56 mg/dL (8.4-25.7); Bilirubin, Total 0.6 mg/dL (0.2-1.2); Calc. Creatinine Clearance 0 mL/min (70-130); Calcium 7.9 mg/dL (7.8-10.44); Carbon Dioxide 18 mmol/L (23-31); Chloride 116 mmol/L (98-107); Estimated GFR-MDRD 43; Globulin 3.9 g/dL (2.4-3.5); Glucose 129 mg/dL (83-110); Potassium 4.6 mmol/L (3.5-5.1); Sodium 145 mmol/L (136-145)
[2020-01-17 14:05] LABS: Band 22 % (5-11); Hypersemented Neutrophil SLIGHT; Lymphocytes 4 % (21-51); MDiff Complete? YES; Monocytes 19 % (0-10); Myelocyte 3 % (0-0); Neutrophil 46 % (42-75); Nucleated RBC 7 % (0); Platelet Morphology Comment Appears Adequate; Polychromasia MODERATE = 3-4 cells (100X) (0-2/hpf); Tear Drops SLIGHT = 2-5 cells (100X) (0-1/hpf)
--- NOTE | 2020-01-17 14:22 | RAD ---
PORTABLE CHEST: 01/17/20 INDICATIONS: Mental status change. Sepsis. COMPARISON: 01/11/20. There is new dense infiltrating consolidation in the right mid lung extending from the right hilar re gion. The left lung is better aerated although there is evidence of streaky atelectasis and/or infiltrate i n the left lung base. An NG tube passes through the EG junction with tip overlying the left upper quadrant. IMPRESSION: New area of dense consolidation in the right mid lung. Question streaky atelectasis or infiltrate in the left lower lobe. POS: AGW
--- NOTE | 2020-01-17 15:44 | CT ---
EXAM: CT ABDOMEN AND PELVIS HISTORY: Evaluate for bowel obstruction. COMPARISON: 01/16/2020. Procedure: Multiple contiguous axial images were obtained and a CT of the abdomen and pelvis with IV contrast. C oronal reformats were performed. FINDINGS: Lower Chest: Multi lobar consolidation due to atelectasis, pneumonia or aspiration. Vessels: Normal caliber aorta. No periaortic fat stranding.. Stable occlusion of the right internal a nd external iliac artery. Bifemoral bypass is noted. Heart: Upper normal heart size. No significant pericardial effusion Abdomen: Portal vein:Patent Gallbladder: Contracted due to nonfasting state Liver: Appropriate enhancement. There is hepatomegaly. Pancreas: Appropriate enhancement. Spleen: Appropriate enhancement. Splenomegaly. Adrenals: within normal limits. Kidneys: Stable atrophy of the right kidney. Prominent right extrarenal pelvis as well as dilatation of the right intrarenal and extrarenal collecting system. No evidence of obstructing calculus. Appropriate enhancement of the left kidney. No evidence of obstructive uropathy. Peritoneum: There is a small amount of perihepatic fluid. There is a small amount of fluid in the lef t and right paracolic gutter. Mild stranding of the abdominal mesentery. Bowel: Limited evaluation by the lack of oral contrast. Interval placement of a nasogastric tube, dec ompressing the stomach. There is evidence of previous surgical change, presumed to be bariatric in etiology. Multiple distended loops of small bowel are still present. The overall degree of small christen l distention has decreased suggesting partial resolution of a previous identified high-grade bowel obstruction. Distal small bowel loops are decompressed. The exact transition segment is difficult to appreciate. There is multifocal bowel edema and bowel wall thickening. Normal caliber appendix. Scattered fecal material in a nondistended, nondilated colon. Copious fecal material in the sigmoid c olon and rectum. There is presacral fat stranding. Correlate for stercoral colitis. Mesentery and Retroperitoneum: No enlarged mesenteric or retroperitoneal lymph nodes. Abdominal Wall: Mild edema suggesting anasarca. Pelvis: Reproductive Organs: Reproductive organs are unremarkable. Pelvis: No mass, lymphadenopathy, free air or free fluid. Bladder: Decompressed due to Cifuentes catheter. Bones: within normal limits. IMPRESSION: 1. Partial resolution of previously identified high-grade small bowel obstruction. Prominent small radha wel loops do remain. Partial bowel obstruction is still suspected. Continued surveillance is recommended. 2. Multilobar pneumonia. 3. Presumed chronic high-grade right hydronephrosis with atrophic right kidney. 4. Stercoral colitis. Consider general surgical consultation. Results study conveyed to Jeanette Wade on 01/17/2020 at 3:43 PM. CODE CR Transcribed Date/Time: 01/17/2020 4:49 PM
--- NOTE | 2020-01-17 15:48 | PDOC.HHP ---
Hospitalist HPI - History of Present Illness History of Present Illness: This is an 80-year-old male patient with a history of myelofibrosis, BPH, hypertension, CKD, peripheral vascular disease who was transferred from [facility] for altered mental status sepsis and small bowel obstruction. At the time of my evaluation patient was slightly confused however apparently improved from what was noted in the records. History was however is significantly limited. The patient was first seen here on 11/15/2019 on account of vomiting and noted to have high-grade small bowel obstruction for which he appeared to have had lysis of adhesion. He stay was complicated by hypoxia and aspiration pneumonia and DIEUDONNE requiring dialysis and CCU transfer post-op. He was discharged around 12/02/2019 only to return on 12/13/2019 this time was concerning for arterial occlusion to the right lower limb. It appears her attempts at bypass surgery elsewhere which was unsuccessful. Eventually had above-knee amputation of the right lower limb on 12/16/2019. He was discharged again to [place] where he had been doing apparently well until 2 days ago when he started having vomiting with worsening confusion. Yesterday a CT scan of his abdomen was done on account of vomiting which showed high-grade obstruction and bilateral lobar pneumonia. Is unclear whether he was started on any antibiotics or any management at that time. Today he was sent to the ED at [place] where he was evaluated given IV fluids, NG tube and transferred here for further management.His blood pressure was 125/68, pulse 109, respiratory 23, temperature 98.7 saturating 99% on room air. Labs showed WBC 43.3, with 22 bands hemoglobin 7.7 from a baseline of 10.2 a day ago. Platelet count was 174.. BMP showed creatinine of 1.82 at around baseline. Lactic acid was 2.3. Repeat CT scanning showed interval improvement in his high-grade small bowel obstruction. Chest x-ray showed new area of consolidation in his right midlung with left lower lobe infiltration. While in the ED he had bowel movements. He was given IV vancomycin and normal saline at 130 mils per hour. Hospitalist team was consulted to admit Hospitalist ROS - Review of Systems ROS unobtainable: due to mental status Hospitalist History - Past Medical History Renal/: reports: Benign prostatic enlarg. Other Medical History: Myelofibrosis, BPH, hypertension, CKD, peripheral vascular disease. - Past Surgical History Other Surgical History: Above-knee amputation on the right. Additional lysis. - Family History Other Family History: Unable to obtain at the moment - Social History Smoking Status: Never smoker Alcohol: reports: None Drugs: reports: none - Exam General - other findings: Ill looking, awake but confused Eye: PERRL, anicteric sclera ENT: normocephalic atraumatic, dry oral mucosa ENT - other findings: G-tube in place. Heart: RRR, no murmur, no gallops, no rubs Respiratory - other findings: Reduced air entry at the right. Rales Gastrointestinal: soft, non-tender, non-distended, normal bowel sounds, no guarding, no rigidity Gastrointestinal - other findings: Healed surgical wounds. Extremities: no cyanosis, no clubbing, no edema Extremities - other findings: AKA on the right Skin: normal turgor, no lesions Neurological: cranial nerve grossly intact, normal sensation to touch Musculoskeletal: normal tone, normal strength, no muscle wasting Psychiatric - other findings: Oriented to person Hospitalist Results - Labs Result Diagrams: 01/17/20 13:24 01/17/20 13:24 Lab results: WBC 43.3 thou/uL (4.8-10.8) H* 01/17/20 13:24 Hgb 7.7 g/dL (14.0-18.0) L 01/17/20 13:24 Hct 24.5 % (42.0-52.0) L 01/17/20 13:24 MCV 93.5 fL (78.0-98.0) 01/17/20 13:24 Plt Count 174 thou/uL (130-400) 01/17/20 13:24 Band Neuts % (Manual) 22 % (5-11) H 01/17/20 13:24 Sodium 145 mmol/L (136-145) 01/17/20 13:24 Potassium 4.6 mmol/L (3.5-5.1) 01/17/20 13:24 Chloride 116 mmol/L (98-107) H 01/17/20 13:24 Carbon Dioxide 18 mmol/L (23-31) L 01/17/20 13:24 BUN 56 mg/dL (8.4-25.7) H 01/17/20 13:24 Creatinine 1.82 mg/dL (0.7-1.3) H 01/17/20 13:24 Glucose 129 mg/dL (83-110) H 01/17/20 13:24 Lactic Acid 2.3 mmol/L (0.5-2.2) H 01/17/20 13:24 Calcium 7.9 mg/dL (7.8-10.44) 01/17/20 13:24 Total Bilirubin 0.6 mg/dL (0.2-1.2) 01/17/20 13:24 AST 32 U/L (5-34) 01/17/20 13:24 ALT 19 U/L (8-55) 01/17/20 13:24 Alkaline Phosphatase 92 U/L (40-110) 01/17/20 13:24 Serum Total Protein 7.0 g/dL (5.8-8.1) 01/17/20 13:24 Albumin 3.1 g/dL (3.4-4.8) L 01/17/20 13:24 Hospitalist H&P A/P - Plan Plan: This is an 80-year-old male patient with a history of Hypertension, recent small bowel obstruction status post adhesiolysis and recent AKA due to peripheral vascular disease on the right presents today as a transfer from [facility] in [place] on account of sepsis, small bowel obstruction and altered mental status. Severe sepsis Lactate elevated at 2.3, white blood cells 43.3 with bands 22, tachycardia and tachypnea with encephalopathy. Sources include lungs secondary to possible aspiration pneumonia and small christen ls. Received vancomycin and 1 L normal saline We will add 500 mils normal saline bolus Cefepime and metronidazole for anaerobic coverage Trend lactate Continue monitoring. Follow-up blood cultures from outside hospital. Bilateral pneumonia Likely aspiration History of small bowel obstruction with altered mental status. We will continue on Vanco cefepime and metronidazole for now. Blood cultures pending De-escalate antibiotics as needed Small bowel obstruction CT scan shows persistent small bowel obstruction consistent with repeat from a day ago. NG tube in place currently not draining. He passed a bowel movement abdomen is currently soft Surgery consulted Continue monitoring hydration and electrolyte monitoring Acute encephalopathy Secondary to sepsis Treatment sepsis and monitor. Peripheral vascular disease Continue management Normocytic anemic Hemoglobin 7.7 Likely secondary to sepsis Has history of myelofibrosis as well We will monitor H&H Transfuse if hemoglobin less than 7. CKD Previously dialyzed Monitor renal function. Nephrology consult if deteriorates. VT prophylaxisHeparin CODE STATUSfull code
[2020-01-17] MEDS ORDERED: Cefepime 2 GM in Sodium Chloride 0.9% 100 ML IVPB SCH ×2 (16:00→21:00)
[2020-01-17] MEDS ORDERED: Sodium Chloride 0.9% 1,000 ML IV SCH (16:00)
[2020-01-17] MEDS ORDERED: Sodium Chloride 0.9% 500 ML IV SCH ×2 (16:01→16:15)
[2020-01-17 16:42] LABS: Lactic Acid 2.3 mmol/L (0.5-2.2)
[2020-01-17] MEDS: metroNIDAZOLE 500 MG in Premix Bag 1 BAG IVPB SCH (18:20)
[2020-01-17 18:29] VITALS: BMI 17.0
[2020-01-17 18:59] LABS: Bilirubin Negative (Negative); Blood, Urine Trace (Negative); Clarity Turbid (Clear); Glucose, Urine (Dipstick) Normal (Negative); Ketone, Urine Negative (Negative); Leukocyte 500 Leu/uL (Negative); Nitrite Negative (Negative); Protein, Urine (Dipstick) 200 mg/dL (Neg-Trace); RBC/HPF 0-3 HPF (0-3); Squamous Epithelial None Seen HPF (0-3); Urobilinogen Normal mg/dL (Less than 2); pH, Urine 7.5 (5.0-9.0)
[2020-01-17 19:06] LABS: Bacteria/HPF 4+ HPF (None Seen)
[2020-01-17 19:08] LABS: Urine Culture Reflex Yes Yes
[2020-01-17] MEDS ORDERED: Magnesium Citrate 300 ML BOT PER TUBE SCH (19:15)
[2020-01-17] MEDS ORDERED: Fleet Enema 133 ML BOT PR SCH (19:15)
[2020-01-17] MEDS ORDERED: Sodium Chloride 0.45% 500 ML IV SCH (19:15)
[2020-01-17] MEDS ORDERED: Enoxaparin Sodium 30 MG/0.3 ML SYRINGE SC SCH (21:00)
[2020-01-17] MEDS: Polyethylene Glycol 3350 17 GM Packet PO SCH (21:51)
[2020-01-17] MEDS: Heparin 5,000 UNITS/ML VIAL SC SCH (21:51)
[2020-01-17] MEDS: Cefepime 2 GM in Sodium Chloride 0.9% 100 ML IVPB SCH (21:51)
[2020-01-17] MEDS: Citrucel 500 MG TAB PO SCH (21:51)
[2020-01-17] MEDS: Sodium Chloride 0.45% 1,000 ML IV SCH (21:56)
[2020-01-17] MEDS ORDERED: metroNIDAZOLE 500 MG in Premix Bag 1 BAG IVPB SCH (22:00)
--- NOTE | 2020-01-18 00:45 | CON ---
DATE OF CONSULTATION: HISTORY OF PRESENT ILLNESS: An 80-year-old male patient who had a laparotomy in November by Dr. Cabrera to relieve adhesion. He had had a previous open appendectomy. The patient has been at the [facility] and apparently developed some mental status changes and sent for evaluation. He was seen in our emergency room, and chest x-ray revealed pneumonia. CAT scan was obtained, revealing extensive constipation and fecal impaction. Apparently, NG tube was placed in the emergency room prior to the CAT scan, is in good position. Stomach was decompressed. Bowel decompressed. Looks much better. The patient denies having any nausea or vomiting. On exam, his abdomen was completely nondistended, soft, and good bowel sounds. Apparently, enema was to be administered in the emergency room, but he had a large bowel movement, and it was not. Since the NG tube is in place, there is no output. ALLERGIES: NONE. SOCIAL HISTORY: Tobacco use, none. Alcohol use, none. MEDICATIONS: As an outpatient: 1. Tramadol. 2. Protonix. 3. Melatonin. 4. [place]. 5. Gabapentin. 6. Ferrous sulfate. 7. . 8. Dulcolax. 9. Tylenol. PAST SURGICAL HISTORY: Appendectomy, open, right lower quadrant oblique incision; laparotomy; lysis of adhesions; right [id number] amputation due to PAD; history of acute renal failure requiring temporary hemodialysis, now not required. PAST MEDICAL HISTORY: Myelofibrosis, BPH, hypertension, mild chronic kidney disease, peripheral vascular disease. PHYSICAL EXAMINATION: VITAL SIGNS: Five feet 8 inches, 111 pounds, 17 BMI, 97.8, 106 94, 125/60. LUNGS: Clear to auscultation. CARDIAC: Regular rate and rhythm without murmur or gallop. ABDOMEN: Soft, nontender. Good bowel sounds. A well-healed midline incision. No hernias. EXTREMITIES: Unremarkable. LABORATORY DATA: White count 43,000, 22% bands, hemoglobin 7.7, sodium 145, chloride 116, carbon dioxide 18, BUN and creatinine 56 and 1.82, GFR of 43, glucose 129. Liver function tests are normal. ASSESSMENT AND PLAN: 1. Severe constipation. Review of his CAT scan reveals fecal impaction, stool throughout his colon. We will plan laxatives, enemas. CAT scan is not consistent with bowel obstruction. NG tube has not had any output and is in proper position. At this point, I would recommend magnesium citrate per NG tube, clamp for 1 hour, then remove, and initiate full liquids as tolerated. Would continue to give MiraLAX twice a day, fiber twice a day and give enemas. 2. Pneumonia. 3. Right above-knee amputation status. 4. Deconditioning. 5. Malnutrition. 6. Chronic kidney disease, near baseline levels. Job ID: [id number]
[2020-01-18] MEDS: metroNIDAZOLE 500 MG in Premix Bag 1 BAG IVPB SCH ×4 (01:44→23:51)
[2020-01-18] MEDS: Sodium Chloride 0.45% 1,000 ML IV SCH ×3 (04:24→20:00)
[2020-01-18 05:32] LABS: Hemoglobin 7.4 g/dL (14.0-18.0)
[2020-01-18 05:53] LABS: Lactic Acid 1.3 mmol/L (0.5-2.2)
[2020-01-18 05:55] LABS: Albumin 3.1 g/dL (3.4-4.8); Anion Gap 16 mmol/L (10-20); BUN (Urea Nitrogen) 47 mg/dL (8.4-25.7); Bilirubin, Total 0.5 mg/dL (0.2-1.2); Calc. Creatinine Clearance 26 mL/min (70-130); Calcium 7.8 mg/dL (7.8-10.44); Carbon Dioxide 16 mmol/L (23-31); Chloride 118 mmol/L (98-107); Estimated GFR-MDRD 51; Globulin 3.8 g/dL (2.4-3.5); Glucose 113 mg/dL (83-110); Potassium 3.8 mmol/L (3.5-5.1); Protein, Total 6.9 g/dL (5.8-8.1); Sodium 146 mmol/L (136-145)
[2020-01-18 05:56] LABS: ALT (SGPT) 22 U/L (8-55); AST (SGOT) 33 U/L (5-34); Alkaline Phosphatase 96 U/L (40-110)
[2020-01-18 06:08] LABS: Band 2 % (5-11); Elliptocytes SLIGHT = 2-5 cells (100X) (0-1/hpf); Eosinophils 2 % (0-10); Hemoglobin 7.3 g/dL (14.0-18.0); Hypochromia SLIGHT = 6-15 cells (100X) (0-5/hpf); Lymphocytes 4 % (21-51); MDiff Complete? YES; Mean Corpuscular HGB CONC 30.5 g/dL (32.0-36.0); Mean Corpuscular Hemoglobin 28.6 pg (27.0-31.0); Mean Corpuscular Volume 93.7 fL (78.0-98.0); Mean Platelet Volume 9.3 fL (7.4-10.4); Monocytes 22 % (0-10); Neutrophil 70 % (42-75); Platelet Count 173 thou/uL (130-400); Platelet Morphology Comment Appears Adequate; Polychromasia SLIGHT = 2-3 cells (100X) (0-2/hpf); RBC Distribution Width 17.9 % (11.5-14.5); Red Blood Cell (RBC) Count 2.56 mill/uL (4.70-6.10); White Blood Cell (WBC) Count 30.4 thou/uL (4.8-10.8)
[2020-01-18] MEDS ORDERED: Fleet Enema 133 ML BOT PR SCH (08:00)
[2020-01-18] MEDS: Polyethylene Glycol 3350 17 GM Packet PO SCH ×2 (08:10→20:01)
[2020-01-18] MEDS: Heparin 5,000 UNITS/ML VIAL SC SCH ×3 (08:10→19:52)
[2020-01-18] MEDS: Cefepime 2 GM in Sodium Chloride 0.9% 100 ML IVPB SCH (08:11)
[2020-01-18] MEDS: Citrucel 500 MG TAB PO SCH ×2 (08:11→19:52)
[2020-01-18 09:45] LABS: Hemoglobin 8.2 g/dL (14.0-18.0)
[2020-01-18 12:10] LABS: SARS-CoV-2 MS2 Positive; SARS-CoV-2 N Gene Negative; SARS-CoV-2 S Gene Negative; SARS-CoV-2 by NAA Not Detected (NotDetected); SARS-CoV-2 orf1ab Negative
--- NOTE | 2020-01-18 12:28 | RAD ---
ACUTE ABDOMINAL SERIES: DATE: 01/18/2020. PROVIDED CLINICAL HISTORY: Followup small bowel obstruction/ileus. FINDINGS: Comparison 01/17/2020 chest radiograph and 01/16/2020 KUB. The cardiac and mediastinal silhouette i s unchanged in appearance. Prominence of the pulmonary vasculature and pulmonary interstitium with r ight parahilar consolidation redemonstrated. There is no pleural fluid or pneumothorax apparent. There is no evidence for pneumoperitoneum. The abdominal bowel gas pattern is nonspecific. No radio graphically apparent urinary tract calculi. IMPRESSION: 1. Stable radiographic appearance of the chest. 2. Nonspecific bowel gas pattern. POS: SHEELA
--- NOTE | 2020-01-18 12:42 | PDOC.HOSPP ---
- Subjective Encounter Date: 01/18/20 Encounter Time: 08:00 Subjective: Patient seen for follow-up regarding sepsis.Tolerating clear fluids. - Objective Vital Signs & Weight: Vital Signs (12 hours) Temp Pulse Resp BP Pulse Ox 01/18/20 11:43 98.4 F 65 18 143/74 H 98 01/18/20 08:00 99 01/18/20 07:09 97.8 F 109 H 18 142/72 H 99 01/18/20 03:59 98.7 F 108 H 18 125/66 100 Weight Admit Weight 111 lb Weight 111 lb 15.917 oz I&O: 01/17/20 01/18/20 01/19/20 06:59 06:59 06:59 Intake Total 7770 Output Total 750 Balance 7020 Result Diagrams: 01/18/20 09:31 01/18/20 05:03 Additional Labs: I reviewed patient's labs and MAR Hospitalist ROS - Review of Systems Gastrointestinal: denies: nausea, vomiting, abdominal pain, diarrhea, constip ation, melena, hematochezia Genitourinary: denies: dysuria, frequency, incontinence, hematuria, retention - Medication Medications: Active Medications Generic Name Dose Route Start Last Admin Trade Name Freq PRN Reason Stop Dose Admin Heparin Sodium (Porcine) 5,000 units 01/17/20 21:00 01/18/20 08:10 Heparin 5,000 Units/Ml Vial SC 5,000 units TID NADIRA Administration Metronidazole 500 mg/ Device 100 mls @ 100 mls/hr 01/17/20 16:00 01/18/20 08:11 IVPB 100 mls 0800,1600,2359 NADIRA Administration Cefepime HCl 2 gm/ Sodium 100 mls @ 200 mls/hr 01/17/20 20:00 01/18/20 08:11 Chloride IVPB 100 mls 0800,2000 NADIRA Administration Sodium Chloride 1,000 mls @ 125 mls/hr 01/17/20 19:15 01/18/20 11:18 1/2 Normal Saline IV 1,000 mls .Q8H NADIRA Administration Methylcellulose 500 mg 01/17/20 21:00 01/18/20 08:11 Citrucel 500 Mg Tab PO 500 mg BID NADIRA Administration Polyethylene Glycol 17 gm 01/17/20 21:00 01/18/20 08:10 Polyethylene Glycol 3350 17 Gm Packet PO 17 gm BID NADIRA Administration - Exam General Appearance: awake alert Eye: anicteric sclera ENT: moist mucosa Neck: supple Heart: RRR Respiratory: CTAB Gastrointestinal: soft, non-tender Extremities: no cyanosis Skin: no rashes Musculoskeletal: normal tone Psychiatric: normal affect, normal behavior Hosp A/P - Plan This is an 80-year-old male patient with a history of Hypertension, recent small bowel obstruction status post adhesiolysis and recent AKA admitted for sepsis/bowel obstruction: -Sepsis Secondary to pneumonia vs UTI Urine growing gram negative rods. Discontinue cefpime, start meropenem based on prior urine culture results Bilateral pneumonia Likely aspiration History of small bowel obstruction with altered mental status. We will continue on Vanco and metronidazole, start meropenem -UTI Start meropenem, follow culture Small bowel obstruction Improved, pt tolerating clear fluids. Peripheral vascular disease Continue management Normocytic anemic Hemoglobin stable CKD Previously dialyzed Monitor renal function. Nephrology consult if deteriorates. Acute encephalopathy Resolved VT prophylaxisHeparin
--- NOTE | 2020-01-18 12:59 | PDOC.HOSPP ---
- Subjective Encounter Date: 01/18/20 Encounter Time: 08:00 - Objective Vital Signs & Weight: Vital Signs (12 hours) Temp Pulse Resp BP Pulse Ox 01/18/20 11:43 98.4 F 65 18 143/74 H 98 01/18/20 08:00 99 01/18/20 07:09 97.8 F 109 H 18 142/72 H 99 01/18/20 03:59 98.7 F 108 H 18 125/66 100 Weight Admit Weight 111 lb Weight 111 lb 15.917 oz I&O: 01/17/20 01/18/20 01/19/20 06:59 06:59 06:59 Intake Total 7770 Output Total 750 Balance 7020 Result Diagrams: 01/18/20 09:31 01/18/20 05:03 Hospitalist ROS - Medication Medications: Active Medications Generic Name Dose Route Start Last Admin Trade Name Freq PRN Reason Stop Dose Admin Heparin Sodium (Porcine) 5,000 units 01/17/20 21:00 01/18/20 08:10 Heparin 5,000 Units/Ml Vial SC 5,000 units TID NADIRA Administration Metronidazole 500 mg/ Device 100 mls @ 100 mls/hr 01/17/20 16:00 01/18/20 08:11 IVPB 100 mls 0800,1600,2359 NADIRA Administration Sodium Chloride 1,000 mls @ 125 mls/hr 01/17/20 19:15 01/18/20 11:18 1/2 Normal Saline IV 1,000 mls .Q8H NADIRA Administration Methylcellulose 500 mg 01/17/20 21:00 01/18/20 08:11 Citrucel 500 Mg Tab PO 500 mg BID NADIRA Administration Polyethylene Glycol 17 gm 01/17/20 21:00 01/18/20 08:10 Polyethylene Glycol 3350 17 Gm Packet PO 17 gm BID NADIRA Administration
[2020-01-18] MEDS ORDERED: Vancomycin HCl 500 MG in Sodium Chloride 0.9% 100 ML IVPB SCH (14:00)
[2020-01-18] MEDS: MEROPENEM 1 GM/50 ML 1 GM in Premix Bag 1 BAG IVPB SCH (14:34)
--- NOTE | 2020-01-18 15:46 | PRG ---
DATE OF SERVICE: 01/18/2020 SUBJECTIVE: Mr. Tavera is doing well today. He has had multiple bowel movements with multiple enemas and magnesium citrate. He is tolerating full liquids. He wants something more to eat. OBJECTIVE: VITAL SIGNS: Temperature 98.4 degrees, heart rate 65, blood pressure 123/74. LUNGS: Clear to auscultation. CARDIAC: Regular rate and rhythm without murmur or gallop. ABDOMEN: Soft, nontender, and nondistended. EXTREMITIES: Unremarkable. AKA stump well healed. ASSESSMENT AND PLAN: No evidence of bowel obstruction. Constipation treated and resolved. Advance to regular diet. I will see as needed. Please call if necessary. Job ID: [id number]
[2020-01-18 16:26] LABS: Hemoglobin 9.2 g/dL (14.0-18.0)
[2020-01-18 16:39] LABS: Lactic Acid 1.9 mmol/L (0.5-2.2); Vancomycin, Random 12.5 ug/mL (See Comment)
[2020-01-18] MEDS ORDERED: Vancomycin HCl 750 MG in Sodium Chloride 0.9% 100 ML IVPB SCH (17:00)
[2020-01-18] MEDS ORDERED: VANCOMYCIN HCL IVPB SCH (17:00)
[2020-01-18] MEDS ORDERED: SODIUM CHLORIDE 0.9% IVPB SCH (17:00)
[2020-01-18] MEDS ORDERED: Vancomycin HCl 750 MG in Sodium Chloride 0.9% 250 ML 250 ML IVPB SCH (18:00)
--- NOTE | 2020-01-18 20:31 | RAD ---
Portable upright frontal chest radiograph: 01/18/2020 COMPARISON: 01/18/2020 10:23 AM HISTORY: Dyspnea FINDINGS: Interval worsening of diffuse interstitial and alveolar opacity bilaterally with a perihila r and bibasilar predominance. Findings include new areas of airspace disease in the left perihilar region and suprahilar region and worsening opacity within the right perihilar region and both lung ba ses. No pneumothorax. IMPRESSION: Significant interval worsening of diffuse interstitial and alveolar opacity. Findings may be related to pulmonary edema, infectious pneumonitis, and/or aspiration.
[2020-01-18] MEDS ORDERED: FLU VACC QS2020-21(65YR UP)/PF 240 MCG/0.7 ML SYRINGE IM ONE (21:00)
[2020-01-19] MEDS ORDERED: Furosemide 40 MG/4 ML VIAL SLOW IVP SCH (00:15)
[2020-01-19] MEDS ORDERED: Furosemide 20 MG/2 ML VIAL SLOW IVP SCH (00:15)
--- NOTE | 2020-01-19 00:15 | PDOC.EVN ---
Event Note - Event Note Event Note: Night nurse called to let us know patient was c/o of dyspnea and she placed him on O2 which helped. CXR ordered and fluids stopped (were going at 125ml/hr). Worsening interstitial and alveolar opacity on CXR. Nurse reports he does not cough with sips of water so aspiration less likely. Is on Meropenem, cefepime and flagyl... will give 20mg of lasix to see if it could be pulmonary edema. Patient's creatinine is increased so we will start with 20mg and see if it improves his dyspnea. Will hold IV fluids for now.
[2020-01-19] MEDS: MEROPENEM 1 GM/50 ML 1 GM in Premix Bag 1 BAG IVPB SCH ×2 (02:42→15:06)
[2020-01-19 06:27] LABS: Band 2 % (5-11); Eosinophils 1 % (0-10); Hemoglobin 8.7 g/dL (14.0-18.0); Lymphocytes 21 % (21-51); MDiff Complete? YES; Mean Corpuscular HGB CONC 33.6 g/dL (32.0-36.0); Mean Corpuscular Hemoglobin 30.7 pg (27.0-31.0); Mean Corpuscular Volume 91.4 fL (78.0-98.0); Mean Platelet Volume 10.6 fL (7.4-10.4); Metamyelocyte 1 % (0-0); Monocytes 13 % (0-10); Neutrophil 62 % (42-75); Nucleated RBC 2 % (0); Platelet Count 177 thou/uL (130-400); Platelet Morphology Comment Appears Adequate; RBC Morphology Normal; Red Blood Cell (RBC) Count 2.85 mill/uL (4.70-6.10); White Blood Cell (WBC) Count 17.8 thou/uL (4.8-10.8)
[2020-01-19 06:31] LABS: ALT (SGPT) 20 U/L (8-55); AST (SGOT) 26 U/L (5-34); Albumin 3.3 g/dL (3.4-4.8); Alkaline Phosphatase 100 U/L (40-110); Anion Gap 15 mmol/L (10-20); BUN (Urea Nitrogen) 36 mg/dL (8.4-25.7); Bilirubin, Total 0.4 mg/dL (0.2-1.2); Calc. Creatinine Clearance 29 mL/min (70-130); Calcium 7.9 mg/dL (7.8-10.44); Carbon Dioxide 16 mmol/L (23-31); Chloride 118 mmol/L (98-107); Estimated GFR-MDRD 59; Globulin 3.9 g/dL (2.4-3.5); Glucose 112 mg/dL (83-110); Potassium 3.6 mmol/L (3.5-5.1); Protein, Total 7.2 g/dL (5.8-8.1); Sodium 145 mmol/L (136-145)
[2020-01-19] MEDS: metroNIDAZOLE 500 MG in Premix Bag 1 BAG IVPB SCH ×2 (09:29→16:35)
[2020-01-19] MEDS: Heparin 5,000 UNITS/ML VIAL SC SCH ×3 (09:31→19:43)
[2020-01-19] MEDS: Citrucel 500 MG TAB PO SCH ×2 (09:31→19:44)
[2020-01-19] MEDS: Polyethylene Glycol 3350 17 GM Packet PO SCH ×2 (09:32→19:44)
[2020-01-19] MEDS ORDERED: Melatonin 3 MG TAB PO PRN (09:44)
--- NOTE | 2020-01-19 16:56 | PDOC.HOSPP ---
- Subjective Encounter Date: 01/19/20 Encounter Time: 16:55 Subjective: Patient seen for follow-up regarding sepsis. Feels better. Complains of insomnia. - Objective Vital Signs & Weight: Vital Signs (12 hours) Temp Pulse Resp BP Pulse Ox 01/19/20 15:18 97.8 F 107 H 18 146/63 H 100 01/19/20 11:59 98.6 F 107 H 18 140/73 100 01/19/20 07:10 97.4 F L 110 H 20 177/88 H 100 Weight Admit Weight 111 lb Weight 111 lb 15.917 oz I&O: 01/18/20 01/19/20 01/20/20 06:59 06:59 06:59 Intake Total 7770 2915 Output Total 750 1475 Balance 7020 1440 Result Diagrams: 01/19/20 05:11 01/19/20 05:11 Additional Labs: I reviewed patient's labs and MAR Hospitalist ROS - Review of Systems Constitutional: reports: other Cardiovascular: denies: chest pain (Insomnia), palpitations, orthopnea, paroxysmal noc. dyspnea, edema, light headedness Gastrointestinal: denies: nausea, vomiting, abdominal pain, diarrhea, constipation, melena, hematochezia - Medication Medications: Active Medications Generic Name Dose Route Start Last Admin Trade Name Freq PRN Reason Stop Dose Admin Heparin Sodium (Porcine) 5,000 units 01/17/20 21:00 01/19/20 15:07 Heparin 5,000 Units/Ml Vial SC 5,000 units TID NADIRA Administration Metronidazole 500 mg/ Device 100 mls @ 100 mls/hr 01/17/20 16:00 01/19/20 09:29 IVPB 100 mls 0800,1600,2359 NADIRA Administration Meropenem 1 gm/ Device 50 mls @ 100 mls/hr 01/18/20 14:00 01/19/20 15:06 IVPB 50 mls 0200,1400 NADIRA Administration Methylcellulose 500 mg 01/17/20 21:00 01/19/20 09:31 Citrucel 500 Mg Tab PO 500 mg BID NADIRA Administration Polyethylene Glycol 17 gm 01/17/20 21:00 01/19/20 09:32 Polyethylene Glycol 3350 17 Gm Packet PO Not Given BID NADIRA - Exam General Appearance: awake alert Eye: anicteric sclera ENT: moist mucosa Neck: supple Heart: RRR Respiratory: CTAB Gastrointestinal: soft, non-tender Extremities - other findings: Status post right above-knee amputation Skin: no rashes Neurological: cranial nerve grossly intact Musculoskeletal: normal tone Psychiatric: normal affect, normal behavior Hosp A/P - Plan This is an 80-year-old male patient with a history of Hypertension, recent small bowel obstruction status post adhesiolysis and recent AKA admitted for sepsis/bowel obstruction: -Sepsis Secondary to pneumonia vs UTI Gram-negative marquis in urine culture, identification and sensitivity pending., Could be colonization. Continue meropenem. Leukocytosis improving, patient is afebrile. Bilateral pneumonia Likely aspiration History of small bowel obstruction with altered mental status. We will continue on Vanco, metronidazole, and meropenem -UTI Continue meropenem, follow culture Peripheral vascular disease Continue management Normocytic anemic Hemoglobin stable CKD Previously dialyzed Monitor renal function. Nephrology consult if deteriorates. Acute encephalopathy Resolved Small bowel obstruction Resolved PRN melatonin 3 mg at bedtime for insomnia. VT prophylaxisHeparin
[2020-01-19 17:39] LABS: Vancomycin, Random 13.6 ug/mL (See Comment)
[2020-01-19] MEDS ORDERED: Vancomycin HCl 750 MG in Sodium Chloride 0.9% 250 ML 250 ML IVPB SCH (18:00)
[2020-01-19] MEDS: Vancomycin HCl 750 MG in Sodium Chloride 0.9% 250 ML 250 ML IVPB SCH (21:42)
[2020-01-20] MEDS: metroNIDAZOLE 500 MG in Premix Bag 1 BAG IVPB SCH ×3 (00:56→16:38)
[2020-01-20] MEDS: MEROPENEM 1 GM/50 ML 1 GM in Premix Bag 1 BAG IVPB SCH ×2 (02:40→14:14)
[2020-01-20] MEDS: Polyethylene Glycol 3350 17 GM Packet PO SCH ×2 (08:52→20:35)
[2020-01-20] MEDS: Heparin 5,000 UNITS/ML VIAL SC SCH ×3 (08:54→20:35)
[2020-01-20] MEDS: Citrucel 500 MG TAB PO SCH ×2 (10:51→20:35)
--- NOTE | 2020-01-20 12:52 | PDOC.HOSPP ---
- Subjective Encounter Date: 01/20/20 Encounter Time: 07:20 Subjective: Patient seen for follow-up for sepsis. Denies chest pain or shortness of breath. Tolerating diet. - Objective Vital Signs & Weight: Vital Signs (12 hours) Temp Pulse Resp BP BP Pulse Ox 01/20/20 12:04 98.4 F 103 H 16 162/78 H 100 01/20/20 09:15 98.3 F 110 H 22 H 152/73 H 96 01/20/20 08:40 96 01/20/20 03:43 98.1 F 106 H 22 H 158/90 H 94 L 01/20/20 01:00 98 F 107 H 20 159/76 H 95 Weight Admit Weight 111 lb Weight 111 lb 15.917 oz I&O: 01/19/20 01/20/20 01/21/20 06:59 06:59 06:59 Intake Total 2915 Output Total 1475 1100 Balance 1440 -1100 Result Diagrams: 01/19/20 05:11 01/19/20 05:11 Additional Labs: I reviewed patient's labs and [facility] Hospitalist ROS - Review of Systems Cardiovascular: denies: chest pain, palpitations, orthopnea, paroxysmal noc. dyspnea, edema, light headedness Gastrointestinal: denies: nausea, vomiting, abdominal pain, diarrhea, constipation, melena - Medication Medications: Active Medications Generic Name Dose Route Start Last Admin Trade Name Freq PRN Reason Stop Dose Admin Heparin Sodium (Porcine) 5,000 units 01/17/20 21:00 01/20/20 08:54 Heparin 5,000 Units/Ml Vial SC 5,000 units TID NADIRA Administration Metronidazole 500 mg/ Device 100 mls @ 100 mls/hr 01/17/20 16:00 01/20/20 08:52 IVPB 100 mls 0800,1600,2359 NADIRA Administration Meropenem 1 gm/ Device 50 mls @ 100 mls/hr 01/18/20 14:00 01/20/20 02:40 IVPB 50 mls 0200,1400 NADIRA Administration Vancomycin HCl 750 mg/ Sodium 250 mls @ 250 mls/hr 01/19/20 21:00 01/19/20 21:42 Chloride IVPB 250 mls 2100 NADIRA Administration Melatonin 3 mg 01/19/20 09:44 01/19/20 19:43 Melatonin 3 Mg Tab PO 3 mg HS PRN Administration Insomnia Methylcellulose 500 mg 01/17/20 21:00 01/20/20 10:51 Citrucel 500 Mg Tab PO 500 mg BID NADIRA Administration Polyethylene Glycol 17 gm 01/17/20 21:00 01/20/20 08:52 Polyethylene Glycol 3350 17 Gm Packet PO 17 gm BID NADIRA Administration - Exam General Appearance: awake alert Eye: anicteric sclera ENT: moist mucosa Neck: supple Heart: RRR Respiratory: CTAB Gastrointestinal: soft, non-tender Extremities: no edema Extremities - other findings: S/p right AKA Skin: no rashes Psychiatric: normal affect Hosp A/P - Plan This is an 80-year-old male patient with a history of Hypertension, recent small bowel obstruction status post adhesiolysis and recent AKA admitted for sepsis/bowel obstruction: -Sepsis pneumonia vs UTI Gram-negative marquis in urine culture, identification and sensitivity pending. Continue meropenem. Check labs Bilateral pneumonia Likely aspiration History of small bowel obstruction with altered mental status. We will continue on Vanco, metronidazole, and meropenem -UTI Continue meropenem, follow urine culture Normocytic anemic Follow hemoglobin CKD Stable Acute encephalopathy Resolved Small bowel obstruction Resolved Continue PRN melatonin 3 mg at bedtime for insomnia. VT prophylaxisHeparin
--- NOTE | 2020-01-20 13:29 | RAD ---
EXAM: Single view of the chest HISTORY: Dyspnea COMPARISON: 01/18/2020 FINDINGS: Single view of the chest shows an enlarged but stable cardiomediastinal silhouette. Diffus e increased interstitial markings are present. There appear to be multifocal superimposed airspace opacities scattered throughout the lungs. No pleural effusion is seen. No acute osseous abnormality. IMPRESSION: Multifocal infiltrates
[2020-01-20] MEDS: Vancomycin HCl 750 MG in Sodium Chloride 0.9% 250 ML 250 ML IVPB SCH (20:34)
[2020-01-21] MEDS: metroNIDAZOLE 500 MG in Premix Bag 1 BAG IVPB SCH ×3 (00:28→15:30)
[2020-01-21] MEDS: MEROPENEM 1 GM/50 ML 1 GM in Premix Bag 1 BAG IVPB SCH ×2 (01:37→15:26)
[2020-01-21] MEDS: Heparin 5,000 UNITS/ML VIAL SC SCH ×3 (08:57→21:41)
[2020-01-21] MEDS: Citrucel 500 MG TAB PO SCH ×2 (08:58→23:42)
[2020-01-21] MEDS: Polyethylene Glycol 3350 17 GM Packet PO SCH ×2 (08:58→23:42)
[2020-01-21 09:08] LABS: Hemoglobin 7.9 g/dL (14.0-18.0); Mean Corpuscular HGB CONC 31.1 g/dL (32.0-36.0); Mean Corpuscular Volume 93.3 fL (78.0-98.0); Mean Platelet Volume 9.4 fL (7.4-10.4); Platelet Count 170 thou/uL (130-400); RBC Distribution Width 18.3 % (11.5-14.5); Red Blood Cell (RBC) Count 2.73 mill/uL (4.70-6.10)
[2020-01-21 09:15] LABS: Anion Gap 14 mmol/L (10-20); BUN (Urea Nitrogen) 26 mg/dL (8.4-25.7); Calc. Creatinine Clearance 33 mL/min (70-130); Carbon Dioxide 19 mmol/L (23-31); Chloride 119 mmol/L (98-107); Estimated GFR-MDRD 68; Glucose 93 mg/dL (83-110); Potassium 3.2 mmol/L (3.5-5.1); Sodium 149 mmol/L (136-145)
[2020-01-21 09:43] LABS: Band 8 % (5-11); Bite Cells SLIGHT = 2-5 cells (100X) (0-1/hpf); Eosinophils 2 % (0-10); Lymphocytes 12 % (21-51); MDiff Complete? YES; Metamyelocyte 1 % (0-0); Monocytes 11 % (0-10); Neutrophil 61 % (42-75); Nucleated RBC 7 % (0); Ovalocytes SLIGHT = 2-5 cells (100X) (0-1/hpf); Platelet Morphology Comment Appears Adequate; Polychromasia MODERATE = 3-4 cells (100X) (0-2/hpf); Reactive Lymphocytes 3 % (0-10)
--- NOTE | 2020-01-21 11:28 | PDOC.HOSPP ---
- Subjective Encounter Date: 01/21/20 Encounter Time: 08:00 Subjective: Patient seen for follow-up regarding sepsis. Reports feeling better. - Objective Vital Signs & Weight: Vital Signs (12 hours) Temp Pulse Resp BP BP Pulse Ox 01/21/20 10:52 98.0 F 104 H 18 160/78 H 99 01/21/20 08:40 99 01/21/20 07:51 98.3 F 104 H 18 147/73 H 100 01/21/20 03:40 98.2 F 107 H 18 157/82 H 95 Weight Admit Weight 111 lb Weight 111 lb 15.917 oz I&O: 01/20/20 01/21/20 01/22/20 06:59 06:59 06:59 Intake Total 800 Output Total 1100 950 Balance -1100 -150 Result Diagrams: 01/21/20 08:13 01/21/20 08:13 Additional Labs: I reviewed patient's labs and MAR Hospitalist ROS - Review of Systems Cardiovascular: denies: chest pain, palpitations, orthopnea, paroxysmal noc. dyspnea, edema, light headedness Gastrointestinal: denies: nausea, vomiting, abdominal pain, diarrhea, constipation, melena, hematochezia - Medication Medications: Active Medications Generic Name Dose Route Start Last Admin Trade Name Freq PRN Reason Stop Dose Admin Heparin Sodium (Porcine) 5,000 units 01/17/20 21:00 01/21/20 08:57 Heparin 5,000 Units/Ml Vial SC 5,000 units TID NADIRA Administration Metronidazole 500 mg/ Device 100 mls @ 100 mls/hr 01/17/20 16:00 01/21/20 08:43 IVPB 100 mls 0800,1600,2359 NADIRA Administration Meropenem 1 gm/ Device 50 mls @ 100 mls/hr 01/18/20 14:00 01/21/20 01:37 IVPB 50 mls 0200,1400 NADIRA Administration Vancomycin HCl 750 mg/ Sodium 250 mls @ 250 mls/hr 01/19/20 21:00 01/20/20 20:34 Chloride IVPB 250 mls 2100 NADIRA Administration Melatonin 3 mg 01/19/20 09:44 01/19/20 19:43 Melatonin 3 Mg Tab PO 3 mg HS PRN Administration Insomnia Methylcellulose 500 mg 01/17/20 21:00 01/21/20 08:58 Citrucel 500 Mg Tab PO Not Given BID NADIRA Polyethylene Glycol 17 gm 01/17/20 21:00 01/21/20 08:58 Polyethylene Glycol 3350 17 Gm Packet PO Not Given BID NADIRA - Exam General Appearance: awake alert Eye: anicteric sclera ENT: normocephalic atraumatic Neck: supple Heart: RRR Respiratory: CTAB Gastrointestinal: soft, non-tender Extremities: no edema Extremities - other findings: S/P R AKA Skin: no rashes Psychiatric: normal affect Hosp A/P - Plan This is an 80-year-old male patient with a history of Hypertension, recent small bowel obstruction status post adhesiolysis and recent AKA admitted for sepsis/bowel obstruction: -Sepsis Secondary to pneumonia and urinary tract infection. Continue meropenem, vancomycin and metronidazole.. Bilateral pneumonia Likely aspiration, patient to go for modified barium swallow study. -UTI Continue meropenem for multidrug resistance E. coli. Normocytic anemic Monitor hemoglobin. CKD Stable Acute encephalopathy Resolved Small bowel obstruction Resolved Continue PRN melatonin 3 mg at bedtime for insomnia. Patient will need swing bed. Case management consulted. VT prophylaxisHeparin
[2020-01-21] MEDS: 1/2 NS w/KCL 20 mEq 1,000 ML IV SCH (12:53)
--- NOTE | 2020-01-21 14:06 | RAD ---
EXAM: XR Ba Swallow W/Speech Therap PROVIDED CLINICAL HISTORY: Dysphagia, unspecified. Feeding difficulties COMPARISON: None FINDINGS: This examination was performed in conjunction with speech pathology. Thin and thick liquid barium and pudding consistency barium were administered during the exam. The patient demonstrates difficulty in formation of bolus into the posterior pharynx with significant pooling within the vallecula and pi riform sinuses. The patient demonstrated reagan aspiration with all consistencies as well as aspiration with residue within the vallecula and piriform sinuses. As a result, the procedure was ter minated at this time. Degenerative changes are seen in the cervical spine. IMPRESSION: Significant reagan aspiration with all swallows. In addition, there is significant pooling in the vall ecula and piriform sinuses with aspiration of residue.
[2020-01-21 20:53] LABS: Vancomycin, Trough 16.8 ug/mL
[2020-01-21] MEDS: Vancomycin HCl 750 MG in Sodium Chloride 0.9% 250 ML 250 ML IVPB SCH (21:40)
[2020-01-22] MEDS: metroNIDAZOLE 500 MG in Premix Bag 1 BAG IVPB SCH ×4 (00:44→23:22)
[2020-01-22] MEDS: 1/2 NS w/KCL 20 mEq 1,000 ML IV SCH ×2 (01:22→13:00)
[2020-01-22] MEDS: MEROPENEM 1 GM/50 ML 1 GM in Premix Bag 1 BAG IVPB SCH ×2 (01:46→14:38)
[2020-01-22 06:15] LABS: Anion Gap 17 mmol/L (10-20); BUN (Urea Nitrogen) 28 mg/dL (8.4-25.7); Calc. Creatinine Clearance 32 mL/min (70-130); Calcium 8.1 mg/dL (7.8-10.44); Carbon Dioxide 16 mmol/L (23-31); Chloride 121 mmol/L (98-107); Estimated GFR-MDRD 65; Glucose 75 mg/dL (83-110); Phosphorus 4.3 mg/dL (2.3-4.7); Potassium 3.8 mmol/L (3.5-5.1); Sodium 150 mmol/L (136-145)
[2020-01-22 06:26] LABS: Band 5 % (5-11); Hemoglobin 8.4 g/dL (14.0-18.0); Hypochromia SLIGHT = 6-15 cells (100X) (0-5/hpf); Lymphocytes 18 % (21-51); MDiff Complete? YES; Mean Corpuscular HGB CONC 29.1 g/dL (32.0-36.0); Mean Corpuscular Hemoglobin 27.4 pg (27.0-31.0); Mean Corpuscular Volume 94.3 fL (78.0-98.0); Mean Platelet Volume 9.4 fL (7.4-10.4); Monocytes 15 % (0-10); Neutrophil 62 % (42-75); Platelet Count 178 thou/uL (130-400); Platelet Morphology Comment Appears Adequate; RBC Distribution Width 18.7 % (11.5-14.5); Red Blood Cell (RBC) Count 3.05 mill/uL (4.70-6.10); White Blood Cell (WBC) Count 17.8 thou/uL (4.8-10.8)
[2020-01-22] MEDS: Citrucel 500 MG TAB PO SCH ×2 (08:17→19:30)
[2020-01-22] MEDS: Polyethylene Glycol 3350 17 GM Packet PO SCH ×2 (08:17→19:30)
[2020-01-22] MEDS: Heparin 5,000 UNITS/ML VIAL SC SCH ×3 (08:19→22:15)
[2020-01-22] MEDS ORDERED: Sodium Bicarbonate Tab 325 MG TAB PER TUBE PRN (14:00)
[2020-01-22] MEDS ORDERED: Pancrelipase DR 12,000 1 CAP FS PRN (14:00)
--- NOTE | 2020-01-22 16:23 | PDOC.HOSPP ---
- Subjective Encounter Date: 01/22/20 Encounter Time: 09:00 Subjective: Pt seen for followup re: sepsis. Denies chest pain. - Objective Vital Signs & Weight: Vital Signs (12 hours) Temp Pulse Resp BP Pulse Ox 01/22/20 15:08 98.0 F 100 16 154/76 H 100 01/22/20 11:29 98.3 F 100 16 159/84 H 100 01/22/20 08:15 100 01/22/20 07:46 98.2 F 104 H 16 150/76 H 100 Weight Admit Weight 111 lb Weight 111 lb 15.917 oz I&O: 01/21/20 01/22/20 01/23/20 06:59 06:59 06:59 Intake Total 800 500 Output Total 950 850 Balance -150 -350 Result Diagrams: 01/22/20 05:48 01/22/20 05:48 Additional Labs: Labs and MAR reviewed by ut Hospitalist ROS - Review of Systems Gastrointestinal: denies: nausea, vomiting, abdominal pain, diarrhea, constipation, melena, hematochezia Genitourinary: denies: dysuria, frequency, incontinence, hematuria, retention - Medication Medications: Active Medications Generic Name Dose Route Start Last Admin Trade Name Freq PRN Reason Stop Dose Admin Heparin Sodium (Porcine) 5,000 units 01/17/20 21:00 01/22/20 14:41 Heparin 5,000 Units/Ml Vial SC 5,000 units TID NADIRA Administration Metronidazole 500 mg/ Device 100 mls @ 100 mls/hr 01/17/20 16:00 01/22/20 08:18 IVPB 100 mls 0800,1600,2359 NADIRA Administration Meropenem 1 gm/ Device 50 mls @ 100 mls/hr 01/18/20 14:00 01/22/20 14:38 IVPB 50 mls 0200,1400 NADIRA Administration Potassium Chloride/Sodium Chloride 1,000 mls @ 75 mls/hr 01/21/20 11:30 01/21 13:00 1/2 Ns W/Kcl 20 Meq IV 1,000 mls .[id number] NADIRA Administration Melatonin 3 mg 01/19/20 09:44 01/19/20 19:43 Melatonin 3 Mg Tab PO 3 mg HS PRN Administration Insomnia Methylcellulose 500 mg 01/17/20 21:00 01/22/20 08:17 Citrucel 500 Mg Tab PO Not Given BID NADIRA Polyethylene Glycol 17 gm 01/17/20 21:00 01/22/20 08:17 Polyethylene Glycol 3350 17 Gm Packet PO Not Given BID NADIRA - Exam General Appearance: awake alert Eye: anicteric sclera Neck: supple Heart: RRR Respiratory: CTAB Gastrointestinal: soft Extremities - other findings: s/p R AKA Skin: no rashes Psychiatric: normal affect, normal behavior Hosp A/P - Plan This is an 80-year-old male patient with a history of Hypertension, recent small bowel obstruction status post adhesiolysis and recent AKA admitted for sepsis/bowel obstruction: -Sepsis Secondary to pneumonia and urinary tract infection. Pt is on meropenem, vancomycin and metronidazole.. Bilateral pneumonia Likely aspiration pneumonia. -UTI Continue meropenem for multidrug resistance E. coli. Normocytic anemic Monitor hemoglobin. CKD Stable Acute encephalopathy Resolved Small bowel obstruction Resolved Patient is a high aspiration risk but is refusing NG tube feeds. Start PPN. Patient will need swing bed. Case management aware. VT prophylaxisHeparin
[2020-01-22] MEDS: D5W-AA 4.25% with LYTES 1,000 ML IV SCH (18:37)
[2020-01-23] MEDS: MEROPENEM 1 GM/50 ML 1 GM in Premix Bag 1 BAG IVPB SCH ×2 (02:16→15:26)
[2020-01-23] MEDS: D5W-AA 4.25% with LYTES 1,000 ML IV SCH ×2 (05:41→18:23)
[2020-01-23 06:06] LABS: Phosphorus 3.8 mg/dL (2.3-4.7)
[2020-01-23 06:07] LABS: Anion Gap 16 mmol/L (10-20); BUN (Urea Nitrogen) 38 mg/dL (8.4-25.7); Calc. Creatinine Clearance 32 mL/min (70-130); Calcium 8.3 mg/dL (7.8-10.44); Carbon Dioxide 18 mmol/L (23-31); Chloride 120 mmol/L (98-107); Estimated GFR-MDRD 66; Glucose 109 mg/dL (83-110); Potassium 3.9 mmol/L (3.5-5.1); Sodium 150 mmol/L (136-145)
[2020-01-23 06:11] LABS: Band 15 % (5-11); Hemoglobin 8.4 g/dL (14.0-18.0); Lymphocytes 30 % (21-51); MDiff Complete? YES; Mean Corpuscular HGB CONC 31.1 g/dL (32.0-36.0); Mean Corpuscular Hemoglobin 28.8 pg (27.0-31.0); Mean Corpuscular Volume 92.8 fL (78.0-98.0); Mean Platelet Volume 9.4 fL (7.4-10.4); Metamyelocyte 2 % (0-0); Monocytes 3 % (0-10); Neutrophil 49 % (42-75); Nucleated RBC 1 % (0); Platelet Count 187 thou/uL (130-400); Platelet Morphology Comment Appears Adequate; RBC Distribution Width 18.2 % (11.5-14.5); Red Blood Cell (RBC) Count 2.91 mill/uL (4.70-6.10); White Blood Cell (WBC) Count 13.5 thou/uL (4.8-10.8)
[2020-01-23] MEDS: metroNIDAZOLE 500 MG in Premix Bag 1 BAG IVPB SCH ×2 (11:04→19:26)
[2020-01-23] MEDS: Citrucel 500 MG TAB PO SCH ×2 (11:05→19:21)
[2020-01-23] MEDS: Polyethylene Glycol 3350 17 GM Packet PO SCH ×2 (11:05→19:21)
[2020-01-23] MEDS: Heparin 5,000 UNITS/ML VIAL SC SCH ×3 (11:05→21:05)
[2020-01-23] MEDS ORDERED: EPINEPHrine 1 MG/10 ML Abboject SYRINGE ONE (14:24)
[2020-01-23] MEDS ORDERED: Calcium Chloride 1 GM/10 ML Abboject SYRINGE ONE (14:24)
[2020-01-23] MEDS ORDERED: Sodium Bicarb 50 MEQ/50 ML Abboject 8.4% SYRINGE ONE (14:24)
--- NOTE | 2020-01-23 14:42 | PDOC.HOSPP ---
- Subjective Encounter Date: 01/23/20 Encounter Time: 08:40 Subjective: Patient seen for follow-up for sepsis. He denies any chest pain or shortness of breath. - Objective Vital Signs & Weight: Vital Signs (12 hours) Temp Pulse Resp BP BP Pulse Ox 01/23/20 11:50 98.1 F 100 20 156/65 H 100 01/23/20 08:25 98 01/23/20 08:00 98.4 F 106 H 20 158/82 H 98 01/23/20 03:44 98.1 F 112 H 17 174/73 H 95 Weight Admit Weight 111 lb Weight 111 lb 15.917 oz I&O: 01/22/20 01/23/20 01/24/20 06:59 06:59 06:59 Intake Total 500 900 Output Total 850 400 Balance -350 500 Result Diagrams: 01/23/20 05:37 01/23/20 05:37 Additional Labs: Accuchecks 01/23/20 01/23/20 01/22/20 11:23 05:36 20:36 POC Glucose 114 H 101 H 80 I reviewed patient's labs and MAR Hospitalist ROS - Review of Systems Cardiovascular: denies: chest pain, palpitations, orthopnea, paroxysmal noc. dyspnea, edema, light headedness Gastrointestinal: denies: nausea, vomiting, abdominal pain, diarrhea, constipation, melena, hematochezia - Medication Medications: Active Medications Generic Name Dose Route Start Last Admin Trade Name Freq PRN Reason Stop Dose Admin Heparin Sodium (Porcine) 5,000 units 01/17/20 21:00 01/23/20 11:05 Heparin 5,000 Units/Ml Vial SC Not Given TID [facility] Metronidazole 500 mg/ Device 100 mls @ 100 mls/hr 01/17/20 16:00 01/23/20 11:04 IVPB Not Given 0800,1600,2359 NADIRA Meropenem 1 gm/ Device 50 mls @ 100 mls/hr 01/18/20 14:00 01/23/20 02:16 IVPB Not Given 0200,1400 NADIRA Amino Acids/Electrolytes/Dextrose 1,000 mls @ 85 mls/hr 01/22/20 16:45 01/23/20 05:41 Clinimix E 4.25/5 IV 1,000 mls INF NADIRA Administration Melatonin 3 mg 01/19/20 09:44 01/19/20 19:43 Melatonin 3 Mg Tab PO 3 mg HS PRN Administration Insomnia Methylcellulose 500 mg 01/17/20 21:00 01/23/20 11:05 Citrucel 500 Mg Tab PO Not Given BID NADIRA Polyethylene Glycol 17 gm 01/17/20 21:00 01/23/20 11:05 Polyethylene Glycol 3350 17 Gm Packet PO Not Given BID NADIRA - Exam General Appearance: awake alert Eye: anicteric sclera ENT: moist mucosa Neck: supple Heart: RRR Respiratory: CTAB Gastrointestinal: soft, non-tender Skin: no rashes Psychiatric: normal affect, normal behavior Hosp A/P - Plan This is an 80-year-old male patient with a history of Hypertension, recent small bowel obstruction status post adhesiolysis and recent AKA admitted for sepsis/bowel obstruction: -Sepsis Secondary to pneumonia and urinary tract infection. continue meropenem, vancomycin and metronidazole.. Bilateral pneumonia Likely aspiration pneumonia. -UTI Continue meropenem for multidrug resistance E. coli. Normocytic anemic Monitor hemoglobin. CKD Stable Acute encephalopathy Resolved Small bowel obstruction Resolved Patient is a high aspiration risk but is refusing NG tube feeds. Start PPN. Patient will need swing bed. Case management aware. Half-normal saline for hyponatremia. VT prophylaxisHeparin
[2020-01-23] MEDS ORDERED: Sodium Chloride 0.45% 1,000 ML IV SCH (14:45)
--- NOTE | 2020-01-23 17:42 | PQF ---
CLINICAL DOCUMENTATION CLARIFICATION FORM: Dear Dr. Damon Date: 01/23/20 Please exercise your independent, professional judgment in responding to the clarification form. Clinical indicators are provided on the bottom of this form for your review. Please check appropriate box(es): [ ] Protein Calorie Malnutrition: [ ] Mild [ ] Moderate [ ] Severe [ ] Other Malnutrition (please specify) [ ] Underweight without malnutrition [ ] Cachexia [ ] Other diagnosis [ ] Unable to determine In addition, please specify: Present on Admission (POA): [ ] Yes [ ] No [ ] Unable to determine For continuity of documentation, please document condition throughout progress notes and discharge summary. Thank You. CLINICAL INDICATORS - SIGNS / SYMPTOMS / LABS / RESULTS AND LOCATION IN MR DIETARY ASSESSMENT 01/20: "NOTED SEVERE TEMPORALIS AND PECTORALIS MUSCLE WASTING, SEVERE ORBITAL AND BUCCAL FAT PAD WASTING, 9.7% WEIGHT LOSS X 1 MONTH SUGGESTIVE OF SEVERE MALNUTRITION IN THE CONTEXT OF CHRONIC ILLNESS." BMI 17 RISKS: SBO (H&P- AFFRAM) H/O CKD (H&P- AFFRAM) H/O PVD 9H&P-AFFRAM) PNEUMONIA (H&P-AFFRAM) MYELOFIBROSIS WITH ANEMIA (H&P) ADVANCED AGE STAGE 3 PU- (DIETARY NOTE01/20) TREATMENT: DIETARY CONSULT 01/17 SPEECH THERAPY CONSULT NUTRITIONAL SUPPLEMENTS RECOMMENDED (DIETARY NOTE 01/20) Moderate Malnutrition (in acute illness) Energy Intake: <75% of estimated energy requirement for > 7 days Weight Loss: 1-2%/1 week; 5%/ 1 month; 7.5%/3 months Other: mild body fat loss; mild muscle mass loss; mild fluid accumulation; Severe Malnutrition (in acute illness) Energy Intake: = 50% of estimated energy requirement for = 5 days Weight Loss: >2%/1 week; >5%/1 month; >7.5%/3 months Other: moderate body fat loss; moderate muscle mass loss; moderate- severe fluid accumulation; 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 Moderate Malnutrition (in chronic illness) Energy Intake: <75% of estimated energy requirement for =1 month Weight Loss: 5%/1 month; 7.5%/3 months; 10%/6 months; 20%/1 year Other: mild body fat loss; mild muscle mass loss; mild fluid accumulation Severe Malnutrition (in chronic illness) Energy Intake: =75% of estimated energy requirement for =1 month Weight Loss: >5%/1 month; >7.5%/3 months; >10%/6 months; >20%/1 year Other: severe body fat loss; severe muscle mass loss; severe fluid accumulation; 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 CDS Signature: Natalie Ware RN Phone #: [phone] Date: 01/23/20 This is a permanent part of the Medical Record [facility]
[2020-01-24 00:15] VITALS: BP 113/63
[2020-01-24] MEDS: metroNIDAZOLE 500 MG in Premix Bag 1 BAG IVPB SCH (00:15)
--- NOTE | 2020-01-24 03:20 | PDOC.BPN ---
<Ana Canales - Last Filed: 01/24/20 03:19> - Brief Progress Note Encounter Date: 01/24/20 Responded as code team. Nurse reportedly found patient unresponsive during the nighttime vital check. Asystole on monitor. CPR in progress. He was given epi x2, 1 am sodium bicarb, and calcium gluconate during code. Airway secured with intubation. Nursing notified family when code was in progress. Aystole on recheck. Code was called after about 15 minutes of compressions. TOD 03:07. Sound paged at 0037 to update. <Tacho Gant - Last Filed: 01/24/20 07:54> Addendum - Attending - Attending Attestation Date/Time: 01/24/20 0754 Present for code blue. See code sheet for more information.
[2020-01-24 05:04] VITALS: TEMP 97.8
--- NOTE | 2020-01-25 02:05 | DIS ---
DATE OF ADMISSION: 01/17/2020 DATE OF DISCHARGE: 01/24/2020 PRIMARY CARE PROVIDER: Unknown. DATE OF : 01/24/2020. DIAGNOSES: 1. Sepsis. 2. Aspiration pneumonia. 3. Oropharyngeal dysphagia. 4. Small-bowel obstruction. 5. Dehydration. 6. Hypernatremia. 7. COVID-19 PCR test negative. 8. Moderate protein calorie malnutrition, present on admission. CONSULTATIONS DURING THIS HOSPITALIZATION: General Surgery, Dr. Ribeiro. HOSPITAL COURSE: Mr. Schmitt is a pleasant 80-year-old gentleman, who was admitted to [facility] on January 17, 2020, for small-bowel obstruction. Chest x-ray done at the time of admission showed new area of dense consolidation in the right mid lung. He also had significant leukocytosis and bandemia and was started on broad-spectrum antibiotics. He was seen by General Surgery Service and was managed conservatively. Abdominal series x-rays showed normal bowel gas pattern. He was started on a diet and was having bowel movements. Followup chest x-ray showed multifocal infiltrates. He was also seen by Speech Therapy and underwent a modified barium swallow, which showed significant reagan aspiration with all swallows. On the morning of January 24, 2020, he was found to be in asystole. Code thien was called, but he could not be resuscitated. Time of was 3:07 a.m. Many thanks for allowing me to participate in your patient's care. Please feel free to contact me with any questions or concerns. Job ID: [id number]
--- NOTE | 2020-02-19 21:45 | PQF ---
CLINICAL DOCUMENTATION CLARIFICATION FORM: Dear :Alex Damon Date / Time: 02/19/2020 21:44 Please exercise your independent, professional judgment in responding to the clarification form. Clinical indicators are provided on the bottom of this form for your review Based on your clinical judgment, can you please specify the stage of patients sacral pressure ulcer? Please check appropriate box(es): [ x ] Pressure Ulcer: [ x] Location: Sacrum Stage (I to IV): __iii [ ] No pressure ulcer diagnosis [ ] Other diagnosis, please specify [ ] Unable to determine Physician Signature: Date/Time: For continuity of documentation, please document condition throughout progress notes and discharge summary. Thank You. To be completed by CDI/Coding staff for physician review: Present Clinical Indicators - Signs / Symptoms / Labs Results and Location in Medical Record [x] Pressure ulcer to the sacrum stage 3 ED Nursing Note 01/16 [x] Skin: normal turgor, no lesions HP 01/16 [x] Stage 3 coccyx Wound care Assessment 01/21 [x] Partial Thickness Wound care Assessment 01/21 [x] Serosanguineous Wound care Assessment 01/21 Present Risk Factors Results and Location in Medical Record [x] 80 years old female ED Notes 01/16 [x] PVD HP 01/16 [x] Severe sepsis HP 01/16 [x] Malnutrition Consult 01/17 Present Treatments Results and Location in Medical Record [x] Wound care consult Wound care Assessment 01/21 [x] Specialty mattress Wound care Assessment 01/21 [x] Reinforce with absorbent pad Wound care Assessment 01/21 [x] Dressing change Wound care Assessment 01/21 CDS/Movie Actor Signature: Andrew Bruce Phone #: [phone] Date/Time: 02/19/2020 21:44 PRESSURE ULCER STAGES Stage I: Erythema Stage II: Partial thickness Stage III: Full thickness Stage IV: Necrosis to muscle/bone This is a permanent part of the Medical Record MTDD
== END 2020-01-24 03:07 | disposition expired | DRG 871 ==
LOC: ERS 11:56 → ERHOLD 13:15 → SURG A 17:44
PROVIDERS: ADMIT Student in an Organized Health Care Education/Training Program; ATTEND Student in an Organized Health Care Education/Training Program
PROC: 3E02340 Introduction of Influenza Vaccine into Muscle, Percutaneous Approach (ICD-10-PCS; 2020-01-18)
PROC: 5A12012 Performance of Cardiac Output, Single, Manual (ICD-10-PCS; principal; 2020-01-24)
PROC: 0BH17EZ Insertion of Endotracheal Airway into Trachea, Via Natural or Artificial Opening (ICD-10-PCS; 2020-01-24)
PROC: 3E033XZ Introduction of Vasopressor into Peripheral Vein, Percutaneous Approach (ICD-10-PCS; 2020-01-24)
DX: A41.9 Sepsis, unspecified organism (principal); L89.153 Pressure ulcer of sacral region, stage 3; G93.41 Metabolic encephalopathy; J69.0 Pneumonitis due to inhalation of food and vomit; D75.81 Myelofibrosis; K56.609 Unspecified intestinal obstruction, unspecified as to partial versus complete obstruction; N39.0 Urinary tract infection, site not specified; E87.1 Hypo-osmolality and hyponatremia; E44.0 Moderate protein-calorie malnutrition; Z68.1 Body mass index [BMI] 19.9 or less, adult; E87.0 Hyperosmolality and hypernatremia; Z23 Encounter for immunization; R65.20 Severe sepsis without septic shock; E78.5 Hyperlipidemia, unspecified; I12.9 Hypertensive chronic kidney disease with stage 1 through stage 4 chronic kidney disease, or unspecified chronic kidney disease; N40.0 Benign prostatic hyperplasia without lower urinary tract symptoms; N18.9 Chronic kidney disease, unspecified; I73.9 Peripheral vascular disease, unspecified; D63.1 Anemia in chronic kidney disease; K59.00 Constipation, unspecified; G47.00 Insomnia, unspecified; R13.12 Dysphagia, oropharyngeal phase; Z20.828 Contact with and (suspected) exposure to other viral communicable diseases; I46.9 Cardiac arrest, cause unspecified; Z89.611 Acquired absence of right leg above knee; Z79.899 Other long term (current) drug therapy; Z90.49 Acquired absence of other specified parts of digestive tract; E86.0 Dehydration
CPT/HCPCS: 36415; 36416; 71045; 74022; 74177; 74230; 80048; 80053; 80202; 81001; 83605; 83880; 84100; 85007; 85025; 85027; 87077; 87086; 87186; 87635; 92950; 96361; 96374; J0171; J0692; J1644; J1940; J2185; J3370; J3480; J3490; J7050; Q9967; U0003